=== PATIENT | female | born 1940 | race Caucasian/White ===

== ENCOUNTER 2016-12-26 10:06 | Emergency (ER) | payer MEDICARE, BC ==
[2016-12-26] MEDS ORDERED: HYDROcodone/APAP 5-325MG 1 EACH TAB PO STA (10:36)
--- NOTE | 2016-12-26 10:39 | ED ---
Extremity Problem HPI - General Chief complaint: Extremity Problem,Nontraumatic Stated complaint: PAIN ALL OVER Time Seen by Provider: 12/26/16 10:18 Source: patient, family, RN notes reviewed Mode of arrival: wheelchair Limitations: no limitations - History of Present Illness Initial comments: 76-year-old female presenting for bilateral knee pain and bilateral forearm pain. Patient states that she has been having this pain for the past few weeks however it's gotten worse in the past several days. She does state that she fell about a week ago, although the pain started prior to her fall. She states that she fell onto her knees and was able to get up shortly afterwards. Her was present for this and denies that she had any head injury or loss of consciousness. They deny any blood thinners. She states, however, that she is having worsening pain in her knees and this is causing her difficulty to walk. She denies any lower extremity swelling. She denies any chest pain or shortness of breath. She denies any fevers or chills. She has tried Aleve at times which somewhat helped her symptoms, although they seem to return when the medication wears off. - Related Data Home Medications Medication Instructions Recorded Confirmed Carbidopa/Levodopa 1 tab PO BID 12/26/16 12/26/16 [Carbidopa-Levodopa 25-100 Tab] Citalopram Hydrobromide 20 mg PO DAILY 12/26/16 12/26/16 [Citalopram HBr] Donepezil [Aricept] 10 mg PO DAILY 12/26/16 12/26/16 Memantine [Namenda] 10 mg PO BID 12/26/16 12/26/16 OLANZapine [Olanzapine] 10 mg PO HS 12/26/16 12/26/16 rOPINIRole HCL [Ropinirole HCl] 2 mg PO TID 12/26/16 12/26/16 Previous Rx's Medication Instructions Recorded HYDROcodone/APAP 5-325MG [[place] 1 tab PO Q6HR PRN #8 tab 12/26/16 5-325] Allergies Allergy/AdvReac Type Severity Reaction Status Date / Time aspirin Allergy Swelling Verified 12/26/16 11:17 Review of Systems ROS Statement: Those systems with pertinent positive or pertinent negative responses have been documented in the HPI. Constitutional: No fevers. No chills. No change in appetite. No unexpected weight loss. Eyes: No visual changes. No eye pain. No sensitivity to light. HENT: No sinus pressure. No ear pain. No hearing changes. No epistaxis. No sore throat. Respiratory: No cough. No SOB. No wheezing. Cardiovascular: No chest pain. No palpitations. No lower extremity edema. Abdomen: No abdominal pain. No nausea. No vomiting. No diarrhea. Genitourinary: No dysuria. No hematuria. No difficulty urinating. No flank pain. Musculoskeletal: Positive knee and arm pain bilateral. No back pain. No myalgias. Skin: No rash. No lesions. No lacerations. Neuro: No gross strength deficits. No LOC. No seizures. No headache. Psych: No confusion. No memory changes. No anxiety/depression. ROS Other: All systems not noted in ROS Statement are negative. Past Medical History Past Medical History: Dementia History of Any Multi-Drug Resistant Organisms: None Reported Past Surgical History: Orthopedic Surgery Past Psychological History: Anxiety Smoking Status: Former smoker Past Alcohol Use History: None Reported Past Drug Use History: None Reported General Exam - General Exam Comments Initial Comments: General: Awake and Alert. No acute distress. Does not appear acutely ill. Eyes: ALVARO, EOM intact. No nystagmus. No scleral icterus. HENT: Atraumatic, normocephalic. Mucous membranes moist. Trachea midline. Neck: The neck is supple, there is no tenderness or JVD. Cardiovascular: Regular rate and rhythm. No murmur, rub, or gallop is appreciated. Distal pulses intact, 2+ DP and radial bilateral. Trace edema bilateral lower extremity below the knee. Respiratory: Lungs are clear to auscultation bilaterally. No wheezes, rales, rhonchi. No respiratory distress. Gastrointestinal: Soft, Nontender. No rebound or guarding. Non-distended. No masses or organomegaly noted. No CVA tenderness. Musculoskeletal: Bilateral knees with history of total knee replacement. There is mild effusion bilaterally although evidence of overlying erythema or significant tenderness. Range of motion appears grossly intact. She also has tenderness to her bilateral proximal forearms. There is no elbow tenderness or effusion and there is good range of motion throughout. There is no back tenderness. There is no evidence of any gross deformity throughout. No strength deficits. Neurological: A&Ox3. CN II-XII grossly intact, There are no obvious motor or sensory deficits. Coordination appears grossly intact. Speech is normal. No saddle paresthesias. Skin: Skin is warm and dry and no rashes or lesions are noted. Small area of ecchymosis on the left patella. Psychiatric: Cooperative, appropriate mood & affect, normal judgment. Limitations: no limitations Course Vital Signs 12/26/16 12/26/16 10:10 13:28 Temperature 98 F 98.2 F Pulse Rate 94 78 Respiratory 20 18 Rate Blood Pressure 122/66 120/60 O2 Sat by Pulse 95 98 Oximetry Medical Decision Making - Medical Decision Making 76-year-old female presenting for bilateral upper and lower extremity pain. also states that she experienced generalized weakness today was concerned about this. The patient denies any chest pain or shortness of breath. On clinical exam she appears stable. Patient's main complaint is of bilateral knees as well as bilateral forearms. She is concerned that she may have a back issue. However she denies any history of chronic back issues nor any recent trauma or injury. There is no tenderness or deformity on examination. History of bilateral knee replacements. X-ray imaging of bilateral knees without acute process or fracture. Chest x-ray was unremarkable. EKG without evidence of ischemia. Basic lab workup is grossly unremarkable. Patient was given [place] for her pain. On reevaluation she states she is feeling significant improvement. She was able to ambulate with staff and did well without any gait instability. She states she is feeling much better. Had discussion with patient and about uncertain etiology of her recent symptoms of weakness although findings in the ED today are reassuring. Discussed close follow-up with PCP and orthopedics. states that they have follow-up with both of these doctors within the next week. Discussed that she will likely benefit from some outpatient physical therapy that can be arranged by her PCP. Discussed concerning signs symptoms for immediate return to the ED. Patient and are agreeable for plan and discharge home. Rx for [place] was provided, discussed being careful for falls with this medication. - Lab Data Result diagrams: 12/26/16 11:10 12/26/16 11:10 Lab Results 12/26/16 12/26/16 Range/Units 11:10 11:10 WBC 7.2 (3.8-10.6) k/uL RBC 3.12 L (3.80-5.40) m/uL Hgb 9.5 L (11.4-16.0) gm/dL Hct 31.1 L (34.0-46.0) % MCV 99.7 (80.0-100.0) fL MCH 30.6 (25.0-35.0) pg MCHC 30.7 L (31.0-37.0) g/dL RDW 18.6 H (11.5-15.5) % Plt Count 425 (150-450) k/uL Neutrophils % 81 % Lymphocytes % 14 % Monocytes % 3 % Eosinophils % 0 % Basophils % 1 % Neutrophils # 5.9 (1.3-7.7) k/uL Lymphocytes # 1.0 (1.0-4.8) k/uL Monocytes # 0.2 (0-1.0) k/uL Eosinophils # 0.0 (0-0.7) k/uL Basophils # 0.1 (0-0.2) k/uL Hypochromasia Moderate Anisocytosis Slight Macrocytosis Slight Sodium 141 (137-145) mmol/L Potassium 4.4 (3.5-5.1) mmol/L Chloride 105 (98-107) mmol/L Carbon Dioxide 28 (22-30) mmol/L Anion Gap 8 mmol/L BUN 20 H (7-17) mg/dL Creatinine 0.68 (0.52-1.04) mg/dL Est GFR (MDRD) Af Amer >60 (>60 ml/min/1.73 sqM) Est GFR (MDRD) Non-Af >60 (>60 ml/min/1.73 sqM) Glucose 92 (74-99) mg/dL Calcium 8.0 L (8.4-10.2) mg/dL Magnesium 1.9 (1.6-2.3) mg/dL - EKG Data -: EKG Interpreted by Dc EKG shows normal: sinus rhythm Rate: normal 12/26/16 11:06 10:48. Normal sinus rhythm. Rate 86. MA 154. QRS 80. QT/QTC 410/490. Normal axis. LVH. No STEMI. Nonspecific EKG. - Radiology Data Radiology results: report reviewed, image reviewed Disposition Clinical Impression: Leg pain, bilateral, Bilateral arm pain, Generalized weakness Disposition: HOME SELF-CARE Condition: Stable Instructions: Knee Pain (ED), Arm Pain (ED), Weakness (ED) Additional Instructions: Please follow up with your family doctor as soon as possible. Discussed your ER visit today and ask to set up outpatient physical therapy. Also please follow up with your Orthopedic doctor. Please be careful when taking the [place] as it may make you dizzy or unsteady while walking. Prescriptions: HYDROcodone/APAP 5-325MG [[place] 5-325] 1 tab PO Q6HR PRN #8 tab PRN Reason: Pain Referrals: Zach Salcedo MD [Primary Care Provider] - 1-2 days Time of Disposition: 13:16
[2016-12-26 11:51] LABS: Anion Gap 8 mmol/L; Blood Urea Nitrogen 20 mg/dL (7-17); Carbon Dioxide 28 mmol/L (22-30); Chloride 105 mmol/L (98-107); Glucose 92 mg/dL (74-99); Magnesium 1.9 mg/dL (1.6-2.3); Non-African American GFR(MDRD) >60 (>60 ml/min/1.73 sqM); Potassium 4.4 mmol/L (3.5-5.1); Sodium 141 mmol/L (137-145)
[2016-12-26 11:54] LABS: Anisocytosis Slight; Basophils # (A) 0.1 k/uL (0-0.2); Basophils % (A) 1 %; CH 31.3; CHCM 31.4; Eosinophils % (A) 0 %; HCT 31.1 % (34.0-46.0); HDW 2.95; HGB 9.5 gm/dL (11.4-16.0); Hypochromasia Moderate; Luc # (Auto) 0.05; Luc % (Auto) 1; Lymphocytes % (A) 14 %; MCH 30.6 pg (25.0-35.0); MCHC 30.7 g/dL (31.0-37.0); MCV 99.7 fL (80.0-100.0); Macrocytosis Slight; Mean Platelet Volume 8.6; Monocytes # (A) 0.2 k/uL (0-1.0); Monocytes % (A) 3 %; Neutrophils # (A) 5.9 k/uL (1.3-7.7); Neutrophils % (A) 81 %; RBC 3.12 m/uL (3.80-5.40); RDW 18.6 % (11.5-15.5); WBC 7.2 k/uL (3.8-10.6); WBC (Perox) 6.68
--- NOTE | 2016-12-26 12:04 | XR ---
EXAMINATION TYPE: XR knee complete bilateral DATE OF EXAM: 12/26/2016 11:49 AM COMPARISON: NONE HISTORY: Post knee replacement fall pain TECHNIQUE: 3 views bilateral knees FINDINGS: Left knee: Left tibial and femoral components are present. Right knee: Right tibial femoral components are present. No acute fractures are evident. No joint effusions are evident. IMPRESSION: 1. No acute osseous abnormality.
--- NOTE | 2016-12-26 12:06 | XR ---
EXAMINATION TYPE: XR chest 2V DATE OF EXAM: 12/26/2016 11:49 AM COMPARISON: 08/08/2010 INDICATION: Cough TECHNIQUE: Frontal and lateral views of the chest are obtained. FINDINGS: The heart size is normal. The pulmonary vasculature is normal. Small stable rounded densities at the right apex. Lungs are otherwise clear. IMPRESSION: 1. No acute pulmonary process.
[2016-12-26 13:29] VITALS: BP 120/60; PULSE 78; RESP 18; TEMP 98.2
== END 2016-12-26 13:29 | disposition home or self-care (01) ==
LOC: EC 10:06
DX: M79.605 Pain in left leg (principal); M25.561 Pain in right knee; M79.601 Pain in right arm; M79.602 Pain in left arm; F41.9 Anxiety disorder, unspecified; Z96.659 Presence of unspecified artificial knee joint; R53.1 Weakness; Z91.81 History of falling; Z87.891 Personal history of nicotine dependence; Z79.899 Other long term (current) drug therapy; Z88.6 Allergy status to analgesic agent; F03.90 Unspecified dementia, unspecified severity, without behavioral disturbance, psychotic disturbance, mood disturbance, and anxiety
CPT/HCPCS: 36415; 71020; 80048; 83735; 85025; 93005; 99284

== ENCOUNTER 2017-06-08 13:41 | Emergency (ER) | payer MEDICARE, BC ==
--- NOTE | 2017-06-08 14:40 | ED ---
General Adult HPI - General Chief complaint: Fall Stated complaint: FALL AT THE [employer] Time Seen by Provider: 06/08/17 14:11 Source: patient, family, RN notes reviewed, old records reviewed Mode of arrival: EMS Limitations: no limitations - History of Present Illness Initial comments: Chief complaint and history of present illness 77-year-old female here with her . The patient came by ambulance. The patient was walking into a restaurant when she tripped on the mat falling forward. Hitting her head on a counter. She presents with a 2 and half centimeter laceration to her upper forehead. No loss of consciousness. Patient complains of pain to her left knee and left elbow. There is no seizure activity or nausea or vomiting. The patient is on Coumadin. Her last INR last week was 3.1. - Related Data Home Medications Medication Instructions Recorded Confirmed Carbidopa/Levodopa 1 tab PO BID 12/26/16 06/08/17 [Carbidopa-Levodopa 25-100 Tab] Citalopram Hydrobromide 20 mg PO DAILY 12/26/16 06/08/17 [Citalopram HBr] Donepezil [Aricept] 10 mg PO BID 12/26/16 06/08/17 OLANZapine [Olanzapine] 10 mg PO HS 12/26/16 06/08/17 rOPINIRole HCL [Ropinirole HCl] 2 mg PO TID 12/26/16 06/08/17 Metoprolol Tartrate [Lopressor] 25 mg PO BID 06/08/17 06/08/17 Warfarin [Coumadin] 7.5 mg PO DAILY 06/08/17 06/08/17 predniSONE 5 mg PO QAM 06/08/17 06/08/17 Allergies Allergy/AdvReac Type Severity Reaction Status Date / Time aspirin Allergy Swelling Verified 06/08/17 14:13 Review of Systems ROS Statement: Those systems with pertinent positive or pertinent negative responses have been documented in the HPI. Review of systems no complaint of visual acuity changes. Does not complain of headache. She does have a laceration to her upper forehead. She fell forward. No significant neck pain. No chest pain no collarbone pain or shoulder pain. She does of left elbow pain but she is able to move it. No complaint of pain to the hands or wrists. No abdominal pain no back pain. Does complain of left knee pain. No neuro deficits. No loss of consciousness when she fell no nausea no vomiting no seizure activity. All systems reviewed. Past medical problems include dementia. Patient surgeries hysterectomy total left knee, reviewed his right knee surgery as well. ALLERGIES to aspirin. Currently on Coumadin. Nonsmoker nondrinker ROS Other: All systems not noted in ROS Statement are negative. Past Medical History Past Medical History: Dementia History of Any Multi-Drug Resistant Organisms: None Reported Past Surgical History: Hysterectomy, Orthopedic Surgery Additional Past Surgical History / Comment(s): bilat knee rx. Past Psychological History: Anxiety Smoking Status: Former smoker Past Alcohol Use History: None Reported Past Drug Use History: None Reported General Exam - General Exam Comments Initial Comments: General: The patient is awake and alert, arrived via EMS with a [place] collar on IV started in the right arm. Vital signs temp 97.9 pulse 66 respiratory rate 18 pulse ox 94% room air blood pressure 112/56 Eye: Pupils are equal, round and reactive to light, extra-ocular movements are intact ; there is normal conjunctiva bilaterally. No signs of icterus. Ears, nose, mouth and throat: There are moist mucous membranes and no oral lesions. 2-1/2 cm laceration forehead. Neck: Patient has a [place] collar on. Cardiovascular: There is a regular rate and rhythm. No murmur, rub or gallop is appreciated. Respiratory: Lungs are clear to auscultation, respirations are non-labored, breath sounds are equal. No wheezes, stridor, rales, or rhonchi. Gastrointestinal: Soft, non-distended, non-tender abdomen without masses or organomegaly noted. There is no rebound or guarding present. No CVA tenderness. Bowel sounds are unremarkable. Back: There is no tenderness to palpation in the midline. There is no obvious deformity. No rashes noted. Musculoskeletal: Pain to her left elbow but near normal range of motion. Multiple old skin tears 1 new one. Area to be cleaned and Steri-Stripped.. Pain left knee bruising but able to flex and extend no pain at the hips with range of motion testing. Neurological: CN II-XII intact, There are no obvious motor or sensory deficits. Examination while laying in bed all within normal limits. History of dementia but answering questions. Skin: Skin is warm and dry and no rashes or lesions are noted. Psychiatric: Cooperative, appropriate mood & affect. History of dementia Limitations: no limitations Course Vital Signs 06/08/17 06/08/17 13:45 15:23 Temperature 97.9 F Pulse Rate 66 60 Respiratory 18 18 Rate Blood Pressure 112/56 121/58 O2 Sat by Pulse 94 L 96 Oximetry Procedures - Procedures Initial comment: Her seizure; laceration repair. Using sterile technique. 1% Xylocaine was used to numb the area, laceration measured 2.5 cm. It was closed with 3 sutures of 5-0 nylon in a mattress style pattern. Pressure was applied. Hemostasis obtained. Small amount of bacitracin applied. Sutures out in [address] Henderson Medical Decision Making - Medical Decision Making Medical decision making; the patient had CAT scan of the brain and cervical spine done that was reviewed. The radiologist's final impression is cerebral atrophy and chronic small vessel ischemia. No acute intracranial abnormality. No significant change compared to old exam. Spondylotic changes in the lower cervical spine. No fracture. As read by Dr. King X-ray of the left knee was done reviewed by radiologist his impression is no acute abnormality left knee no adverse changes compared to old exam. As read by Dr. King X-ray of the left elbow was done and reviewed the x-rays no evidence for acute bony irregularity. No evidence of any joint effusion. Awaiting radiologist's final impression. Dr. Henderson - Lab Data Lab Results 06/08/17 Range/Units 15:20 PT 49.6 H (9.0-12.0) sec INR 5.0 H* (<1.1) Disposition Clinical Impression: Laceration, Contusion, Fall Disposition: HOME SELF-CARE Condition: Fair Instructions: Fall Prevention for Older Adults (ED), Facial Laceration (ED), Contusion in Adults (ED) Additional Instructions: Tylenol for pain. Do not take Coumadin this evening get INR rechecked tomorrow. Ice to areas of bumps and bruising. Return in 5 days for suture to bring removed earlier should be signs of infection. Referrals: Zach Salcedo MD [Primary Care Provider] - 1-2 days Time of Disposition: 16:39
--- NOTE | 2017-06-08 15:23 | CT ---
EXAMINATION TYPE: CT brain caleb barney DATE OF EXAM: 06/08/2017 COMPARISON: CT brain 05/24/2010 HISTORY: Fall at Restaurant, on Coumadin CT DLP: Brain (1126.50) and C-spine (401.80) mGycm Automated exposure control for dose reduction was used. TECHNIQUE: CT scan of the head and cervical spine are performed without contrast. FINDINGS: There is patchy hypodensity in the periventricular white matter and more noticeable in th e parietal and occipital lobes. There is no mass effect nor midline shift. There is no sign of intrac ranial hemorrhage. The calvarium is intact. There is cerebral cortical atrophy. Cervical vertebra are fairly normal alignment. There is hypertrophic anterior spurring from C4 to T1. There is mild facet arthropathy. Skull base is intact. There is no evidence of a fracture. IMPRESSION: Cerebral atrophy and chronic small vessel ischemia. No acute intracranial abnormality. No significant change compared to old exam. Spondylotic changes in the lower cervical spine. No fracture.
[2017-06-08 15:47] LABS: Prothrombin Time 49.6 sec (9.0-12.0)
--- NOTE | 2017-06-08 16:00 | XR ---
EXAMINATION TYPE: XR knee complete LT DATE OF EXAM: 06/08/2017 COMPARISON: 12/26/2016 HISTORY: Pain TECHNIQUE: 3 views FINDINGS: I see no fracture nor dislocation. There is a left knee prosthesis. Components appear in an atomic position. There is some spurring on the patella. IMPRESSION: No acute abnormality of the left knee no adverse change compared to old exam.
--- NOTE | 2017-06-08 16:25 | XR ---
EXAMINATION TYPE: XR elbow complete LT DATE OF EXAM: 06/08/2017 COMPARISON: NONE HISTORY: Pain TECHNIQUE: 4 views FINDINGS: I see no fracture nor dislocation. Joint spaces are normal. IMPRESSION: Negative left elbow exam.
[2017-06-08] MEDS ORDERED: DIPH,PERTUS(ACELL)TETVAC-LF 0.5 ML VIAL IM ONE (16:36)
[2017-06-08 17:26] VITALS: BP 127/62; PULSE 88; RESP 18; TEMP 98.5
== END 2017-06-08 17:40 | disposition home or self-care (01) ==
LOC: EC 13:41
DX: S01.81XA Laceration without foreign body of other part of head, initial encounter (principal); S51.012A Laceration without foreign body of left elbow, initial encounter; S80.02XA Contusion of left knee, initial encounter; G31.9 Degenerative disease of nervous system, unspecified; F02.80 Dementia in other diseases classified elsewhere, unspecified severity, without behavioral disturbance, psychotic disturbance, mood disturbance, and anxiety; Z23 Encounter for immunization; Z88.6 Allergy status to analgesic agent; Z79.01 Long term (current) use of anticoagulants; Z79.899 Other long term (current) drug therapy; Z87.891 Personal history of nicotine dependence; W01.198A Fall on same level from slipping, tripping and stumbling with subsequent striking against other object, initial encounter; Y93.01 Activity, walking, marching and hiking; Y92.511 Restaurant or cafe as the place of occurrence of the external cause
CPT/HCPCS: 12011; 36415; 70450; 72125; 85610; 90471; 90715; 99285

== ENCOUNTER 2019-07-09 12:45 | Emergency (ER) | payer MEDICARE, BC ==
[2019-07-09 12:54] VITALS: RESP 16; TEMP 97.9
[2019-07-09] MEDS ORDERED: HYDROcodone/APAP 5-325MG 1 EACH TAB PO STA (13:11)
--- NOTE | 2019-07-09 13:38 | XR ---
EXAMINATION TYPE: XR elbow complete LT DATE OF EXAM: 07/09/2019 CLINICAL HISTORY: Laceration injury with pain. TECHNIQUE: Frontal, lateral and oblique images of the left elbow are obtained. COMPARISON: Left elbow x-ray June 08, 2017. FINDINGS: Demineralization is present. There is no acute fracture/dislocation evident in the left elb ow. No abnormal fat pad signs are seen. The overlying soft tissue appears unremarkable. IMPRESSION: There is no acute fracture or dislocation in the left elbow. No significant change from prior.
--- NOTE | 2019-07-09 13:39 | XR ---
EXAMINATION TYPE: XR shoulder complete LT DATE OF EXAM: 07/09/2019 CLINICAL HISTORY: Pain after injury yesterday. TECHNIQUE: Three views of the left shoulder are obtained. COMPARISON: Two-view chest x-ray December 26, 2016. FINDINGS: Demineralization is present. There is age indeterminate displaced fracture proximal metadia physis left humerus. Fracture new from 2017 study. There is suggestion however of some callus formati on along medial margin. Glenohumeral joint is maintained. AC joint shows moderate narrowing. Visualiz ed ribs are intact. IMPRESSION: As above, correlate clinically.
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
[2019-07-09 14:26] VITALS: BP 128/70; PULSE 78
--- NOTE | 2019-07-12 05:45 | CDI ---
Documentation Clarification OP Dear Agusto CELESTE, PAC Please provide abrasion specific location. Thank you, Paula Reynolds Public Space Attendant If you have any questions, please contact Nanotechnologist at [phone] [facility]
== END 2019-07-09 14:10 | disposition home or self-care (01) ==
LOC: EC 12:45
DX: S50.02XA Contusion of left elbow, initial encounter (principal); I10 Essential (primary) hypertension; F41.9 Anxiety disorder, unspecified; F03.90 Unspecified dementia, unspecified severity, without behavioral disturbance, psychotic disturbance, mood disturbance, and anxiety; Z86.718 Personal history of other venous thrombosis and embolism; Z87.891 Personal history of nicotine dependence; Z87.81 Personal history of (healed) traumatic fracture; Z79.01 Long term (current) use of anticoagulants; Z79.52 Long term (current) use of systemic steroids; Z79.899 Other long term (current) drug therapy; Z88.6 Allergy status to analgesic agent; W22.8XXA Striking against or struck by other objects, initial encounter; Y93.01 Activity, walking, marching and hiking
CPT/HCPCS: 99283

== ENCOUNTER 2020-07-11 09:58 | Emergency (ER) | payer MEDICARE, BC ==
[2020-07-11 10:06] VITALS: BP 128/77; PULSE 69; RESP 18; TEMP 98
[2020-07-11] MEDS ORDERED: TOPICAL SKIN ADHESIVE 1 EACH AMP TOPICAL ONE (10:41)
--- NOTE | 2020-07-11 10:49 | ED ---
General Adult HPI - General Chief complaint: Recheck/Abnormal Lab/Rx Stated complaint: Leg lac Source: EMS Mode of arrival: EMS Limitations: no limitations - History of Present Illness Initial comments: Patient is a 80-year-old female presents emergency room with reported bleeding from the left lower extremity. She has a history of dementia. Family noted that she was bleeding therefore called EMS. She is on [place]. EMS arrived and wrapped with a felt was a varicose vein with a pressure bandage. Patient arrives and cannot provide a history. Family states that they brought her in because the bleeding would not stop. The patient has not had any fevers or chills. EMS did note that the patient had a cough however family states this is chronic for her. The remainder of the HPI is limited because of the patient's dementia - Related Data Home Medications Medication Instructions Recorded Confirmed Carbidopa/Levodopa 1 tab PO BID 12/26/16 06/08/17 [Carbidopa-Levodopa 25-100 Tab] Citalopram Hydrobromide 20 mg PO DAILY 12/26/16 06/08/17 [Citalopram HBr] Donepezil [Aricept] 10 mg PO BID 12/26/16 06/08/17 OLANZapine [Olanzapine] 10 mg PO HS 12/26/16 06/08/17 rOPINIRole HCL [Ropinirole HCl] 2 mg PO TID 12/26/16 06/08/17 Metoprolol Tartrate [Lopressor] 25 mg PO BID 06/08/17 06/08/17 Warfarin [Coumadin] 7.5 mg PO DAILY 06/08/17 06/08/17 predniSONE 5 mg PO QAM 06/08/17 06/08/17 Allergies Allergy/AdvReac Type Severity Reaction Status Date / Time aspirin Allergy Swelling Verified 07/09/19 12:53 Review of Systems ROS Statement: Those systems with pertinent positive or pertinent negative responses have been documented in the HPI. ROS Other: All systems not noted in ROS Statement are negative. Past Medical History Past Medical History: Dementia, Deep Vein Thrombosis (DVT), Hypertension History of Any Multi-Drug Resistant Organisms: None Reported Past Surgical History: Hysterectomy, Orthopedic Surgery Additional Past Surgical History / Comment(s): bilat knee rx. Past Psychological History: Anxiety Smoking Status: Never smoker Past Alcohol Use History: None Reported Past Drug Use History: None Reported General Exam Limitations: no limitations Course Vital Signs 08/11/20 08/11/20 09:59 10:06 Temperature 98.0 F Pulse Rate 69 Respiratory 18 Rate Blood Pressure 128/77 O2 Sat by Pulse 92 L 96 Oximetry Medical Decision Making - Medical Decision Making Upon arrival patient placed into room 7. A thorough history and physical exam was performed. Bandages unwrapped and bleeding is controlled at this time. I did use Dermabond over the site of the varicose vein to prevent further bleeding. Patient is instructed that this will wear off in the next 10 days. Do not use overlying creams as this will accelerate breakdown. Family patient understood this. She has no other concerns and therefore patient will be discharged home at this time Disposition Clinical Impression: Varicose vein of leg Disposition: HOME SELF-CARE Condition: Stable Instructions (If sedation given, give patient instructions): Skin Adhesive Care (ED) Additional Instructions: Please follow-up with your primary care doctor. Return to the department for any new or worsening symptoms Is patient prescribed a controlled substance at d/c from ED?: No Referrals: None,Stated [Primary Care Provider] - 1-2 days Time of Disposition: 10:49
== END 2020-07-11 13:50 | disposition home or self-care (01) ==
LOC: EC 09:58
DX: I83.892 Varicose veins of left lower extremity with other complications (principal); F41.9 Anxiety disorder, unspecified; I10 Essential (primary) hypertension; Z79.01 Long term (current) use of anticoagulants; Z88.6 Allergy status to analgesic agent; Z86.718 Personal history of other venous thrombosis and embolism; Z98.890 Other specified postprocedural states
CPT/HCPCS: 99283

== ENCOUNTER 2020-10-24 15:59 | Inpatient (IN) | payer MEDICARE, BC ==
[2020-10-24] MEDS ORDERED: NALOXONE 0.4 MG/ML 1 ML VIAL IV PRN (16:45)
[2020-10-24] MEDS ORDERED: HEPARIN SODIUM,PORCINE 10,000 UNIT/ML 1 ML VIAL IV ONE (16:49)
[2020-10-24] MEDS ORDERED: HEPARIN SODIUM,PORCINE 5,000 UNIT/ML 1 ML VIAL IV PRN (16:49)
--- NOTE | 2020-10-24 16:54 | ED ---
Recheck HPI - General Source: patient Mode of arrival: wheelchair Limitations: no limitations <Bárbara Chavez - Last Filed: 10/24/20 16:50> <Dejan Guerrero - Last Filed: 10/24/20 17:06> - General Chief Complaint: Recheck/Abnormal Lab/Rx Stated Complaint: sore leg/poss blood clot Time Seen by Provider: 10/24/20 16:13 - History of Present Illness Initial Comments: 80-year-old female patient presents to the emergency Department after getting a positive ultrasound of her leg outpatient today. Patient states she woke this morning with significant left leg swelling and pain and tenderness over the left lateral aspect of her calf. She states that she does have history of DVTs that she went to the doctor where they performed outpatient ultrasound. The primary report read that she had a nonoccluding DVT in the distal femoral vein and popliteal vein and she is instructed to come to the emergency department for further evaluation. Patient does currently take Eliquis 5mg twice daily. She denies any chest pain or shortness of breath. She denies any recent long car rides, but does admit to sedentary life style. Patient denies any recent rash, fever, chills, cough, abdominal pain, nausea, vomiting, diarrhea, constipation, back pain, numbness, tingling, dizziness, weakness, hematuria, dysuria, urinary urgency, urinary frequency, headache, visual changes, or any other complaints. (Bárbara Chavez) - Related Data Home Medications Medication Instructions Recorded Confirmed Carbidopa/Levodopa 1 tab PO BID 12/26/16 06/08/17 [Carbidopa-Levodopa 25-100 Tab] Citalopram Hydrobromide 20 mg PO DAILY 12/26/16 06/08/17 [Citalopram HBr] Donepezil [Aricept] 10 mg PO BID 12/26/16 06/08/17 OLANZapine [Olanzapine] 10 mg PO HS 12/26/16 06/08/17 rOPINIRole HCL [Ropinirole HCl] 2 mg PO TID 12/26/16 06/08/17 Metoprolol Tartrate [Lopressor] 25 mg PO BID 06/08/17 06/08/17 Warfarin [Coumadin] 7.5 mg PO DAILY 06/08/17 06/08/17 predniSONE 5 mg PO QAM 06/08/17 06/08/17 Allergies Allergy/AdvReac Type Severity Reaction Status Date / Time aspirin Allergy Swelling Verified 10/24/20 16:12 Review of Systems ROS Other: All systems not noted in ROS Statement are negative. <Bárbara Chavez - Last Filed: 10/24/20 16:50> ROS Other: All systems not noted in ROS Statement are negative. <Dejan Guerrero - Last Filed: 10/24/20 17:06> ROS Statement: Those systems with pertinent positive or pertinent negative responses have been documented in the HPI. Past Medical History Past Medical History: Dementia, Deep Vein Thrombosis (DVT), Hypertension History of Any Multi-Drug Resistant Organisms: None Reported Past Surgical History: Hysterectomy, Orthopedic Surgery Additional Past Surgical History / Comment(s): bilat knee rx. Past Psychological History: Anxiety Smoking Status: Never smoker Past Alcohol Use History: None Reported Past Drug Use History: None Reported <Bárbara Chavez - Last Filed: 10/24/20 16:50> General Exam Limitations: no limitations General appearance: alert, in no apparent distress, other (Physical well- developed, well-nourished adult female patient in no acute distress. Vital signs upon presentation are temperature 98.1F, pulse 61, respirations 16, blood pressure 138/74, pulse ox 95% on room air.) Eye exam: Present: normal appearance, PERRL, EOMI. Absent: scleral icterus, conjunctival injection, periorbital swelling ENT exam: Present: normal exam, normal oropharynx, mucous membranes moist Respiratory exam: Present: normal lung sounds bilaterally. Absent: respiratory distress, wheezes, rales, rhonchi, stridor Cardiovascular Exam: Present: regular rate, normal rhythm, normal heart sounds. Absent: systolic murmur, diastolic murmur, rubs, gallop, clicks GI/Abdominal exam: Present: soft, normal bowel sounds. Absent: distended, tenderness, guarding, rebound, rigid Extremities exam: Present: full ROM, normal capillary refill, other (There is generalized swelling noted to the left leg, there is focal area of erythema and tenderness over the left lateral calf. Skin is discolored. Pedal pulses palpable.). Absent: normal inspection, tenderness, pedal edema, joint swelling, calf tenderness Neurological exam: Present: alert, oriented X3, CN II-XII intact Psychiatric exam: Present: normal affect, normal mood Skin exam: Present: warm, dry, intact, normal color. Absent: rash <Bárbara Chavez - Last Filed: 10/24/20 16:50> Course Vital Signs 10/24/20 16:08 Temperature 98.1 F Pulse Rate 61 Respiratory 16 Rate Blood Pressure 158/74 O2 Sat by Pulse 95 Oximetry Medical Decision Making <Bárbara Chavez - Last Filed: 10/24/20 16:50> <Dejan Guerrero - Last Filed: 10/24/20 17:06> - Medical Decision Making 80-year-old female patient presents to the emergency department today for evaluation of left leg swelling and erythema. She did have an outpatient ultrasound performed which showed evidence for nonoccluding DVT in the distal femoral vein and popliteal vein though patient does have positive signs of DVT. She does take Eliquis 5 mg twice a day outpatient. She will be admitted to the hospital for further evaluation by hematology with high-dose heparin. She is agreeable with this plan. (Bárbara Chavez) Patient reexamined and reevaluated by myself, Dr. Guerrero. I agree with the findings. This includes diagnostic interpretation and treatment plan. Patient does have left calf tenderness with some mild swelling and erythema. Outpatient ultrasound concerning for distal femoral and popliteal nonoccluding DVT. Patient has symptoms consistent with this. Patient is on Eliquis 5 twice a day. Patient and family are very poor historians and are unclear why. They are not actually aware of the patient is actually on this medication. This was confirmed by patient's pharmacy. Reportedly patient does have history of previous PE and DVT diagnosed previously at [facility] however unclear when. Case was discussed with [facility] physician Dr. Gautam, who will admit covering for hospital call. (Dejan Guerrero) Disposition Decision to Admit Reason: Admit from EC Decision Date: 10/24/20 Decision Time: 16:54 <Bárbara Chavez - Last Filed: 10/24/20 16:50> <Dejan Guerrero - Last Filed: 10/24/20 17:06> Clinical Impression: Left leg DVT Disposition: ADMITTED IP TO THIS [facility] Condition: Serious Referrals: Zach Salcedo MD [Primary Care Provider] - 1-2 days
[2020-10-24 17:13] LABS: ALT <6 U/L (4-34); AST 30 U/L (14-36); African American GFR (CKD) >90 (>60 ml/min/1.73 sqM); Albumin 3.4 g/dL (3.5-5.0); Alkaline Phosphatase 90 U/L (38-126); Anion Gap 3 mmol/L; Blood Urea Nitrogen 17 mg/dL (7-17); Calcium 8.4 mg/dL (8.4-10.2); Carbon Dioxide 31 mmol/L (22-30); Chloride 104 mmol/L (98-107); Glucose 87 mg/dL (74-99); Non-African American GFR(CKD) 83 (>60 ml/min/1.73 sqM); Potassium 4.4 mmol/L (3.5-5.1); Sodium 138 mmol/L (137-145); Total Bilirubin 0.6 mg/dL (0.2-1.3); Total Protein 7.3 g/dL (6.3-8.2)
[2020-10-24 17:15] LABS: Anisocytosis Slight; Basophils # (A) 0.1 k/uL (0-0.2); Basophils % (A) 2 %; Eosinophils # (A) 0.1 k/uL (0-0.7); Eosinophils % (A) 3 %; HCT 35.2 % (34.0-46.0); HGB 11.4 gm/dL (11.4-16.0); Hypochromasia Slight; Lymphocytes # (A) 1.1 k/uL (1.0-4.8); Lymphocytes % (A) 28 %; MCH 32.3 pg (25.0-35.0); MCHC 32.4 g/dL (31.0-37.0); MCV 99.9 fL (80.0-100.0); Macrocytosis Moderate; Mean Platelet Volume 9.4; Monocytes # (A) 0.3 k/uL (0-1.0); Monocytes % (A) 8 %; Neutrophils # (A) 2.2 k/uL (1.3-7.7); Neutrophils % (A) 57 %; Platelet Count 229 k/uL (150-450); RBC 3.52 m/uL (3.80-5.40); RDW 19.9 % (11.5-15.5); WBC 3.9 k/uL (3.8-10.6)
[2020-10-24 17:16] LABS: INR 1.1 (<1.2); Partial Thromboplastin Time 27.3 sec (22.0-30.0); Prothrombin Time 11.1 sec (9.0-12.0)
--- NOTE | 2020-10-24 18:11 | P.HPIM ---
History of Present Illness H&P Date: 10/24/20 Chief Complaint: Leg pain the patient is an 80-year-old female poor historian history was obtainable from the patient and her who was sitting at bedside. She has a history of DVT and PE about 2-3 years ago. The patient is on Mevacor as confirmed by her pharmacy in the emergency room however patient was not aware of her medications. The was also not aware he states the patient takes about 20 pills daily and he gives the pills as advised by the pill container. The patient states she has had left leg swelling. She has her middle toe with ingrown toenail on her spouse was soaking the toe in Epsom salts. The patient was seen by her family physician on an outpatient ultrasound that was positive for a DVT so she was referred to the emergency room. In the emergency room patient denies any change in her recent medications , she states she is compliant, she denies any fevers or chills and cough or productive sputum. The patient was started on IV heparin and she was hospitalized for further workup and management. Review of Systems complete review of systems was done and negative other than as stated above Past Medical History Past Medical History: Dementia, Deep Vein Thrombosis (DVT), Hypertension History of Any Multi-Drug Resistant Organisms: None Reported Past Surgical History: Hysterectomy, Orthopedic Surgery Additional Past Surgical History / Comment(s): bilat knee rx. Past Psychological History: Anxiety Smoking Status: Never smoker Past Alcohol Use History: None Reported Past Drug Use History: None Reported Medications and Allergies Home Medications Medication Instructions Recorded Confirmed Type Carbidopa/Levodopa 1 tab PO BID 12/26/16 06/08/17 History [Carbidopa-Levodopa 25-100 Tab] Citalopram Hydrobromide 20 mg PO DAILY 12/26/16 06/08/17 History [Citalopram HBr] Donepezil [Aricept] 10 mg PO BID 12/26/16 06/08/17 History OLANZapine [Olanzapine] 10 mg PO HS 12/26/16 06/08/17 History rOPINIRole HCL [Ropinirole HCl] 2 mg PO TID 12/26/16 06/08/17 History Metoprolol Tartrate [Lopressor] 25 mg PO BID 06/08/17 06/08/17 History Warfarin [Coumadin] 7.5 mg PO DAILY 06/08/17 06/08/17 History predniSONE 5 mg PO QAM 06/08/17 06/08/17 History Allergies Allergy/AdvReac Type Severity Reaction Status Date / Time aspirin Allergy Swelling Verified 10/24/20 17:55 Physical Exam Vitals: Vital Signs Temp Pulse Resp BP Pulse Ox 10/24/20 16:08 98.1 F 61 16 158/74 95 Intake and Output 10/24/20 10/24/20 10/24/20 06:59 14:59 22:59 Other: Weight 72.575 kg - Constitutional General appearance: no acute distress - EENT Eyes: PERRLA - Respiratory Respiratory: bilateral: CTA - Cardiovascular Rhythm: regular - Gastrointestinal General gastrointestinal: normal bowel sounds - Neurologic Neurologic: CNII-XII intact - Psychiatric Oriented 2, limited insight Results CBC & Chem 7: 10/24/20 16:50 10/24/20 16:50 Labs: Abnormal Lab Results - Last 24 Hours (Table) 10/24/20 10/24/20 Range/Units 16:50 16:50 RBC 3.52 L (3.80-5.40) m/uL RDW 19.9 H (11.5-15.5) % Carbon Dioxide 31 H (22-30) mmol/L Albumin 3.4 L (3.5-5.0) g/dL Assessment and Plan (1) Left leg DVT Narrative/Plan: Patient was started on unfractionated heparin in the emergency room will continue, hematology consult is pending, THE patient has been taking her request correctly since both she and her were not sure that she was actually on an anticoagulant. Labs were sent at this time patient does not recall if she had an underlying clotting disorder. Current Visit: Yes Status: Acute Code(s): I82.402 - ACUTE EMBOLISM AND THOMBOS UNSP DEEP VEINS OF L LOW EXTREM SNOMED Code(s): 950422961 (2) Hypertension Narrative/Plan: Continue outpatient regiment and titrate as needed Current Visit: Yes Status: Acute Code(s): I10 - ESSENTIAL (PRIMARY) HYPERTENSION SNOMED Code(s): 03692349 (3) Parkinsons disease Narrative/Plan: We'll continue her outpatient regiment Current Visit: Yes Status: Acute Code(s): G20 - PARKINSON'S DISEASE SNOMED Code(s): 26716206 (4) Dementia Narrative/Plan: Continue Aricept Current Visit: Yes Status: Acute Code(s): F03.90 - UNSPECIFIED DEMENTIA WITHOUT BEHAVIORAL DISTURBANCE SNOMED Code(s): 05835066 Plan: The patient will likely need graded between midnight state to titrate medic ations to determine need for long-term anticoagulation, she is a full code and her spouse is her POA.
[2020-10-24] MEDS: SODIUM CHLORIDE 0.9% 1,000 ML IV SCH (18:22)
[2020-10-24] MEDS: HEPARIN SOD,PORK IN 0.45% NACL 25,000 UNIT in 0.45% NACL 1 250ML.BAG IV SCH (18:22)
[2020-10-24] MEDS ORDERED: DONEPEZIL 10 MG TAB PO SCH (21:00)
[2020-10-24] MEDS: METOPROLOL TARTRATE 25 MG TAB PO SCH (22:11)
[2020-10-24] MEDS: OLANZapine 10 MG TAB PO SCH (22:21)
[2020-10-24] MEDS: CARBIDOPA-LEVODOPA 25-100 MG 1 EACH TAB PO SCH (22:21)
[2020-10-25 07:11] LABS: Anisocytosis Slight; Basophils % (A) 1 %; Eosinophils # (A) 0.1 k/uL (0-0.7); Eosinophils % (A) 5 %; HCT 35.9 % (34.0-46.0); Hypochromasia Slight; Lymphocytes # (A) 1.1 k/uL (1.0-4.8); Lymphocytes % (A) 36 %; MCH 31.3 pg (25.0-35.0); MCHC 30.7 g/dL (31.0-37.0); MCV 102.2 fL (80.0-100.0); Macrocytosis Moderate; Monocytes # (A) 0.2 k/uL (0-1.0); Monocytes % (A) 7 %; Neutrophils # (A) 1.4 k/uL (1.3-7.7); Neutrophils % (A) 49 %; Platelet Count 238 k/uL (150-450); RBC 3.51 m/uL (3.80-5.40); RDW 19.7 % (11.5-15.5); WBC 2.9 k/uL (3.8-10.6)
[2020-10-25] MEDS: CITALOPRAM HYDROBROMIDE 20 MG TAB PO SCH (08:26)
[2020-10-25] MEDS: METOPROLOL TARTRATE 25 MG TAB PO SCH ×2 (08:26→19:41)
[2020-10-25] MEDS: CARBIDOPA-LEVODOPA 25-100 MG 1 EACH TAB PO SCH ×2 (08:26→19:41)
[2020-10-25] MEDS: predniSONE 5 MG TAB PO SCH (08:26)
[2020-10-25 11:31] LABS: African American GFR (CKD) >90 (>60 ml/min/1.73 sqM); Anion Gap 3 mmol/L; Blood Urea Nitrogen 13 mg/dL (7-17); Calcium 8.2 mg/dL (8.4-10.2); Carbon Dioxide 28 mmol/L (22-30); Chloride 109 mmol/L (98-107); Glucose 100 mg/dL (74-99); Non-African American GFR(CKD) 85 (>60 ml/min/1.73 sqM); Potassium 4.3 mmol/L (3.5-5.1); Sodium 140 mmol/L (137-145)
--- NOTE | 2020-10-25 12:27 | P.CONS ---
History of Present Illness - Reason for Consult Consult date: 10/25/20 DVT LLE Requesting physician: Bárbara Chavez - Chief Complaint pain and swelling in LLE - History of Present Illness Mrs. García is a very pleasant 80-year-old female we've been asked to see in regards to pain, redness and swelling in left lower extremity. Patient states that she was recently diagnosed-though not sure when-with LLE DVT. She does not recall circumstances surrounding the situation, her administers her medications so she is not certain about if she has been on anticoagulation as prescribed. She denies any previous history of blood clots. She denies any intolerance to the anticoagulation, does not recall any bleeding since being on therapy. Denies pain, SOB, nausea, abd pain, diarrhea. Review of Systems Pt was able to give me some details as noted in HPI Past Medical History Past Medical History: Dementia, Deep Vein Thrombosis (DVT), Hypertension History of Any Multi-Drug Resistant Organisms: None Reported Past Surgical History: Hysterectomy, Orthopedic Surgery Additional Past Surgical History / Comment(s): bilat knee rx. Past Psychological History: Anxiety Smoking Status: Never smoker Past Alcohol Use History: None Reported Past Drug Use History: None Reported Medications and Allergies Home Medications Medication Instructions Recorded Confirmed Type Carbidopa/Levodopa 1 tab PO TID 12/26/16 10/24/20 History [Carbidopa-Levodopa 25-100 Tab] Donepezil [Aricept] 10 mg PO DAILY 12/26/16 10/24/20 History OLANZapine [Olanzapine] 10 mg PO DAILY 12/26/16 10/24/20 History rOPINIRole HCL [Ropinirole HCl] 2 mg PO TID 12/26/16 10/24/20 History Apixaban [Eliquis] 5 mg PO BID 10/24/20 10/24/20 History Citalopram Hydrobromide [CeleXA] 10 mg PO DAILY 10/24/20 10/24/20 History Furosemide [Lasix] 20 mg PO DAILY 10/24/20 10/24/20 History Memantine [Namenda] 10 mg PO BID 10/24/20 10/24/20 History carvediloL [Coreg] 3.125 mg PO BID 10/24/20 10/24/20 History Allergies Allergy/AdvReac Type Severity Reaction Status Date / Time aspirin Allergy Swelling Verified 10/24/20 17:55 Physical Exam Vitals: Vital Signs Temp Pulse Pulse Resp BP BP Pulse Ox 10/25/20 08:00 18 10/25/20 05:00 97.5 F L 50 L 18 145/69 94 L 10/25/20 00:00 63 18 10/24/20 21:00 97.7 F 60 18 148/76 94 L 10/24/20 18:25 61 16 135/86 97 10/24/20 16:08 98.1 F 61 16 158/74 95 Intake and Output 10/24/20 10/25/20 10/25/20 22:59 06:59 14:59 Intake Total 260 262.335 281.358 Balance 260 262.335 281.358 Intake: Intake, IV Titration 160 262.335 45.358 Amount Heparin Sod,Pork in 0.45% 102.335 45.358 NaCl 25,000 unit In 0.45 % NaCl 1 250ml.bag @ 18 UNITS/KG/HR 13.064 mls/hr IV .Q19H9M [facility] Rx#: [id number] Sodium Chloride 0.9% 1, 160 160 000 ml @ 20 mls/hr IV . Q24H [facility] Rx#:[id number] Oral 100 236 Other: Voiding Method Diaper Incontinent # Voids 1 2 1 # Bowel Movements 1 Weight 72.575 kg - Constitutional General appearance: average body habitus, cooperative, no acute distress - EENT Eyes: anicteric sclerae, EOMI (rt ptosis) ENT: hearing grossly normal, normal oropharynx - Neck Neck: no lymphadenopathy - Respiratory Respiratory: bilateral: CTA - Cardiovascular Heart sounds: normal: S1, S2 Abnormal Heart Sounds: no systolic murmur, no diastolic murmur, no rub, no S3 G allop, no S4 Gallop, no click, no other leg Peripheral Edema: right: 1+, left: 2+ (calf redness, mild warmth ) - Gastrointestinal General gastrointestinal: no absent bowel sounds, no decreased bowel sounds, no distended, no hepatomegaly, no hyperactive bowel sounds, normal bowel sounds, no organomegaly, no rigid, no scaphoid, soft, no splenomegaly, no tenderness, no umbilical hernia, no ventral hernia - Integumentary Integumentary: pale - Neurologic Neurologic: CNII-XII intact - Musculoskeletal Musculoskeletal: generalized weakness - Psychiatric pt admits to poor memory but she answers questions appropriately and is able to admit the things she does not remember Psychiatric: A&O x's 3, appropriate affect, intact judgment & insight Results CBC & Chem 7: 10/25/20 06:35 10/25/20 10:44 Labs: Abnormal Lab Results - Last 24 Hours (Table) 10/24/20 10/24/20 10/25/20 Range/Units 16:50 16:50 00:15 WBC (3.8-10.6) k/uL RBC 3.52 L (3.80-5.40) m/uL Hgb (11.4-16.0) gm/dL MCV (80.0-100.0) fL MCHC (31.0-37.0) g/dL RDW 19.9 H (11.5-15.5) % APTT 98.0 H (22.0-30.0) sec Chloride (98-107) mmol/L Carbon Dioxide 31 H (22-30) mmol/L Glucose (74-99) mg/dL Calcium (8.4-10.2) mg/dL Albumin 3.4 L (3.5-5.0) g/dL 10/25/20 10/25/20 10/25/20 Range/Units 06:35 06:35 10:44 WBC 2.9 L (3.8-10.6) k/uL RBC 3.51 L (3.80-5.40) m/uL Hgb 11.0 L (11.4-16.0) gm/dL MCV 102.2 H (80.0-100.0) fL MCHC 30.7 L (31.0-37.0) g/dL RDW 19.7 H (11.5-15.5) % APTT 62.7 H (22.0-30.0) sec Chloride 109 H (98-107) mmol/L Carbon Dioxide (22-30) mmol/L Glucose 100 H (74-99) mg/dL Calcium 8.2 L (8.4-10.2) mg/dL Albumin (3.5-5.0) g/dL Assessment and Plan (1) Left leg DVT Narrative/Plan: Have requested Nursing's help. They will contact the to see if he knows where patient was diagnosed with this left lower extremity DVT. I've also asked Nursing to verify with the that he has been administering eliquis as prescribed. RN will request reports and doppler results from performing facility. Hopefully, will be able to understand the circumstances surrounding the clot (provoked, unprovoked), recommendations for duration of anticoagulation and compare to determine if clot is acute on chronic or chronic with some possible phlebitis. If acute on chronic pt will need change in anticoagulation therapy. If chronic with phlebitis then cont anticoagulation as prescribed, treat phlebitis accordingly. Current Visit: Yes Status: Acute Priority: High Code(s): I82.402 - ACUTE EMBOLISM AND THOMBOS UNSP DEEP VEINS OF L LOW EXTREM SNOMED Code(s): 959081746
[2020-10-25] MEDS: HEPARIN SOD,PORK IN 0.45% NACL 25,000 UNIT in 0.45% NACL 1 250ML.BAG IV SCH ×2 (13:51→17:02)
[2020-10-25] MEDS: SODIUM CHLORIDE 0.9% 1,000 ML IV SCH (17:04)
[2020-10-25] MEDS: DONEPEZIL 10 MG TAB PO SCH ×2 (17:04→17:06)
--- NOTE | 2020-10-25 18:25 | P.PN ---
Subjective Progress Note Date: 10/25/20 (Delayed charting seen at 1500) Principal diagnosis: Left leg pain Patient is an 80-year-old female with a history of prior DVT, hypertension, and dementia who presented to the emergency department from [facility] for outpatient imaging center due to an acute DVT in the left lower extremity. Patient had a history of a DVT and pulmonary embolism about 2-3 years ago. She had been taking Eliquis at home prior to admission. In the ER she was placed on a heparin drip due to recurrent DVT while on Eliquis. She was subsequently admitted for further monitoring. Hematology was consulted. They recommended obtaining a imaging from DVT 2-3 years ago to confirm whether this is an acute or chronic DVT. She was maintained on a heparin drip. Patient seen and examined at bedside. She denies any leg pain, shortness of breath, or chest pain. She admits to being mildly confused. She states she wants to go home. General: Ill-appearing, no distress, appears at stated age Derm: warm, dry, left lower extremity posterior calf redness Head: atraumatic, normocephalic, symmetric Eyes: EOMI, no lid lag, anicteric sclera Mouth: no lip lesion, mucus membranes moist Cardiovascular: S1S2 reg, no murmur, positive posterior tibial pulse bilateral, Lungs: CTA bilateral, no rhonchi, no rales , no accessory muscle use Abdominal: soft, nontender to palpation, no guarding, no appreciable organomegaly Ext: Left leg with some redness, no edema, nontender to palpation no gross mus arnold atrophy, no contractures Neuro: CN II-XI grossly intact, no focal neuro deficits Psych: Alert, oriented to self, appears anxious Left lower extremity DVT, acute versus chronic with possible failure of Eliquis -Hematology recommendations appreciated -Await records from [facility] -Continue with heparin drip Dementia with behavioral disturbances -Continue with Namenda, Aricept, Celexa and olanzapine Hypertension, controlled -Continue Lopressor -Follow blood pressures History of Parkinson's disease -Continue with levodopa, and Requip -Outpatient follow-up DVT prophylaxis: On heparin drip for treatment of DVT Discussed with: Patient , Nursing Anticipated discharge: in AM Anticipated discharge place: home A total of 25 minutes was spent on the care of this complex patient more than 50% of the time was spent in counseling and care coordination. Objective - Vital Signs Vital signs: Vital Signs Temp 97.5 F L 10/25/20 13:17 Pulse 50 L 10/25/20 13:17 Resp 18 10/25/20 13:17 BP 124/73 10/25/20 13:17 Pulse Ox 95 10/25/20 13:17 Intake & Output 10/24/20 10/25/20 10/25/20 18:59 06:59 18:59 Intake Total 522.335 703.665 Balance 522.335 703.665 Weight 72.575 kg Intake: Intake, IV Titration 422.335 147.665 Amount Heparin Sod,Pork in 0.45% 102.335 147.665 NaCl 25,000 unit In 0.45 % NaCl 1 250ml.bag @ 18 UNITS/KG/HR 13.064 mls/hr IV .Q19H9M [facility] Rx#: [id number] Sodium Chloride 0.9% 1, 320 000 ml @ 20 mls/hr IV . Q24H [facility] Rx#:[id number] Oral 100 356 Other 200 Other: Voiding Method Diaper Incontinent # Voids 2 1 # Bowel Movements 1 - Labs CBC & Chem 7: 10/25/20 06:35 10/25/20 10:44 Labs: Abnormal Lab Results - Last 24 Hours (Table) 10/25/20 10/25/20 10/25/20 Range/Units 00:15 06:35 06:35 WBC 2.9 L (3.8-10.6) k/uL RBC 3.51 L (3.80-5.40) m/uL Hgb 11.0 L (11.4-16.0) gm/dL MCV 102.2 H (80.0-100.0) fL MCHC 30.7 L (31.0-37.0) g/dL RDW 19.7 H (11.5-15.5) % APTT 98.0 H 62.7 H (22.0-30.0) sec Chloride (98-107) mmol/L Glucose (74-99) mg/dL Calcium (8.4-10.2) mg/dL 10/25/20 Range/Units 10:44 WBC (3.8-10.6) k/uL RBC (3.80-5.40) m/uL Hgb (11.4-16.0) gm/dL MCV (80.0-100.0) fL MCHC (31.0-37.0) g/dL RDW (11.5-15.5) % APTT (22.0-30.0) sec Chloride 109 H (98-107) mmol/L Glucose 100 H (74-99) mg/dL Calcium 8.2 L (8.4-10.2) mg/dL
[2020-10-25] MEDS: OLANZapine 10 MG TAB PO SCH (19:41)
[2020-10-26 06:02] LABS: Anisocytosis Slight; Basophils % (A) 2 %; Eosinophils # (A) 0.1 k/uL (0-0.7); Eosinophils % (A) 5 %; HGB 10.8 gm/dL (11.4-16.0); Hypochromasia Slight; Lymphocytes # (A) 1.1 k/uL (1.0-4.8); Lymphocytes % (A) 46 %; MCH 32.3 pg (25.0-35.0); MCHC 31.8 g/dL (31.0-37.0); MCV 101.7 fL (80.0-100.0); Macrocytosis Moderate; Mean Platelet Volume 9.6; Monocytes # (A) 0.1 k/uL (0-1.0); Monocytes % (A) 5 %; Neutrophils # (A) 0.9 k/uL (1.3-7.7); Neutrophils % (A) 39 %; Platelet Count 223 k/uL (150-450); RBC 3.34 m/uL (3.80-5.40); RDW 19.8 % (11.5-15.5); WBC 2.4 k/uL (3.8-10.6)
[2020-10-26 09:43] LABS: African American GFR (CKD) 93.5 (60.0-200.0); Anion Gap 3.3 mmol/L (4.00-12.00); BUN/Creat Ratio 17.14 Ratio (12.00-20.00); Calcium 8.4 mg/dL (8.7-10.3); Carbon Dioxide 30.7 mmol/L (21.6-31.8); Non-African American GFR(CKD) 80.7 (60.0-200.0)
[2020-10-26] MEDS ORDERED: ACETAMINOPHEN TAB 325 MG TAB PO PRN (10:03)
[2020-10-26] MEDS: CARBIDOPA-LEVODOPA 25-100 MG 1 EACH TAB PO SCH ×2 (10:49→22:11)
[2020-10-26] MEDS: DONEPEZIL 10 MG TAB PO SCH (10:49)
[2020-10-26] MEDS: CITALOPRAM HYDROBROMIDE 20 MG TAB PO SCH (10:49)
[2020-10-26] MEDS: predniSONE 5 MG TAB PO SCH (10:49)
[2020-10-26] MEDS: METOPROLOL TARTRATE 25 MG TAB PO SCH ×2 (10:49→22:11)
[2020-10-26] MEDS: HEPARIN SOD,PORK IN 0.45% NACL 25,000 UNIT in 0.45% NACL 1 250ML.BAG IV SCH ×2 (10:50→14:37)
--- NOTE | 2020-10-26 15:50 | P.PN ---
Subjective Progress Note Date: 10/26/20 (delayed charting patient seen at 0930) Principal diagnosis: Left leg pain Patient is an 80-year-old female with a history of prior DVT, hypertension, and dementia who presented to the emergency department from [facility] for outpatient imaging center due to an acute DVT in the left lower extremity. Patient had a history of a DVT and pulmonary embolism about 2-3 years ago. She had been taking Eliquis at home prior to admission. In the ER she was placed on a heparin drip due to recurrent DVT while on Eliquis. She was subsequently admitted for further monitoring. Hematology was consulted. They recommended obtaining a imaging from DVT 2-3 years ago to confirm whether this is an acute or chronic DVT. She was maintained on a heparin drip until appropriate anticoag ulation plan can be determined. Patient seen and examined at bedside. She denies any leg pain, shortness of breath, or chest pain. She admits to being mildly confused. She states she wants to go home. General:Non-toxic, no distress, appears at stated age Derm: warm, dry, left lower extremity posterior calf redness Head: atraumatic, normocephalic, symmetric Eyes: EOMI, no lid lag, anicteric sclera Mouth: no lip lesion, mucus membranes moist Cardiovascular: S1S2 reg, no murmur, positive posterior tibial pulse bilateral, Lungs: CTA bilateral, no rhonchi, no rales , no accessory muscle use Abdominal: soft, nontender to palpation, no guarding, no appreciable organomegaly Ext: Left leg with some redness, no edema, nontender to palpation no gross muscle atrophy, no contractures Neuro: CN II-XI grossly intact, no focal neuro deficits Psych: Alert, oriented to self and that she is in the hospital, appears anxious Left lower extremity DVT, acute versus chronic with possible failure of Eliquis -Hematology recommendations appreciated -Await records from [facility]. We have faxed a request 4 times with no response. Per [facility] Website they are closed on Holidays and we will attempt to fax request again in A< -Continue with heparin drip Dementia with behavioral disturbances -Continue with Namenda, Aricept, Celexa and olanzapine Hypertension, controlled -Continue Lopressor -Follow blood pressures History of Parkinson's disease -Continue with levodopa, and Requip -Outpatient follow-up Patients called and updated on plan of care. DVT prophylaxis: On heparin drip for treatment of DVT Discussed with: Patient , Nursing Anticipated discharge: in AM Anticipated discharge place: home A total of 25 minutes was spent on the care of this complex patient more than 50% of the time was spent in counseling and care coordination. Objective - Vital Signs Vital signs: Vital Signs Temp 97.5 F L 10/26/20 13:50 Pulse 61 10/26/20 13:50 Resp 18 10/26/20 13:50 BP 173/64 10/26/20 13:50 Pulse Ox 93 L 10/26/20 13:50 Intake & Output 10/25/20 10/26/20 10/26/20 18:59 06:59 18:59 Intake Total 1003.665 234.956 Balance 1003.665 234.956 Intake: Intake, IV Titration 147.665 234.956 Amount Heparin Sod,Pork in 0.45% 147.665 234.956 NaCl 25,000 unit In 0.45 % NaCl 1 250ml.bag @ 18 UNITS/KG/HR 13.064 mls/hr IV .Q19H9M [facility] Rx#: [id number] Oral 656 Other 200 Other: Voiding Method Diaper Diaper Incontinent Incontinent # Voids 1 2 4 # Bowel Movements 1 0 - Labs CBC & Chem 7: 10/26/20 05:47 10/26/20 05:47 Labs: Abnormal Lab Results - Last 24 Hours (Table) 10/26/20 10/26/20 10/26/20 Range/Units 05:47 05:47 05:47 WBC 2.4 L (3.8-10.6) k/uL RBC 3.34 L (3.80-5.40) m/uL Hgb 10.8 L (11.4-16.0) gm/dL MCV 101.7 H (80.0-100.0) fL RDW 19.8 H (11.5-15.5) % Neutrophils # 0.9 L (1.3-7.7) k/uL APTT 52.7 H (22.0-30.0) sec Anion Gap 3.30 L (4.00-12.00) mmol/L Calcium 8.4 L (8.7-10.3) mg/dL
[2020-10-26] MEDS: OLANZapine 10 MG TAB PO SCH (22:11)
[2020-10-26] MEDS: SODIUM CHLORIDE 0.9% 1,000 ML IV SCH (22:12)
[2020-10-27 07:18] LABS: Anisocytosis Moderate; Basophils # (A) 0.1 k/uL (0-0.2); Basophils % (A) 2 %; Eosinophils # (A) 0.2 k/uL (0-0.7); Eosinophils % (A) 6 %; HCT 37.4 % (34.0-46.0); HGB 11.3 gm/dL (11.4-16.0); Hypochromasia Moderate; Lymphocytes # (A) 1.2 k/uL (1.0-4.8); Lymphocytes % (A) 45 %; MCH 31.1 pg (25.0-35.0); MCHC 30.2 g/dL (31.0-37.0); Macrocytosis Marked; Mean Platelet Volume 9.2; Monocytes # (A) 0.1 k/uL (0-1.0); Monocytes % (A) 4 %; Neutrophils # (A) 1.1 k/uL (1.3-7.7); Neutrophils % (A) 40 %; Platelet Count 271 k/uL (150-450); RBC 3.64 m/uL (3.80-5.40); RDW 20.2 % (11.5-15.5); WBC 2.7 k/uL (3.8-10.6)
[2020-10-27] MEDS: DONEPEZIL 10 MG TAB PO SCH (09:40)
[2020-10-27] MEDS: METOPROLOL TARTRATE 25 MG TAB PO SCH (09:41)
[2020-10-27] MEDS: CITALOPRAM HYDROBROMIDE 20 MG TAB PO SCH (09:41)
[2020-10-27] MEDS: predniSONE 5 MG TAB PO SCH (09:41)
[2020-10-27] MEDS: CARBIDOPA-LEVODOPA 25-100 MG 1 EACH TAB PO SCH (09:41)
[2020-10-27] MEDS: HEPARIN SOD,PORK IN 0.45% NACL 25,000 UNIT in 0.45% NACL 1 250ML.BAG IV SCH (11:16)
[2020-10-27 12:09] VITALS: BP 138/66; PULSE 65; RESP 18; TEMP 97.8
[2020-10-27] MEDS ORDERED: ENOXAPARIN 80 MG/0.8 ML SYRINGE SQ STA (17:22)
--- NOTE | 2020-10-27 17:40 | P.PN ---
Subjective Progress Note Date: 10/27/20 Principal diagnosis: Acute LE DVT Per Nathan Banegas Records LE DVT is new, no prior history of LE DVT (upper extremity and Pulm emboli), and per she has been adherent with 5mg po BID eliquis daily. Therefore, with evidence of New DVT on DOAC will change recommendations to lovenox at this time and have her follow-up in office in two weeks. She also has macrocytic anemia, mild leukopenia, lower neutrophils. Objective - Vital Signs Vital signs: Vital Signs Temp 97.8 F 10/27/20 12:08 Pulse 65 10/27/20 12:08 Resp 18 10/27/20 12:08 BP 138/66 10/27/20 12:08 Pulse Ox 99 10/27/20 12:08 Intake & Output 10/26/20 10/27/20 10/27/20 18:59 06:59 18:59 Intake Total 234.956 224.796 Balance 234.956 224.796 Intake: Intake, IV Titration 234.956 224.796 Amount Heparin Sod,Pork in 0.45% 234.956 224.796 NaCl 25,000 unit In 0.45 % NaCl 1 250ml.bag @ 18 UNITS/KG/HR 13.064 mls/hr IV .Q19H9M [facility] Rx#: [id number] Other: Voiding Method Diaper Diaper Diaper Incontinent Incontinent Incontinent # Voids 2 - Exam - Constitutional General appearance: average body habitus, cooperative, no acute distress - EENT Eyes: anicteric sclerae, EOMI (rt ptosis) ENT: hearing grossly normal, normal oropharynx - Neck Neck: no lymphadenopathy - Respiratory Respiratory: bilateral: CTA - Cardiovascular Heart sounds: normal: S1, S2 Abnormal Heart Sounds: no systolic murmur, no diastolic murmur, no rub, no S3 Gallop, no S4 Gallop, no click, no other leg Peripheral Edema: right: 1+, left: 2+ (calf redness, mild warmth ) - Gastrointestinal General gastrointestinal: no absent bowel sounds, no decreased bowel sounds, no distended, no hepatomegaly, no hyperactive bowel sounds, normal bowel sounds, no organomegaly, no rigid, no scaphoid, soft, no splenomegaly, no tenderness, no umbilical hernia, no ventral hernia - Integumentary Integumentary: pale - Neurologic Neurologic: CNII-XII intact - Musculoskeletal Musculoskeletal: generalized weakness - Psychiatric pt admits to poor memory but she answers questions appropriately and is able to admit the things she does not remember Psychiatric: A&O x's 3, appropriate affect, intact judgment & insight - Labs CBC & Chem 7: 10/27/20 06:32 10/26/20 05:47 Labs: Abnormal Lab Results - Last 24 Hours (Table) 10/27/20 10/27/20 Range/Units 06:32 06:32 WBC 2.7 L (3.8-10.6) k/uL RBC 3.64 L (3.80-5.40) m/uL Hgb 11.3 L (11.4-16.0) gm/dL MCV 103.0 H (80.0-100.0) fL MCHC 30.2 L (31.0-37.0) g/dL RDW 20.2 H (11.5-15.5) % Neutrophils # 1.1 L (1.3-7.7) k/uL Macrocytosis Marked A APTT 61.8 H (22.0-30.0) sec Assessment and Plan (1) Macrocytic anemia Narrative/Plan: - Further work-up ordered and will follow-up with results as outpatient. Status: Acute Code(s): D53.9 - NUTRITIONAL ANEMIA, UNSPECIFIED SNOMED Code(s): 01275409 (2) Leukopenia Status: Acute Code(s): D72.819 - DECREASED WHITE BLOOD CELL COUNT, UNSPECIFIED SNOMED Code(s): 86057670 (3) Dementia Status: Acute Code(s): F03.90 - UNSPECIFIED DEMENTIA WITHOUT BEHAVIORAL DISTURBANCE SNOMED Code(s): 23743349 (4) Left leg DVT Narrative/Plan: - Confirmation of Acute LLE DVT while on DOAC - Eliquis (Was confirmed taking properly) - Discharge on Lovenox 1.5mg/kg/day at this time - Follow-up in 3-[address] sahu Status: Acute Priority: High Code(s): I82.402 - ACUTE EMBOLISM AND THOMBOS UNSP DEEP VEINS OF L LOW EXTREM SNOMED Code(s): 678339139 Plan: Discussed with primary team and ok with discharge from oncology standpoint with Lovenox therapeutic dosing. Plan to follow-up with Dr. Sahu 3-4 weeks
[2020-10-27 17:52] LABS: Reticulocyte % 0.9 % (0.5-2.0)
--- NOTE | 2020-10-27 17:52 | P.DS ---
Providers Date of admission: 10/24/20 17:04 Expected date of discharge: 10/27/20 Attending physician: Callum Gautam MD Consults: 10/24/20 16:48 Consult Physician Routine Consulting Provider: Quentin Sahu Consult Reason/Comments: DVT Do you want consulting provider notified?: Yes Primary care physician: Zach Salcedo Hospital Course: Discharge Diagnosis: Left lower extremity DVT, acute versus chronic with possible failure of Eliquis Dementia with behavioral disturbances Hypertension, controlled History of Parkinson's disease Hospital Course: Patient is an 80-year-old female with a history of prior DVT, hypertension, and dementia who presented to the emergency department from [facility] for outpatient imaging center due to an acute DVT in the left lower extremity. Patient had a history of a DVT and pulmonary embolism about 2-3 years ago. She had been taking Eliquis at home prior to admission. In the ER she was placed on a heparin drip due to recurrent DVT while on Eliquis. She was subsequently admitted for further monitoring. Hematology was consulted. They recommended obtaining a imaging from DVT 2-3 years ago to confirm whether this is an acute or chronic DVT. She was maintained on a heparin drip until appropriate anticoagulation plan was determined. Records obtained from [facility] last DVT was upper extremity and pulmonary embolism in 2017, she was alos found to have an IVC filter with a clot at that time. Case discussed with heme/onc plan will be for Lovenox 100 mg/kg daily and follow up in 2 weeks. They will follow a hyper coagulable panel. Patient discharged in stable condition. Patient seen and examined at bedside. NO chest pain, SOB or nausea, still with some discomfort when you touch her left leg. Vital signs reviewed and stable. General: non toxic, no distress, appears at stated age Derm: warm, dry Head: atraumatic, normocephalic, symmetric Eyes: EOMI, no lid lag, anicteric sclera Mouth: no lip lesion, mucus membranes moist Cardiovascular: S1S2 reg, no murmur, positive posterior tibial pulse bilateral, Lungs: CTA bilateral, no rhonchi, no rales , no accessory muscle use Abdominal: soft, nontender to palpation, no guarding, no appreciable organomegaly Ext: no gross muscle atrophy, no edema, no contractures Neuro: CN II-XI grossly intact, no focal neuro deficits Psych: Alert, oriented to self and that she is not at home, A total of 45 minutes of time were spent preparing this complex discharge summary . Patient Condition at Discharge: Stable Plan - Discharge Summary Discharge Rx Participant: No New Discharge Prescriptions: New Enoxaparin [Lovenox] 100 mg SQ DAILY #30 syr Continue rOPINIRole HCL [Requip] 2 mg PO TID OLANZapine [Olanzapine] 10 mg PO DAILY Donepezil [Aricept] 10 mg PO DAILY Carbidopa/Levodopa [Carbidopa-Levodopa 25-100 Tab] 1 tab PO TID Memantine [Namenda] 10 mg PO BID carvediloL [Coreg] 3.125 mg PO BID Furosemide [Lasix] 20 mg PO DAILY Citalopram Hydrobromide [CeleXA] 10 mg PO DAILY Discontinued Apixaban [Eliquis] 5 mg PO BID Discharge Medication List Carbidopa/Levodopa [Carbidopa-Levodopa 25-100 Tab] 1 tab PO TID 12/26/16 [History] Donepezil [Aricept] 10 mg PO DAILY 12/26/16 [History] OLANZapine [Olanzapine] 10 mg PO DAILY 12/26/16 [History] rOPINIRole HCL [Requip] 2 mg PO TID 12/26/16 [History] Citalopram Hydrobromide [CeleXA] 10 mg PO DAILY 10/24/20 [History] Furosemide [Lasix] 20 mg PO DAILY 10/24/20 [History] Memantine [Namenda] 10 mg PO BID 10/24/20 [History] carvediloL [Coreg] 3.125 mg PO BID 10/24/20 [History] Enoxaparin [Lovenox] 100 mg SQ DAILY #30 syr 10/27/20 [Rx] Follow up Appointment(s)/Referral(s): Maddie Yañez ANPBC [Nurse Practitioner] - 1 Week [facility], [NON-STAFF] - 1-2 Days Zach Salcedo MD [Primary Care Provider] - 1-2 days Activity/Diet/Wound Care/Special Instructions: Activity: as tolerated Diet: regular Special Instructions: take Lovenx at that same time every day. Discharge Disposition: HOME SELF-CARE
== END 2020-10-27 18:34 | disposition home health service (06) | DRG 300 ==
LOC: EC 15:59 → 6NMEDSUR 17:04 → 5NMEDONC 19:38
PROVIDERS: ADMIT Internal Medicine; ATTEND Internal Medicine
DX: I82.412 Acute embolism and thrombosis of left femoral vein (principal); F03.91 Unspecified dementia, unspecified severity, with behavioral disturbance; I82.432 Acute embolism and thrombosis of left popliteal vein; F41.9 Anxiety disorder, unspecified; G20 Parkinson's disease; D53.9 Nutritional anemia, unspecified; D72.819 Decreased white blood cell count, unspecified; I10 Essential (primary) hypertension; L60.0 Ingrowing nail; Z88.6 Allergy status to analgesic agent; Z79.01 Long term (current) use of anticoagulants; Z79.899 Other long term (current) drug therapy; Z86.711 Personal history of pulmonary embolism; Z86.718 Personal history of other venous thrombosis and embolism; Z90.710 Acquired absence of both cervix and uterus
CPT/HCPCS: 36415; 80048; 80053; 85025; 85045; 85610; 85730; 96365; 96366; 96376; 99284

== ENCOUNTER 2020-12-19 12:48 | Emergency (ER) | payer MEDICARE, BC ==
[2020-12-19 12:54] VITALS: TEMP 97.9
--- NOTE | 2020-12-19 13:14 | ED ---
General Adult HPI - General Chief complaint: Fall Stated complaint: fall, lt shoulder injury Time Seen by Provider: 12/19/20 12:57 Source: patient Mode of arrival: wheelchair Limitations: no limitations - History of Present Illness Initial comments: Dictation was produced using Cam[employer] dictation software. please excuse any grammatical, word or spelling errors. This patient was cared for during a federal and state declared state of emergency secondary to Covid 19 Chief Complaint: 80-year-old female presents with chest pain after fall History of Present Illness: 80-year-old female presents with chest pain after fall. 2 days ago patient was being assisted by her . He was trying to help her take off her jacket when he tripped over chair this feet. Patient states she fell backwards. Since then she's been having left anterior chest pain. Patient states that sharp and worse with palpation. She does feel symptoms whenever she abducts her left upper extremity. At rest she does not have any complaints. Patient takes apixaban for thrombosis. Patient has no other complaints at this time. She reports not losing consciousness. witnessed the fall states that she did not fall very hard. She's been ambulatory over the last 2 days without any cough medications. The ROS documented in this emergency department record has been reviewed and confirmed by me. Those systems with pertinent positive or negative responses have been documented in the HPI. All other systems are other negative and/or noncontributory. PHYSICAL EXAM: General Impression: Alert and oriented x3, not in acute distress HEENT: Normocephalic atraumatic, extra-ocular movements intact, pupils equal and reactive to light bilaterally, mucous membranes moist. Cardiovascular: Heart regular rate and rhythm Chest: Able to complete full sentences, no retractions, no tachypnea, tenderness to palpation over the left anterior chest over the third and fourth ribs. Abdomen: abdomen soft, non-tender, non-distended, no organomegaly Musculoskeletal: Pulses present and equal in all extremities, no peripheral edema Motor: no focal deficits noted Neurological: CN II-XII grossly intact, no focal motor or sensory deficits noted Skin: Intact with no visualized rashes Psych: Normal affect and mood ED course: 80-year-old female with chest pain after fall.. Vital Signs upon arrival are within acceptable limits. EKG interpretation: Ventricular rate 62, normal sinus rhythm,. Interval 154, QRS 82, QTC 483. No [place] prolongation, no QTC prolongation, no ST or T-wave changes noted. EKG compared to 12/26/2016 showing no changes. Overall, this EKG is unremarkable Computed tomography scan of the head and C-spine was obtained showing no acute processes. Chest x-ray shows no acute pulmonary processes. Left shoulder x-ray shows interval healing of prior left humeral neck fracture. Clinical presentation consistent with chest strain versus chest contusion. Patient given prescription for by mouth analgesics. Patient also given lidocaine patch. - Related Data Home Medications Medication Instructions Recorded Confirmed Carbidopa/Levodopa 1 tab PO TID 12/26/16 10/24/20 [Carbidopa-Levodopa 25-100 Tab] Donepezil [Aricept] 10 mg PO DAILY 12/26/16 10/24/20 OLANZapine [Olanzapine] 10 mg PO DAILY 12/26/16 10/24/20 rOPINIRole HCL [Requip] 2 mg PO TID 12/26/16 10/24/20 Citalopram Hydrobromide [CeleXA] 10 mg PO DAILY 10/24/20 10/24/20 Furosemide [Lasix] 20 mg PO DAILY 10/24/20 10/24/20 Memantine [Namenda] 10 mg PO BID 10/24/20 10/24/20 carvediloL [Coreg] 3.125 mg PO BID 10/24/20 10/24/20 Previous Rx's Medication Instructions Recorded Enoxaparin [Lovenox] 100 mg SQ DAILY #30 syr 10/27/20 HYDROcodone/APAP 5-325MG [[place] 1 tab PO Q6HR PRN 3 Days #12 tab 12/19/20 5-325] Allergies Allergy/AdvReac Type Severity Reaction Status Date / Time aspirin Allergy Swelling Verified 10/24/20 17:55 Review of Systems ROS Statement: Those systems with pertinent positive or pertinent negative responses have been documented in the HPI. ROS Other: All systems not noted in ROS Statement are negative. Past Medical History Past Medical History: Dementia, Deep Vein Thrombosis (DVT), Hypertension History of Any Multi-Drug Resistant Organisms: None Reported Past Surgical History: Hysterectomy, Orthopedic Surgery Additional Past Surgical History / Comment(s): bilat knee rx. Past Psychological History: Anxiety Smoking Status: Never smoker Past Alcohol Use History: None Reported Past Drug Use History: None Reported General Exam Limitations: no limitations Course Vital Signs 12/19/20 12:49 Temperature 97.9 F Pulse Rate 63 Respiratory 18 Rate Blood Pressure 139/69 O2 Sat by Pulse 94 L Oximetry Disposition Clinical Impression: Strain of chest wall Disposition: HOME SELF-CARE Condition: Good Instructions (If sedation given, give patient instructions): Fall Prevention for Older Adults (ED) Prescriptions: HYDROcodone/APAP 5-325MG [[place] 5-325] 1 tab PO Q6HR PRN 3 Days #12 tab PRN Reason: Severe Pain Is patient prescribed a controlled substance at d/c from ED?: Yes If prescribed controlled substance>3 days was MAPS reviewed?: Prescribed <3 Days Referrals: Zach Salcedo MD [Primary Care Provider] - 1-2 days Time of Disposition: 14:17
--- NOTE | 2020-12-19 13:57 | XR ---
EXAMINATION TYPE: XR chest 2V DATE OF EXAM: 12/19/2020 COMPARISON: 12/26/2016 INDICATION: Fall, pain TECHNIQUE: Frontal and lateral views of the chest are obtained. FINDINGS: The heart size is normal. The pulmonary vasculature is normal. The lungs are clear. No pneumothorax is evident. No displaced rib fractures are evident. There may b e an old fracture of the left humeral neck. There is chronic rotator cuff tear the right shoulder. IMPRESSION: 1. No acute pulmonary process.
--- NOTE | 2020-12-19 13:58 | XR ---
EXAMINATION TYPE: XR shoulder complete LT DATE OF EXAM: 12/19/2020 COMPARISON: 07/09/2019 left shoulder HISTORY: Pain TECHNIQUE: Shoulder examined in 3 views FINDINGS: The humeral head articulates with the glenoid. Appears be a prior fracture at the humeral neck. Callu s formation interval healing appears to be present. This would correspond to 07/09/2019. The acromio-clavicular junction is normal. No acute fractures or dislocations are evident. A follow up study can be performed 7-10 days from acute trauma for continued pain. IMPRESSION: 1. No acute osseous abnormality left shoulder. 2. Interval healing of a prior left humeral neck fracture.
--- NOTE | 2020-12-19 14:02 | CT ---
EXAMINATION TYPE: CT brain caleb manuel con DATE OF EXAM: 12/19/2020 COMPARISON: 06/08/2017 HISTORY: fall CT DLP: 1359.7 mGycm, Automated exposure control for dose reduction was used. CONTRAST: Patient injected with 0 mL of Isovue 300. CT of the brain is performed utilizing 3 mm thick sections through the posterior fossa and 3 mm thick sections through the remaining calvarium. Study is performed within 24 hours of arrival to the hospital. No abnormal hyperdensity is present to suggest an acute intracranial hemorrhage. No mass lesion is evident. No acute infarcts are evident. Some periventricular patchy white matter hypodensity is present, like ly on the basis of chronic white matter ischemic changes. Ventricles and sulci are prominent for the patient age. Mucosal thickening is within scattered ethmoid air cells the left sphenoid sinus, the frontal sinuses and mildly within the right maxillary sinus. There may be an air-fluid level within the left sphenoi d sinus. Correlate for acute left sphenoid sinusitis IMPRESSIONS: 1. Atrophy with chronic appearing periventricular white matter ischemic changes, present previously. CT cervical spine. COMPARISON: None CT of the cervical spine is performed in the axial plane at 2 mm thick sections. Reconstructed image s in the coronal, and sagittal plane are reviewed on the computer. No acute fractures are evident. Vertebral body alignment is normal. Mild diffuse degenerative disc changes present greatest within the mid cervical spine. Vertebral body heights are preserved. No spinal canal stenosis is evident. Some uncovertebral joint hypertrophy C5-6 and on the right at C6-7 is contributing to mild foraminal narrowing IMPRESSIONS: 1. Degenerative disc changes. 2. Mild foraminal narrowing bilaterally C5-6 and on the right at C6-7. 3. No acute osseous abnormality.
[2020-12-19] MEDS ORDERED: HYDROcodone/APAP 5-325MG 1 EACH TAB PO STA (14:15)
[2020-12-19] MEDS ORDERED: LIDOCAINE 5% PATCH TOPICAL STA (14:15)
[2020-12-19 14:31] VITALS: RESP 16
[2020-12-19 14:42] VITALS: BP 140/87; PULSE 60
== END 2020-12-19 14:40 | disposition home or self-care (01) ==
LOC: EC 12:48
DX: S29.011A Strain of muscle and tendon of front wall of thorax, initial encounter (principal); F03.90 Unspecified dementia, unspecified severity, without behavioral disturbance, psychotic disturbance, mood disturbance, and anxiety; I10 Essential (primary) hypertension; F41.9 Anxiety disorder, unspecified; Z79.01 Long term (current) use of anticoagulants; Z98.890 Other specified postprocedural states; Z88.6 Allergy status to analgesic agent; Z79.899 Other long term (current) drug therapy; Z86.718 Personal history of other venous thrombosis and embolism; Z87.81 Personal history of (healed) traumatic fracture; W19.XXXA Unspecified fall, initial encounter
CPT/HCPCS: 70450; 71046; 72125; 93005; 99284

== ENCOUNTER 2021-11-03 18:19 | Emergency (ER) | payer MEDICARE, BC ==
[2021-11-03 19:53] VITALS: BP 122/71; PULSE 77; RESP 22; TEMP 98.6
--- NOTE | 2021-11-03 20:38 | XR ---
INDICATION: Patient age:Female; 81 years old; Reason for study: short of breath; PHH. COMPARISON: Multiple radiographs, with the most recent on 12/19/2020. TECHNIQUE: Frontal and lateral views of the chest. FINDINGS: Lungs/Pleura: Airspace opacities noted from the left pulmonary hilum which may be partially due to pa tient's positioning. Pulmonary vascularity: Unremarkable. Heart/mediastinum: Cardiomediastinal silhouette is unremarkable. Musculoskeletal: No acute osseous pathology. Fixation hardware in the lower visualized spine. Deformi ty to the spine noted with increased kyphosis IMPRESSION: Patient is rotated with suggestion of perihilar airspace opacities. Clinical correlation is advised.
== END 2021-11-03 23:38 | disposition left against medical advice (07) ==
LOC: EC 18:19
DX: R53.81 Other malaise (principal); R06.02 Shortness of breath; Z53.21 Procedure and treatment not carried out due to patient leaving prior to being seen by health care provider; Z20.822 Contact with and (suspected) exposure to COVID-19
CPT/HCPCS: 71046; 87635; 93005; 99499

== ENCOUNTER 2022-03-22 12:27 | Emergency (ER) | payer MEDICARE, BC ==
[2022-03-22 13:04] VITALS: TEMP 98.2
--- NOTE | 2022-03-22 13:49 | ED ---
General Adult HPI - General Chief complaint: Fall Stated complaint: Fall/Rt Hip Pain Time Seen by Provider: 03/22/22 13:12 Source: patient Mode of arrival: wheelchair Limitations: no limitations - History of Present Illness Initial comments: This 81-year-old female presents emergency Department with right hip pain that began after a fall on Friday. Patient says in the room states she had total hip replacement about 3 years ago. in room states patient was going to get out of the car and he was unable to get her walker to her in time when she stood up out of the car she stepped bentley badge of the sidewalk and ground and fell, landing on her right hip. Patient and are unsure if patient hit her head. states he thinks patient may be on any anticoagulant but is unsure if she has or not. Patient denies any loss of consciousness. states that 2 guys were walking outside and helped patient up. and jennifer ent state she has been walking around the house since the fall with her walker as she usually does, however she does have some increased pain in her right hip. Patient denies any chest pain, shortness of breath, abdominal pain, nausea, vomiting, lightheadedness, dizziness, change in vision, blurred vision, cough, nasal congestion, fever, change in bowel or bladder, back pain, change in appetite. Patient denies any shortness of breath and states her oxygen level does usually run a little bit low. - Related Data Home Medications Medication Instructions Recorded Confirmed Carbidopa/Levodopa 1 tab PO TID 12/26/16 10/24/20 [Carbidopa-Levodopa 25-100 Tab] Donepezil [Aricept] 10 mg PO DAILY 12/26/16 10/24/20 OLANZapine [Olanzapine] 10 mg PO DAILY 12/26/16 10/24/20 rOPINIRole HCL [Requip] 2 mg PO TID 12/26/16 10/24/20 Citalopram Hydrobromide [CeleXA] 10 mg PO DAILY 10/24/20 10/24/20 Furosemide [Lasix] 20 mg PO DAILY 10/24/20 10/24/20 Memantine [Namenda] 10 mg PO BID 10/24/20 10/24/20 carvediloL [Coreg] 3.125 mg PO BID 10/24/20 10/24/20 Previous Rx's Medication Instructions Recorded Enoxaparin [Lovenox] 100 mg SQ DAILY #30 syr 10/27/20 HYDROcodone/APAP 5-325MG [[place] 1 tab PO Q6HR PRN 3 Days #12 tab 12/19/20 5-325] Allergies Allergy/AdvReac Type Severity Reaction Status Date / Time aspirin Allergy Swelling Verified 03/22/22 13:04 Review of Systems ROS Statement: Those systems with pertinent positive or pertinent negative responses have been documented in the HPI. ROS Other: All systems not noted in ROS Statement are negative. Past Medical History Past Medical History: Dementia, Deep Vein Thrombosis (DVT), Hypertension History of Any Multi-Drug Resistant Organisms: None Reported Past Surgical History: Hysterectomy, Orthopedic Surgery Additional Past Surgical History / Comment(s): bilat knee rx. Past Psychological History: Anxiety Smoking Status: Never smoker Past Alcohol Use History: None Reported Past Drug Use History: None Reported General Exam Limitations: no limitations General appearance: alert, in no apparent distress Head exam: Present: atraumatic, normocephalic, normal inspection Eye exam: Present: normal appearance, PERRL, EOMI. Absent: scleral icterus, conjunctival injection, periorbital swelling Pupils: Present: normal accommodation ENT exam: Present: normal exam, normal oropharynx, mucous membranes moist Neck exam: Present: normal inspection, full ROM. Absent: tenderness, meningismus, lymphadenopathy Respiratory exam: Present: normal lung sounds bilaterally. Absent: respiratory distress, wheezes, rales, rhonchi, stridor, chest wall tenderness Cardiovascular Exam: Present: regular rate, normal rhythm, normal heart sounds. Absent: systolic murmur, diastolic murmur, rubs, gallop, clicks GI/Abdominal exam: Present: soft, normal bowel sounds. Absent: distended, tenderness, guarding, rebound, rigid Extremities exam: Present: normal inspection (Bruising on bilateral shins the patient states his been there for years. Bruise on lateral side of right upper extremity to forearm area at that patient states has been there for months after she had her arm on something. Patient denies any new bruising, erythema, warmth or sign of infection), full ROM (When patient lying flat in bed, hip is externally rotated slightly, however she states that is been like that for years.), normal capillary refill, other (Patient able to flex and bend left and right knee and hip. Patient does complain of right hip pain when flexing and extending her right hip forward). Absent: tenderness, pedal edema, joint swelling, calf tenderness Back exam: Present: full ROM. Absent: CVA tenderness (R), CVA tenderness (L), paraspinal tenderness, vertebral tenderness Neurological exam: Present: alert, oriented X3, CN II-XII intact Psychiatric exam: Present: normal affect, normal mood Skin exam: Present: warm, dry, intact, normal color. Absent: rash Course Vital Signs 03/22/22 03/22/22 13:01 15:04 Temperature 98.2 F Pulse Rate 72 79 Respiratory 18 16 Rate Blood Pressure 126/69 138/72 O2 Sat by Pulse 91 L 92 L Oximetry Medical Decision Making - Medical Decision Making This 81 -year-old female presents to the emergency department after falling onto her right hip on Friday. CT right hip without contrast showed fracture through the greater trochanter. Had CT cervical spine without any acute intercranial hemorrhage, mass effect or midline shift. No acute fracture or dislocation evident the cervical spine. Aortic aneurysm identified incidentally at the proximal descending aorta measuring 3.8 cm. I did notify patient and of this finding, he is unsure if patient has been diagnosed with this in the past, however I did instruct him to follow-up with primary care on Friday of next week. I did speak with Abel Rodas and he instructed me to send patient home and notify her not to bear any more weight than 50% onto right leg and to continue using her walker as usual. He stated patient could remain weight- bearing on that leg to follow up with Dr. Contreras's office next week if they're unable to contact the surgeon who performed the right hip replacement 3- 4 years ago. Patient and were requesting discharge Instructed patient to follow-up with orthopedics on Friday. Strict return precautions were d iscussed. Patient verbally agreed to plan. Patient sent home in stable condition. Case discussed in detail my attending, . Disposition Clinical Impression: Fall, Fracture of greater trochanter of right femur Disposition: HOME SELF-CARE Condition: Stable Instructions (If sedation given, give patient instructions): Fall Prevention (ED), Hip Fracture (ED) Additional Instructions: Please follow-up with the orthopedic doctor who performed your hip surgery early next week, if you are unable to contact this orthopedic doctor, call Dr. Contreras's office whose information is attached to this paperwork for follow- up appointment next week. Continue to use walker at home and only bear less than 50% of weight onto right leg. Follow-up with your primary care provider in next 1-2 days. Return to the emergency department with any new, worsening, or concerning symptoms. Is patient prescribed a controlled substance at d/c from ED?: No Referrals: Zach Salcedo MD [Primary Care Provider] - 1-2 days Miguel Alston DO [Doctor of Osteopathic Medicine] - 1-2 days Time of Disposition: 16:19
--- NOTE | 2022-03-22 14:24 | XR ---
EXAMINATION TYPE: XR Hip RT and AP Pelvis, XR femur RT DATE OF EXAM: 03/22/2022 COMPARISON: NONE HISTORY: Trauma and pain TECHNIQUE: AP pelvis, 2 views of the right hip, frontal lateral views of the right femur on additiona l 5 images Patient is status post right hip arthroplasty. Heterotopic new bone formation present about the right hip. Bone mineralization is reduced. Patient is status post right knee arthroplasty. No evident frac ture or dislocation. Postop changes are noted to the lumbar spine. Dense vascular calcifications are present within the pelvis. Sacroiliac joints show some sclerosis. IMPRESSION: There is no acute fracture or dislocation in the pelvis or right hip or femur. Additiona l findings above.
--- NOTE | 2022-03-22 14:55 | CT ---
EXAMINATION TYPE: CT brain cspine wo con DATE OF EXAM: 03/22/2022 COMPARISON: Previous exam 12/19/2020 HISTORY: Fall, trauma and pain CT DLP: 1310.3 mGycm Automated exposure control for dose reduction was used. TECHNIQUE: CT scan of the head and cervical spine are performed without contrast. FINDINGS: There is no acute intracranial hemorrhage, mass effect, or midline shift identified. The ventricles and sulci are within normal limits in size. White matter low-attenuation shows a stable appearance, there are changes of hyperostosis frontalis interna. The globes are intact and the visual ized sinuses are remarkable for inflammatory change in the frontal sinus, ethmoid air cells, sphenoid sinus and right maxillary sinus. Cervical spine is visualized in its entirety from C1 through upper thoracic levels and demonstrates s atisfactory alignment without evidence of acute fracture or dislocation. Prevertebral soft tissue ap pears within normal limits. Degenerative disc changes are again noted with multilevel foraminal encro achment, uncovertebral joint hypertrophy, facet arthropathy. The C1-C2 articulation is unremarkable. Aortic aneurysm is identified incidentally. Proximal descending aorta measures approximately 3.8 cm . Focal nodular calcified pleural surface bilaterally at the upper lobes is again noted. IMPRESSION: 1. There is no acute fracture or dislocation evident in the cervical spine. 2. No acute intracranial hemorrhage, mass effect, or midline shift is seen. Additional incidental findings above.
--- NOTE | 2022-03-22 15:17 | CT ---
EXAMINATION TYPE: CT hip RT wo con DATE OF EXAM: 03/22/2022 COMPARISON: Plain film same date HISTORY: Right hip pain. CT DLP: 893 mGycm Automated exposure control for dose reduction was used. Helical imaging through the right hip. Multip lanar reformatting performed. FINDINGS: Patient shows right hip arthroplasty change. Extensive streak artifact is present. Cerclage wire is p resent. Heterotopic new bone formation is present about the right hip. There is a lucency present christal ng the lateral aspect of the greater trochanter laterally, axial image #65 series 201 which was thoug ht to be well-corticated on plain film. No evident dislocation. No evident hematoma or soft tissue ab normality to suggest acute injury. IMPRESSION: DIFFICULT TO EXCLUDE VERTICAL FRACTURE THROUGH THE GREATER TROCHANTER DESCRIBED.
[2022-03-22 16:56] VITALS: BP 154/82; PULSE 65; RESP 18
== END 2022-03-22 16:52 | disposition home or self-care (01) ==
LOC: EC 12:27
DX: S72.111A Displaced fracture of greater trochanter of right femur, initial encounter for closed fracture (principal); F03.90 Unspecified dementia, unspecified severity, without behavioral disturbance, psychotic disturbance, mood disturbance, and anxiety; I10 Essential (primary) hypertension; F41.9 Anxiety disorder, unspecified; Z86.718 Personal history of other venous thrombosis and embolism; Z90.710 Acquired absence of both cervix and uterus; W18.30XA Fall on same level, unspecified, initial encounter; Z79.01 Long term (current) use of anticoagulants
CPT/HCPCS: 70450; 72125; 73502; 99284

== ENCOUNTER 2022-05-29 18:07 | Inpatient (IN) | payer MEDICARE, BC ==
[2022-05-29 19:38] LABS: Anisocytosis Moderate; Basophils # (A) 0.2 k/uL (0-0.2); Basophils % (A) 3 %; Eosinophils # (A) 0.1 k/uL (0-0.7); Eosinophils % (A) 1 %; HCT 35.1 % (34.0-46.0); HGB 10.5 gm/dL (11.4-16.0); Hypochromasia Marked; Lymphocytes # (A) 1.1 k/uL (1.0-4.8); Lymphocytes % (A) 21 %; MCH 32.1 pg (25.0-35.0); MCHC 29.9 g/dL (31.0-37.0); MCV 107.3 fL (80.0-100.0); Macrocytosis Marked; Mean Platelet Volume 9.2; Monocytes # (A) 0.4 k/uL (0-1.0); Monocytes % (A) 8 %; Neutrophils # (A) 3.3 k/uL (1.3-7.7); Neutrophils % (A) 64 %; Platelet Count 274 k/uL (150-450); RBC 3.27 m/uL (3.80-5.40); RDW 23.1 % (11.5-15.5); WBC 5.2 k/uL (3.8-10.6)
[2022-05-29 19:46] LABS: ALT 6 U/L (4-34); AST 28 U/L (14-36); African American GFR (CKD) >90 (>60 ml/min/1.73 sqM); Albumin 3.2 g/dL (3.5-5.0); Alkaline Phosphatase 175 U/L (38-126); Anion Gap -2 mmol/L; Blood Urea Nitrogen 15 mg/dL (7-17); Calcium 7.9 mg/dL (8.4-10.2); Carbon Dioxide 40 mmol/L (22-30); Chloride 104 mmol/L (98-107); Glucose 93 mg/dL (74-99); Non-African American GFR(CKD) 86 (>60 ml/min/1.73 sqM); Potassium 4.4 mmol/L (3.5-5.1); Sodium 142 mmol/L (137-145); Total Bilirubin 0.7 mg/dL (0.2-1.3); Total Protein 6.6 g/dL (6.3-8.2)
--- NOTE | 2022-05-29 20:22 | CT ---
EXAMINATION TYPE: CT thor lumbar spine wo con DATE OF EXAM: 05/29/2022 COMPARISON: None HISTORY: pain, unable to obtain hx CT DLP: 1725.6 mGycm Automated exposure control for dose reduction was used. Contrast: None Technique: Axial images 3 mm thick sections. Reconstructed images in the coronal and sagittal planes. FINDINGS: There is severe kyphosis in the upper thoracic spine. There is postsurgical changes within the lumbar spine L2-L4 5. Compression deformity of L3 is evident. Superior endplate compression of L4 appears t o be present. Superior endplate compression of L1 is present There is a wedge deformity of T12 and T11. T10 appears intact. There is compression at T9 remaining t horacic vertebral bodies appear intact. No posterior wall displacement is identified. No spinal canal stenosis is evident. Note is made of infiltrates within the lungs. This could be related atelectasis or pneumonia. Other e tiologies are not excluded. IMPRESSION: 1. MULTILEVEL COMPRESSION DEFORMITIES. WITH SURGICAL FIXATION OF L2-L5, THE L3 COMPRESSION DEFORMITY WITH SOME VERTEBROPLASTY IS LIKELY OLD. 2. THE WEDGE DEFORMITIES OF T12 AND T11 ARE OF INDETERMINATE AGE IS THE COMPRESSION OF T9. 3. NO SPINAL CANAL STENOSIS IS EVIDENT.
[2022-05-29] MEDS ORDERED: NALOXONE 0.4 MG/ML 1 ML VIAL IV PRN (21:08)
--- NOTE | 2022-05-29 21:23 | ED ---
General Adult HPI - General Chief complaint: Back Pain/Injury Stated complaint: back pain Time Seen by Provider: 05/29/22 18:17 Source: patient, EMS Mode of arrival: EMS - History of Present Illness Initial comments: Bernice is an 82yo F history of dementia who is brought to the emergency department today by ambulance from her primary care office. History is provided by the primary care physician via telephone report. Primary care physician reports that the patient was recently admitted to [facility] on the [place] for back pain and she was undergoing physical therapy. She left [facility] recently admitted the time of discharge was on 3 L nasal cannula. She presented to his office today in the care of her , on arrival she was hypoxic her portable oxygen was empty and the didn't seem to understand that she needed to be on oxygen. Patient also has back pain is still not controlled despite her physical therapy. Her primary care physician Dr. Salecdo was concerned that the patient's not being properly cared for at home, she's not being given her supplemental oxygen and her pain is not being managed. He does have some concern that her who also is very advanced in age may have a component of dementia and inability to understand her need for care. He did intend on filing an APS report. - Related Data Home Medications Medication Instructions Recorded Confirmed Donepezil [Aricept] 10 mg PO DAILY 12/26/16 10/24/20 OLANZapine [Olanzapine] 10 mg PO DAILY 12/26/16 10/24/20 rOPINIRole HCL [Requip] 2 mg PO TID 12/26/16 10/24/20 Citalopram Hydrobromide [CeleXA] 10 mg PO DAILY 10/24/20 10/24/20 Furosemide [Lasix] 20 mg PO DAILY 10/24/20 10/24/20 Memantine [Namenda] 10 mg PO BID 10/24/20 10/24/20 carvediloL [Coreg] 3.125 mg PO BID 10/24/20 10/24/20 Apixaban [Eliquis] 5 mg PO BID 05/29/22 05/29/22 Carbidopa/Levodopa [Carbidopa-Levo 1 tab PO TID 05/29/22 05/29/22 ER 25-100 Tab] Ipratropium-Albuterol Nebulize 3 ml INHALATION RT-Q6H PRN 05/29/22 05/29/22 [Duoneb 0.5 mg-3 mg/3 ml Soln] Multivitamins, Thera [Multivitamin 1 tab PO DAILY 05/29/22 05/29/22 (formulary)] Allergies Allergy/AdvReac Type Severity Reaction Status Date / Time aspirin Allergy Swelling Verified 05/29/22 21:17 Review of Systems ROS Statement: Those systems with pertinent positive or pertinent negative responses have been documented in the HPI. ROS Other: All systems not noted in ROS Statement are negative. Past Medical History Past Medical History: Dementia, Deep Vein Thrombosis (DVT), Hypertension History of Any Multi-Drug Resistant Organisms: None Reported Past Surgical History: Hysterectomy, Orthopedic Surgery Additional Past Surgical History / Comment(s): bilat knee rx. Past Psychological History: Anxiety Smoking Status: Never smoker Past Alcohol Use History: None Reported Past Drug Use History: None Reported General Exam - General Exam Comments Initial Comments: Physical Exam GENERAL: Frail elderly female, no acute distress On O2 via NC HENT: Normocephalic, Atraumatic. EYES: PERRL, EOMI PULMONARY: Unlabored respirations. CARDIOVASCULAR: RRR Warm and well perfused extremities ABDOMEN: Non-distended SKIN: Pale : Deferred NEUROLOGIC: Alert and oriented to self Normal speech MUSCULOSKELETAL: Pain with any ROM of back PSYCHIATRIC: Unable to assess due to dementia Course Vital Signs 05/29/22 05/29/22 05/29/22 18:10 19:16 21:04 Temperature 98.4 F 97.7 F Pulse Rate 79 72 73 Respiratory 18 22 20 Rate Blood Pressure 145/84 151/78 166/92 O2 Sat by Pulse 97 88 L 92 L Oximetry Medical Decision Making - Medical Decision Making Patient was seen and evaluated, labs and imaging were obtained patient does have multiple compression fractures of the spine of indeterminate age, likely all relatively new considering she's been expressing worsening back pain recently, believe she's had false home. Patient will be admitted for pain management as well as placement. Patient care was discussed with Dr. Toledo who accepts admission. - Lab Data Result diagrams: 05/29/22 19:28 05/29/22 19:28 Lab Results 05/29/22 05/29/22 Range/Units 19:28 19:28 WBC 5.2 (3.8-10.6) k/uL RBC 3.27 L (3.80-5.40) m/uL Hgb 10.5 L (11.4-16.0) gm/dL Hct 35.1 (34.0-46.0) % MCV 107.3 H (80.0-100.0) fL MCH 32.1 (25.0-35.0) pg MCHC 29.9 L (31.0-37.0) g/dL RDW 23.1 H (11.5-15.5) % Plt Count 274 (150-450) k/uL MPV 9.2 Neutrophils % 64 % Lymphocytes % 21 % Monocytes % 8 % Eosinophils % 1 % Basophils % 3 % Neutrophils # 3.3 (1.3-7.7) k/uL Lymphocytes # 1.1 (1.0-4.8) k/uL Monocytes # 0.4 (0-1.0) k/uL Eosinophils # 0.1 (0-0.7) k/uL Basophils # 0.2 (0-0.2) k/uL Hypochromasia Marked Anisocytosis Moderate Macrocytosis Marked A Sodium 142 (137-145) mmol/L Potassium 4.4 (3.5-5.1) mmol/L Chloride 104 (98-107) mmol/L Carbon Dioxide 40 H (22-30) mmol/L Anion Gap -2 mmol/L BUN 15 (7-17) mg/dL Creatinine 0.57 (0.52-1.04) mg/dL Est GFR (CKD-EPI)AfAm >90 (>60 ml/min/1.73 sqM) Est GFR (CKD-EPI)NonAf 86 (>60 ml/min/1.73 sqM) Glucose 93 (74-99) mg/dL Calcium 7.9 L (8.4-10.2) mg/dL Total Bilirubin 0.7 (0.2-1.3) mg/dL AST 28 (14-36) U/L ALT 6 (4-34) U/L Alkaline Phosphatase 175 H (38-126) U/L Total Protein 6.6 (6.3-8.2) g/dL Albumin 3.2 L (3.5-5.0) g/dL Disposition Clinical Impression: Compression fracture of body of thoracic vertebra, Compression fracture of lumbar vertebra, Hypoxia, Dementia Disposition: ADMITTED IP TO THIS [facility] Condition: Serious Is patient prescribed a controlled substance at d/c from ED?: No Referrals: Zach Salcedo MD [Primary Care Provider] - 1-2 days
[2022-05-29] MEDS ORDERED: MORPHINE SULFATE 4 MG/ML SYRINGE IVP STA (21:46)
[2022-05-29 21:51] LABS: Amorphous Sediment,Urine Few /hpf; Appearance,Urine Cloudy (Clear); Bacteria,Urine Many /hpf; Bilirubin,Urine Negative (Negative); Blood,Urine Negative (Negative); Color,Urine Yellow; Glucose,Urine (UA) Negative (Negative); Hyaline Casts,Urine 4 /lpf (0-2); Ketones,Urine Negative (Negative); Leukocyte Esterase,Urine Moderate (Negative); Mucus,Urine Occasional /hpf; Nitrite,Urine Positive (Negative); Protein,Urine Trace (Negative); RBC,Urine 56 /hpf (0-5); Specific Gravity,Urine 1.026 (1.001-1.035); Squamous Epithelial Cell,Urine 4 /hpf (0-4); Urobilinogen,Urine <2.0 mg/dL (<2.0); WBC,Urine 63 /hpf (0-5)
[2022-05-30] MEDS: CITALOPRAM HYDROBROMIDE 10 MG TAB PO SCH (08:28)
[2022-05-30] MEDS: ACETAMINOPHEN TAB 325 MG TAB PO PRN (08:28)
[2022-05-30] MEDS: carvediloL 3.125 MG TAB PO SCH ×2 (08:28→20:46)
[2022-05-30] MEDS: MEMANTINE 10 MG TAB PO SCH ×2 (08:28→20:46)
[2022-05-30] MEDS: CARBIDOPA-LEVODOPA ER 25-100MG 1 EACH TABLET.ER PO SCH ×2 (08:29→20:46)
[2022-05-30] MEDS ORDERED: APIXABAN 5 MG TAB PO SCH (09:00)
[2022-05-30] MEDS: IPRATROPIUM-ALBUTEROL 3 ML NEB INHALATION PRN (09:29)
--- NOTE | 2022-05-30 10:17 | P.HPIM ---
History of Present Illness This is a pleasant 82 years old female with past medical history of Dementia, Deep Vein Thrombosis , Hypertension He was sent from her primary care office for concerns for inability to care for herself. Also her is complaining from advanced age and may have dementia himself and difficulty taking care of her own understanding her needs. Patient is poor historian and it was obtained from the staff and medical records. Patient somewhat poor historian. She was lying in bed, she is on 2 L oxygen via nasal cannula, she knows she is in the hospital but she is disoriented to time and person and she has no idea why she came to the hospital or who sent her. As per records patient went with to primary care office where she was noted to be hypoxic with blue loops and empty oxygen tank and there was concerned about the care she is getting with her so they referred her to the hospital and Adult Protective Services were consulted She is answering some questions appropriately but she has memory problems, she complained from shortness of breath but she could not tell how long she denies chest pain or abdominal pain, she denies coughing. She denies diarrhea or vomiting or urinary complaints, no headache or dizziness or weakness or numbness however history is limited by the patient condition Also she states that her is a 1 whose given her pills and that she was taken her medication over the last few days although were not sure how reliable these information are On admission vitals are stable. Patient is saturating 88% on 2 L oxygen via nasal cannula and currently she is saturating 94% on 3 L oxygen. She is afebrile Labs showing hemoglobin of 10.5. Platelet count and labs within normal limits. BMP and liver enzymes are unremarkable. Urine analysis is suspicious for infection Number and thoracic spine CT showing multilevel compression deformities with surgical fixation of L2-L5. The wedge deformities of T12 and T11 are of indeterminate age. No spinal canal stenosis evident Review of Systems Review of systems CONSTITUTIONAL: No fever, no malaise, no fatigue. HEENT: No recent visual problems or hearing problems. Denied any sore throat. CARDIOVASCULAR: No orthopnea, PND, no palpitations, no syncope. PULMONARY: No chest wall tenderness, no hemoptysis. GASTROINTESTINAL: No diarrhea, no nausea, no vomiting, no abdominal pain. Normoactive bowel sounds. NEUROLOGICAL: No headaches, no weakness, no numbness. HEMATOLOGICAL: Denies any bleeding or petechiae. GENITOURINARY: Denies any burning micturition, frequency, or urgency. MUSCULOSKELETAL/RHEUMATOLOGICAL: Denies any joint pain, swelling, or any muscle pain. ENDOCRINE: Denies any polyuria or polydipsia. Past Medical History Past Medical History: Dementia, Deep Vein Thrombosis (DVT), Hypertension History of Any Multi-Drug Resistant Organisms: None Reported Past Surgical History: Hysterectomy, Orthopedic Surgery Additional Past Surgical History / Comment(s): bilat knee rx. Past Psychological History: Anxiety Smoking Status: Never smoker Past Alcohol Use History: None Reported Past Drug Use History: None Reported Medications and Allergies Home Medications Medication Instructions Recorded Confirmed Type Donepezil [Aricept] 10 mg PO HS 12/26/16 05/29/22 History OLANZapine [Olanzapine] 10 mg PO HS 12/26/16 05/29/22 History rOPINIRole HCL [Requip] 2 mg PO TID 12/26/16 05/29/22 History Citalopram Hydrobromide [CeleXA] 10 mg PO DAILY 10/24/20 05/29/22 History Furosemide [Lasix] 20 mg PO DAILY PRN 10/24/20 05/29/22 History Memantine [Namenda] 10 mg PO BID 10/24/20 05/29/22 History carvediloL [Coreg] 3.125 mg PO BID 10/24/20 05/29/22 History Apixaban [Eliquis] 5 mg PO BID 05/29/22 05/29/22 History Carbidopa/Levodopa [Carbidopa-Levo 1 tab PO TID 05/29/22 05/29/22 History ER 25-100 Tab] Ipratropium-Albuterol Nebulize 3 ml INHALATION RT-Q6H PRN 05/29/22 05/29/22 History [Duoneb 0.5 mg-3 mg/3 ml Soln] Multivitamins, Thera [Multivitamin 1 tab PO DAILY 05/29/22 05/29/22 History (formulary)] Allergies Allergy/AdvReac Type Severity Reaction Status Date / Time aspirin Allergy Swelling Verified 05/29/22 21:17 Physical Exam Vitals: Vital Signs Temp Pulse Resp BP Pulse Ox 05/30/22 01:00 64 150/87 94 L 05/29/22 22:56 66 15 166/92 93 L 05/29/22 21:04 97.7 F 73 20 166/92 92 L 05/29/22 19:16 72 22 151/78 88 L 05/29/22 18:10 98.4 F 79 18 145/84 97 Intake and Output 05/29/22 05/29/22 05/30/22 14:59 22:59 06:59 Other: Weight 83.461 kg Results CBC & Chem 7: 05/29/22 19:28 05/29/22 19:28 Labs: Abnormal Lab Results - Last 24 Hours (Table) 05/29/22 05/29/22 05/29/22 Range/Units 19:28 19:28 21:02 RBC 3.27 L (3.80-5.40) m/uL Hgb 10.5 L (11.4-16.0) gm/dL MCV 107.3 H (80.0-100.0) fL MCHC 29.9 L (31.0-37.0) g/dL RDW 23.1 H (11.5-15.5) % Macrocytosis Marked A Carbon Dioxide 40 H (22-30) mmol/L Calcium 7.9 L (8.4-10.2) mg/dL Alkaline Phosphatase 175 H (38-126) U/L Albumin 3.2 L (3.5-5.0) g/dL Urine Appearance Cloudy H (Clear) Urine Protein Trace H (Negative) Urine Nitrite Positive H (Negative) Ur Leukocyte Esterase Moderate H (Negative) Urine RBC 56 H (0-5) /hpf Urine WBC 63 H (0-5) /hpf Amorphous Sediment Few H (None) /hpf Urine Bacteria Many H (None) /hpf Hyaline Casts 4 H (0-2) /lpf Urine Mucus Occasional H (None) /hpf Assessment and Plan Assessment: An acute hypoxia Acute urinary tract infection Metabolic encephalopathy secondary to above Mild upper abdominal tenderness Left leg warmth and swelling Dementia Restless leg syndrome History of DVT on Eliquis Hypertension Parkinson disease Plan: This is a pleasant 82 is old female who presents with worsening dementia suspicious for AMS and metabolic encephalopathy secondary to UTI, also hypoxia Start patient with ceftriaxone and follow-up urine culture Check her chest x-ray Labs and medication were reviewed.. Continue same treatment. Continue with symptomatic treatment. Resume home medication. Monitor lytes and vitals. DVT and GI prophylaxis. Further recommendations as per clinical course of the patient DVT prophylaxis: Subcutaneous heparin GI Prophylaxis: Pepcid PT/OT: Pending Prognosis is guarded
--- NOTE | 2022-05-30 12:03 | XR ---
EXAMINATION TYPE: XR KUB DATE OF EXAM: 05/30/2022 COMPARISON: None available INDICATION: Upper abdominal tenderness TECHNIQUE: Supine AP view of the abdomen and pelvis FINDINGS: Suboptimal exam with poor penetration. No gross signs of free peritoneal air. No signs of acute high- grade small bowel obstruction. IVC filter is seen. Rounded calcification is seen in the right side of the abdomen, suboptimally assessed. Marked degenerative changes of the lower thoracic and lumbar spine with lumbar spinal fixation. Right total hip arthroplasty, with surrounding heterotopic bone formation. Moderate degenerative changes o f the left hip joint. IMPRESSION: As above.
--- NOTE | 2022-05-30 12:07 | XR ---
EXAMINATION TYPE: XR chest 2V DATE OF EXAM: 05/30/2022 COMPARISON: X-ray dated 11/03/2021 HISTORY: Hypoxia TECHNIQUE: Frontal and lateral views of the chest are obtained. FINDINGS: Elevated right hemidiaphragm. Associated large right pleural effusion. Congested pulmonary vasculatur e with prominent interstitial lung markings suggestive of pulmonary edema, please correlate clinicall y. Suspected small left sided pleural effusion. Cardiac size cannot be properly assessed however cardiom egaly is suspected. It is not possible to exclude a right hilar lesion by this x-ray. Osteopenia. Degenerative changes of the right shoulder and thoracic spine. Suspected multilevel thora cic vertebral body collapse, please correlate clinically for chronicity. IMPRESSION: As above.
--- NOTE | 2022-05-30 12:09 | US ---
EXAMINATION TYPE: US venous doppler duplex LE LT DATE OF EXAM: 05/30/2022 11:31 AM COMPARISON: NONE CLINICAL HISTORY: Swollen. Edema and pain SIDE PERFORMED: Left TECHNIQUE: The lower extremity deep venous system is examined utilizing real time linear array sonog jamaal with graded compression, doppler sonography and color-flow sonography. VESSELS IMAGED: Common Femoral Vein Deep Femoral Vein Superior aspect of the Greater Saphenous Vein * Femoral Vein Popliteal Vein Proximal Calf Veins (* superficial vessels) Left Leg: Negative for DVT IMPRESSION: No evidence of DVT of the left lower extremity.
[2022-05-30] MEDS: FUROSEMIDE 10 MG/ML 4 ML VIAL IV SCH ×2 (13:41→22:36)
--- NOTE | 2022-05-30 16:14 | P.CNPUL ---
History of Present Illness Consult date: 05/30/22 Reason for consult: pleural effusion History of present illness: 82-year-old female patient, coming into the hospital because of worsening shortn ess of breath and we will consolidated with sedation because of a new onset right-sided pleural effusion. The patient is known to have dementia and she is 82 years old. 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 Based on the history, the patient has previous history of left lower extremity DVT that was treated through [facility]. The patient had DVT and pulmonary embolism several years back and she's been taking anticoagulation with Eliquis. She also has history of Parkinson's disease. The patient was sent over from the primary care physician's office as the patient was getting progressively weak and she was unable to take care of herself. Doesn't was complaining that he was unable to take care of her anymore. The patient is a poor historian. She is laying down in bed and she is on oxygen at 2 L per minute nasal cannula. She is aware that she is in the hospital and she is disoriented to time and people. in the hospital, the patient was placed on 3 L of O2 nasal cannula and her pulse ox came up to 94%. She was found to be afebrile. Chest x-ray as mentioned showed cardiomegaly and a right-sided pleural effusion. The blood work showed a white cell, 5.2 with a hemoglobin of 10.5. The sodium was at 142, serum bicarb was at 40 with a potassium level of 4.4, BUN was 50 with a creatinine 0.5. UA was abnormal with positive RBCs and WBCs and many bacteria. Review of Systems quite debilitated, unable to provide history because of her underlying demen tia.she has poor memory. She is only simple questions and she admits that she doesn't remember well. Past Medical History Past Medical History: Dementia, Deep Vein Thrombosis (DVT), Hypertension History of Any Multi-Drug Resistant Organisms: None Reported Past Surgical History: Hysterectomy, Orthopedic Surgery Additional Past Surgical History / Comment(s): bilat knee rx. Past Psychological History: Anxiety Smoking Status: Never smoker Past Alcohol Use History: None Reported Past Drug Use History: None Reported Medications and Allergies Home Medications Medication Instructions Recorded Confirmed Type Donepezil [Aricept] 10 mg PO HS 12/26/16 05/29/22 History OLANZapine [Olanzapine] 10 mg PO HS 12/26/16 05/29/22 History rOPINIRole HCL [Requip] 2 mg PO TID 12/26/16 05/29/22 History Citalopram Hydrobromide [CeleXA] 10 mg PO DAILY 10/24/20 05/29/22 History Furosemide [Lasix] 20 mg PO DAILY PRN 10/24/20 05/29/22 History Memantine [Namenda] 10 mg PO BID 10/24/20 05/29/22 History carvediloL [Coreg] 3.125 mg PO BID 10/24/20 05/29/22 History Apixaban [Eliquis] 5 mg PO BID 05/29/22 05/29/22 History Carbidopa/Levodopa [Carbidopa-Levo 1 tab PO TID 05/29/22 05/29/22 History ER 25-100 Tab] Ipratropium-Albuterol Nebulize 3 ml INHALATION RT-Q6H PRN 05/29/22 05/29/22 History [Duoneb 0.5 mg-3 mg/3 ml Soln] Multivitamins, Thera [Multivitamin 1 tab PO DAILY 05/29/22 05/29/22 History (formulary)] Allergies Allergy/AdvReac Type Severity Reaction Status Date / Time aspirin Allergy Swelling Verified 05/29/22 21:17 Physical Exam Vitals: Vital Signs Temp Pulse Pulse Resp BP BP Pulse Ox 05/30/22 15:54 98 F 92 18 136/67 92 L 05/30/22 14:00 97.6 F 63 16 130/75 92 L 05/30/22 10:35 64 20 145/76 88 L 05/30/22 09:46 05/30/22 09:40 65 05/30/22 09:29 71 05/30/22 05:09 69 12 151/78 93 L 05/30/22 01:00 64 150/87 94 L 05/29/22 22:56 66 15 166/92 93 L 05/29/22 21:04 97.7 F 73 20 166/92 92 L 05/29/22 19:16 72 22 151/78 88 L 05/29/22 18:10 98.4 F 79 18 145/84 97 FiO2 05/30/22 15:54 05/30/22 14:00 05/30/22 10:35 05/30/22 09:46 35 05/30/22 09:40 05/30/22 09:29 30 05/30/22 05:09 05/30/22 01:00 05/29/22 22:56 05/29/22 21:04 05/29/22 19:16 05/29/22 18:10 General appearance: alert, in no apparent distress, breathing is nonlabored and the patient is currently on 3 L of oxygen by nasal cannula Head exam: Present: atraumatic, normocephalic, normal inspection Eye exam: Present: normal appearance, PERRL, EOMI. Absent: scleral icterus, conjunctival injection, periorbital swelling Pupils: Present: normal accommodation ENT exam: Present: normal exam, normal oropharynx, mucous membranes moist Neck exam: Present: normal inspection, full ROM. Absent: tenderness, meningismus, lymphadenopathy Respiratory exam: diminished breath on the right lung base along with dullness to percussion consistent with Cardiovascular Exam: Present: regular rate, normal rhythm, normal heart sounds. Absent: systolic murmur, diastolic murmur, rubs, gallop, clicks GI/Abdominal exam: Present: soft, normal bowel sounds. Absent: distended, tenderness, guarding, rebound, rigid Extremities exam: skin bruising, no cyanosis or clubbing. No edema. Neurological exam: Present: alert, oriented X2, CN II-XII intact, poor historian, for memory. Psychiatric exam: Present: normal affect, normal mood Skin exam: Present: warm, dry, intact, normal color. Absent: rash Results - Laboratory Findings CBC and BMP: 05/29/22 19:28 05/29/22 19:28 Abnormal lab findings: Abnormal Labs 05/29/22 05/29/22 05/29/22 19:28 19:28 21:02 RBC 3.27 L Hgb 10.5 L MCV 107.3 H MCHC 29.9 L RDW 23.1 H Macrocytosis Marked A Carbon Dioxide 40 H Calcium 7.9 L Alkaline Phosphatase 175 H Albumin 3.2 L Urine Appearance Cloudy H Urine Protein Trace H Urine Nitrite Positive H Ur Leukocyte Esterase Moderate H Urine RBC 56 H Urine WBC 63 H Amorphous Sediment Few H Urine Bacteria Many H Hyaline Casts 4 H Urine Mucus Occasional H - Diagnostic Findings Chest x-ray: image reviewed Assessment and Plan Plan: right-sided pleural effusion, , high concern for aspiration as the patient has poor swallowing abilities and the chest x-ray showing volume loss in addition to right basilar opacity, highly suspicious for a parapneumonic aspiration pneumonia with effusion. Acute hypoxic respiratory failure currently on 3 L of oxygen by nasal cannula History of dementia History of DVT and pulmonary embolism, remote, maintained on anticoagulation with Eliquis Hypertension Parkinson's disease Ongoing debility with impairment of cognitive functions and very poor baseline performance and functional status. UTI suspected, currently under investigation Restless leg syndrome Plan Hold anticoagulation put the patient on IV Zosyn and discontinue the Rocephin Swallow evaluation Noncontrast CAT scan of the chest possible thoracentesis to follow within the next 24-48 hours. This will be a diagnostic and therapeutic thoracentesis. The fluid was sent for analysis.
[2022-05-30] MEDS: PIPERACILLIN-TAZOBACTAM 3.375 GM in SODIUM CHLORIDE 0.9% 100 ML IVPB SCH (16:23)
[2022-05-30] MEDS: SODIUM CHLORIDE 0.9% 1,000 ML IV SCH (16:23)
--- NOTE | 2022-05-30 18:27 | CT ---
EXAMINATION TYPE: CT chest wo con CT DLP: 512.50 mGycm, Automated exposure control for dose reduction was used. DATE OF EXAM: 05/30/2022 5:37 PM COMPARISON: CT thoracic spine 05/29/2022. CLINICAL INDICATION:Female, 82 years old with history of pleural effusion/pneumonia, pleural effusion /pneumonia. Multiple spine fx TECHNIQUE: Multiple axial images were obtained through the chest without IV contrast. Lack of IV or o ral contrast limits evaluation of solid and hollow organ viscera. Left renal cysts are present. FINDINGS: LUNGS/ PLEURA: No evidence of pneumothorax. Trace right pleural effusion. There is by basilar atelect asis changes. AIRWAY: A few opacified lower lobe airways with calcification of the bronchial valdez. HEART: Mildly enlarged for size heart. There is moderate coronary artery atherosclerosis. MEDIASTINUM: No gross evidence of adenopathy. Coronary artery atherosclerosis. VASCULATURE: No aortic aneurysm. IVC filter is partially visualized. MUSCULOSKELETAL: The ribs are suboptimally evaluated given some motion. No obvious rib fracture. No a cute fractures identified. Disc degeneration changes of the glenohumeral and acromioclavicular joints bilaterally. Multilevel compression deformities are seen throughout the spine as seen on CT thoracic spine from 05/29/2022. Partially visualized fixation hardware is seen within the lumbar spine. SOFT TISSUES/LYMPH NODES: Unremarkable. LOWER NECK: No significant findings. UPPER ABDOMEN: Hepatic cysts are partially visualized. Scattered calcified granulomas are seen within the liver. Cholelithiasis. IMPRESSION: 1. Bibasilar consolidation changes to represent atelectasis. Superimposed infection is not entirely e xcluded. Opacified airways in the lower lobes could represent retained secretions versus aspiration. Trace right pleural effusion. 2. Moderate coronary artery atherosclerosis. 3. Limited evaluation of the ribs for fracture given some respiratory motion. 4. Remote appearing left proximal humerus fracture. 5. Multilevel disc degeneration changes and compression deformities as described on prior CT thorax.
[2022-05-30] MEDS: DONEPEZIL 10 MG TAB PO SCH (20:46)
[2022-05-30] MEDS: FAMOTIDINE 20 MG/2 ML VIAL IV SCH (22:34)
[2022-05-31] MEDS: PIPERACILLIN-TAZOBACTAM 3.375 GM in SODIUM CHLORIDE 0.9% 100 ML IVPB SCH ×4 (00:07→23:34)
[2022-05-31] MEDS: IPRATROPIUM-ALBUTEROL 3 ML NEB INHALATION PRN (08:16)
[2022-05-31 08:49] LABS: HCT 36.2 % (37.2-46.3); HGB 10.7 g/dL (12.0-15.0); MCH 30.6 pg (27.0-32.0); MCHC 29.6 g/dL (32.0-37.0); MCV 103.4 fL (80.0-97.0); Mean Platelet Volume 12.1 fL (9.5-12.2); Platelet Count 323 X 10*3/uL (140-440); WBC 4.09 X 10*3/uL (4.50-10.00)
[2022-05-31 08:57] LABS: African American GFR (CKD) 88.1 (60.0-200.0); Anion Gap 12.8 mmol/L (10.00-18.00); BUN/Creat Ratio 16.92 Ratio (12.00-20.00); Blood Urea Nitrogen 12.3 mg/dL (9.0-27.0); Calcium 7.9 mg/dL (8.7-10.3); Carbon Dioxide 37.3 mmol/L (20.0-27.5); Magnesium 2.1 mg/dL (1.5-2.4); Potassium 3.8 mmol/L (3.5-5.5)
[2022-05-31 09:34] LABS: Anisocytosis (M) 2+; Basophils # (A) 0.02 X 10*3/uL (0.00-0.10); Basophils % (A) 0.5 %; Eosinophils # (A) 0.12 X 10*3/uL (0.04-0.35); Eosinophils % (A) 2.9 %; Immature Grans, Automated 0.5 %; Lymphocytes # (A) 0.74 X 10*3/uL (0.90-5.00); Lymphocytes % (A) 18.1 %; Monocytes # (A) 0.37 X 10*3/uL (0.20-1.00); Neutrophils # (A) 2.82 X 10*3/uL (1.80-7.70)
[2022-05-31] MEDS: FAMOTIDINE 20 MG/2 ML VIAL IV SCH ×2 (09:35→21:23)
[2022-05-31] MEDS: CARBIDOPA-LEVODOPA ER 25-100MG 1 EACH TABLET.ER PO SCH ×3 (12:20→21:22)
[2022-05-31] MEDS: CITALOPRAM HYDROBROMIDE 10 MG TAB PO SCH (12:21)
[2022-05-31] MEDS: carvediloL 3.125 MG TAB PO SCH ×2 (12:21→21:22)
[2022-05-31] MEDS: MEMANTINE 10 MG TAB PO SCH ×2 (12:21→23:35)
[2022-05-31] MEDS: SODIUM CHLORIDE 0.9% 1,000 ML IV SCH (12:41)
--- NOTE | 2022-05-31 13:43 | P.PN ---
Subjective Progress Note Date: 05/31/22 82-year-old female patient, coming into the hospital because of worsening short ness of breath and we will consolidated with sedation because of a new onset right-sided pleural effusion. The patient is known to have dementia and she is 82 years old. 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 Based on the history, the patient has previous history of left lower extremity DVT that was treated through [facility]. The patient had DVT and pulmonary embolism several years back and she's been taking anticoagulation with Eliquis. She also has history of Parkinson's disease. The patient was sent over from the primary care physician's office as the patient was getting progressively weak and she was unable to take care of herself. Doesn't was complaining that he was unable to take care of her anymore. The patient is a poor historian. She is laying down in bed and she is on oxygen at 2 L per minute nasal cannula. She is aware that she is in the hospital and she is disoriented to time and people. in the hospital, the patient was placed on 3 L of O2 nasal cannula and her pulse ox came up to 94%. She was found to be afebrile. Chest x-ray as mentioned showed cardiomegaly and a right-sided pleural effusion. The blood work showed a white cell, 5.2 with a hemoglobin of 10.5. The sodium was at 142, serum bicarb was at 40 with a potassium level of 4.4, BUN was 50 with a creatinine 0.5. UA was abnormal with positive RBCs and WBCs and many bacteria. On today's evaluation of 05/31/2022, the patient is slightly improved compared to yesterday. I was concerned about aspiration. A CAT scan of the chest was done yesterday that showed a area of consolidation of the right lower lobe. Very small right-sided pleural effusion which is not amenable for thoracentesis. The patient also has bibasilar consolidation worse in the right lung base. There is also possibility of some secretions retained in the lower lobe airways which is again consistent with aspiration. The patient Underwent a swallow evaluation and the recommendations were also noted and the patient is being given pured nectar thick diet. The patient is also on IV Zosyn. The White cell count is at 4 with a hemoglobin is 10.7. The process to level is at 0.05. Urinalysis was abnormal. BUN is a 12 the creatinine 0.7. Blood cultures been negative thus far. The patient is currently on a 35% Ventimask. Objective - Vital Signs Vital signs: Vital Signs Temp 98.1 F 05/31/22 11:38 Pulse 80 05/31/22 11:38 Resp 17 05/31/22 11:38 BP 115/75 05/31/22 11:38 Pulse Ox 94 L 05/31/22 11:38 FiO2 35 05/31/22 08:16 Intake & Output 05/30/22 05/31/22 05/31/22 18:59 06:59 18:59 Intake Total 1000 Balance 1000 Weight 78 kg Intake: Intake, IV Titration 700 Amount Piperacillin-Tazobactam 3 100 .375 gm In Sodium Chloride 0.9% 100 ml @ 25 mls/hr IVPB Q8HR [facility] Rx# :[id number] Sodium Chloride 0.9% 1, 600 000 ml @ 50 mls/hr IV . Q20H [facility] Rx#:[id number] Oral 300 Other: Voiding Method Diaper Diaper Incontinent Incontinent # Voids 1 2 - Exam General appearance: alert, in no apparent distress, breathing is nonlabored and the patient is currently on 35% Ventimask Head exam: Present: atraumatic, normocephalic, normal inspection Eye exam: Present: normal appearance, PERRL, EOMI. Absent: scleral icterus, conjunctival injection, periorbital swelling Pupils: Present: normal accommodation ENT exam: Present: normal exam, normal oropharynx, mucous membranes moist Neck exam: Present: normal inspection, full ROM. Absent: tenderness, meningismus, lymphadenopathy Respiratory exam: diminished breath on the right lung base along with dullness to percussion consistent with Cardiovascular Exam: Present: regular rate, normal rhythm, normal heart sounds. Absent: systolic murmur, diastolic murmur, rubs, gallop, clicks GI/Abdominal exam: Present: soft, normal bowel sounds. Absent: distended, tenderness, guarding, rebound, rigid Extremities exam: skin bruising, no cyanosis or clubbing. No edema. Neurological exam: Present: alert, oriented X2, CN II-XII intact, poor historian, for memory. Psychiatric exam: Present: normal affect, normal mood Skin exam: Present: warm, dry, intact, normal color. Absent: rash - Labs CBC & Chem 7: 05/31/22 06:31 05/31/22 06:31 Labs: Abnormal Lab Results - Last 24 Hours (Table) 05/31/22 05/31/22 Range/Units 06:31 06:31 WBC 4.09 L (4.50-10.00) X 10*3/uL RBC 3.50 L (4.10-5.20) X 10*6/uL Hgb 10.7 L (12.0-15.0) g/dL Hct 36.2 L (37.2-46.3) % MCV 103.4 H (80.0-97.0) fL MCHC 29.6 L (32.0-37.0) g/dL RDW 26.0 H (11.5-14.5) % Absolute Nucleated RBC 0.04 H (0.00-0.00) X 10*3/uL Lymphocytes # 0.74 L (0.90-5.00) X 10*3/uL NRBC/100 WBC Diff 1.0 H (0.0-0.0) /100 WBCS Chloride 93 L (96-109) mmol/L Carbon Dioxide 37.3 H (20.0-27.5) mmol/L Calcium 7.9 L (8.7-10.3) mg/dL Microbiology - Last 24 Hours (Table) 05/30/22 10:36 Blood Culture - Preliminary Blood No Growth after 24 hours 05/29/22 21:02 Urine Culture - Preliminary Urine,Voided Assessment and Plan Plan: Right lung opacification a combination of pneumonia/atelectasis and a small right-sided pleural effusion, probably related to aspiration. Abnormal swallow and the patient is currently on pured nectar thick diet Acute hypoxic respiratory failure currently on 35% Ventimask History of dementia History of DVT and pulmonary embolism, remote, maintained on anticoagulation with Eliquis Hypertension Parkinson's disease Ongoing debility with impairment of cognitive functions and very poor baseline performance and functional status. UTI suspected, currently under investigation Restless leg syndrome Plan Resume anticoagulation, No need for thoracentesis Incentive spirometer Continued IV Zosyn Aspiration precautions CAT scan chest was noted We'll continue to follow
[2022-05-31] MEDS: APIXABAN 5 MG TAB PO SCH ×2 (16:53→21:28)
--- NOTE | 2022-05-31 19:30 | P.PN ---
Subjective This is a pleasant 82 years old female with past medical history of Dementia, Deep Vein Thrombosis , Hypertension He was sent from her primary care office for concerns for inability to care for herself. Also her is complaining from advanced age and may have dementia himself and difficulty taking care of her own understanding her needs. Patient is poor historian and it was obtained from the staff and medical records. Patient somewhat poor historian. She was lying in bed, she is on 2 L oxygen via nasal cannula, she knows she is in the hospital but she is disoriented to time and person and she has no idea why she came to the hospital or who sent her. As per records patient went with to primary care office where she was noted to be hypoxic with blue loops and empty oxygen tank and there was concerned about the care she is getting with her so they referred her to the hospital and Adult Protective Services were consulted She is answering some questions appropriately but she has memory problems, she complained from shortness of breath but she could not tell how long she denies chest pain or abdominal pain, she denies coughing. She denies diarrhea or vomiting or urinary complaints, no headache or dizziness or weakness or numbness however history is limited by the patient condition Also she states that her is a 1 whose given her pills and that she was taken her medication over the last few days although were not sure how reliable these information are On admission vitals are stable. Patient is saturating 88% on 2 L oxygen via nasal cannula and currently she is saturating 94% on 3 L oxygen. She is afebrile Labs showing hemoglobin of 10.5. Platelet count and labs within normal limits. BMP and liver enzymes are unremarkable. Urine analysis is suspicious for infection Number and thoracic spine CT showing multilevel compression deformities with surgical fixation of L2-L5. The wedge deformities of T12 and T11 are of indeterminate age. No spinal canal stenosis evident 05/31/2022 Patient is more awake but looks disoriented, I tried to explain to her she denies hospital and her diagnoses, she looks to understand but not sure about her memory if she can't remember tomorrow. She still on 10 L oxygen via nasal cannula. Aspiration pneumonia is suspected by pulmonary team and currently covered with Zosyn. However her port discussed on it is negative at 0.05. Urine culture is also pending. Objective - Vital Signs Vital signs: Vital Signs Temp 97.6 F 05/31/22 07:53 Pulse 70 05/31/22 08:29 Resp 20 05/31/22 07:53 BP 147/82 05/31/22 07:53 Pulse Ox 95 05/31/22 08:16 FiO2 35 05/31/22 08:16 Intake & Output 05/30/22 05/31/22 05/31/22 18:59 06:59 18:59 Intake Total 1000 Balance 1000 Weight 78 kg Intake: Intake, IV Titration 700 Amount Piperacillin-Tazobactam 3 100 .375 gm In Sodium Chloride 0.9% 100 ml @ 25 mls/hr IVPB Q8HR [facility] Rx# :[id number] Sodium Chloride 0.9% 1, 600 000 ml @ 50 mls/hr IV . Q20H [facility] Rx#:[id number] Oral 300 Other: Voiding Method Diaper Diaper Incontinent Incontinent # Voids 1 2 - Exam -GENERAL: The patient is confused and tired looking, not in any acute distress. Well developed, well nourished. HEENT: Pupils are round and equally reacting to light. EOMI. No scleral icterus. No conjunctival pallor. Normocephalic, atraumatic. No pharyngeal erythema. No thyromegaly. CARDIOVASCULAR: S1 and S2 present. No murmurs, rubs, or gallops. PULMONARY: Chest is clear to auscultation, no wheezing or crackles. ABDOMEN: Soft, nontender, nondistended, normoactive bowel sounds. No palpable organomegaly. MUSCULOSKELETAL: No joint swelling or deformity. EXTREMITIES: No cyanosis, clubbing, or pedal edema. NEUROLOGICAL: Gross neurological examination did not reveal any focal deficits. SKIN: No rashes. no petechiae. - Labs CBC & Chem 7: 05/31/22 06:31 05/31/22 06:31 Labs: Abnormal Lab Results - Last 24 Hours (Table) 05/31/22 05/31/22 Range/Units 06:31 06:31 WBC 4.09 L (4.50-10.00) X 10*3/uL RBC 3.50 L (4.10-5.20) X 10*6/uL Hgb 10.7 L (12.0-15.0) g/dL Hct 36.2 L (37.2-46.3) % MCV 103.4 H (80.0-97.0) fL MCHC 29.6 L (32.0-37.0) g/dL RDW 26.0 H (11.5-14.5) % Absolute Nucleated RBC 0.04 H (0.00-0.00) X 10*3/uL Lymphocytes # 0.74 L (0.90-5.00) X 10*3/uL NRBC/100 WBC Diff 1.0 H (0.0-0.0) /100 WBCS Chloride 93 L (96-109) mmol/L Carbon Dioxide 37.3 H (20.0-27.5) mmol/L Calcium 7.9 L (8.7-10.3) mg/dL Microbiology - Last 24 Hours (Table) 05/29/22 21:02 Urine Culture - Preliminary Urine,Voided Assessment and Plan Assessment: An acute hypoxia Acute urinary tract infection Metabolic encephalopathy secondary to above Mild upper abdominal tenderness Left leg warmth and swelling Dementia Restless leg syndrome History of DVT on Eliquis Hypertension Parkinson disease Plan: This is a pleasant 82 is old female who presents with worsening dementia suspicious for AMS and metabolic encephalopathy secondary to UTI and pneumonia, also hypoxia Continue with oxygen therapy follow-up urine culture Patient continued on Zosyn pulmonary consult on the case and appreciated Labs and medication were reviewed.. Continue same treatment. Continue with sym ptomatic treatment. Resume home medication. Monitor lytes and vitals. DVT and GI prophylaxis. Further recommendations as per clinical course of the patient DVT prophylaxis: Subcutaneous heparin GI Prophylaxis: Pepcid PT/OT: Pending Prognosis is guarded
[2022-05-31] MEDS: DONEPEZIL 10 MG TAB PO SCH (21:22)
[2022-06-01] MEDS: CITALOPRAM HYDROBROMIDE 10 MG TAB PO SCH (08:57)
[2022-06-01] MEDS: APIXABAN 5 MG TAB PO SCH ×2 (08:58→20:52)
[2022-06-01] MEDS: MEMANTINE 10 MG TAB PO SCH ×2 (08:58→20:52)
[2022-06-01] MEDS: FAMOTIDINE 20 MG TAB PO SCH ×2 (08:58→20:53)
[2022-06-01] MEDS: carvediloL 3.125 MG TAB PO SCH ×2 (08:58→20:52)
[2022-06-01] MEDS: CARBIDOPA-LEVODOPA ER 25-100MG 1 EACH TABLET.ER PO SCH ×3 (08:59→20:52)
[2022-06-01] MEDS: PIPERACILLIN-TAZOBACTAM 3.375 GM in SODIUM CHLORIDE 0.9% 100 ML IVPB SCH ×3 (09:00→23:24)
[2022-06-01] MEDS: SODIUM CHLORIDE 0.9% 1,000 ML IV SCH (09:00)
[2022-06-01 09:03] LABS: Basophils # (A) 0.03 X 10*3/uL (0.00-0.10); Basophils % (A) 0.9 %; Eosinophils # (A) 0.12 X 10*3/uL (0.04-0.35); Eosinophils % (A) 3.8 %; HCT 33.1 % (37.2-46.3); Immature Grans, Automated 0.6 %; Lymphocytes # (A) 0.59 X 10*3/uL (0.90-5.00); Lymphocytes % (A) 18.5 %; MCH 30.8 pg (27.0-32.0); MCHC 30.2 g/dL (32.0-37.0); MCV 101.8 fL (80.0-97.0); Mean Platelet Volume 10.9 fL (9.5-12.2); Monocytes # (A) 0.36 X 10*3/uL (0.20-1.00); Monocytes % (A) 11.3 %; NRBC Per 100 WBC 0.6 /100 WBCS (0.0-0.0); Neutrophils # (A) 2.07 X 10*3/uL (1.80-7.70); Neutrophils % (A) 64.9 %; Platelet Count 257 X 10*3/uL (140-440); RBC 3.25 X 10*6/uL (4.10-5.20); RDW 25.5 % (11.5-14.5); WBC 3.19 X 10*3/uL (4.50-10.00)
[2022-06-01 09:27] LABS: African American GFR (CKD) 92.2 (60.0-200.0); Anion Gap 4.6 mmol/L (10.00-18.00); BUN/Creat Ratio 20.29 Ratio (12.00-20.00); Blood Urea Nitrogen 14.2 mg/dL (9.0-27.0); Calcium 7.7 mg/dL (8.7-10.3); Carbon Dioxide 39.4 mmol/L (20.0-27.5); Magnesium 2.1 mg/dL (1.5-2.4); Non-African American GFR(CKD) 79.6 (60.0-200.0); Potassium 3.9 mmol/L (3.5-5.5)
--- NOTE | 2022-06-01 11:37 | P.PN ---
Subjective Progress Note Date: 06/01/22 82-year-old female patient, coming into the hospital because of worsening short ness of breath and we will consolidated with sedation because of a new onset right-sided pleural effusion. The patient is known to have dementia and she is 82 years old. 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 Based on the history, the patient has previous history of left lower extremity DVT that was treated through [facility]. The patient had DVT and pulmonary embolism several years back and she's been taking anticoagulation with Eliquis. She also has history of Parkinson's disease. The patient was sent over from the primary care physician's office as the patient was getting progressively weak and she was unable to take care of herself. Doesn't was complaining that he was unable to take care of her anymore. The patient is a poor historian. She is laying down in bed and she is on oxygen at 2 L per minute nasal cannula. She is aware that she is in the hospital and she is disoriented to time and people. in the hospital, the patient was placed on 3 L of O2 nasal cannula and her pulse ox came up to 94%. She was found to be afebrile. Chest x-ray as mentioned showed cardiomegaly and a right-sided pleural effusion. The blood work showed a white cell, 5.2 with a hemoglobin of 10.5. The sodium was at 142, serum bicarb was at 40 with a potassium level of 4.4, BUN was 50 with a creatinine 0.5. UA was abnormal with positive RBCs and WBCs and many bacteria. On today's evaluation of 05/31/2022, the patient is slightly improved compared to yesterday. I was concerned about aspiration. A CAT scan of the chest was done yesterday that showed a area of consolidation of the right lower lobe. Very small right-sided pleural effusion which is not amenable for thoracentesis. The patient also has bibasilar consolidation worse in the right lung base. There is also possibility of some secretions retained in the lower lobe airways which is again consistent with aspiration. The patient Underwent a swallow evaluation and the recommendations were also noted and the patient is being given pured nectar thick diet. The patient is also on IV Zosyn. The White cell count is at 4 with a hemoglobin is 10.7. The process to level is at 0.05. Urinalysis was abnormal. BUN is a 12 the creatinine 0.7. Blood cultures been negative thus far. The patient is currently on a 35% Ventimask. On today's evaluation 06/01/2022, the patient's condition is stable. She was taken off the Ventimask and the patient was placed on 5 L of nasal cannula with a pulse ox of 97%. Cough is subsided. No new complaints otherwise for now. CAT scan of the chest was consistent with aspiration pneumonia. There was also some atelectasis and possibly some material/degrees in the right lower lobe b ronchus. The white cell count is at 3.5 with a hemoglobin of 10 and FiO2 of 57. Electrolytes are normal. BUN is at 40 with a creatinine of 0.7 and the sodium level of 142. Objective - Vital Signs Vital signs: Vital Signs Temp 97.1 F L 06/01/22 05:00 Pulse 66 06/01/22 08:55 Resp 18 06/01/22 05:00 BP 141/70 06/01/22 08:55 Pulse Ox 97 06/01/22 05:00 FiO2 35 05/31/22 15:26 Intake & Output 05/31/22 06/01/22 06/01/22 18:59 06:59 18:59 Intake Total 200 350 Output Total 0 Balance 200 350 Weight 81 kg Intake: Intake, IV Titration 200 Amount Piperacillin-Tazobactam 3 200 .375 gm In Sodium Chloride 0.9% 100 ml @ 25 mls/hr IVPB Q8HR [facility] Rx# :[id number] Oral 350 Output: Post Void Residual 0 Other: Voiding Method Diaper Diaper Incontinent Incontinent # Voids 3 1 - Exam General appearance: alert, in no apparent distress, breathing is nonlabored and the patient is currently on 4 L O2 nasal cannula Head exam: Present: atraumatic, normocephalic, normal inspection Eye exam: Present: normal appearance, PERRL, EOMI. Absent: scleral icterus, conjunctival injection, periorbital swelling Pupils: Present: normal accommodation ENT exam: Present: normal exam, normal oropharynx, mucous membranes moist Neck exam: Present: normal inspection, full ROM. Absent: tenderness, meningismus, lymphadenopathy Respiratory exam: diminished breath on the right lung base along with dullness to percussion consistent with Cardiovascular Exam: Present: regular rate, normal rhythm, normal heart sounds. Absent: systolic murmur, diastolic murmur, rubs, gallop, clicks GI/Abdominal exam: Present: soft, normal bowel sounds. Absent: distended, tenderness, guarding, rebound, rigid Extremities exam: skin bruising, no cyanosis or clubbing. No edema. Neurological exam: Present: alert, oriented X2, CN II-XII intact, poor historian, for memory. Psychiatric exam: Present: normal affect, normal mood Skin exam: Present: warm, dry, intact, normal color. Absent: rash - Labs CBC & Chem 7: 06/01/22 06:30 06/01/22 06:30 Labs: Abnormal Lab Results - Last 24 Hours (Table) 06/01/22 06/01/22 Range/Units 06:30 06:30 WBC 3.19 L (4.50-10.00) X 10*3/uL RBC 3.25 L (4.10-5.20) X 10*6/uL Hgb 10.0 L (12.0-15.0) g/dL Hct 33.1 L (37.2-46.3) % MCV 101.8 H (80.0-97.0) fL MCHC 30.2 L (32.0-37.0) g/dL RDW 25.5 H (11.5-14.5) % Absolute Nucleated RBC 0.02 H (0.00-0.00) X 10*3/uL Lymphocytes # 0.59 L (0.90-5.00) X 10*3/uL NRBC/100 WBC Diff 0.6 H (0.0-0.0) /100 WBCS Carbon Dioxide 39.4 H (20.0-27.5) mmol/L Anion Gap 4.60 L (10.00-18.00) mmol/L BUN/Creatinine Ratio 20.29 H (12.00-20.00) Ratio Calcium 7.7 L (8.7-10.3) mg/dL Microbiology - Last 24 Hours (Table) 05/30/22 10:36 Blood Culture - Preliminary Blood No Growth after 24 hours Assessment and Plan Plan: Right lung opacification a combination of pneumonia/atelectasis and a small right-sided pleural effusion, probably related to aspiration. , Clinically improving on 4 L of O2 nasal cannula Abnormal swallow and the patient is currently on pured nectar thick diet Acute hypoxic respiratory failure currently on 4 L of O2 nasal cannula History of dementia History of DVT and pulmonary embolism, remote, maintained on anticoagulation with Eliquis Hypertension Parkinson's disease Ongoing debility with impairment of cognitive functions and very poor baseline performance and functional status. UTI suspected, currently under investigation Restless leg syndrome Plan Weaned down the FiO2 as tolerated Incentive spirometer Continued IV Zosyn Aspiration precautions CAT scan chest was noted Condition is stable for now May need to repeat a chest x-ray with next 24-48 hours We'll continue to follow
[2022-06-01] MEDS: ACETAMINOPHEN TAB 325 MG TAB PO PRN ×2 (16:46→23:24)
--- NOTE | 2022-06-01 18:36 | P.PN ---
Subjective This is a pleasant 82 years old female with past medical history of Dementia, Deep Vein Thrombosis , Hypertension He was sent from her primary care office for concerns for inability to care for herself. Also her is complaining from advanced age and may have dementia himself and difficulty taking care of her own understanding her needs. Patient is poor historian and it was obtained from the staff and medical records. Patient somewhat poor historian. She was lying in bed, she is on 2 L oxygen via nasal cannula, she knows she is in the hospital but she is disoriented to time and person and she has no idea why she came to the hospital or who sent her. As per records patient went with to primary care office where she was noted to be hypoxic with blue loops and empty oxygen tank and there was concerned about the care she is getting with her so they referred her to the hospital and Adult Protective Services were consulted She is answering some questions appropriately but she has memory problems, she complained from shortness of breath but she could not tell how long she denies chest pain or abdominal pain, she denies coughing. She denies diarrhea or vomiting or urinary complaints, no headache or dizziness or weakness or numbness however history is limited by the patient condition Also she states that her is a 1 whose given her pills and that she was taken her medication over the last few days although were not sure how reliable these information are On admission vitals are stable. Patient is saturating 88% on 2 L oxygen via nasal cannula and currently she is saturating 94% on 3 L oxygen. She is afebrile Labs showing hemoglobin of 10.5. Platelet count and labs within normal limits. BMP and liver enzymes are unremarkable. Urine analysis is suspicious for infection Number and thoracic spine CT showing multilevel compression deformities with surgical fixation of L2-L5. The wedge deformities of T12 and T11 are of indeterminate age. No spinal canal stenosis evident 05/31/2022 Patient is more awake but looks disoriented, I tried to explain to her she denies hospital and her diagnoses, she looks to understand but not sure about her memory if she can't remember tomorrow. She still on 10 L oxygen via nasal cannula. Aspiration pneumonia is suspected by pulmonary team and currently covered with Zosyn. However her port discussed on it is negative at 0.05. Urine culture is also pending. 06/01/2022 Patient's condition is improving gradually and slowly and she is requiring less oxygen at 5 L/m today with saturation of 95%. Also her urine culture is growing gram-negative bacilli. She is hemodynamically stable. Vitals are stable and creatinine is normal. She started picking up diet today 50-75%. We can discontinue IV fluids She is on Zosyn and home dose of Eliquis for her history of DVT Objective - Vital Signs Vital signs: Vital Signs Temp 97.1 F L 06/01/22 05:00 Pulse 66 06/01/22 08:55 Resp 18 06/01/22 08:25 BP 141/70 06/01/22 08:55 Pulse Ox 97 06/01/22 05:00 FiO2 35 05/31/22 15:26 Intake & Output 05/31/22 06/01/22 06/01/22 18:59 06:59 18:59 Intake Total 200 350 Output Total 0 Balance 200 350 Weight 81 kg Intake: Intake, IV Titration 200 Amount Piperacillin-Tazobactam 3 200 .375 gm In Sodium Chloride 0.9% 100 ml @ 25 mls/hr IVPB Q8HR [facility] Rx# :[id number] Oral 350 Output: Post Void Residual 0 Other: Voiding Method Diaper Diaper Diaper Incontinent Incontinent Incontinent # Voids 3 1 - Exam -GENERAL: The patient is confused and tired looking, not in any acute distress. Well developed, well nourished. HEENT: Pupils are round and equally reacting to light. EOMI. No scleral icterus. No conjunctival pallor. Normocephalic, atraumatic. No pharyngeal erythema. No thyromegaly. CARDIOVASCULAR: S1 and S2 present. No murmurs, rubs, or gallops. PULMONARY: Chest is clear to auscultation, no wheezing or crackles. ABDOMEN: Soft, nontender, nondistended, normoactive bowel sounds. No palpable organomegaly. MUSCULOSKELETAL: No joint swelling or deformity. EXTREMITIES: No cyanosis, clubbing, or pedal edema. NEUROLOGICAL: Gross neurological examination did not reveal any focal deficits. SKIN: No rashes. no petechiae. - Labs CBC & Chem 7: 06/01/22 06:30 06/01/22 06:30 Labs: Abnormal Lab Results - Last 24 Hours (Table) 06/01/22 06/01/22 Range/Units 06:30 06:30 WBC 3.19 L (4.50-10.00) X 10*3/uL RBC 3.25 L (4.10-5.20) X 10*6/uL Hgb 10.0 L (12.0-15.0) g/dL Hct 33.1 L (37.2-46.3) % MCV 101.8 H (80.0-97.0) fL MCHC 30.2 L (32.0-37.0) g/dL RDW 25.5 H (11.5-14.5) % Absolute Nucleated RBC 0.02 H (0.00-0.00) X 10*3/uL Lymphocytes # 0.59 L (0.90-5.00) X 10*3/uL NRBC/100 WBC Diff 0.6 H (0.0-0.0) /100 WBCS Carbon Dioxide 39.4 H (20.0-27.5) mmol/L Anion Gap 4.60 L (10.00-18.00) mmol/L BUN/Creatinine Ratio 20.29 H (12.00-20.00) Ratio Calcium 7.7 L (8.7-10.3) mg/dL Microbiology - Last 24 Hours (Table) 05/30/22 10:36 Blood Culture - Preliminary Blood No Growth after 24 hours Assessment and Plan Assessment: An acute hypoxia Acute urinary tract infection Metabolic encephalopathy secondary to above Mild upper abdominal tenderness Left leg warmth and swelling Dementia Restless leg syndrome History of DVT on Eliquis Hypertension Parkinson disease Plan: This is a pleasant 82 is old female who presents with worsening dementia suspicious for AMS and metabolic encephalopathy secondary to UTI and pneumonia, also hypoxia Continue with oxygen therapy follow-up urine culture Patient continued on Zosyn pulmonary consult on the case and appreciated Labs and medication were reviewed.. Continue same treatment. Continue with symptomatic treatment. Resume home medication. Monitor lytes and vitals. DVT and GI prophylaxis. Further recommendations as per clinical course of the patient DVT prophylaxis: Subcutaneous heparin GI Prophylaxis: Pepcid PT/OT: Pending Prognosis is guarded
[2022-06-01] MEDS: DONEPEZIL 10 MG TAB PO SCH (20:52)
[2022-06-02] MEDS: ACETAMINOPHEN TAB 325 MG TAB PO PRN ×2 (05:45→16:30)
[2022-06-02] MEDS: PIPERACILLIN-TAZOBACTAM 3.375 GM in SODIUM CHLORIDE 0.9% 100 ML IVPB SCH ×2 (09:01→16:18)
[2022-06-02] MEDS: FAMOTIDINE 20 MG TAB PO SCH ×2 (09:02→21:51)
[2022-06-02] MEDS: CITALOPRAM HYDROBROMIDE 10 MG TAB PO SCH (09:03)
[2022-06-02] MEDS: CARBIDOPA-LEVODOPA ER 25-100MG 1 EACH TABLET.ER PO SCH ×3 (09:03→21:52)
[2022-06-02] MEDS: APIXABAN 5 MG TAB PO SCH ×2 (09:03→21:51)
[2022-06-02] MEDS: carvediloL 3.125 MG TAB PO SCH ×2 (09:03→21:51)
[2022-06-02] MEDS: MEMANTINE 10 MG TAB PO SCH ×2 (09:04→22:32)
--- NOTE | 2022-06-02 11:48 | P.PN ---
Subjective Progress Note Date: 06/02/22 82-year-old female patient, coming into the hospital because of worsening short ness of breath and we will consolidated with sedation because of a new onset right-sided pleural effusion. The patient is known to have dementia and she is 82 years old. 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 Based on the history, the patient has previous history of left lower extremity DVT that was treated through [facility]. The patient had DVT and pulmonary embolism several years back and she's been taking anticoagulation with Eliquis. She also has history of Parkinson's disease. The patient was sent over from the primary care physician's office as the patient was getting progressively weak and she was unable to take care of herself. Doesn't was complaining that he was unable to take care of her anymore. The patient is a poor historian. She is laying down in bed and she is on oxygen at 2 L per minute nasal cannula. She is aware that she is in the hospital and she is disoriented to time and people. in the hospital, the patient was placed on 3 L of O2 nasal cannula and her pulse ox came up to 94%. She was found to be afebrile. Chest x-ray as mentioned showed cardiomegaly and a right-sided pleural effusion. The blood work showed a white cell, 5.2 with a hemoglobin of 10.5. The sodium was at 142, serum bicarb was at 40 with a potassium level of 4.4, BUN was 50 with a creatinine 0.5. UA was abnormal with positive RBCs and WBCs and many bacteria. On today's evaluation of 05/31/2022, the patient is slightly improved compared to yesterday. I was concerned about aspiration. A CAT scan of the chest was done yesterday that showed a area of consolidation of the right lower lobe. Very small right-sided pleural effusion which is not amenable for thoracentesis. The patient also has bibasilar consolidation worse in the right lung base. There is also possibility of some secretions retained in the lower lobe airways which is again consistent with aspiration. The patient Underwent a swallow evaluation and the recommendations were also noted and the patient is being given pured nectar thick diet. The patient is also on IV Zosyn. The White cell count is at 4 with a hemoglobin is 10.7. The process to level is at 0.05. Urinalysis was abnormal. BUN is a 12 the creatinine 0.7. Blood cultures been negative thus far. The patient is currently on a 35% Ventimask. On today's evaluation 06/01/2022, the patient's condition is stable. She was taken off the Ventimask and the patient was placed on 5 L of nasal cannula with a pulse ox of 97%. Cough is subsided. No new complaints otherwise for now. CAT scan of the chest was consistent with aspiration pneumonia. There was also some atelectasis and possibly some material/degrees in the right lower lobe b ronchus. The white cell count is at 3.5 with a hemoglobin of 10 and FiO2 of 57. Electrolytes are normal. BUN is at 40 with a creatinine of 0.7 and the sodium level of 142. 72,022, the patient is doing well, condition is stable. No new complaints, remains on 5 L of nasal cannula. Breathing is nonlabored. Objective - Vital Signs Vital signs: Vital Signs Temp 97.1 F L 06/02/22 05:00 Pulse 53 L 06/02/22 05:00 Resp 18 06/02/22 05:00 BP 114/67 06/02/22 05:00 Pulse Ox 95 06/02/22 05:00 FiO2 35 05/31/22 15:26 Intake & Output 06/01/22 06/02/22 06/02/22 18:59 06:59 18:59 Intake Total 240 100 Balance 240 100 Weight 80.5 kg Intake: Intake, IV Titration 100 Amount Piperacillin-Tazobactam 3 100 .375 gm In Sodium Chloride 0.9% 100 ml @ 25 mls/hr IVPB Q8HR [facility] Rx# :[id number] Oral 240 Other: Voiding Method Diaper Diaper Diaper Incontinent Incontinent Incontinent # Voids 3 3 - Exam General appearance: alert, in no apparent distress, breathing is nonlabored and the patient is currently on 4 L O2 nasal cannula Head exam: Present: atraumatic, normocephalic, normal inspection Eye exam: Present: normal appearance, PERRL, EOMI. Absent: scleral icterus, conjunctival injection, periorbital swelling Pupils: Present: normal accommodation ENT exam: Present: normal exam, normal oropharynx, mucous membranes moist Neck exam: Present: normal inspection, full ROM. Absent: tenderness, meningismus, lymphadenopathy Respiratory exam: diminished breath on the right lung base along with dullness to percussion consistent with Cardiovascular Exam: Present: regular rate, normal rhythm, normal heart sounds. Absent: systolic murmur, diastolic murmur, rubs, gallop, clicks GI/Abdominal exam: Present: soft, normal bowel sounds. Absent: distended, tenderness, guarding, rebound, rigid Extremities exam: skin bruising, no cyanosis or clubbing. No edema. Neurological exam: Present: alert, oriented X2, CN II-XII intact, poor historian, for memory. Psychiatric exam: Present: normal affect, normal mood Skin exam: Present: warm, dry, intact, normal color. Absent: rash - Labs CBC & Chem 7: 06/01/22 06:30 06/01/22 06:30 Labs: Microbiology - Last 24 Hours (Table) 05/29/22 21:02 Urine Culture - Preliminary Urine,Voided Gram Neg Bacilli 05/30/22 10:36 Blood Culture - Preliminary Blood No Growth after 48 hours Assessment and Plan Plan: Right lung opacification a combination of pneumonia/atelectasis and a small right-sided pleural effusion, probably related to aspiration. , Clinically improving on 5 L of O2 nasal cannula Abnormal swallow and the patient is currently on pured nectar thick diet Acute hypoxic respiratory failure currently on 4 L of O2 nasal cannula History of dementia History of DVT and pulmonary embolism, remote, maintained on anticoagulation with Eliquis Hypertension Parkinson's disease Ongoing debility with impairment of cognitive functions and very poor baseline performance and functional status. UTI suspected, currently under investigation Restless leg syndrome Plan Clinically stable Repeat chest x-ray in the morning Weaned down the FiO2 as tolerated Incentive spirometer Continued IV Zosyn Aspiration precautions We'll continue to follow
[2022-06-02] MEDS: DONEPEZIL 10 MG TAB PO SCH (21:51)
--- NOTE | 2022-06-02 23:57 | P.PN ---
Subjective This is a pleasant 82 years old female with past medical history of Dementia, Deep Vein Thrombosis , Hypertension He was sent from her primary care office for concerns for inability to care for herself. Also her is complaining from advanced age and may have dementia himself and difficulty taking care of her own understanding her needs. Patient is poor historian and it was obtained from the staff and medical records. Patient somewhat poor historian. She was lying in bed, she is on 2 L oxygen via nasal cannula, she knows she is in the hospital but she is disoriented to time and person and she has no idea why she came to the hospital or who sent her. As per records patient went with to primary care office where she was noted to be hypoxic with blue loops and empty oxygen tank and there was concerned about the care she is getting with her so they referred her to the hospital and Adult Protective Services were consulted She is answering some questions appropriately but she has memory problems, she complained from shortness of breath but she could not tell how long she denies chest pain or abdominal pain, she denies coughing. She denies diarrhea or vomiting or urinary complaints, no headache or dizziness or weakness or numbness however history is limited by the patient condition Also she states that her is a 1 whose given her pills and that she was taken her medication over the last few days although were not sure how reliable these information are On admission vitals are stable. Patient is saturating 88% on 2 L oxygen via nasal cannula and currently she is saturating 94% on 3 L oxygen. She is afebrile Labs showing hemoglobin of 10.5. Platelet count and labs within normal limits. BMP and liver enzymes are unremarkable. Urine analysis is suspicious for infection Number and thoracic spine CT showing multilevel compression deformities with surgical fixation of L2-L5. The wedge deformities of T12 and T11 are of indeterminate age. No spinal canal stenosis evident 05/31/2022 Patient is more awake but looks disoriented, I tried to explain to her she denies hospital and her diagnoses, she looks to understand but not sure about her memory if she can't remember tomorrow. She still on 10 L oxygen via nasal cannula. Aspiration pneumonia is suspected by pulmonary team and currently covered with Zosyn. However her port discussed on it is negative at 0.05. Urine culture is also pending. 06/01/2022 Patient's condition is improving gradually and slowly and she is requiring less oxygen at 5 L/m today with saturation of 95%. Also her urine culture is growing gram-negative bacilli. She is hemodynamically stable. Vitals are stable and creatinine is normal. She started picking up diet today 50-75%. We can discontinue IV fluids She is on Zosyn and home dose of Eliquis for her history of DVT 06/02/2022 Patient breathing is improving gradually and slowly, she is more awake but still looks tired Her oxygen saturation is 97% on 5 L oxygen and venous cannula Urine culture is growing sensitive Klebsiella She remains on Zosyn Check chest x-ray tomorrow morning Objective - Vital Signs Vital signs: Vital Signs Temp 97.9 F 06/02/22 20:04 Pulse 67 06/02/22 20:04 Resp 18 06/02/22 20:04 BP 120/71 06/02/22 20:04 Pulse Ox 97 06/02/22 20:04 FiO2 35 05/31/22 15:26 Intake & Output 06/02/22 06/02/22 06/03/22 06:59 18:59 06:59 Intake Total 100 520 Balance 100 520 Weight 75 kg Intake: Intake, IV Titration 100 Amount Piperacillin-Tazobactam 3 100 .375 gm In Sodium Chloride 0.9% 100 ml @ 25 mls/hr IVPB Q8HR [facility] Rx# :[id number] Oral 520 Other: Voiding Method Diaper Diaper Incontinent Incontinent # Voids 3 3 # Bowel Movements 1 - Exam -GENERAL: The patient is confused and tired looking, not in any acute distress. Well developed, well nourished. HEENT: Pupils are round and equally reacting to light. EOMI. No scleral icterus. No conjunctival pallor. Normocephalic, atraumatic. No pharyngeal erythema. No thyromegaly. CARDIOVASCULAR: S1 and S2 present. No murmurs, rubs, or gallops. PULMONARY: Chest is clear to auscultation, no wheezing or crackles. ABDOMEN: Soft, nontender, nondistended, normoactive bowel sounds. No palpable organomegaly. MUSCULOSKELETAL: No joint swelling or deformity. EXTREMITIES: No cyanosis, clubbing, or pedal edema. NEUROLOGICAL: Gross neurological examination did not reveal any focal deficits. SKIN: No rashes. no petechiae. - Labs CBC & Chem 7: 07/02/22 06:30 06/01/22 06:30 Labs: Microbiology - Last 24 Hours (Table) 05/29/22 21:02 Urine Culture - Final Urine,Voided Klebsiella pneumoniae 05/30/22 10:36 Blood Culture - Preliminary Blood No Growth after 72 hours Assessment and Plan Assessment: An acute hypoxia Acute urinary tract infection Metabolic encephalopathy secondary to above Mild upper abdominal tenderness Left leg warmth and swelling Dementia Restless leg syndrome History of DVT on Eliquis Hypertension Parkinson disease Plan: This is a pleasant 82 is old female who presents with worsening dementia suspicious for AMS and metabolic encephalopathy secondary to UTI and pneumonia, also hypoxia Continue with oxygen therapy follow-up urine culture Patient continued on Zosyn pulmonary consult on the case and appreciated Labs and medication were reviewed.. Continue same treatment. Continue with symptomatic treatment. Resume home medication. Monitor lytes and vitals. DVT and GI prophylaxis. Further recommendations as per clinical course of the patient DVT prophylaxis: Subcutaneous heparin GI Prophylaxis: Pepcid PT/OT: Pending Prognosis is guarded
[2022-06-03] MEDS: PIPERACILLIN-TAZOBACTAM 3.375 GM in SODIUM CHLORIDE 0.9% 100 ML IVPB SCH ×3 (00:25→16:07)
[2022-06-03] MEDS: ACETAMINOPHEN TAB 325 MG TAB PO PRN (03:13)
--- NOTE | 2022-06-03 07:41 | XR ---
EXAMINATION TYPE: XR chest 1V DATE OF EXAM: 06/03/2022 6:28 AM COMPARISON: Chest radiographs from 05/30/2022 TECHNIQUE: XR chest 1V Portable AP radiograph of the chest.. CLINICAL INDICATION:Female, 82 years old with history of Follow-up aspiration pneumonia; CT chest 05/03. FINDINGS: Lungs/Pleura: There is improved aeration of lungs on today's exam with persistent elevated right diap hragm. There is no evidence of pleural effusion, or pneumothorax. Pulmonary vascularity: Unremarkable. Heart/mediastinum: Cardiomediastinal silhouette is enlarged and stable. Musculoskeletal: Degeneration changes of the shoulder joints. IMPRESSION: Improved aeration of the lungs with persistent elevated right diaphragm.
[2022-06-03] MEDS: APIXABAN 5 MG TAB PO SCH ×2 (09:18→21:24)
[2022-06-03] MEDS: CITALOPRAM HYDROBROMIDE 10 MG TAB PO SCH (09:18)
[2022-06-03] MEDS: FAMOTIDINE 20 MG TAB PO SCH ×2 (09:18→21:24)
[2022-06-03] MEDS: CARBIDOPA-LEVODOPA ER 25-100MG 1 EACH TABLET.ER PO SCH ×3 (09:18→21:24)
[2022-06-03] MEDS: carvediloL 3.125 MG TAB PO SCH ×2 (09:18→21:24)
[2022-06-03] MEDS: MEMANTINE 10 MG TAB PO SCH ×2 (09:19→21:24)
[2022-06-03] MEDS: traMADol 50 MG TAB PO PRN ×2 (13:50→21:34)
--- NOTE | 2022-06-03 14:09 | P.PN ---
Subjective Progress Note Date: 06/03/22 82-year-old female patient, coming into the hospital because of worsening short ness of breath and we will consolidated with sedation because of a new onset right-sided pleural effusion. The patient is known to have dementia and she is 82 years old. 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 Based on the history, the patient has previous history of left lower extremity DVT that was treated through [facility]. The patient had DVT and pulmonary embolism several years back and she's been taking anticoagulation with Eliquis. She also has history of Parkinson's disease. The patient was sent over from the primary care physician's office as the patient was getting progressively weak and she was unable to take care of herself. Doesn't was complaining that he was unable to take care of her anymore. The patient is a poor historian. She is laying down in bed and she is on oxygen at 2 L per minute nasal cannula. She is aware that she is in the hospital and she is disoriented to time and people. in the hospital, the patient was placed on 3 L of O2 nasal cannula and her pulse ox came up to 94%. She was found to be afebrile. Chest x-ray as mentioned showed cardiomegaly and a right-sided pleural effusion. The blood work showed a white cell, 5.2 with a hemoglobin of 10.5. The sodium was at 142, serum bicarb was at 40 with a potassium level of 4.4, BUN was 50 with a creatinine 0.5. UA was abnormal with positive RBCs and WBCs and many bacteria. On today's evaluation of 05/31/2022, the patient is slightly improved compared to yesterday. I was concerned about aspiration. A CAT scan of the chest was done yesterday that showed a area of consolidation of the right lower lobe. Very small right-sided pleural effusion which is not amenable for thoracentesis. The patient also has bibasilar consolidation worse in the right lung base. There is also possibility of some secretions retained in the lower lobe airways which is again consistent with aspiration. The patient Underwent a swallow evaluation and the recommendations were also noted and the patient is being given pured nectar thick diet. The patient is also on IV Zosyn. The White cell count is at 4 with a hemoglobin is 10.7. The process to level is at 0.05. Urinalysis was abnormal. BUN is a 12 the creatinine 0.7. Blood cultures been negative thus far. The patient is currently on a 35% Ventimask. On today's evaluation 06/01/2022, the patient's condition is stable. She was taken off the Ventimask and the patient was placed on 5 L of nasal cannula with a pulse ox of 97%. Cough is subsided. No new complaints otherwise for now. CAT scan of the chest was consistent with aspiration pneumonia. There was also some atelectasis and possibly some material/degrees in the right lower lobe b ronchus. The white cell count is at 3.5 with a hemoglobin of 10 and FiO2 of 57. Electrolytes are normal. BUN is at 40 with a creatinine of 0.7 and the sodium level of 142. 72,022, the patient is doing well, condition is stable. No new complaints, remains on 5 L of nasal cannula. Breathing is nonlabored. 72,022, the patient remains on IV Zosyn. No aspiration. The patient is on 5 L O2 nasal cannula with a pulse ox of 93% repeat chest x-ray showed improved aeration of the lungs with persistent elevation of the right hemidiaphragm. Objective - Vital Signs Vital signs: Vital Signs Temp 98 F 06/03/22 11:30 Pulse 61 06/03/22 11:30 Resp 20 06/03/22 11:30 BP 148/78 06/03/22 11:30 Pulse Ox 93 L 06/03/22 11:30 FiO2 35 05/31/22 15:26 Intake & Output 06/02/22 06/03/22 06/03/22 18:59 06:59 18:59 Intake Total 520 200 Output Total 300 Balance 520 -100 Weight 75 kg Intake: Oral 520 200 Output: Urine 300 Other: Voiding Method Diaper Diaper Diaper Incontinent Incontinent Incontinent # Voids 3 1 2 # Bowel Movements 1 2 2 - Exam General appearance: alert, in no apparent distress, breathing is nonlabored and the patient is currently on 4 L O2 nasal cannula Head exam: Present: atraumatic, normocephalic, normal inspection Eye exam: Present: normal appearance, PERRL, EOMI. Absent: scleral icterus, con junctival injection, periorbital swelling Pupils: Present: normal accommodation ENT exam: Present: normal exam, normal oropharynx, mucous membranes moist Neck exam: Present: normal inspection, full ROM. Absent: tenderness, meningismus, lymphadenopathy Respiratory exam: diminished breath on the right lung base along with dullness to percussion consistent with Cardiovascular Exam: Present: regular rate, normal rhythm, normal heart sounds. Absent: systolic murmur, diastolic murmur, rubs, gallop, clicks GI/Abdominal exam: Present: soft, normal bowel sounds. Absent: distended, tenderness, guarding, rebound, rigid Extremities exam: skin bruising, no cyanosis or clubbing. No edema. Neurological exam: Present: alert, oriented X2, CN II-XII intact, poor historian, for memory. Psychiatric exam: Present: normal affect, normal mood Skin exam: Present: warm, dry, intact, normal color. Absent: rash - Labs CBC & Chem 7: 06/01/22 06:30 06/01/22 06:30 Labs: Microbiology - Last 24 Hours (Table) 05/30/22 10:36 Blood Culture - Preliminary Blood No Growth after 96 hours 05/29/22 21:02 Urine Culture - Final Urine,Voided Klebsiella pneumoniae Assessment and Plan Plan: Right lung opacification a combination of pneumonia/atelectasis and a small right-sided pleural effusion, probably related to aspiration. , Clinically improving on 5 L of O2 nasal cannula Abnormal swallow and the patient is currently on pured nectar thick diet Acute hypoxic respiratory failure currently on 4 L of O2 nasal cannula History of dementia History of DVT and pulmonary embolism, remote, maintained on anticoagulation with Eliquis Hypertension Parkinson's disease Ongoing debility with impairment of cognitive functions and very poor baseline performance and functional status. UTI suspected, currently under investigation Restless leg syndrome Plan Clinically stable Chest x-ray shows improvement in aeration and persistent elevation of right hemidiaphragm Weaned down the FiO2 as tolerated Incentive spirometer Continued IV Zosyn Aspiration precautions We'll continue to follow
--- NOTE | 2022-06-03 18:09 | P.PN ---
Subjective This is a pleasant 82 years old female with past medical history of Dementia, Deep Vein Thrombosis , Hypertension He was sent from her primary care office for concerns for inability to care for herself. Also her is complaining from advanced age and may have dementia himself and difficulty taking care of her own understanding her needs. Patient is poor historian and it was obtained from the staff and medical records. Patient somewhat poor historian. She was lying in bed, she is on 2 L oxygen via nasal cannula, she knows she is in the hospital but she is disoriented to time and person and she has no idea why she came to the hospital or who sent her. As per records patient went with to primary care office where she was noted to be hypoxic with blue loops and empty oxygen tank and there was concerned about the care she is getting with her so they referred her to the hospital and Adult Protective Services were consulted She is answering some questions appropriately but she has memory problems, she complained from shortness of breath but she could not tell how long she denies chest pain or abdominal pain, she denies coughing. She denies diarrhea or vomiting or urinary complaints, no headache or dizziness or weakness or numbness however history is limited by the patient condition Also she states that her is a 1 whose given her pills and that she was taken her medication over the last few days although were not sure how reliable these information are On admission vitals are stable. Patient is saturating 88% on 2 L oxygen via nasal cannula and currently she is saturating 94% on 3 L oxygen. She is afebrile Labs showing hemoglobin of 10.5. Platelet count and labs within normal limits. BMP and liver enzymes are unremarkable. Urine analysis is suspicious for infection Number and thoracic spine CT showing multilevel compression deformities with surgical fixation of L2-L5. The wedge deformities of T12 and T11 are of indeterminate age. No spinal canal stenosis evident 05/31/2022 Patient is more awake but looks disoriented, I tried to explain to her she denies hospital and her diagnoses, she looks to understand but not sure about her memory if she can't remember tomorrow. She still on 10 L oxygen via nasal cannula. Aspiration pneumonia is suspected by pulmonary team and currently covered with Zosyn. However her port discussed on it is negative at 0.05. Urine culture is also pending. 06/01/2022 Patient's condition is improving gradually and slowly and she is requiring less oxygen at 5 L/m today with saturation of 95%. Also her urine culture is growing gram-negative bacilli. She is hemodynamically stable. Vitals are stable and creatinine is normal. She started picking up diet today 50-75%. We can discontinue IV fluids She is on Zosyn and home dose of Eliquis for her history of DVT 06/02/2022 Patient breathing is improving gradually and slowly, she is more awake but still looks tired Her oxygen saturation is 97% on 5 L oxygen and venous cannula Urine culture is growing sensitive Klebsiella She remains on Zosyn Check chest x-ray tomorrow morning 06/03/2022 Patient breathing is improving gradually and less dyspneic while at rest. She still saturation 93% on 5 L oxygen via nasal cannula. Her chest x-ray also showed improvement in aeration However she remains and needs Zosyn IV. Also she is on home dose of Eliquis for her history of DVT. Objective - Vital Signs Vital signs: Vital Signs Temp 97.9 F 06/03/22 05:00 Pulse 55 L 06/03/22 05:00 Resp 18 06/03/22 05:00 BP 124/78 06/03/22 05:00 Pulse Ox 98 06/03/22 05:00 FiO2 35 05/31/22 15:26 Intake & Output 06/02/22 06/03/22 06/03/22 18:59 06:59 18:59 Intake Total 520 200 Output Total 300 Balance 520 -100 Weight 75 kg Intake: Oral 520 200 Output: Urine 300 Other: Voiding Method Diaper Diaper Diaper Incontinent Incontinent Incontinent # Voids 3 1 # Bowel Movements 1 2 1 - Exam -GENERAL: The patient is confused and tired looking, not in any acute distress. Well developed, well nourished. HEENT: Pupils are round and equally reacting to light. EOMI. No scleral icterus. No conjunctival pallor. Normocephalic, atraumatic. No pharyngeal erythema. No thyromegaly. CARDIOVASCULAR: S1 and S2 present. No murmurs, rubs, or gallops. PULMONARY: Chest is clear to auscultation, no wheezing or crackles. ABDOMEN: Soft, nontender, nondistended, normoactive bowel sounds. No palpable organomegaly. MUSCULOSKELETAL: No joint swelling or deformity. EXTREMITIES: No cyanosis, clubbing, or pedal edema. NEUROLOGICAL: Gross neurological examination did not reveal any focal deficits. SKIN: No rashes. no petechiae. - Labs CBC & Chem 7: 06/01/22 06:30 06/01/22 06:30 Labs: Microbiology - Last 24 Hours (Table) 05/29/22 21:02 Urine Culture - Final Urine,Voided Klebsiella pneumoniae 05/30/22 10:36 Blood Culture - Preliminary Blood No Growth after 72 hours Assessment and Plan Assessment: An acute hypoxia Acute urinary tract infection Metabolic encephalopathy secondary to above Mild upper abdominal tenderness Left leg warmth and swelling Dementia Restless leg syndrome History of DVT on Eliquis Hypertension Parkinson disease Plan: This is a pleasant 82 is old female who presents with worsening dementia suspicious for AMS and metabolic encephalopathy secondary to UTI and pneumonia, also hypoxia Continue with oxygen therapy follow-up urine culture Patient continued on Zosyn pulmonary consult on the case and appreciated Labs and medication were reviewed.. Continue same treatment. Continue with symptomatic treatment. Resume home medication. Monitor lytes and vitals. DVT and GI prophylaxis. Further recommendations as per clinical course of the patient DVT prophylaxis: Subcutaneous heparin GI Prophylaxis: Pepcid PT/OT: Pending Prognosis is guarded
[2022-06-03] MEDS: DONEPEZIL 10 MG TAB PO SCH (21:24)
[2022-06-04] MEDS: PIPERACILLIN-TAZOBACTAM 3.375 GM in SODIUM CHLORIDE 0.9% 100 ML IVPB SCH ×3 (00:07→16:36)
[2022-06-04] MEDS: APIXABAN 5 MG TAB PO SCH ×2 (09:01→21:12)
[2022-06-04] MEDS: CARBIDOPA-LEVODOPA ER 25-100MG 1 EACH TABLET.ER PO SCH ×3 (09:01→21:12)
[2022-06-04] MEDS: carvediloL 3.125 MG TAB PO SCH ×2 (09:01→21:12)
[2022-06-04] MEDS: MEMANTINE 10 MG TAB PO SCH ×2 (09:02→21:13)
[2022-06-04] MEDS: FAMOTIDINE 20 MG TAB PO SCH ×2 (09:02→21:13)
[2022-06-04] MEDS: CITALOPRAM HYDROBROMIDE 10 MG TAB PO SCH (09:02)
[2022-06-04 10:37] LABS: Basophils # (A) 0.01 X 10*3/uL (0.00-0.10); Basophils % (A) 0.4 %; Eosinophils # (A) 0.16 X 10*3/uL (0.04-0.35); Eosinophils % (A) 6.5 %; HCT 32.9 % (37.2-46.3); HGB 9.5 g/dL (12.0-15.0); Immature Grans, Automated 0.4 %; Lymphocytes # (A) 0.75 X 10*3/uL (0.90-5.00); Lymphocytes % (A) 30.6 %; MCH 29.8 pg (27.0-32.0); MCHC 28.9 g/dL (32.0-37.0); MCV 103.1 fL (80.0-97.0); Mean Platelet Volume 11.6 fL (9.5-12.2); Monocytes # (A) 0.29 X 10*3/uL (0.20-1.00); Monocytes % (A) 11.8 %; NRBC Per 100 WBC 0 /100 WBCS (0.0-0.0); Neutrophils # (A) 1.23 X 10*3/uL (1.80-7.70); Neutrophils % (A) 50.3 %; Platelet Count 201 X 10*3/uL (140-440); RBC 3.19 X 10*6/uL (4.10-5.20); RDW 24.3 % (11.5-14.5); WBC 2.45 X 10*3/uL (4.50-10.00)
[2022-06-04 11:09] LABS: Magnesium 2.3 mg/dL (1.5-2.4)
[2022-06-04 11:10] LABS: Anion Gap 4.3 mmol/L (10.00-18.00); BUN/Creat Ratio 15.17 Ratio (12.00-20.00); Blood Urea Nitrogen 9.1 mg/dL (9.0-27.0); Calcium 8.1 mg/dL (8.7-10.3); Carbon Dioxide 36.7 mmol/L (20.0-27.5); Non-African American GFR(CKD) 83.7 (60.0-200.0); Potassium 4.2 mmol/L (3.5-5.5)
[2022-06-04] MEDS: traMADol 50 MG TAB PO PRN (12:27)
--- NOTE | 2022-06-04 13:24 | P.PN ---
Subjective Progress Note Date: 06/04/22 Principal diagnosis: Shortness of breath 82-year-old female patient, coming into the hospital because of worsening shortness of breath and we will consolidated with sedation because of a new onset right-sided pleural effusion. The patient is known to have dementia and she is 82 years old. 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 Based on the history, the patient has previous history of left lower extremity DVT that was treated through [facility]. The patient had DVT and pulmonary embolism several years back and she's been taking anticoagulation with Eliquis. She also has history of Parkinson's disease. The patient was sent over from the primary care physician's office as the patient was getting progressively weak and she was unable to take care of herself. Doesn't was complaining that he was unable to take care of her anymore. The patient is a poor historian. She is laying down in bed and she is on oxygen at 2 L per minute nasal cannula. She is aware that she is in the hospital and she is disoriented to time and people. in the hospital, the patient was placed on 3 L of O2 nasal cannula and her pulse ox came up to 94%. She was found to be afebrile. Chest x-ray as mentioned showed cardiomegaly and a right-sided pleural effusion. The blood work showed a white cell, 5.2 with a hemoglobin of 10.5. The sodium was at 142, serum bicarb was at 40 with a potassium level of 4.4, BUN was 50 with a creatinine 0.5. UA was abnormal with positive RBCs and WBCs and many bacteria. On today's evaluation of 05/31/2022, the patient is slightly improved compared t o yesterday. I was concerned about aspiration. A CAT scan of the chest was done yesterday that showed a area of consolidation of the right lower lobe. Very small right-sided pleural effusion which is not amenable for thoracentesis. The patient also has bibasilar consolidation worse in the right lung base. There is also possibility of some secretions retained in the lower lobe airways which is again consistent with aspiration. The patient Underwent a swallow evaluation and the recommendations were also noted and the patient is being given pured nectar thick diet. The patient is also on IV Zosyn. The White cell count is at 4 with a hemoglobin is 10.7. The process to level is at 0.05. Urinalysis was abnormal. BUN is a 12 the creatinine 0.7. Blood cultures been negative thus far. The patient is currently on a 35% Ventimask. On today's evaluation 06/01/2022, the patient's condition is stable. She was taken off the Ventimask and the patient was placed on 5 L of nasal cannula with a pulse ox of 97%. Cough is subsided. No new complaints otherwise for now. CAT scan of the chest was consistent with aspiration pneumonia. There was also some atelectasis and possibly some material/degrees in the right lower lobe bronchus. The white cell count is at 3.5 with a hemoglobin of 10 and FiO2 of 57. Electrolytes are normal. BUN is at 40 with a creatinine of 0.7 and the sodium level of 142. 72,022, the patient is doing well, condition is stable. No new complaints, remains on 5 L of nasal cannula. Breathing is nonlabored. 72,022, the patient remains on IV Zosyn. No aspiration. The patient is on 5 L O2 nasal cannula with a pulse ox of 93% repeat chest x-ray showed improved aeration of the lungs with persistent elevation of the right hemidiaphragm. On 06/04/2022 patient seen in follow-up. She is awake and alert, in no acute distress, on 5 L of oxygen she is satting 98%, vital signs have been stable, no fever or chills, blood pressure is stable. No worsening dyspnea, no cough or congestion. No chest pain. She remains on Zosyn for possibility of aspiration pneumonia. Patient was also found to have urinary tract infection related to Klebsiella pneumonia, blood cultures show no growth. She is breathing comfortably, she has had no acute events overnight, today's labs have been reviewed, white blood cell count is 2.45, hemoglobin is 9.5, electrolytes have been unremarkable, pro-calcitonin level is 0.052, proBNP was 813. Last chest x-ray from yesterday showed improved aeration of the lungs with persistent elevated right hemidiaphragm. Objective - Vital Signs Vital signs: Vital Signs Temp 98.4 F 06/04/22 11:35 Pulse 70 06/04/22 11:35 Resp 20 06/04/22 11:35 BP 155/73 06/04/22 11:35 Pulse Ox 97 06/04/22 11:35 FiO2 35 05/31/22 15:26 Intake & Output 06/03/22 06/04/22 06/04/22 18:59 06:59 18:59 Intake Total 100 Balance 100 Weight 78.5 kg Intake: Intake, IV Titration 100 Amount Piperacillin-Tazobactam 3 100 .375 gm In Sodium Chloride 0.9% 100 ml @ 25 mls/hr IVPB Q8HR [facility] Rx# :[id number] Other: Voiding Method Diaper Diaper Incontinent Incontinent # Voids 1 0 # Bowel Movements 1 0 - Exam GENERAL EXAM: Alert, very pleasant, 82-year-old white female on 3 L of oxygen pulse ox of 97%, comfortable in no apparent distress. HEAD: Normocephalic/atraumatic. EYES: Normal reaction of pupils, equal size. Conjunctiva pink, sclera white. NOSE: Clear with pink turbinates. THROAT: No erythema or exudates. NECK: No masses, no JVD, no thyroid enlargement, no adenopathy. CHEST: No chest wall deformity. Symmetrical expansion. LUNGS: Equal air entry with right lower lobe crackles CVS: Regular rate and rhythm, normal S1 and S2, no gallops, no murmurs, no rubs ABDOMEN: Soft, nontender. No hepatosplenomegaly, normal bowel sounds, no guarding or rigidity. EXTREMITIES: No clubbing, no edema, no cyanosis, 2+ pulses and upper and lower extremities. MUSCULOSKELETAL: Muscle strength and tone normal. SPINE: No scoliosis or deformity SKIN: No rashes CENTRAL NERVOUS SYSTEM: Alert and oriented -3. No focal deficits, tone is normal in all 4 extremities. PSYCHIATRIC: Alert and oriented -3. Appropriate affect. Intact judgment and insight. - Labs CBC & Chem 7: 06/04/22 06:13 06/04/22 06:13 Labs: Abnormal Lab Results - Last 24 Hours (Table) 06/04/22 06/04/22 Range/Units 06:13 06:13 WBC 2.45 L (4.50-10.00) X 10*3/uL RBC 3.19 L (4.10-5.20) X 10*6/uL Hgb 9.5 L (12.0-15.0) g/dL Hct 32.9 L (37.2-46.3) % MCV 103.1 H (80.0-97.0) fL MCHC 28.9 L (32.0-37.0) g/dL RDW 24.3 H (11.5-14.5) % Neutrophils # 1.23 L (1.80-7.70) X 10*3/uL Lymphocytes # 0.75 L (0.90-5.00) X 10*3/uL Carbon Dioxide 36.7 H (20.0-27.5) mmol/L Anion Gap 4.30 L (10.00-18.00) mmol/L Calcium 8.1 L (8.7-10.3) mg/dL Microbiology - Last 24 Hours (Table) 05/30/22 10:36 Blood Culture - Preliminary Blood No Growth after 120 hours Assessment and Plan Plan: Assessment: Right lung opacification a combination of pneumonia/atelectasis and a small right-sided pleural effusion, probably related to aspiration. , Clinically improving on 5 L of O2 nasal cannula Abnormal swallow and the patient is currently on pured nectar thick diet Acute hypoxic respiratory failure currently on 4 L of O2 nasal cannula History of dementia History of DVT and pulmonary embolism, remote, maintained on anticoagulation with Eliquis Hypertension Parkinson's disease Ongoing debility with impairment of cognitive functions and very poor baseline performance and functional status. UTI suspected, currently under investigation Restless leg syndrome Plan: FiO2 has been cut back to 3 L Continue to wean FiO2 Clinically stable, no worsening dyspnea, no fever or chills Maintain aspiration precautions From pulmonary perspective patient could be considered for discharge home today Outpatient follow-up with Dr. Beard in the office in 7-10 days I have personally seen and examined the patient, performed the documentation and the assessment and plan as written. Number of minutes spent on the visit: [10] Time with Patient: Less than 30
--- NOTE | 2022-06-04 19:06 | P.PN ---
Subjective This is a pleasant 82 years old female with past medical history of Dementia, Deep Vein Thrombosis , Hypertension He was sent from her primary care office for concerns for inability to care for herself. Also her is complaining from advanced age and may have dementia himself and difficulty taking care of her own understanding her needs. Patient is poor historian and it was obtained from the staff and medical records. Patient somewhat poor historian. She was lying in bed, she is on 2 L oxygen via nasal cannula, she knows she is in the hospital but she is disoriented to time and person and she has no idea why she came to the hospital or who sent her. As per records patient went with to primary care office where she was noted to be hypoxic with blue loops and empty oxygen tank and there was concerned about the care she is getting with her so they referred her to the hospital and Adult Protective Services were consulted She is answering some questions appropriately but she has memory problems, she complained from shortness of breath but she could not tell how long she denies chest pain or abdominal pain, she denies coughing. She denies diarrhea or vomiting or urinary complaints, no headache or dizziness or weakness or numbness however history is limited by the patient condition Also she states that her is a 1 whose given her pills and that she was taken her medication over the last few days although were not sure how reliable these information are On admission vitals are stable. Patient is saturating 88% on 2 L oxygen via nasal cannula and currently she is saturating 94% on 3 L oxygen. She is afebrile Labs showing hemoglobin of 10.5. Platelet count and labs within normal limits. BMP and liver enzymes are unremarkable. Urine analysis is suspicious for infection Number and thoracic spine CT showing multilevel compression deformities with surgical fixation of L2-L5. The wedge deformities of T12 and T11 are of indeterminate age. No spinal canal stenosis evident 05/31/2022 Patient is more awake but looks disoriented, I tried to explain to her she denies hospital and her diagnoses, she looks to understand but not sure about her memory if she can't remember tomorrow. She still on 10 L oxygen via nasal cannula. Aspiration pneumonia is suspected by pulmonary team and currently covered with Zosyn. However her port discussed on it is negative at 0.05. Urine culture is also pending. 06/01/2022 Patient's condition is improving gradually and slowly and she is requiring less oxygen at 5 L/m today with saturation of 95%. Also her urine culture is growing gram-negative bacilli. She is hemodynamically stable. Vitals are stable and creatinine is normal. She started picking up diet today 50-75%. We can discontinue IV fluids She is on Zosyn and home dose of Eliquis for her history of DVT 06/02/2022 Patient breathing is improving gradually and slowly, she is more awake but still looks tired Her oxygen saturation is 97% on 5 L oxygen and venous cannula Urine culture is growing sensitive Klebsiella She remains on Zosyn Check chest x-ray tomorrow morning 06/03/2022 Patient breathing is improving gradually and less dyspneic while at rest. She still saturation 93% on 5 L oxygen via nasal cannula. Her chest x-ray also showed improvement in aeration However she remains and needs Zosyn IV. Also she is on home dose of Eliquis for her history of DVT. 06/04/2022 Patient breathing is back to baseline, she is saturating 97% on 3 L No other symptoms Minimal back pain Patient remains on Zosyn and Eliquis Patient is cleared for discharge pending placement Objective - Vital Signs Vital signs: Vital Signs Temp 98.4 F 06/04/22 11:35 Pulse 70 06/04/22 11:35 Resp 20 06/04/22 11:35 BP 155/73 06/04/22 11:35 Pulse Ox 97 06/04/22 11:35 FiO2 35 05/31/22 15:26 Intake & Output 06/03/22 06/04/22 06/04/22 18:59 06:59 18:59 Intake Total 100 Output Total 1200 Balance 100 -1200 Weight 78.5 kg Intake: Intake, IV Titration 100 Amount Piperacillin-Tazobactam 3 100 .375 gm In Sodium Chloride 0.9% 100 ml @ 25 mls/hr IVPB Q8HR [facility] Rx# :[id number] Output: Urine 1200 Other: Voiding Method Diaper Diaper Diaper Incontinent Incontinent Incontinent # Voids 1 0 # Bowel Movements 1 0 - Exam -GENERAL: The patient is confused and tired looking, not in any acute distress. Well developed, well nourished. HEENT: Pupils are round and equally reacting to light. EOMI. No scleral icterus. No conjunctival pallor. Normocephalic, atraumatic. No pharyngeal erythema. No thyromegaly. CARDIOVASCULAR: S1 and S2 present. No murmurs, rubs, or gallops. PULMONARY: Chest is clear to auscultation, no wheezing or crackles. ABDOMEN: Soft, nontender, nondistended, normoactive bowel sounds. No palpable organomegaly. MUSCULOSKELETAL: No joint swelling or deformity. EXTREMITIES: No cyanosis, clubbing, or pedal edema. NEUROLOGICAL: Gross neurological examination did not reveal any focal deficits. SKIN: No rashes. no petechiae. - Labs CBC & Chem 7: 06/04/22 06:13 06/04/22 06:13 Labs: Abnormal Lab Results - Last 24 Hours (Table) 06/04/22 06/04/22 Range/Units 06:13 06:13 WBC 2.45 L (4.50-10.00) X 10*3/uL RBC 3.19 L (4.10-5.20) X 10*6/uL Hgb 9.5 L (12.0-15.0) g/dL Hct 32.9 L (37.2-46.3) % MCV 103.1 H (80.0-97.0) fL MCHC 28.9 L (32.0-37.0) g/dL RDW 24.3 H (11.5-14.5) % Neutrophils # 1.23 L (1.80-7.70) X 10*3/uL Lymphocytes # 0.75 L (0.90-5.00) X 10*3/uL Carbon Dioxide 36.7 H (20.0-27.5) mmol/L Anion Gap 4.30 L (10.00-18.00) mmol/L Calcium 8.1 L (8.7-10.3) mg/dL Microbiology - Last 24 Hours (Table) 05/30/22 10:36 Blood Culture - Preliminary Blood No Growth after 120 hours Assessment and Plan Assessment: An acute hypoxia Acute urinary tract infection Metabolic encephalopathy secondary to above Mild upper abdominal tenderness Left leg warmth and swelling Dementia Restless leg syndrome History of DVT on Eliquis Hypertension Parkinson disease Plan: This is a pleasant 82 is old female who presents with worsening dementia suspicious for AMS and metabolic encephalopathy secondary to UTI and pneumonia, also hypoxia Continue with oxygen therapy Cleared for discharge Patient continued on Zosyn pulmonary consult on the case and appreciated Labs and medication were reviewed.. Continue same treatment. Continue with symptomatic treatment. Resume home medication. Monitor lytes and vitals. DVT and GI prophylaxis. Further recommendations as per clinical course of the patient DVT prophylaxis: Subcutaneous heparin GI Prophylaxis: Pepcid PT/OT: Pending Medically stable for discharge pending placement
[2022-06-04] MEDS: DONEPEZIL 10 MG TAB PO SCH (21:12)
[2022-06-05] MEDS: PIPERACILLIN-TAZOBACTAM 3.375 GM in SODIUM CHLORIDE 0.9% 100 ML IVPB SCH ×2 (00:16→07:50)
[2022-06-05] MEDS: traMADol 50 MG TAB PO PRN ×4 (00:24→22:32)
[2022-06-05] MEDS: CARBIDOPA-LEVODOPA ER 25-100MG 1 EACH TABLET.ER PO SCH ×3 (07:51→22:31)
[2022-06-05] MEDS: APIXABAN 5 MG TAB PO SCH ×2 (07:51→22:32)
[2022-06-05] MEDS: FAMOTIDINE 20 MG TAB PO SCH ×2 (07:51→22:33)
[2022-06-05] MEDS: CITALOPRAM HYDROBROMIDE 10 MG TAB PO SCH (07:52)
[2022-06-05] MEDS: MEMANTINE 10 MG TAB PO SCH ×2 (07:52→22:32)
[2022-06-05] MEDS: carvediloL 3.125 MG TAB PO SCH ×2 (07:52→22:34)
[2022-06-05 11:17] VITALS: BMI 26.6
--- NOTE | 2022-06-05 11:58 | P.PN ---
Subjective This is a pleasant 82 years old female with past medical history of Dementia, Deep Vein Thrombosis , Hypertension He was sent from her primary care office for concerns for inability to care for herself. Also her is complaining from advanced age and may have dementia himself and difficulty taking care of her own understanding her needs. Patient is poor historian and it was obtained from the staff and medical records. Patient somewhat poor historian. She was lying in bed, she is on 2 L oxygen via nasal cannula, she knows she is in the hospital but she is disoriented to time and person and she has no idea why she came to the hospital or who sent her. As per records patient went with to primary care office where she was noted to be hypoxic with blue loops and empty oxygen tank and there was concerned about the care she is getting with her so they referred her to the hospital and Adult Protective Services were consulted She is answering some questions appropriately but she has memory problems, she complained from shortness of breath but she could not tell how long she denies chest pain or abdominal pain, she denies coughing. She denies diarrhea or vomiting or urinary complaints, no headache or dizziness or weakness or numbness however history is limited by the patient condition Also she states that her is a 1 whose given her pills and that she was taken her medication over the last few days although were not sure how reliable these information are On admission vitals are stable. Patient is saturating 88% on 2 L oxygen via nasal cannula and currently she is saturating 94% on 3 L oxygen. She is afebrile Labs showing hemoglobin of 10.5. Platelet count and labs within normal limits. BMP and liver enzymes are unremarkable. Urine analysis is suspicious for infection Number and thoracic spine CT showing multilevel compression deformities with surgical fixation of L2-L5. The wedge deformities of T12 and T11 are of indeterminate age. No spinal canal stenosis evident 05/31/2022 Patient is more awake but looks disoriented, I tried to explain to her she denies hospital and her diagnoses, she looks to understand but not sure about her memory if she can't remember tomorrow. She still on 10 L oxygen via nasal cannula. Aspiration pneumonia is suspected by pulmonary team and currently covered with Zosyn. However her port discussed on it is negative at 0.05. Urine culture is also pending. 06/01/2022 Patient's condition is improving gradually and slowly and she is requiring less oxygen at 5 L/m today with saturation of 95%. Also her urine culture is growing gram-negative bacilli. She is hemodynamically stable. Vitals are stable and creatinine is normal. She started picking up diet today 50-75%. We can discontinue IV fluids She is on Zosyn and home dose of Eliquis for her history of DVT 06/02/2022 Patient breathing is improving gradually and slowly, she is more awake but still looks tired Her oxygen saturation is 97% on 5 L oxygen and venous cannula Urine culture is growing sensitive Klebsiella She remains on Zosyn Check chest x-ray tomorrow morning 06/03/2022 Patient breathing is improving gradually and less dyspneic while at rest. She still saturation 93% on 5 L oxygen via nasal cannula. Her chest x-ray also showed improvement in aeration However she remains and needs Zosyn IV. Also she is on home dose of Eliquis for her history of DVT. 06/04/2022 Patient breathing is back to baseline, she is saturating 97% on 3 L No other symptoms Minimal back pain Patient remains on Zosyn and Eliquis Patient is cleared for discharge pending placement 06/05/2022 This is a pleasant 82 years old female with past medical history of Dementia, Deep Vein Thrombosis , Hypertension He was sent from her primary care office for concerns for inability to care for herself. She presents with hypoxia and found to have right sided pneumonia, especially as for aspiration pneumonia versus healthcare associated pneumonia. She's been evaluated by pulmonary service and treated with IV antibiotics with Zosyn, her oxygen requirement improved from 10 L/m on admission down to 3 L/m and escape improving. Patient woke up and she is at baseline mentation now. Breathing is quiet. Patient was cleared for discharge by sexologist on oral antibiotics. Currently she is kept on Zosyn while inpatient Patient denies chest pain or abdominal pain. No nausea vomiting or diarrhea and she tolerates diet well. Musculoskeletal pain. Treated with Ultram. Also lidocaine patch. Pending placement Objective - Vital Signs Vital signs: Vital Signs Temp 97.9 F 06/05/22 11:47 Pulse 61 06/05/22 11:47 Resp 18 06/05/22 11:47 BP 120/79 06/05/22 11:47 Pulse Ox 92 L 06/05/22 11:47 FiO2 35 05/31/22 15:26 Intake & Output 06/04/22 06/05/22 06/05/22 18:59 06:59 18:59 Output Total 1200 1400 Balance -1200 -1400 Weight 75 kg 75 kg Output: Urine 1200 1400 Other: Voiding Method Diaper Diaper Diaper Incontinent Incontinent External Catheter # Voids 0 - Exam -GENERAL: The patient is confused and tired looking, not in any acute distress. Well developed, well nourished. HEENT: Pupils are round and equally reacting to light. EOMI. No scleral icterus. No conjunctival pallor. Normocephalic, atraumatic. No pharyngeal erythema. No thyromegaly. CARDIOVASCULAR: S1 and S2 present. No murmurs, rubs, or gallops. PULMONARY: Chest is clear to auscultation, no wheezing or crackles. ABDOMEN: Soft, nontender, nondistended, normoactive bowel sounds. No palpable organomegaly. MUSCULOSKELETAL: No joint swelling or deformity. EXTREMITIES: No cyanosis, clubbing, or pedal edema. NEUROLOGICAL: Gross neurological examination did not reveal any focal deficits. SKIN: No rashes. no petechiae. - Labs CBC & Chem 7: 06/04/22 06:13 06/04/22 06:13 Labs: Microbiology - Last 24 Hours (Table) 05/30/22 10:36 Blood Culture - Preliminary Blood No Growth after 120 hours Assessment and Plan Assessment: An acute hypoxia Acute urinary tract infection Metabolic encephalopathy secondary to above Mild upper abdominal tenderness Left leg warmth and swelling Dementia Restless leg syndrome History of DVT on Eliquis Hypertension Parkinson disease Plan: This is a pleasant 82 is old female who presents with worsening dementia suspicious for AMS and metabolic encephalopathy secondary to UTI and pneumonia, also hypoxia Continue with oxygen therapy Cleared for discharge Patient continued on Zosyn pulmonary consult on the case and appreciated Labs and medication were reviewed.. Continue same treatment. Continue with symptomatic treatment. Resume home medication. Monitor lytes and vitals. DVT and GI prophylaxis. Further recommendations as per clinical course of the patient DVT prophylaxis: Subcutaneous heparin GI Prophylaxis: Pepcid PT/OT: Pending Medically stable for discharge pending placement
--- NOTE | 2022-06-05 12:29 | P.PN ---
Subjective Progress Note Date: 06/05/22 Principal diagnosis: Shortness of breath 82-year-old female patient, coming into the hospital because of worsening shortness of breath and we will consolidated with sedation because of a new onset right-sided pleural effusion. The patient is known to have dementia and she is 82 years old. 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 Based on the history, the patient has previous history of left lower extremity DVT that was treated through [facility]. The patient had DVT and pulmonary embolism several years back and she's been taking anticoagulation with Eliquis. She also has history of Parkinson's disease. The patient was sent over from the primary care physician's office as the patient was getting progressively weak and she was unable to take care of herself. Doesn't was complaining that he was unable to take care of her anymore. The patient is a poor historian. She is laying down in bed and she is on oxygen at 2 L per minute nasal cannula. She is aware that she is in the hospital and she is disoriented to time and people. in the hospital, the patient was placed on 3 L of O2 nasal cannula and her pulse ox came up to 94%. She was found to be afebrile. Chest x-ray as mentioned showed cardiomegaly and a right-sided pleural effusion. The blood work showed a white cell, 5.2 with a hemoglobin of 10.5. The sodium was at 142, serum bicarb was at 40 with a potassium level of 4.4, BUN was 50 with a creatinine 0.5. UA was abnormal with positive RBCs and WBCs and many bacteria. On today's evaluation of 05/31/2022, the patient is slightly improved compared t o yesterday. I was concerned about aspiration. A CAT scan of the chest was done yesterday that showed a area of consolidation of the right lower lobe. Very small right-sided pleural effusion which is not amenable for thoracentesis. The patient also has bibasilar consolidation worse in the right lung base. There is also possibility of some secretions retained in the lower lobe airways which is again consistent with aspiration. The patient Underwent a swallow evaluation and the recommendations were also noted and the patient is being given pured nectar thick diet. The patient is also on IV Zosyn. The White cell count is at 4 with a hemoglobin is 10.7. The process to level is at 0.05. Urinalysis was abnormal. BUN is a 12 the creatinine 0.7. Blood cultures been negative thus far. The patient is currently on a 35% Ventimask. On today's evaluation 06/01/2022, the patient's condition is stable. She was taken off the Ventimask and the patient was placed on 5 L of nasal cannula with a pulse ox of 97%. Cough is subsided. No new complaints otherwise for now. CAT scan of the chest was consistent with aspiration pneumonia. There was also some atelectasis and possibly some material/degrees in the right lower lobe bronchus. The white cell count is at 3.5 with a hemoglobin of 10 and FiO2 of 57. Electrolytes are normal. BUN is at 40 with a creatinine of 0.7 and the sodium level of 142. 72,022, the patient is doing well, condition is stable. No new complaints, remains on 5 L of nasal cannula. Breathing is nonlabored. 72,022, the patient remains on IV Zosyn. No aspiration. The patient is on 5 L O2 nasal cannula with a pulse ox of 93% repeat chest x-ray showed improved aeration of the lungs with persistent elevation of the right hemidiaphragm. On 06/04/2022 patient seen in follow-up. She is awake and alert, in no acute distress, on 5 L of oxygen she is satting 98%, vital signs have been stable, no fever or chills, blood pressure is stable. No worsening dyspnea, no cough or congestion. No chest pain. She remains on Zosyn for possibility of aspiration pneumonia. Patient was also found to have urinary tract infection related to Klebsiella pneumonia, blood cultures show no growth. She is breathing comfortably, she has had no acute events overnight, today's labs have been reviewed, white blood cell count is 2.45, hemoglobin is 9.5, electrolytes have been unremarkable, pro-calcitonin level is 0.052, proBNP was 813. Last chest x-ray from yesterday showed improved aeration of the lungs with persistent elevated right hemidiaphragm. On 06/05/2022 patient seen in follow-up on medical surgical floor, she is breathing comfortably, she had no acute events overnight, on 3 L of oxygen she sat 91%. No fever or chills, no worsening dyspnea or cough. Currently discharge is pending to ECF. Social work is following. Patient remains on Zosyn. Objective - Vital Signs Vital signs: Vital Signs Temp 97.9 F 06/05/22 11:47 Pulse 61 06/05/22 11:47 Resp 18 06/05/22 11:47 BP 120/79 06/05/22 11:47 Pulse Ox 92 L 06/05/22 11:47 FiO2 35 05/31/22 15:26 Intake & Output 06/04/22 06/05/22 06/05/22 18:59 06:59 18:59 Output Total 1200 1400 Balance -1200 -1400 Weight 75 kg 75 kg Output: Urine 1200 1400 Other: Voiding Method Diaper Diaper Diaper Incontinent Incontinent External Catheter # Voids 0 - Exam GENERAL EXAM: Alert, very pleasant, 82-year-old white female on 3 L of oxygen pulse ox of 97%, comfortable in no apparent distress. HEAD: Normocephalic/atraumatic. EYES: Normal reaction of pupils, equal size. Conjunctiva pink, sclera white. NOSE: Clear with pink turbinates. THROAT: No erythema or exudates. NECK: No masses, no JVD, no thyroid enlargement, no adenopathy. CHEST: No chest wall deformity. Symmetrical expansion. LUNGS: Equal air entry with right lower lobe crackles CVS: Regular rate and rhythm, normal S1 and S2, no gallops, no murmurs, no rubs ABDOMEN: Soft, nontender. No hepatosplenomegaly, normal bowel sounds, no guarding or rigidity. EXTREMITIES: No clubbing, no edema, no cyanosis, 2+ pulses and upper and lower extremities. MUSCULOSKELETAL: Muscle strength and tone normal. SPINE: No scoliosis or deformity SKIN: No rashes CENTRAL NERVOUS SYSTEM: Alert and oriented -3. No focal deficits, tone is normal in all 4 extremities. PSYCHIATRIC: Alert and oriented -3. Appropriate affect. Intact judgment and insight. - Labs CBC & Chem 7: 06/04/22 06:13 06/04/22 06:13 Labs: Microbiology - Last 24 Hours (Table) 05/30/22 10:36 Blood Culture - Preliminary Blood No Growth after 120 hours Assessment and Plan Plan: Assessment: Right lung opacification a combination of pneumonia/atelectasis and a small right-sided pleural effusion, probably related to aspiration. , Clinically improving on 5 L of O2 nasal cannula Abnormal swallow and the patient is currently on pured nectar thick diet Acute hypoxic respiratory failure currently on 4 L of O2 nasal cannula History of dementia History of DVT and pulmonary embolism, remote, maintained on anticoagulation with Eliquis Hypertension Parkinson's disease Ongoing debility with impairment of cognitive functions and very poor baseline performance and functional status. UTI suspected, currently under investigation Restless leg syndrome Plan: Clinical patient has remained stable No fever or chills No worsening dyspnea Increase activity as tolerated We'll DC IV Zosyn, switched to oral Augmentin for 3 more days to complete 10 day course of antibiotics Stable for discharge pending placement Outpatient follow-up with Dr. Beard in the office in 7-10 days I have personally seen and examined the patient, performed the documentation and the assessment and plan as written. Number of minutes spent on the visit: [10] Time with Patient: Less than 30
[2022-06-05] MEDS: DONEPEZIL 10 MG TAB PO SCH (22:32)
[2022-06-05] MEDS: AMOXIC-POT CLAV 875-125MG 1 EACH TAB PO SCH (22:32)
[2022-06-06] MEDS ORDERED: FUROSEMIDE 10 MG/ML 4 ML VIAL IV STA (08:32)
[2022-06-06] MEDS: AMOXIC-POT CLAV 875-125MG 1 EACH TAB PO SCH ×2 (09:14→21:06)
[2022-06-06] MEDS: FAMOTIDINE 20 MG TAB PO SCH ×2 (09:14→21:06)
[2022-06-06] MEDS: CITALOPRAM HYDROBROMIDE 10 MG TAB PO SCH (09:15)
[2022-06-06] MEDS: MEMANTINE 10 MG TAB PO SCH ×2 (09:15→21:07)
[2022-06-06] MEDS: carvediloL 3.125 MG TAB PO SCH ×2 (09:15→21:06)
[2022-06-06] MEDS: CARBIDOPA-LEVODOPA ER 25-100MG 1 EACH TABLET.ER PO SCH ×3 (09:16→21:07)
[2022-06-06] MEDS: APIXABAN 5 MG TAB PO SCH ×2 (09:19→21:07)
[2022-06-06] MEDS: traMADol 50 MG TAB PO PRN ×3 (09:19→23:43)
--- NOTE | 2022-06-06 10:39 | P.DS ---
Providers Date of admission: 05/29/22 21:08 Attending physician: Reese Toledo MD Consults: 05/30/22 13:22 Consult Physician Urgent Consulting Provider: Diana Beard Consult Reason/Comments: hypoxia Do you want consulting provider notified?: Yes Primary care physician: Zach Salcedo Hospital Course: diagnoses: Aspiration pneumonia, improved An acute hypoxia, stable and improving Acute urinary tract infection secondary to sensitive Klebsiella Metabolic encephalopathy secondary to above, resolved Dementia Restless leg syndrome History of DVT on Eliquis Hypertension Parkinson disease Hospital course This is a pleasant 82 years old female with past medical history of Dementia, Deep Vein Thrombosis , Hypertension He was sent from her primary care office for concerns for inability to care for herself. Patient went to the primary doctor office with her for her she was noticed to be hypoxic with a blue loops and she was receptive to the hospital. Patient was confused with respiratory distress on admission Patient evaluated by queen producer and found to have aspiration pneumonia with right lower lobe infiltrate associated with hypoxia. Patient was treated with antibiotic with Zosyn and gentle hydration as well as breathing treatment and a bronchodilator. Patient showed interval improvement, her mentation is improved and the patient is back to her basic mental function. Breathing is also improved and she was acute hypoxic respiratory failure need wearing 10 L of oxygen with treatment her oxygen requirements went down to 3 L with oxygen saturation of 100%. Patient has been awake and alert, she still generally weak. She denies chest pain. Breathing significantly improved, no abdominal pain or vomiting or diarrhea. No urinary complaints. She has some chronic mild low back pain. Patient was cleared for discharge by queen producer Problems and management plan were discussed with the patient and he verbalized understanding and acceptance Patient was found stable and can be discharged home however he needs follow-up as an outpatient. Patient was instructed to follow up with PCP within one week and patient agrees . We recommend patient follow up with Dr. Beard in 1-2 weeks. Physical exam -Gen: patient is a awake and alert, looks tired and mildly confused at baseline, no distress CVS: S1-S2, RRR, no murmur Lungs: B/L CTA, no wheezing Abdomen: soft, no distention, no tenderness, positive bowel sounds Extremity: no leg edema or induration Time spent more than 35 minutes Patient Condition at Discharge: Serious Plan - Discharge Summary Discharge Rx Participant: No New Discharge Prescriptions: New traMADol HCl [Ultram] 50 mg PO TID PRN #9 tab PRN Reason: Pain No Action rOPINIRole HCL [Requip] 2 mg PO TID OLANZapine [Olanzapine] 10 mg PO HS Donepezil [Aricept] 10 mg PO HS Memantine [Namenda] 10 mg PO BID carvediloL [Coreg] 3.125 mg PO BID Furosemide [Lasix] 20 mg PO DAILY PRN PRN Reason: Edema Citalopram Hydrobromide [CeleXA] 10 mg PO DAILY Ipratropium-Albuterol Nebulize [Duoneb 0.5 mg-3 mg/3 ml Soln] 3 ml INHALATION RT-Q6H PRN PRN Reason: Shortness Of Breath Apixaban [Eliquis] 5 mg PO BID Multivitamins, Thera [Multivitamin (formulary)] 1 tab PO DAILY Carbidopa/Levodopa [Carbidopa-Levo ER 25-100 Tab] 1 tab PO TID Discharge Medication List Donepezil [Aricept] 10 mg PO HS 12/26/16 [History] OLANZapine [Olanzapine] 10 mg PO HS 12/26/16 [History] rOPINIRole HCL [Requip] 2 mg PO TID 12/26/16 [History] Citalopram Hydrobromide [CeleXA] 10 mg PO DAILY 10/24/20 [History] Furosemide [Lasix] 20 mg PO DAILY PRN 10/24/20 [History] Memantine [Namenda] 10 mg PO BID 10/24/20 [History] carvediloL [Coreg] 3.125 mg PO BID 10/24/20 [History] Apixaban [Eliquis] 5 mg PO BID 05/29/22 [History] Carbidopa/Levodopa [Carbidopa-Levo ER 25-100 Tab] 1 tab PO TID 05/29/22 [History] Ipratropium-Albuterol Nebulize [Duoneb 0.5 mg-3 mg/3 ml Soln] 3 ml INHALATION RT-Q6H PRN 05/29/22 [History] Multivitamins, Thera [Multivitamin (formulary)] 1 tab PO DAILY 05/29/22 [History] traMADol HCl [Ultram] 50 mg PO TID PRN #9 tab 06/05/22 [Rx] Follow up Appointment(s)/Referral(s): Zach Salcedo MD [Primary Care Provider] - 1-2 days Diana Beard MD [STAFF PHYSICIAN] - 1 Week
--- NOTE | 2022-06-06 12:10 | P.PN ---
Subjective Progress Note Date: 06/06/22 Principal diagnosis: Shortness of breath 82-year-old female patient, coming into the hospital because of worsening shortness of breath and we will consolidated with sedation because of a new onset right-sided pleural effusion. The patient is known to have dementia and she is 82 years old. 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 Based on the history, the patient has previous history of left lower extremity DVT that was treated through [facility]. The patient had DVT and pulmonary embolism several years back and she's been taking anticoagulation with Eliquis. She also has history of Parkinson's disease. The patient was sent over from the primary care physician's office as the patient was getting progressively weak and she was unable to take care of herself. Doesn't was complaining that he was unable to take care of her anymore. The patient is a poor historian. She is laying down in bed and she is on oxygen at 2 L per minute nasal cannula. She is aware that she is in the hospital and she is disoriented to time and people. in the hospital, the patient was placed on 3 L of O2 nasal cannula and her pulse ox came up to 94%. She was found to be afebrile. Chest x-ray as mentioned showed cardiomegaly and a right-sided pleural effusion. The blood work showed a white cell, 5.2 with a hemoglobin of 10.5. The sodium was at 142, serum bicarb was at 40 with a potassium level of 4.4, BUN was 50 with a creatinine 0.5. UA was abnormal with positive RBCs and WBCs and many bacteria. On today's evaluation of 05/31/2022, the patient is slightly improved compared t o yesterday. I was concerned about aspiration. A CAT scan of the chest was done yesterday that showed a area of consolidation of the right lower lobe. Very small right-sided pleural effusion which is not amenable for thoracentesis. The patient also has bibasilar consolidation worse in the right lung base. There is also possibility of some secretions retained in the lower lobe airways which is again consistent with aspiration. The patient Underwent a swallow evaluation and the recommendations were also noted and the patient is being given pured nectar thick diet. The patient is also on IV Zosyn. The White cell count is at 4 with a hemoglobin is 10.7. The process to level is at 0.05. Urinalysis was abnormal. BUN is a 12 the creatinine 0.7. Blood cultures been negative thus far. The patient is currently on a 35% Ventimask. On today's evaluation 06/01/2022, the patient's condition is stable. She was taken off the Ventimask and the patient was placed on 5 L of nasal cannula with a pulse ox of 97%. Cough is subsided. No new complaints otherwise for now. CAT scan of the chest was consistent with aspiration pneumonia. There was also some atelectasis and possibly some material/degrees in the right lower lobe bronchus. The white cell count is at 3.5 with a hemoglobin of 10 and FiO2 of 57. Electrolytes are normal. BUN is at 40 with a creatinine of 0.7 and the sodium level of 142. 72,022, the patient is doing well, condition is stable. No new complaints, remains on 5 L of nasal cannula. Breathing is nonlabored. 72,022, the patient remains on IV Zosyn. No aspiration. The patient is on 5 L O2 nasal cannula with a pulse ox of 93% repeat chest x-ray showed improved aeration of the lungs with persistent elevation of the right hemidiaphragm. On 06/04/2022 patient seen in follow-up. She is awake and alert, in no acute distress, on 5 L of oxygen she is satting 98%, vital signs have been stable, no fever or chills, blood pressure is stable. No worsening dyspnea, no cough or congestion. No chest pain. She remains on Zosyn for possibility of aspiration pneumonia. Patient was also found to have urinary tract infection related to Klebsiella pneumonia, blood cultures show no growth. She is breathing comfortably, she has had no acute events overnight, today's labs have been reviewed, white blood cell count is 2.45, hemoglobin is 9.5, electrolytes have been unremarkable, pro-calcitonin level is 0.052, proBNP was 813. Last chest x-ray from yesterday showed improved aeration of the lungs with persistent elevated right hemidiaphragm. On 06/05/2022 patient seen in follow-up on medical surgical floor, she is breathing comfortably, she had no acute events overnight, on 3 L of oxygen she sat 91%. No fever or chills, no worsening dyspnea or cough. Currently discharge is pending to [facility]. Social work is following. Patient remains on Zosyn. On 06/06/2022 patient seen in follow-up on medical surgical floor. Patient is awake and alert, in no acute distress, a bit congested with positive scattered crackles at the lung bases on today's exam. Otherwise is noted to be in no acute distress. Patient's antibiotics have been transition over to oral Augmentin. No fever or chills, patient remains on 3 L of oxygen pulse ox is 95- 100%. Objective - Vital Signs Vital signs: Vital Signs Temp 97.7 F 06/06/22 11:22 Pulse 68 06/06/22 11:22 Resp 16 06/06/22 11:22 BP 104/68 06/06/22 11:22 Pulse Ox 95 06/06/22 11:22 FiO2 35 05/31/22 15:26 Intake & Output 06/05/22 06/06/22 06/06/22 18:59 06:59 18:59 Output Total 600 400 Balance -600 -400 Weight 75 kg 76 kg Output: Urine 600 400 Other: Voiding Method Diaper Diaper External Catheter External Catheter # Voids 4 # Bowel Movements 1 1 - Exam GENERAL EXAM: Alert, very pleasant, 82-year-old white female on 3 L of oxygen pulse ox of 97%, comfortable in no apparent distress. HEAD: Normocephalic/atraumatic. EYES: Normal reaction of pupils, equal size. Conjunctiva pink, sclera white. NOSE: Clear with pink turbinates. THROAT: No erythema or exudates. NECK: No masses, no JVD, no thyroid enlargement, no adenopathy. CHEST: No chest wall deformity. Symmetrical expansion. LUNGS: Equal air entry with right lower lobe crackles CVS: Regular rate and rhythm, normal S1 and S2, no gallops, no murmurs, no rubs ABDOMEN: Soft, nontender. No hepatosplenomegaly, normal bowel sounds, no guarding or rigidity. EXTREMITIES: No clubbing, no edema, no cyanosis, 2+ pulses and upper and lower extremities. MUSCULOSKELETAL: Muscle strength and tone normal. SPINE: No scoliosis or deformity SKIN: No rashes CENTRAL NERVOUS SYSTEM: Alert and oriented -3. No focal deficits, tone is normal in all 4 extremities. PSYCHIATRIC: Alert and oriented -3. Appropriate affect. Intact judgment and insight. - Labs CBC & Chem 7: 06/04/22 06:13 06/04/22 06:13 Labs: Microbiology - Last 24 Hours (Table) 05/30/22 10:36 Blood Culture - Final Blood No Growth after 144 hours Assessment and Plan Plan: Assessment: Right lung opacification a combination of pneumonia/atelectasis and a small right-sided pleural effusion, probably related to aspiration. , Clinically improving on 5 L of O2 nasal cannula Abnormal swallow and the patient is currently on pured nectar thick diet Acute hypoxic respiratory failure currently on 4 L of O2 nasal cannula History of dementia History of DVT and pulmonary embolism, remote, maintained on anticoagulation with Eliquis Hypertension Parkinson's disease Ongoing debility with impairment of cognitive functions and very poor baseline performance and functional status. UTI suspected, currently under investigation Restless leg syndrome Plan: Patient can be transitioned to oral Augmentin Positive crackles on today's exam the lung bases One-time dose IV Lasix 40 mg Awaiting placement at an ECF Otherwise stable for transfer to ECF today Outpatient follow-up with Dr. Beard in 7-10 days I have personally seen and examined the patient, performed the documentation and the assessment and plan as written. Number of minutes spent on the visit: [10] Time with Patient: Less than 30
[2022-06-06] MEDS: DONEPEZIL 10 MG TAB PO SCH (21:07)
[2022-06-07] MEDS: CITALOPRAM HYDROBROMIDE 10 MG TAB PO SCH (09:53)
[2022-06-07] MEDS: carvediloL 3.125 MG TAB PO SCH ×2 (09:53→21:13)
[2022-06-07] MEDS: APIXABAN 5 MG TAB PO SCH ×2 (09:53→21:12)
[2022-06-07] MEDS: FAMOTIDINE 20 MG TAB PO SCH ×2 (09:53→21:12)
[2022-06-07] MEDS: AMOXIC-POT CLAV 875-125MG 1 EACH TAB PO SCH ×2 (09:54→21:12)
[2022-06-07] MEDS: MEMANTINE 10 MG TAB PO SCH ×2 (09:54→21:13)
[2022-06-07] MEDS: CARBIDOPA-LEVODOPA ER 25-100MG 1 EACH TABLET.ER PO SCH ×3 (09:54→21:13)
[2022-06-07] MEDS: traMADol 50 MG TAB PO PRN (17:23)
--- NOTE | 2022-06-07 20:04 | P.PN ---
Subjective Progress Note Date: 06/07/22 82 years old female with past medical history of Dementia, Deep Vein Thrombosis , Hypertension He was sent from her primary care office for concerns for inability to care for herself. Also her is complaining from advanced age and may have dementia himself and difficulty taking care of her own understanding her needs. Patient is poor historian and it was obtained from the staff and medical abhi rds. Patient somewhat poor historian. She was lying in bed, she is on 2 L oxygen via nasal cannula, she knows she is in the hospital but she is disoriented to time and person and she has no idea why she came to the hospital or who sent her. As per records patient went with to primary care office where she was noted to be hypoxic with blue loops and empty oxygen tank and there was concerne d about the care she is getting with her so they referred her to the hospital and Adult Protective Services were consulted She is answering some questions appropriately but she has memory problems, she complained from shortness of breath but she could not tell how long she denies chest pain or abdominal pain, she denies coughing. She denies diarrhea or vomiting or urinary complaints, no headache or dizziness or weakness or numbness however history is limited by the patient condition Also she states that her is a 1 whose given her pills and that she was taken her medication over the last few days although were not sure how reliable these information are Patient is saturating 88% on 2 L oxygen via nasal cannula and currently she is saturating 94% on 3 L oxygen. She is afebrile Labs showing hemoglobin of 10.5. Platelet count and labs within normal limits. BMP and liver enzymes are unremarkable. Urine analysis is suspicious for infection Number and thoracic spine CT showing multilevel compression deformities with surgical fixation of L2-L5. The wedge deformities of T12 and T11 are of indeterminate age. No spinal canal stenosis evident Objective - Vital Signs Vital signs: Vital Signs Temp 97.9 F 06/07/22 12:25 Pulse 56 L 06/07/22 12:25 Resp 14 06/07/22 12:25 BP 135/76 06/07/22 12:25 Pulse Ox 98 06/07/22 12:25 FiO2 35 05/31/22 15:26 Intake & Output 06/06/22 06/07/22 06/07/22 18:59 06:59 18:59 Intake Total 400 500 50 Balance 400 500 50 Weight 75 kg Intake: Oral 400 500 50 Other: Voiding Method Diaper Diaper Diaper External Catheter External Catheter External Catheter # Voids 1 1 1 # Bowel Movements 1 - Exam -GENERAL: The patient is confused and tired looking, not in any acute distress. Well developed, well nourished. HEENT: Pupils are round and equally reacting to light. EOMI. No scleral icterus. No conjunctival pallor. Normocephalic, atraumatic. No pharyngeal erythema. No thyromegaly. CARDIOVASCULAR: S1 and S2 present. No murmurs, rubs, or gallops. PULMONARY: Chest is clear to auscultation, no wheezing or crackles. ABDOMEN: Soft, nontender, nondistended, normoactive bowel sounds. No palpable organomegaly. MUSCULOSKELETAL: No joint swelling or deformity. EXTREMITIES: No cyanosis, clubbing, or pedal edema. NEUROLOGICAL: Gross neurological examination did not reveal any focal deficits. SKIN: No rashes. no petechiae. - Labs CBC & Chem 7: 06/04/22 06:13 06/04/22 06:13 Assessment and Plan Assessment: An acute hypoxia Acute urinary tract infection Metabolic encephalopathy secondary to above Mild upper abdominal tenderness Left leg warmth and swelling Dementia Restless leg syndrome History of DVT on Eliquis Hypertension Parkinson disease This is a pleasant 82 is old female who presents with worsening dementia suspicious for AMS and metabolic encephalopathy secondary to UTI and pneumonia, also hypoxia Continue with oxygen therapy Cleared for discharge Patient continued on Zosyn pulmonary consult on the case and appreciated Labs and medication were reviewed.. Continue same treatment. Continue with symptomatic treatment. Resume home medication. Monitor lytes and vitals. DVT and GI prophylaxis. Further recommendations as per clinical course of the patient DVT prophylaxis: Subcutaneous heparin GI Prophylaxis: Pepcid PT/OT: Pending Medically stable for discharge pending placement
[2022-06-07] MEDS: DONEPEZIL 10 MG TAB PO SCH (21:13)
[2022-06-08] MEDS: AMOXIC-POT CLAV 875-125MG 1 EACH TAB PO SCH (07:29)
[2022-06-08] MEDS: CARBIDOPA-LEVODOPA ER 25-100MG 1 EACH TABLET.ER PO SCH ×3 (07:29→20:52)
[2022-06-08] MEDS: FAMOTIDINE 20 MG TAB PO SCH ×2 (07:30→20:03)
[2022-06-08] MEDS: APIXABAN 5 MG TAB PO SCH ×2 (07:30→20:03)
[2022-06-08] MEDS: MEMANTINE 10 MG TAB PO SCH ×2 (07:30→20:04)
[2022-06-08] MEDS: carvediloL 3.125 MG TAB PO SCH ×2 (07:31→20:03)
[2022-06-08] MEDS: CITALOPRAM HYDROBROMIDE 10 MG TAB PO SCH (07:31)
[2022-06-08] MEDS: traMADol 50 MG TAB PO PRN ×2 (11:17→20:03)
[2022-06-08] MEDS: DONEPEZIL 10 MG TAB PO SCH (20:03)
--- NOTE | 2022-06-08 20:15 | P.PN ---
Subjective Progress Note Date: 06/08/22 82 years old female with past medical history of Dementia, Deep Vein Thrombosis , Hypertension He was sent from her primary care office for concerns for inability to care for herself. Also her is complaining from advanced age and may have dementia himself and difficulty taking care of her own understanding her needs. Patient is poor historian and it was obtained from the staff and medical abhi rds. Patient somewhat poor historian. She was lying in bed, she is on 2 L oxygen via nasal cannula, she knows she is in the hospital but she is disoriented to time and person and she has no idea why she came to the hospital or who sent her. As per records patient went with to primary care office where she was noted to be hypoxic with blue loops and empty oxygen tank and there was concerne d about the care she is getting with her so they referred her to the hospital and Adult Protective Services were consulted She is answering some questions appropriately but she has memory problems, she complained from shortness of breath but she could not tell how long she denies chest pain or abdominal pain, she denies coughing. She denies diarrhea or vomiting or urinary complaints, no headache or dizziness or weakness or numbness however history is limited by the patient condition Also she states that her is a 1 whose given her pills and that she was taken her medication over the last few days although were not sure how reliable these information are Patient is saturating 88% on 2 L oxygen via nasal cannula and currently she is saturating 94% on 3 L oxygen. She is afebrile Labs showing hemoglobin of 10.5. Platelet count and labs within normal limits. BMP and liver enzymes are unremarkable. Urine analysis is suspicious for infection Number and thoracic spine CT showing multilevel compression deformities with surgical fixation of L2-L5. The wedge deformities of T12 and T11 are of indeterminate age. No spinal canal stenosis evident 06/08/2022 Patient is seen and evaluated with aspirin at bedside Vital signs are stable with temperature of 98.2, pulse 79,16 and blood pressure 128/80 O2 saturation 95% on 3 L Patient remains clinically stable and relates insurance authorization for transfer to skilled rehab Objective - Vital Signs Vital signs: Vital Signs Temp 97.4 F L 06/08/22 11:25 Pulse 75 06/08/22 11:25 Resp 18 06/08/22 11:25 BP 134/81 06/08/22 11:25 Pulse Ox 95 06/08/22 11:25 FiO2 35 05/31/22 15:26 Intake & Output 06/07/22 06/08/22 06/08/22 18:59 06:59 18:59 Intake Total 168 Output Total 325 900 Balance -157 -900 Weight 73 kg Intake: Oral 168 Output: Urine 325 900 Other: Voiding Method Diaper Diaper Diaper External Catheter Incontinent Incontinent External Catheter # Voids 1 - Labs CBC & Chem 7: 06/04/22 06:13 06/04/22 06:13
[2022-06-09] MEDS: FAMOTIDINE 20 MG TAB PO SCH ×2 (08:28→21:48)
[2022-06-09] MEDS: APIXABAN 5 MG TAB PO SCH ×2 (08:28→21:49)
[2022-06-09] MEDS: CARBIDOPA-LEVODOPA ER 25-100MG 1 EACH TABLET.ER PO SCH ×3 (08:29→21:49)
[2022-06-09] MEDS: CITALOPRAM HYDROBROMIDE 10 MG TAB PO SCH (08:29)
[2022-06-09] MEDS: carvediloL 3.125 MG TAB PO SCH ×2 (08:29→21:48)
[2022-06-09] MEDS: MEMANTINE 10 MG TAB PO SCH ×2 (08:29→21:48)
[2022-06-09] MEDS: traMADol 50 MG TAB PO PRN ×3 (08:36→21:59)
--- NOTE | 2022-06-09 17:12 | P.PN ---
Subjective Progress Note Date: 06/09/22 Principal diagnosis: Acute UTI Metabolic encephalopathy Hypoxia Restless leg syndrome 82 years old female with past medical history of Dementia, Deep Vein Thrombosis , Hypertension He was sent from her primary care office for concerns for inability to care for herself. Also her is complaining from advanced age and may have dementia himself and difficulty taking care of her own understanding her needs. Patient is poor historian and it was obtained from the staff and medical records. Patient somewhat poor historian. She was lying in bed, she is on 2 L oxygen via nasal cannula, she knows she is in the hospital but she is disoriented to time and person and she has no idea why she came to the hospital or who sent her. As per records patient went with to primary care office where she was noted to be hypoxic with blue loops and empty oxygen tank and there was concerned about the care she is getting with her so they referred her to the hospital and Adult Protective Services were consulted She is answering some questions appropriately but she has memory problems, she complained from shortness of breath but she could not tell how long she denies chest pain or abdominal pain, she denies coughing. She denies diarrhea or vomiting or urinary complaints, no headache or dizziness or weakness or numbness however history is limited by the patient condition Also she states that her is a 1 whose given her pills and that she was taken her medication over the last few days although were not sure how reliable these information are Patient is saturating 88% on 2 L oxygen via nasal cannula and currently she is saturating 94% on 3 L oxygen. She is afebrile Labs showing hemoglobin of 10.5. Platelet count and labs within normal limits. BMP and liver enzymes are unremarkable. Urine analysis is suspicious for infection Number and thoracic spine CT showing multilevel compression deformities with surgical fixation of L2-L5. The wedge deformities of T12 and T11 are of indeterminate age. No spinal canal stenosis evident 06/08/2022 Patient is seen and evaluated with aspirin at bedside Vital signs are stable with temperature of 98.2, pulse 79,16 and blood pressure 128/80 O2 saturation 95% on 3 L Patient remains clinically stable and relates insurance authorization for transfer to skilled rehab 06/09/2022 Patient is seen and evaluated; medications in chart review Vital signs remained stable with temperature 98.2, pulse 76, respiration 19, blood pressure 124/78 and O2 saturation of 96% on 3 L Patient is clinically stable to be discharged to skilled rehab once insurance authorization is available Objective - Vital Signs Vital signs: Vital Signs Temp 97.5 F L 06/09/22 05:00 Pulse 73 06/09/22 05:00 Resp 18 06/09/22 05:00 BP 153/93 06/09/22 05:00 Pulse Ox 96 06/09/22 05:00 FiO2 35 05/31/22 15:26 Intake & Output 06/08/22 06/09/22 06/09/22 18:59 06:59 18:59 Output Total 600 500 Balance -600 -500 Weight 74 kg Output: Urine 600 500 Other: Voiding Method Diaper Diaper Incontinent Incontinent Incontinent External Catheter External Catheter External Catheter # Bowel Movements 2 - Exam -GENERAL: The patient is confused and tired looking, not in any acute distress. Well developed, well nourished. HEENT: Pupils are round and equally reacting to light. EOMI. No scleral icterus. No conjunctival pallor. Normocephalic, atraumatic. No pharyngeal erythema. No thyromegaly. CARDIOVASCULAR: S1 and S2 present. No murmurs, rubs, or gallops. PULMONARY: Chest is clear to auscultation, no wheezing or crackles. ABDOMEN: Soft, nontender, nondistended, normoactive bowel sounds. No palpable organomegaly. MUSCULOSKELETAL: No joint swelling or deformity. EXTREMITIES: No cyanosis, clubbing, or pedal edema. NEUROLOGICAL: Gross neurological examination did not reveal any focal deficits. SKIN: No rashes. no petechiae. - Labs CBC & Chem 7: 06/04/22 06:13 06/04/22 06:13 Assessment and Plan Assessment: An acute hypoxia Acute urinary tract infection Metabolic encephalopathy secondary to above Mild upper abdominal tenderness Left leg warmth and swelling Dementia Restless leg syndrome History of DVT on Eliquis Hypertension Parkinson disease This is a pleasant 82 is old female who presents with worsening dementia suspi cious for AMS and metabolic encephalopathy secondary to UTI and pneumonia, also hypoxia Continue with oxygen therapy Cleared for discharge Patient continued on Zosyn pulmonary consult on the case and appreciated Labs and medication were reviewed.. Continue same treatment. Continue with symptomatic treatment. Resume home medication. Monitor lytes and vitals. DVT and GI prophylaxis. Further recommendations as per clinical course of the patient DVT prophylaxis: Subcutaneous heparin GI Prophylaxis: Pepcid PT/OT: Pending Medically stable for discharge pending placement
[2022-06-09] MEDS: DONEPEZIL 10 MG TAB PO SCH (21:48)
[2022-06-10] MEDS: traMADol 50 MG TAB PO PRN ×2 (05:17→14:31)
[2022-06-10 10:16] LABS: African American GFR (CKD) >90 (>60 ml/min/1.73 sqM); Anion Gap 5 mmol/L; Blood Urea Nitrogen 19 mg/dL (7-17); Calcium 8.1 mg/dL (8.4-10.2); Carbon Dioxide 38 mmol/L (22-30); Chloride 97 mmol/L (98-107); Glucose 109 mg/dL (74-99); Non-African American GFR(CKD) 85 (>60 ml/min/1.73 sqM); Potassium 4.6 mmol/L (3.5-5.1); Sodium 140 mmol/L (137-145)
[2022-06-10] MEDS: FAMOTIDINE 20 MG TAB PO SCH (10:23)
[2022-06-10] MEDS: carvediloL 3.125 MG TAB PO SCH (10:24)
[2022-06-10] MEDS: CITALOPRAM HYDROBROMIDE 10 MG TAB PO SCH (10:24)
[2022-06-10] MEDS: APIXABAN 5 MG TAB PO SCH (10:24)
[2022-06-10] MEDS: MEMANTINE 10 MG TAB PO SCH (10:25)
[2022-06-10] MEDS: CARBIDOPA-LEVODOPA ER 25-100MG 1 EACH TABLET.ER PO SCH (10:25)
[2022-06-10 11:50] VITALS: BP 111/75; PULSE 72; RESP 18; TEMP 97.9
--- NOTE | 2022-06-10 13:05 | P.DS ---
Providers Date of admission: 05/29/22 21:08 Attending physician: Reese Toledo MD Consults: 05/30/22 13:22 Consult Physician Urgent Consulting Provider: Diana Beard Consult Reason/Comments: hypoxia Do you want consulting provider notified?: Yes Primary care physician: Zach Salcedo Hospital Course: diagnoses: Aspiration pneumonia, improved An acute hypoxia, stable and improving Acute urinary tract infection secondary to sensitive Klebsiella Metabolic encephalopathy secondary to above, resolved Dementia Restless leg syndrome History of DVT on Eliquis Hypertension Parkinson disease Discharge Disposition Patient is cleared for discharge to rehab. She will continue course of antibiotics with augmentin. Repeat labs in 2-3 days. Hospital Course This is an 82 year old female with history of dementia, DVT, hypertension, parkinsons who presents to the hospital from primary care office with concern for inability to care for herself at home. Patient resides with who also has dementia. Patient presents to the with confusion and respiratory distress. patient was found to be hypoxic in the primary care office as well. Pulmonary evaluated the patient and found to have aspiration pneumonia with right lower lobe infiltrate associated with hypoxia patient was treated with IV Zosyn and gentle hydration as well as breathing treatment and bronchodilator. Patient did show interval improvement in mentation is improved and she is back to her baseline mental function. She did require tenderness of oxygen on admission and has been weaned down to 3 L of oxygen with saturation 100%. Patient does present with generalized weakness as well. She does deny chest pain no fevers. Denies abdominal pain nausea vomiting or diarrhea. There is no urinary complaints. Patient was cleared by pulmonary for discharge. She will see pulmonary outpatient in 1-[address] Beard. 06/10/2022 patient evaluated today resting in bed. She continues on 3 L of oxygen via nasal cannula with a saturation of 98-95%. She remains afebrile, heart rate 72, blood pressure 111/75. She's had a bowel movement 2 days ago. Abdomen is soft nontender with normoactive bowel sounds. No chest pain, no shortness of breath. Lungs are clear, S1 S2 auscultated. Labs today are reviewed sodium of 140, potassium 4.6, BUN 19 creat 0.58, glucose 109, calcium 8.1. Please see medication reconciliation for a list of current medication. Thank you for allowing us to participate in the care of this patient. The impression and plan of care has been dictated by Lillian Pradhan Nurse Practitioner as directed. Dr. Babar MD I have performed a history and physical examination and medical decision making of this patient, discussed the same with the dictator, and agree with the dictators assessment and plan as written, documented as a scribe. Based on total visit time, I have performed more than 50% of this visit. Patient Condition at Discharge: Fair Plan - Discharge Summary Discharge Rx Participant: No New Discharge Prescriptions: New Amoxic-Pot Clav 875-125Mg [Augmentin 875-125] 1 each PO Q12HR 10 Days #20 tab traMADol HCl [Ultram] 50 mg PO TID PRN #9 tab PRN Reason: Pain Acetaminophen Tab [Tylenol] 325 mg PO Q6HR PRN tab PRN Reason: Fever And/ Or Pain Continue rOPINIRole HCL [Requip] 2 mg PO TID OLANZapine [Olanzapine] 10 mg PO HS Donepezil [Aricept] 10 mg PO HS Memantine [Namenda] 10 mg PO BID carvediloL [Coreg] 3.125 mg PO BID Furosemide [Lasix] 20 mg PO DAILY PRN PRN Reason: Edema Citalopram Hydrobromide [CeleXA] 10 mg PO DAILY Ipratropium-Albuterol Nebulize [Duoneb 0.5 mg-3 mg/3 ml Soln] 3 ml INHALATION RT-Q6H PRN PRN Reason: Shortness Of Breath Apixaban [Eliquis] 5 mg PO BID Multivitamins, Thera [Multivitamin (formulary)] 1 tab PO DAILY Carbidopa/Levodopa [Carbidopa-Levo ER 25-100 Tab] 1 tab PO TID Discharge Medication List Donepezil [Aricept] 10 mg PO HS 12/26/16 [History] OLANZapine [Olanzapine] 10 mg PO HS 12/26/16 [History] rOPINIRole HCL [Requip] 2 mg PO TID 12/26/16 [History] Citalopram Hydrobromide [CeleXA] 10 mg PO DAILY 10/24/20 [History] Furosemide [Lasix] 20 mg PO DAILY PRN 10/24/20 [History] Memantine [Namenda] 10 mg PO BID 10/24/20 [History] carvediloL [Coreg] 3.125 mg PO BID 10/24/20 [History] Apixaban [Eliquis] 5 mg PO BID 05/29/22 [History] Carbidopa/Levodopa [Carbidopa-Levo ER 25-100 Tab] 1 tab PO TID 05/29/22 [History] Ipratropium-Albuterol Nebulize [Duoneb 0.5 mg-3 mg/3 ml Soln] 3 ml INHALATION RT-Q6H PRN 05/29/22 [History] Multivitamins, Thera [Multivitamin (formulary)] 1 tab PO DAILY 05/29/22 [ History] traMADol HCl [Ultram] 50 mg PO TID PRN #9 tab 06/05/22 [Rx] Acetaminophen Tab [Tylenol] 325 mg PO Q6HR PRN tab 06/06/22 [Rx] Amoxic-Pot Clav 875-125Mg [Augmentin 875-125] 1 each PO Q12HR 10 Days #20 tab 06/06/22 [Rx] Follow up Appointment(s)/Referral(s): Zach Salcedo MD [Primary Care Provider] - 1-2 days Diana Beard MD [STAFF PHYSICIAN] - 1 Week Ambulatory/Diagnostic Orders: Basic Metabolic Panel [LAB.AMB] Location: None Selected Complete Blood Count w/diff [LAB.AMB] Time Frame: 2 Days, Location: None Selected Activity/Diet/Wound Care/Special Instructions: Heart healthy diet Activity as tolerated Discharge Disposition: TRANSFER TO SNF/ECF
== END 2022-06-10 15:20 | DRG 177 ==
LOC: EC 18:07 → 5NMEDONC 21:08
PROVIDERS: ADMIT Internal Medicine; ATTEND Internal Medicine
DX: J69.0 Pneumonitis due to inhalation of food and vomit (principal); G93.41 Metabolic encephalopathy; J96.01 Acute respiratory failure with hypoxia; J90 Pleural effusion, not elsewhere classified; N39.0 Urinary tract infection, site not specified; J98.11 Atelectasis; G20 Parkinson's disease; F02.80 Dementia in other diseases classified elsewhere, unspecified severity, without behavioral disturbance, psychotic disturbance, mood disturbance, and anxiety; I11.9 Hypertensive heart disease without heart failure; Z66 Do not resuscitate; B96.1 Klebsiella pneumoniae [K. pneumoniae] as the cause of diseases classified elsewhere; G25.81 Restless legs syndrome; F41.9 Anxiety disorder, unspecified; M79.18 Myalgia, other site; M48.56XS Collapsed vertebra, not elsewhere classified, lumbar region, sequela of fracture; M48.54XS Collapsed vertebra, not elsewhere classified, thoracic region, sequela of fracture; R32 Unspecified urinary incontinence; Z79.01 Long term (current) use of anticoagulants; Z79.899 Other long term (current) drug therapy; Z86.718 Personal history of other venous thrombosis and embolism; Z86.711 Personal history of pulmonary embolism; Z71.3 Dietary counseling and surveillance; Z88.6 Allergy status to analgesic agent
CPT/HCPCS: 36415; 71045; 71046; 71250; 72128; 72131; 74018; 80048; 80053; 81001; 83735; 83880; 84145; 85025; 87040; 87077; 87086; 87186; 94640; 94760; 96365; 96375; 99285

== ENCOUNTER 2022-06-12 04:21 | Inpatient (IN) | payer MEDICARE, BC ==
[2022-06-12 04:53] LABS: Anisocytosis Moderate; HCT 34.6 % (34.0-46.0); HGB 10.8 gm/dL (11.4-16.0); Hypochromasia Marked; MCH 32.1 pg (25.0-35.0); MCHC 31.1 g/dL (31.0-37.0); MCV 103.2 fL (80.0-100.0); Macrocytosis Marked; Mean Platelet Volume 10.2; Platelet Count 327 k/uL (150-450); RBC 3.36 m/uL (3.80-5.40); RDW 22.3 % (11.5-15.5); WBC 5.5 k/uL (3.8-10.6)
[2022-06-12 05:09] LABS: ALT 13 U/L (4-34); AST 47 U/L (14-36); African American GFR (CKD) >90 (>60 ml/min/1.73 sqM); Albumin 3.7 g/dL (3.5-5.0); Alkaline Phosphatase 172 U/L (38-126); Anion Gap 3 mmol/L; Blood Urea Nitrogen 17 mg/dL (7-17); Carbon Dioxide 35 mmol/L (22-30); Chloride 97 mmol/L (98-107); Glucose 108 mg/dL (74-99); Non-African American GFR(CKD) >90 (>60 ml/min/1.73 sqM); Sodium 135 mmol/L (137-145); Total Bilirubin 1.1 mg/dL (0.2-1.3); Total Protein 7.7 g/dL (6.3-8.2)
--- NOTE | 2022-06-12 05:24 | XR ---
EXAMINATION TYPE: XR chest 1V portable DATE OF EXAM: 06/12/2022 COMPARISON: Chest x-ray June 03, 2022 HISTORY: Difficulty in breathing. TECHNIQUE: Single AP portable frontal upright view of the chest is obtained. FINDINGS: Exam suboptimal due to overlying chin artifact obscuring right lung apex and patient rotate d to the right. Cardiomegaly is redemonstrated with atherosclerotic thoracic aorta. New small to mod erate-sized right pleural effusion. New bibasilar opacities. Partial visualization of surgical change in the lumbar spine and cholecystectomy clips. IMPRESSION: Cardiomegaly with new small to moderate size right pleural effusion and new bibasilar ac raymond infiltrate and/or atelectasis is present.
[2022-06-12 05:25] LABS: Potassium 5.5 mmol/L (3.5-5.1)
[2022-06-12 05:28] LABS: INR 1.1 (<1.2); Partial Thromboplastin Time 25.3 sec (22.0-30.0); Prothrombin Time 11.7 sec (9.0-12.0)
[2022-06-12 05:32] LABS: Band Neutrophils % 2 %; Eosinophils # (M) 0.06 k/uL (0-0.7); Lymphocytes # (M) 1.16 k/uL (1.0-4.8); Monocytes # (M) 0.17 k/uL (0-1.0); Neutrophils % (M) 73 %; Nucleated Red Blood Cells 0 /100 WBC (0-0); Total Cells Counted 100
[2022-06-12] MEDS ORDERED: NITROGLYCERIN-D5W PMX 50 MG in DEXTROSE/WATER 1 250ML.BAG IV ONE ×2 (06:14→06:22)
[2022-06-12] MEDS ORDERED: cefTRIAXone IN SWFI 1,000 MG/10 ML SYRINGE IVP STA (06:23)
[2022-06-12] MEDS ORDERED: LORazepam 2 MG/ML INJ IV STA (06:23)
--- NOTE | 2022-06-12 07:24 | ED ---
SOB HPI - General Chief Complaint: Shortness of Breath Stated Complaint: LYLA Time Seen by Provider: 06/12/22 04:39 Source: EMS Mode of arrival: EMS Limitations: altered mental status - History of Present Illness Initial Comments: This patient is an 82-year-old woman brought here by ambulance from the [facility] where she reportedly developed respiratory distress. The patient is not able to give much history due to dyspnea and dementia. 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 She had been admitted to the hospital at the end of May for possible aspiration pneumonia and right pleural effusion. She was discharged back to shelter June 10. MD Complaint: shortness of breath -: unknown Consistency: constant Improves With: nothing Worsens With: nothing Treatments Prior to Arrival: oxygen - Related Data Home Oxygen Therapy: No Home Medications Medication Instructions Recorded Confirmed Donepezil [Aricept] 10 mg PO HS 12/26/16 06/12/22 OLANZapine [Olanzapine] 10 mg PO HS 12/26/16 06/12/22 rOPINIRole HCL [Requip] 2 mg PO TID@0700,1300,1900 12/26/16 06/12/22 Citalopram Hydrobromide [CeleXA] 10 mg PO DAILY 10/24/20 06/12/22 Furosemide [Lasix] 20 mg PO DIRECTED PRN 10/24/20 06/12/22 Memantine [Namenda] 10 mg PO BID 10/24/20 06/12/22 carvediloL [Coreg] 3.125 mg PO BID 10/24/20 06/12/22 Apixaban [Eliquis] 5 mg PO BID 05/29/22 06/12/22 Carbidopa/Levodopa [Carbidopa-Levo 1 tab PO TID@0700,1300,1900 05/29/22 06/12/22 ER 25-100 Tab] Ipratropium-Albuterol Nebulize 3 ml INHALATION RT-Q6H PRN 05/29/22 06/12/22 [Duoneb 0.5 mg-3 mg/3 ml Soln] Multivitamins, Thera [Multivitamin 1 tab PO DAILY 05/29/22 06/12/22 (formulary)] Acetaminophen Tab [Tylenol] 650 mg PO Q6HR PRN 06/12/22 06/12/22 Amoxic-Pot Clav 875-125Mg 1 tab PO Q12HR 06/12/22 06/12/22 [Augmentin 875-125] traMADol HCl [Ultram] 50 mg PO Q8H PRN 06/12/22 06/12/22 Allergies Allergy/AdvReac Type Severity Reaction Status Date / Time aspirin Allergy Swelling Verified 06/12/22 06:21 Review of Systems ROS Statement: Those systems with pertinent positive or pertinent negative responses have been documented in the HPI. ROS Other: All systems not noted in ROS Statement are negative. Limitations: ROS unobtainable due to patients medical condition Respiratory: Reports: cough, dyspnea Past Medical History Past Medical History: Dementia, Deep Vein Thrombosis (DVT), Hypertension Additional Past Medical History / Comment(s): Factor V, Parkinsons, Advanced Dementia History of Any Multi-Drug Resistant Organisms: None Reported Past Surgical History: Hysterectomy, Orthopedic Surgery Additional Past Surgical History / Comment(s): bilat knee rx. Past Psychological History: Anxiety Smoking Status: Never smoker Past Alcohol Use History: None Reported Past Drug Use History: None Reported - Past Family History Mother Family Medical History: Blood Disorder, Deep Vein Thrombosis (DVT), Pulmonary Embolus Sister(s) Family Medical History: Blood Disorder, Deep Vein Thrombosis (DVT), Pulmonary Embolus Brother(s) Family Medical History: Blood Disorder, Deep Vein Thrombosis (DVT), Pulmonary Embolus General Exam General appearance: alert, in distress Head exam: Present: atraumatic, normocephalic Eye exam: Present: normal appearance. Absent: scleral icterus, conjunctival injection ENT exam: Present: mucous membranes dry Neck exam: Present: normal inspection Respiratory exam: Present: respiratory distress (Patient is tachypneic.), wheezes, rales, accessory muscle use Cardiovascular Exam: Present: normal rhythm, tachycardia (Rate approximately 115 on arrival), gallop. Absent: diastolic murmur, rubs GI/Abdominal exam: Present: soft. Absent: distended, tenderness, guarding, rebound Extremities exam: Present: normal inspection, normal capillary refill. Absent: pedal edema, calf tenderness Back exam: Present: normal inspection Neurological exam: Present: alert Skin exam: Present: intact, diaphoretic, mottled. Absent: rash Course Vital Signs 06/12/22 06/12/22 06/12/22 04:29 04:54 04:56 Temperature 97.9 F Pulse Rate 106 H 111 H Respiratory 42 H 39 H Rate Blood Pressure 165/83 144/94 O2 Sat by Pulse 94 L 93 L Oximetry Fraction of 70 Inspired Oxygen (FIO2) 06/12/22 06/12/22 06/12/22 05:15 06:39 07:11 Temperature Pulse Rate 113 H 124 H 114 H Respiratory 40 H 46 H 40 H Rate Blood Pressure 151/101 155/103 162/97 O2 Sat by Pulse 93 L 98 97 Oximetry Fraction of Inspired Oxygen (FIO2) 06/12/22 07:52 Temperature Pulse Rate Respiratory Rate Blood Pressure O2 Sat by Pulse Oximetry Fraction of 70 Inspired Oxygen (FIO2) - Reevaluation(s) Reevaluation #1: 06/12/22 08:15 In an attempt to clarify the patient's CODE STATUS: I personally phoned [facility] [place] and spoke with the nurse on duty who states that the patient is new there and does not have a code sheet. I phoned the patient's contact number and it went directly to a voicemail which was not set up. I phoned the patient's cousin and the call went directly to voicemail. I did phone the contact number for patient's primary physician which did not bulk picker Medical Decision Making - Medical Decision Making Patient is an 82-year-old woman in from shelter with respiratory distress. On arrival she is placed on BiPAP and given the tachycardia and gallop did have a dose of IV nitroglycerin which brought her blood pressure down. The patient then was no longer diaphoretic. Heart rate and respiratory rate did improve somewhat. As the blood pressure did overshoot the target improvement, the drip was not started until the blood pressure did recover. Chest x-ray does show marked cardiomegaly however are the BNP is not markedly elevated. Given the possibility of pneumonia patient did receive dose of antibiotics here in emergency department. At the time of shift change, we have not been able to establish the patient's CODE STATUS. She of course is not able to provide information. We did attempt to contact numbers on the patient's chart. Gladys Valentino was reached by nursing staff was patient cousin, and states that probably the patient's Scooter should decide that. She does note that they had taken his cell phone from him and we were not able to reach him. - Lab Data Result diagrams: 06/12/22 04:42 06/12/22 04:42 Lab Results 06/12/22 06/12/22 06/12/22 Range/Units 04:42 04:42 04:42 WBC 5.5 (3.8-10.6) k/uL RBC 3.36 L (3.80-5.40) m/uL Hgb 10.8 L (11.4-16.0) gm/dL Hct 34.6 (34.0-46.0) % MCV 103.2 H (80.0-100.0) fL MCH 32.1 (25.0-35.0) pg MCHC 31.1 (31.0-37.0) g/dL RDW 22.3 H (11.5-15.5) % Plt Count 327 (150-450) k/uL MPV 10.2 Neutrophils % (Manual) 73 % Band Neuts % (Manual) 2 % Lymphocytes % (Manual) 21 % Monocytes % (Manual) 3 % Eosinophils % (Manual) 1 % Neutrophils # (Manual) 4.10 (1.3-7.7) k/uL Lymphocytes # (Manual) 1.16 (1.0-4.8) k/uL Monocytes # (Manual) 0.17 (0-1.0) k/uL Eosinophils # (Manual) 0.06 (0-0.7) k/uL Nucleated RBCs 0 (0-0) /100 WBC Manual Slide Review Performed Hypochromasia Marked Anisocytosis Moderate Macrocytosis Marked A PT 11.7 (9.0-12.0) sec INR 1.1 (<1.2) APTT 25.3 (22.0-30.0) sec D-Dimer 1.10 H (<0.60) mg/L FEU Sample Site ABG pH (7.35-7.45) ABG pCO2 (35-45) mmHg ABG pO2 (83-108) mmHg ABG HCO3 (21-25) mmol/L ABG Total CO2 (19-24) mmol/L ABG O2 Saturation (94-97) % ABG Base Excess mmol/L Jarocho Test FiO2 % Sodium 135 L (137-145) mmol/L Potassium 5.5 H (3.5-5.1) mmol/L Chloride 97 L (98-107) mmol/L Carbon Dioxide 35 H (22-30) mmol/L Anion Gap 3 mmol/L BUN 17 (7-17) mg/dL Creatinine 0.43 L (0.52-1.04) mg/dL Est GFR (CKD-EPI)AfAm >90 (>60 ml/min/1.73 sqM) Est GFR (CKD-EPI)NonAf >90 (>60 ml/min/1.73 sqM) Glucose 108 H (74-99) mg/dL Plasma Lactic Acid Stalin (0.7-2.0) mmol/L Calcium 8.0 L (8.4-10.2) mg/dL Total Bilirubin 1.1 (0.2-1.3) mg/dL AST 47 H (14-36) U/L ALT 13 (4-34) U/L Alkaline Phosphatase 172 H (38-126) U/L Troponin I (0.000-0.034) ng/mL NT-Pro-B Natriuret Pep pg/mL Total Protein 7.7 (6.3-8.2) g/dL Albumin 3.7 (3.5-5.0) g/dL 06/12/22 06/12/22 06/12/22 Range/Units 04:42 04:42 04:42 WBC (3.8-10.6) k/uL RBC (3.80-5.40) m/uL Hgb (11.4-16.0) gm/dL Hct (34.0-46.0) % MCV (80.0-100.0) fL MCH (25.0-35.0) pg MCHC (31.0-37.0) g/dL RDW (11.5-15.5) % Plt Count (150-450) k/uL MPV Neutrophils % (Manual) % Band Neuts % (Manual) % Lymphocytes % (Manual) % Monocytes % (Manual) % Eosinophils % (Manual) % Neutrophils # (Manual) (1.3-7.7) k/uL Lymphocytes # (Manual) (1.0-4.8) k/uL Monocytes # (Manual) (0-1.0) k/uL Eosinophils # (Manual) (0-0.7) k/uL Nucleated RBCs (0-0) /100 WBC Manual Slide Review Hypochromasia Anisocytosis Macrocytosis PT (9.0-12.0) sec INR (<1.2) APTT (22.0-30.0) sec D-Dimer (<0.60) mg/L FEU Sample Site ABG pH (7.35-7.45) ABG pCO2 (35-45) mmHg ABG pO2 (83-108) mmHg ABG HCO3 (21-25) mmol/L ABG Total CO2 (19-24) mmol/L ABG O2 Saturation (94-97) % ABG Base Excess mmol/L Jarocho Test FiO2 % Sodium (137-145) mmol/L Potassium (3.5-5.1) mmol/L Chloride (98-107) mmol/L Carbon Dioxide (22-30) mmol/L Anion Gap mmol/L BUN (7-17) mg/dL Creatinine (0.52-1.04) mg/dL Est GFR (CKD-EPI)AfAm (>60 ml/min/1.73 sqM) Est GFR (CKD-EPI)NonAf (>60 ml/min/1.73 sqM) Glucose (74-99) mg/dL Plasma Lactic Acid Stalin 1.1 (0.7-2.0) mmol/L Calcium (8.4-10.2) mg/dL Total Bilirubin (0.2-1.3) mg/dL AST (14-36) U/L ALT (4-34) U/L Alkaline Phosphatase (38-126) U/L Troponin I <0.012 (0.000-0.034) ng/mL NT-Pro-B Natriuret Pep 438 pg/mL Total Protein (6.3-8.2) g/dL Albumin (3.5-5.0) g/dL 06/12/22 Range/Units 07:51 WBC (3.8-10.6) k/uL RBC (3.80-5.40) m/uL Hgb (11.4-16.0) gm/dL Hct (34.0-46.0) % MCV (80.0-100.0) fL MCH (25.0-35.0) pg MCHC (31.0-37.0) g/dL RDW (11.5-15.5) % Plt Count (150-450) k/uL MPV Neutrophils % (Manual) % Band Neuts % (Manual) % Lymphocytes % (Manual) % Monocytes % (Manual) % Eosinophils % (Manual) % Neutrophils # (Manual) (1.3-7.7) k/uL Lymphocytes # (Manual) (1.0-4.8) k/uL Monocytes # (Manual) (0-1.0) k/uL Eosinophils # (Manual) (0-0.7) k/uL Nucleated RBCs (0-0) /100 WBC Manual Slide Review Hypochromasia Anisocytosis Macrocytosis PT (9.0-12.0) sec INR (<1.2) APTT (22.0-30.0) sec D-Dimer (<0.60) mg/L FEU Sample Site r rad ABG pH 7.40 (7.35-7.45) ABG pCO2 59 H (35-45) mmHg ABG pO2 88 (83-108) mmHg ABG HCO3 37 H (21-25) mmol/L ABG Total CO2 38 H (19-24) mmol/L ABG O2 Saturation 96.6 (94-97) % ABG Base Excess 11.7 mmol/L Jarocho Test Yes FiO2 70 % Sodium (137-145) mmol/L Potassium (3.5-5.1) mmol/L Chloride (98-107) mmol/L Carbon Dioxide (22-30) mmol/L Anion Gap mmol/L BUN (7-17) mg/dL Creatinine (0.52-1.04) mg/dL Est GFR (CKD-EPI)AfAm (>60 ml/min/1.73 sqM) Est GFR (CKD-EPI)NonAf (>60 ml/min/1.73 sqM) Glucose (74-99) mg/dL Plasma Lactic Acid Stalin (0.7-2.0) mmol/L Calcium (8.4-10.2) mg/dL Total Bilirubin (0.2-1.3) mg/dL AST (14-36) U/L ALT (4-34) U/L Alkaline Phosphatase (38-126) U/L Troponin I (0.000-0.034) ng/mL NT-Pro-B Natriuret Pep pg/mL Total Protein (6.3-8.2) g/dL Albumin (3.5-5.0) g/dL Disposition Referrals: Zach Salcedo MD [Primary Care Provider] - 1-2 days
[2022-06-12] MEDS ORDERED: AZITHROMYCIN 500 MG in SODIUM CHLORIDE 0.9% 250 ML IVPB STA (07:31)
[2022-06-12] MEDS ORDERED: PIPERACILLIN-TAZOBACTAM 3.375 GM in SODIUM CHLORIDE 0.9% 100 ML IVPB STA (07:31)
[2022-06-12] MEDS ORDERED: PNEUMONIA PROTOCOL UTILIZED 1 EACH MISC PO PRN (07:31)
[2022-06-12] MEDS ORDERED: ACETAMINOPHEN TAB 325 MG TAB PO PRN ×2 (07:31→14:30)
[2022-06-12] MEDS ORDERED: ALBUTEROL NEBULIZED 2.5 MG/3 ML INHALATION PRN (07:31)
[2022-06-12 07:58] LABS: ABG Base Excess 11.7 mmol/L; ABG HCO3 37 mmol/L (21-25); ABG Oxygen Saturation 96.6 % (94-97); ABG PCO2 59 mmHg (35-45); ABG PO2 88 mmHg (83-108); ABG TCO2 38 mmol/L (19-24); Allen Test Performed? Yes
[2022-06-12] MEDS ORDERED: HEPARIN SODIUM,PORCINE/PF 5,000 UNIT/0.5 ML SYRINGE SQ SCH (09:00)
[2022-06-12] MEDS: IPRATROPIUM-ALBUTEROL 3 ML NEB INHALATION SCH ×4 (09:06→19:19)
--- NOTE | 2022-06-12 10:11 | CT ---
EXAMINATION TYPE: CT chest angio for PE DATE OF EXAM: 06/12/2022 COMPARISON: 05/30/[address] chest HISTORY: PE CT DLP: 495 mGycm CONTRAST: CT chest with contrast and 3D reconstruction with MIP imaging is performed without and with IV Contra st, patient injected with 100 ml mL of Isovue 370. Contrast-enhanced CT of the chest was performed through the course of the pulmonary arteries with shante g and mediastinal window settings submitted. 3D reconstruction with MIP imaging was also performed. Examination is somewhat limited given patient respiratory motion. PULMONARY ARTERIES: The pulmonary arteries and their major tributaries are patent. I do not see debby dence for sizable filling defect to suggest pulmonary embolic process. LUNGS: Moderate increasing consolidation right lower lobe which may reflect atelectasis and/or infilt rate. Underlying mass is difficult to exclude. Left basilar compressive atelectasis persists as well. Loculated right upper lobe pleural effusion noted. MEDIASTINUM: Thoracic aorta is of normal caliber,however, evaluation is limited given timing of the contrast bolus. If there is concern for thoracic aortic pathology consider KALLIE. Correlate clinicall y . Cardiomegaly with moderate No evidence for mediastinal mass. No mediastinal lymph nodes greater than 1cm. HILAR STRUCTURES: No evidence for mass. No hilar lymph nodes greater than 1 cm. UPPER ABDOMEN: No significant abnormality is seen. IMPRESSION: 1. Motion motion and resultant artifact as well as timing of the contrast bolus somewhat limits exam ination however obvious pulmonary embolism is not seen at this time. 2. Increasing consolidation right lung may reflect atelectasis and/or infiltrate. Loculated pleural e ffusion. Underlying mass not excluded.
[2022-06-12] MEDS: SODIUM CHLORIDE 0.9% 1,000 ML IV SCH (10:18)
--- NOTE | 2022-06-12 11:11 | P.CNPUL ---
History of Present Illness Consult date: 06/12/22 Requesting physician: Zach Salcedo Reason for consult: dyspnea, hypoxemia, pleural effusion, lung mass, abnormal CXR/CT Chief complaint: Shortness of breath, low saturations. History of present illness: Pulmonary/critical care consultation dated 06/12/2022. 82-year-old female, seen in the emergency department. The patient was brought to the ER, by EMS, from one of the local nursing homes. The patient does have severe dementia. She was brought in because of respiratory distress. The patient herself was not able to give any history. The patient was placed on BiPAP. In addition, the patient was placed on nitroglycerin because of elevated blood pressure. The patient was seen by me in the emergency department, trauma 1 room. I did speak to the ER physician. The patient was on BiPAP at 10/5 and 70%. Unfortunately, the patient was playing off the mask. The patient was also receiving nitroglycerin at 20 mcg/m. A blood gas showed a pO2 of 88, pCO2 59, with a normal pH is 7.4. The patient was quite agitated. She apparently has a history of dementia, deep venous thrombosis, hypertension, factor V deficiency, and Parkinson's disease. White count 5.5, hemoglobin 10.8, hematocrit 34.6, and platelet count 327,000. The d-dimer was 1.10. Sodium 135, potassium 5.5, chl oride 97, CO2 35, BUN 17, creatinine 0.43. Glucose 108. Calcium 8. AST 47. Chest x-ray showed cardiomegaly, with a right-sided pleural effusion. There was also right basilar atelectasis. CT angiogram was negative for pulmonary embolism, and did show mass/infiltrate/atelectasis, right base. Review of Systems REVIEW OF SYSTEMS: CONSTITUTIONAL: [Negative.] NEUROLOGIC: [ Negative.] HEENT: [ Negative.] CARDIAC: [Negative.] PULMONARY: Shortness of breath. GI: [Negative.] : [Negative.] RHEUMATOLOGIC: [ Negative.] IMMUNOLOGIC: [ Negative.] ENDOCRINE: [Negative. ] DERMATOLOGIC: [Negative.] Past Medical History Past Medical History: Dementia, Deep Vein Thrombosis (DVT), Hypertension Additional Past Medical History / Comment(s): Factor V, Parkinsons, Advanced Dementia History of Any Multi-Drug Resistant Organisms: None Reported Past Surgical History: Hysterectomy, Orthopedic Surgery Additional Past Surgical History / Comment(s): bilat knee rx. Past Psychological History: Anxiety Smoking Status: Never smoker Past Alcohol Use History: None Reported Past Drug Use History: None Reported - Past Family History Mother Family Medical History: Blood Disorder, Deep Vein Thrombosis (DVT), Pulmonary Embolus Sister(s) Family Medical History: Blood Disorder, Deep Vein Thrombosis (DVT), Pulmonary Embolus Brother(s) Family Medical History: Blood Disorder, Deep Vein Thrombosis (DVT), Pulmonary Embolus Medications and Allergies Home Medications Medication Instructions Recorded Confirmed Type Donepezil [Aricept] 10 mg PO HS 12/26/16 06/12/22 History OLANZapine [Olanzapine] 10 mg PO HS 12/26/16 06/12/22 History rOPINIRole HCL [Requip] 2 mg PO TID@0700,1300,1900 12/26/16 06/12/22 History Citalopram Hydrobromide [CeleXA] 10 mg PO DAILY 10/24/20 06/12/22 History Furosemide [Lasix] 20 mg PO DIRECTED PRN 10/24/20 06/12/22 History Memantine [Namenda] 10 mg PO BID 10/24/20 06/12/22 History carvediloL [Coreg] 3.125 mg PO BID 10/24/20 06/12/22 History Apixaban [Eliquis] 5 mg PO BID 05/29/22 06/12/22 History Carbidopa/Levodopa [Carbidopa-Levo 1 tab PO TID@0700,1300,1900 05/29/22 06/12/22 History ER 25-100 Tab] Ipratropium-Albuterol Nebulize 3 ml INHALATION RT-Q6H PRN 05/29/22 06/12/22 History [Duoneb 0.5 mg-3 mg/3 ml Soln] Multivitamins, Thera [Multivitamin 1 tab PO DAILY 05/29/22 06/12/22 History (formulary)] Acetaminophen Tab [Tylenol] 650 mg PO Q6HR PRN 06/12/22 06/12/22 History Amoxic-Pot Clav 875-125Mg 1 tab PO Q12HR 06/12/22 06/12/22 History [Augmentin 875-125] traMADol HCl [Ultram] 50 mg PO Q8H PRN 06/12/22 06/12/22 History Allergies Allergy/AdvReac Type Severity Reaction Status Date / Time aspirin Allergy Swelling Verified 06/12/22 06:21 Physical Exam Osteopathic Statement: *. No significant issues noted on an osteopathic structural exam other than those noted in the History and Physical/Consult. Vitals: Vital Signs Temp Pulse Resp BP Pulse Ox FiO2 06/12/22 10:00 118 H 35 H 188/100 95 06/12/22 09:15 102 H 16 06/12/22 09:06 101 H 18 06/12/22 08:40 100 20 108/87 97 06/12/22 08:30 105 H 25 H 108/87 97 06/12/22 08:10 113 H 143/107 98 06/12/22 07:52 70 06/12/22 07:40 111 H 23 135/89 97 06/12/22 07:11 114 H 40 H 162/97 97 06/12/22 06:39 124 H 46 H 155/103 98 06/12/22 05:15 113 H 40 H 151/101 93 L 06/12/22 04:56 111 H 39 H 144/94 93 L 06/12/22 04:54 70 06/12/22 04:29 97.9 F 106 H 42 H 165/83 94 L Intake and Output 06/11/22 06/12/22 06/12/22 22:59 06:59 14:59 Other: Weight 77.6 kg No acute distress, disoriented, pulling off her BiPAP mask. Unable to give any history. HEENT examination is grossly unremarkable. Neck supple. Full range of motion. No adenopathy thyromegaly or neck vein distention. Cardiovascular examination reveals regular rhythm rate. S1-S2 normal. No S3 or S4. No discernible murmur noted. Heart sounds are distant. Heart rate 118 beats Lungs reveal coarse bilateral breath sounds. Crackles noted. Breath sounds diminished throughout. No wheezes. Saturations are 95% on the BiPAP. Abdomen soft bowel sounds are heard. No masses or tenderness. Extremities reveal chronic venous stasis changes. Minimal edema. No cyanosis or clubbing. Skin is without rash or lesion. Neurologic examination cannot be adequately assessed. She does move all 4 extremities. Results - Laboratory Findings CBC and BMP: 06/12/22 04:42 06/12/22 04:42 ABG ABG pH 7.40 (7.35-7.45) 06/12/22 07:51 ABG pCO2 59 mmHg (35-45) H 06/12/22 07:51 ABG pO2 88 mmHg (83-108) 06/12/22 07:51 ABG O2 Saturation 96.6 % (94-97) 06/12/22 07:51 PT/INR, D-dimer PT 11.7 sec (9.0-12.0) 06/12/22 04:42 INR 1.1 (<1.2) 06/12/22 04:42 D-Dimer 1.10 mg/L FEU (<0.60) H 06/12/22 04:42 Abnormal lab findings: Abnormal Labs 06/12/22 06/12/22 06/12/22 04:42 04:42 04:42 RBC 3.36 L Hgb 10.8 L MCV 103.2 H RDW 22.3 H Macrocytosis Marked A D-Dimer 1.10 H ABG pCO2 ABG HCO3 ABG Total CO2 Sodium 135 L Potassium 5.5 H Chloride 97 L Carbon Dioxide 35 H Creatinine 0.43 L Glucose 108 H Calcium 8.0 L AST 47 H Alkaline Phosphatase 172 H 06/12/22 07:51 RBC Hgb MCV RDW Macrocytosis D-Dimer ABG pCO2 59 H ABG HCO3 37 H ABG Total CO2 38 H Sodium Potassium Chloride Carbon Dioxide Creatinine Glucose Calcium AST Alkaline Phosphatase - Diagnostic Findings Chest x-ray: image reviewed CT scan - chest: image reviewed Assessment and Plan Assessment: Acute on chronic hypoxemic and hypercapnic respiratory failure, likely secondary to either infiltrate, effusion, or mass, right lower lobe. Possible aspiration pneumonia. History of deep venous thrombosis. History of hypertension. History of Parkinson's disease. Advanced dementia. History of factor V deficiency. Plan: Plan dated 06/12/2022. Apparently, the ER physician was able to contact one of the family members, and the patient is now a DO NOT RESUSCITATE. This was very appropriate given her severe dementia, her age, and her medical problems. The patient can be admitted to the general medical floor. Labs, x-rays, and medications are reviewed. The patient was started on antibiotics per the primary service. This included both Zosyn and azithromycin. Prognosis is certainly guarded. We will continue to follow make recommendations were appropriate. Time with Patient: Greater than 30
--- NOTE | 2022-06-12 14:49 | P.HPIM ---
History of Present Illness H&P Date: 06/12/22 This is an 82 year old female with medical history of dementia, questionable history of atrial fibrillation, pneumonia, DVT/PE, hypertension, parkinsons who presents to the hospital from rehab for acute respiratory distress. Patient was also found to be hypertensive and required nitroglycerin gtt, she was placed on bipap with fio2 of 70%. Patient was discharged to rehab 2 days ago following a hospital stay from 05/29/22 to 06/10/22 which she was found to have new onset right sided pleural effusion that was felt to be mostly consistent with pneumonia/atelectasis most like an aspiration pneumonia. She required oxygen via nasal cannula during that hospital stay, she was discharged to rehab on oxygen at 2L nasal cannula. She was also treated for dysphagia and was discharged on pureed nectar thick diet. Patient was treated inpatient with IV zosyn and was discharged on a course of oral augmentin. She was also found to have multilevel compression deformities with surgical fixation of L2-L5 and wedge deformities of T12 and T11 of indeterminate age. She is complaining of back discomfort during exam today. Prior to previous hospitalization patient was living at home with , she is a poor historian. History taken from at the bedside he reports that she was mostly chair bound at home and he did not realize how sick she was. He does state that she had significant lower extremity edema before her previous admission which currently is improved. Patient is admitted to the hospital for CTA findings of infiltrate and atelectasis right lung base and possible lung mass. Consult has been placed to pulmonary services. She has been started on empiric antibiotic coverage with IV azithromycin and IV zosyn. We will reconsult speech therapy for re-evaluation. Patients code status is now do not resuscitate and her prognosis is guarded given multiple medical comorbidities and medical debility. Labs on admission showing WBC 5.5, hgb 10.8, platelt count 327. Blood gases are completed showing PCO2 59, HCO3 37, total CO2 38 D-Dimer 1.10, Procalcitonin 0.05 Sodium 135, potassium 5.5, chloride 97, CO2 35, BUN 17, creatinine 0.43, glucose 108, AST 47. Troponin negative, BNP 438 which is down from previous admission Covid, influenza A/B negative Chest CTA completed showing increasing consolidation right lung may reflect atelectasis and or infiltrate with loculated pleural effusion. Underlying mass not excluded. There is contrast bolus timing difficulties however no obvious evidence for pulmonary embolism. Patient is afebrile, heart rate tachycardia in the low 100s, blood pressure 151/92, 93% on Bipap 10/5 with 60% fio2. REVIEW OF SYSTEMS: CONSTITUTIONAL: No fever. Reports malaise, fatigue HEENT: No recent visual problems or hearing problems. Denied any sore throat. CARDIOVASCULAR: No chest pain, orthopnea, PND, no palpitations, no syncope. PULMONARY: Reports shortness of breath. GASTROINTESTINAL: No diarrhea, no nausea, no vomiting, no abdominal pain. NEUROLOGICAL: No headaches, no weakness, no numbness. HEMATOLOGICAL: Denies any bleeding or petechiae. GENITOURINARY: Denies any burning micturition, frequency, or urgency. MUSCULOSKELETAL/RHEUMATOLOGICAL: Reports back pain. ENDOCRINE: Denies any polyuria or polydipsia. The rest of the 14-point review of systems is negative. PHYSICAL EXAMINATION: GENERAL: The patient is alert and oriented x1-2, in mild respiratory distress wearing bipap at time of exam. HEENT: Pupils are round and equally reacting to light. EOMI. No scleral icterus. No conjunctival pallor. Normocephalic, atraumatic. No pharyngeal erythema. No thyromegaly. CARDIOVASCULAR: S1 and S2 present. Tachycardic. No murmurs, rubs, or gallops. PULMONARY: Diminished with basilar crackles. ABDOMEN: Soft, nontender, nondistended, normoactive bowel sounds. No palpable organomegaly. MUSCULOSKELETAL: No joint swelling or deformity. EXTREMITIES: No cyanosis, clubbing. Mild lower extremity edema, chronic skin changes. NEUROLOGICAL: Pt on bipap, weak, difficult to complete full neurological exam. SKIN: No rashes. Assessment and plan Assessment Acute on chronic hypoxic respiratory failure secondary to increasing right lower lobe infiltrate vs. pleural effusion, there is also lung mass found. proBNP is not suggestive of acute heart failure, and patient with known history of dysphagia with recent antibiotic treatment for possible aspiration pneumonia, there is possibility patient has been aspirating at rehab. Procalcitonin level is 0.05. She is on empiric antibiotic coverage. 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 She has been placed on Bipap with fio2 of 60% and started on empiric antibiotic coverage with IV zosyn and received a dose of IV azithromycin. She is also tachycardic, she has been afebrile. Blood cultures have been taken and are pending. Pulmonary embolism has been ruled out. Appropriate home medications have been resumed. We will consult speech therapy for evaluation, PT/OT. Patient does present with elevated potassium which we will repeat today, and also repeat labs in the morning. Patient has multiple comorbidities and has history of severe dementia. Code status has been changed to do not resuscitate and overall prognosis is guarded. We will monitor patient closely on stepdown unit and continue with telemetry monitoring. at the bedside and has been updated on findings and plan of care. The impression and plan of care has been dictated by Lillian Pradhan Nurse Practitioner as directed. Dr. Babar MD I have performed a history and physical examination and medical decision making of this patient, discussed the same with the dictator, and agree with the dictators assessment and plan as written, documented as a scribe. Based on total visit time, I have performed more than 50% of this visit. Past Medical History Past Medical History: Atrial Fibrillation, Blood Disorder, Dementia, Deep Vein Thrombosis (DVT), Hypertension, Musculoskeletal Disorder, Neurologic Disorder, Pneumonia, Pulmonary Embolus (PE), Skin Disorder Additional Past Medical History / Comment(s): Pt recently admitted to [facility] on 05/29/22 with possible aspiration pneumonia, acute hypoxia, UTI/klebsiella. Other hx: Advanced dementia, factor V, FALLS, RLS, R pleural effusion, parkinson's disease, skin tears L arm History of Any Multi-Drug Resistant Organisms: None Reported Past Surgical History: Hysterectomy, Joint Replacement Additional Past Surgical History / Comment(s): Bilateral total knee arthroplasties Past Anesthesia/Blood Transfusion Reactions: No Reported Reaction Smoking Status: Never smoker - Past Family History Mother Family Medical History: Blood Disorder, Deep Vein Thrombosis (DVT), Pulmonary Embolus Sister(s) Family Medical History: Blood Disorder, Deep Vein Thrombosis (DVT), Pulmonary Embolus Brother(s) Family Medical History: Blood Disorder, Deep Vein Thrombosis (DVT), Pulmonary Embolus Medications and Allergies Home Medications Medication Instructions Recorded Confirmed Type Donepezil [Aricept] 10 mg PO HS 12/26/16 06/12/22 History OLANZapine [Olanzapine] 10 mg PO HS 12/26/16 06/12/22 History rOPINIRole HCL [Requip] 2 mg PO TID@0700,1300,1900 12/26/16 06/12/22 History Citalopram Hydrobromide [CeleXA] 10 mg PO DAILY 10/24/20 06/12/22 History Furosemide [Lasix] 20 mg PO DIRECTED PRN 10/24/20 06/12/22 History Memantine [Namenda] 10 mg PO BID 10/24/20 06/12/22 History carvediloL [Coreg] 3.125 mg PO BID 10/24/20 06/12/22 History Apixaban [Eliquis] 5 mg PO BID 05/29/22 06/12/22 History Carbidopa/Levodopa [Carbidopa-Levo 1 tab PO TID@0700,1300,1900 05/29/22 06/12/22 History ER 25-100 Tab] Ipratropium-Albuterol Nebulize 3 ml INHALATION RT-Q6H PRN 05/29/22 06/12/22 History [Duoneb 0.5 mg-3 mg/3 ml Soln] Multivitamins, Thera [Multivitamin 1 tab PO DAILY 05/29/22 06/12/22 History (formulary)] Acetaminophen Tab [Tylenol] 650 mg PO Q6HR PRN 06/12/22 06/12/22 History Amoxic-Pot Clav 875-125Mg 1 tab PO Q12HR 06/12/22 06/12/22 History [Augmentin 875-125] traMADol HCl [Ultram] 50 mg PO Q8H PRN 06/12/22 06/12/22 History Allergies Allergy/AdvReac Type Severity Reaction Status Date / Time aspirin Allergy Swelling Verified 06/12/22 06:21 Physical Exam Vitals: Vital Signs Temp Pulse Resp BP Pulse Ox FiO2 06/12/22 13:39 98 32 H 151/92 93 L 06/12/22 12:10 103 H 38 H 147/89 91 L 06/12/22 12:00 106 H 28 H 147/89 06/12/22 11:36 106 H 18 06/12/22 11:30 105 H 21 145/86 96 06/12/22 11:27 109 H 21 60 06/12/22 11:00 115 H 30 H 151/91 97 06/12/22 10:10 112 H 38 H 188/112 96 06/12/22 10:05 60 06/12/22 10:00 118 H 35 H 188/100 95 06/12/22 09:50 127/101 06/12/22 09:20 97 22 122/69 96 06/12/22 09:15 102 H 16 06/12/22 09:06 101 H 18 06/12/22 08:40 100 20 108/87 97 06/12/22 08:30 105 H 25 H 108/87 97 06/12/22 08:10 113 H 143/107 98 06/12/22 07:52 70 06/12/22 07:40 111 H 23 135/89 97 06/12/22 07:11 114 H 40 H 162/97 97 06/12/22 06:39 124 H 46 H 155/103 98 06/12/22 05:15 113 H 40 H 151/101 93 L 06/12/22 04:56 111 H 39 H 144/94 93 L 06/12/22 04:54 70 06/12/22 04:29 97.9 F 106 H 42 H 165/83 94 L Intake and Output 06/11/22 06/12/22 06/12/22 22:59 06:59 14:59 Other: Weight 77.6 kg 77.6 kg Results CBC & Chem 7: 06/12/22 04:42 06/12/22 04:42 Labs: Abnormal Lab Results - Last 24 Hours (Table) 06/12/22 06/12/22 06/12/22 Range/Units 04:42 04:42 04:42 RBC 3.36 L (3.80-5.40) m/uL Hgb 10.8 L (11.4-16.0) gm/dL MCV 103.2 H (80.0-100.0) fL RDW 22.3 H (11.5-15.5) % Macrocytosis Marked A D-Dimer 1.10 H (<0.60) mg/L FEU ABG pCO2 (35-45) mmHg ABG HCO3 (21-25) mmol/L ABG Total CO2 (19-24) mmol/L Sodium 135 L (137-145) mmol/L Potassium 5.5 H (3.5-5.1) mmol/L Chloride 97 L (98-107) mmol/L Carbon Dioxide 35 H (22-30) mmol/L Creatinine 0.43 L (0.52-1.04) mg/dL Glucose 108 H (74-99) mg/dL Calcium 8.0 L (8.4-10.2) mg/dL AST 47 H (14-36) U/L Alkaline Phosphatase 172 H (38-126) U/L 06/12/22 Range/Units 07:51 RBC (3.80-5.40) m/uL Hgb (11.4-16.0) gm/dL MCV (80.0-100.0) fL RDW (11.5-15.5) % Macrocytosis D-Dimer (<0.60) mg/L FEU ABG pCO2 59 H (35-45) mmHg ABG HCO3 37 H (21-25) mmol/L ABG Total CO2 38 H (19-24) mmol/L Sodium (137-145) mmol/L Potassium (3.5-5.1) mmol/L Chloride (98-107) mmol/L Carbon Dioxide (22-30) mmol/L Creatinine (0.52-1.04) mg/dL Glucose (74-99) mg/dL Calcium (8.4-10.2) mg/dL AST (14-36) U/L Alkaline Phosphatase (38-126) U/L Thrombosis Risk Factor Assmnt - Choose All That Apply Any of the Below Risk Factors Present?: Yes Each Factor Represents 1 point: Obesity (BMI >25), Serious lung disease incl. pneumonia (< 1month) Each Risk Factor Represents 3 Points: Age 75 years or older, Family history of DVT/PE, History of DVT/PE Other congenital or acquired thrombophilia - If yes, enter type in comment: No Thrombosis Risk Factor Assessment Total Risk Factor Score: 11 Thrombosis Risk Factor Assessment Level: High Risk Assessment and Plan Time with Patient: Less than 30
[2022-06-12] MEDS: PANTOPRAZOLE 40 MG TABLET PO SCH (16:46)
[2022-06-12] MEDS: PIPERACILLIN-TAZOBACTAM 3.375 GM in SODIUM CHLORIDE 0.9% 100 ML IVPB SCH ×2 (16:46→23:52)
[2022-06-12] MEDS: carvediloL 3.125 MG TAB PO SCH (18:59)
[2022-06-12] MEDS: DONEPEZIL 10 MG TAB PO SCH (19:43)
[2022-06-12] MEDS: OLANZapine 10 MG TAB PO SCH (19:43)
[2022-06-12] MEDS: CARBIDOPA-LEVODOPA ER 25-100MG 1 EACH TABLET.ER PO SCH (19:43)
[2022-06-12] MEDS: APIXABAN 5 MG TAB PO SCH (19:43)
[2022-06-12] MEDS: MEMANTINE 10 MG TAB PO SCH (19:44)
[2022-06-12] MEDS: traMADol 50 MG TAB PO PRN (21:21)
[2022-06-13] MEDS ORDERED: VANCOMYCIN 1,500 MG in SODIUM CHLORIDE 0.9% 250 ML IVPB ONE (05:45)
[2022-06-13] MEDS ORDERED: VANCOMYCIN IV PER PHARMACY 1 EACH MISC MISCELLANE SCH (05:45)
[2022-06-13] MEDS: CARBIDOPA-LEVODOPA ER 25-100MG 1 EACH TABLET.ER PO SCH ×3 (06:15→17:47)
[2022-06-13] MEDS: PANTOPRAZOLE 40 MG TABLET PO SCH (06:15)
[2022-06-13] MEDS: carvediloL 3.125 MG TAB PO SCH ×2 (06:15→17:52)
[2022-06-13] MEDS: IPRATROPIUM-ALBUTEROL 3 ML NEB INHALATION SCH ×4 (07:20→20:35)
[2022-06-13 08:13] LABS: Anisocytosis Moderate; Basophils # (A) 0.1 k/uL (0-0.2); Basophils % (A) 1 %; Eosinophils # (A) 0.2 k/uL (0-0.7); Eosinophils % (A) 4 %; HGB 10.2 gm/dL (11.4-16.0); Hypochromasia Marked; Lymphocytes # (A) 0.6 k/uL (1.0-4.8); Lymphocytes % (A) 13 %; MCH 31.2 pg (25.0-35.0); Macrocytosis Marked; Mean Platelet Volume 9.7; Monocytes # (A) 0.2 k/uL (0-1.0); Monocytes % (A) 5 %; Neutrophils # (A) 3.3 k/uL (1.3-7.7); Neutrophils % (A) 74 %; Platelet Count 289 k/uL (150-450); RBC 3.27 m/uL (3.80-5.40); RDW 22.4 % (11.5-15.5); WBC 4.4 k/uL (3.8-10.6)
[2022-06-13 08:30] LABS: African American GFR (CKD) >90 (>60 ml/min/1.73 sqM); Anion Gap 5 mmol/L; Blood Urea Nitrogen 14 mg/dL (7-17); Carbon Dioxide 35 mmol/L (22-30); Chloride 101 mmol/L (98-107); Glucose 100 mg/dL (74-99); Magnesium 2.2 mg/dL (1.6-2.3); Non-African American GFR(CKD) 90 (>60 ml/min/1.73 sqM); Potassium 4.4 mmol/L (3.5-5.1); Sodium 141 mmol/L (137-145)
[2022-06-13] MEDS ORDERED: AZITHROMYCIN 500 MG in SODIUM CHLORIDE 0.9% 250 ML IVPB SCH (09:00)
[2022-06-13] MEDS: PIPERACILLIN-TAZOBACTAM 3.375 GM in SODIUM CHLORIDE 0.9% 100 ML IVPB SCH ×2 (09:20→18:25)
[2022-06-13] MEDS: MEMANTINE 10 MG TAB PO SCH ×2 (09:21→20:56)
[2022-06-13] MEDS: APIXABAN 5 MG TAB PO SCH ×2 (09:21→20:56)
[2022-06-13] MEDS: MULTIVITAMINS, THERA 1 EACH TAB PO SCH (09:21)
--- NOTE | 2022-06-13 11:07 | P.PN ---
Subjective Progress Note Date: 06/13/22 Principal diagnosis: Hypoxemic respiratory failure. Pulmonary/critical care consultation dated 06/12/2022. 82-year-old female, seen in the emergency department. The patient was brought to the ER, by EMS, from one of the local nursing homes. The patient does have severe dementia. She was brought in because of respiratory distress. The patient herself was not able to give any history. The patient was placed on BiPAP. In addition, the patient was placed on nitroglycerin because of elevated blood pressure. The patient was seen by me in the emergency department, trauma 1 room. I did speak to the ER physician. The patient was on BiPAP at 10/5 and 70%. Unfortunately, the patient was playing off the mask. The patient was also receiving nitroglycerin at 20 mcg/m. A blood gas showed a pO2 of 88, pCO2 59, with a normal pH is 7.4. The patient was quite agitated. She apparently has a history of dementia, deep venous thrombosis, hypertension, factor V deficiency, and Parkinson's disease. White count 5.5, hemoglobin 10.8, hematocrit 34.6, and platelet count 327,000. The d-dimer was 1.10. Sodium 135, potassium 5.5, chloride 97, CO2 35, BUN 17, creatinine 0.43. Glucose 108. Calcium 8. AST 47. Chest x-ray showed cardiomegaly, with a right-sided pleural effusion. There was also right basilar atelectasis. CT angiogram was negative for pulmonary embolism, and did show mass/infiltrate/atelectasis, right base. Progress note dated 06/13/2022. The patient was seen in the emergency department yesterday, in consultation. Today, she is seen in room 353, with her sitting next to her. The patient was made a DO NOT RESUSCITATE patient, which I think is very appropriate. The patient does have severe dementia, and was evaluated in the ER, for respiratory distress and failure. I did speak to the ER physician yesterday about her case. Currently she is on 15 L high flow nasal oxygen, with saturations of 96%. Her respiratory rate is in the mid 20s. White count 4.4, hemoglobin 10.2, hematocrit 34, and platelet count 289,000. Sodium 141, po tassium 4.4, chlorides 101, CO2 35, BUN 14, creatinine 0.49. Blood cultures are showing evidence of gram-positive cocci in clusters. The patient remains on Zosyn and vancomycin. CT angiogram failed to reveal any central or large pulmonary emboli. There is increasing consolidation at the right lung base, reflecting either atelectasis, infiltrate, or loculated pleural effusion. The does confirm the DO NOT RESUSCITATE status. Objective - Vital Signs Vital signs: Vital Signs Temp 97.5 F L 06/13/22 08:07 Pulse 88 06/13/22 08:07 Resp 18 06/13/22 08:07 BP 103/72 06/13/22 08:07 Pulse Ox 96 06/13/22 08:07 FiO2 60 06/13/22 03:20 Intake & Output 06/12/22 06/13/22 06/13/22 18:59 06:59 18:59 Weight 77.6 kg Other: Voiding Method Diaper Diaper # Voids 1 1 1 # Bowel Movements 1 - Exam No acute distress, currently on high flow nasal cannula. A bit more awake yesterday. HEENT examination is grossly unremarkable. Neck supple. Full range of motion. No adenopathy thyromegaly or neck vein distention. Cardiovascular examination reveals regular rhythm rate. S1-S2 normal. No S3 or S4. No discernible murmur noted. Heart sounds are distant. Heart rate 88 beats Lungs reveal coarse bilateral breath sounds. Crackles noted. Breath sounds diminished throughout. No wheezes. Saturations are 96% on 15 L high flow nasal cannula. Abdomen soft bowel sounds are heard. No masses or tenderness. Extremities reveal chronic venous stasis changes. Minimal edema. No cyanosis or clubbing. Skin is without rash or lesion. Neurologic examination reveals her to be a bit more awake and alert. He does move all 4 extremities. She is able to respond to verbal stimuli, although her speech is a bit garbled. - Labs CBC & Chem 7: 06/13/22 07:51 06/13/22 07:51 Labs: Abnormal Lab Results - Last 24 Hours (Table) 06/13/22 06/13/22 Range/Units 07:51 07:51 RBC 3.27 L (3.80-5.40) m/uL Hgb 10.2 L (11.4-16.0) gm/dL MCV 104.0 H (80.0-100.0) fL MCHC 30.0 L (31.0-37.0) g/dL RDW 22.4 H (11.5-15.5) % Lymphocytes # 0.6 L (1.0-4.8) k/uL Macrocytosis Marked A Carbon Dioxide 35 H (22-30) mmol/L Creatinine 0.49 L (0.52-1.04) mg/dL Glucose 100 H (74-99) mg/dL Calcium 8.0 L (8.4-10.2) mg/dL Microbiology - Last 24 Hours (Table) 06/12/22 10:01 Blood Culture Gram Stain - Preliminary Blood 06/12/22 10:01 Blood Culture - Final Blood Assessment and Plan Assessment: Acute on chronic hypoxemic and hypercapnic respiratory failure, likely secondary to either infiltrate, effusion, or mass, right lower lobe. Possible aspiration pneumonia. History of deep venous thrombosis. History of hypertension. History of Parkinson's disease. Advanced dementia. History of factor V deficiency. Plan: Plan dated 06/12/2022. Apparently, the ER physician was able to contact one of the family members, and the patient is now a DO NOT RESUSCITATE. This was very appropriate given her severe dementia, her age, and her medical problems. The patient can be admitted to the general medical floor. Labs, x-rays, and medications are reviewed. The patient was started on antibiotics per the primary service. This included both Zosyn and azithromycin. Prognosis is certainly guarded. We will continue to follow make recommendations were appropriate. Plan dated 06/13/2022. The patient was made DO NOT RESUSCITATE. This is appropriate. Her confirms the DO NOT RESUSCITATE order. Computed tomography scan of the chest did not reveal a pulmonary embolism. There is either mass, fluid, infiltrate, or atelectasis, or a combination of those, at the right lung base. She remains on vancomycin and Zosyn. Blood cultures show some gram-positive cocci in clus ters. Bacteria have yet to be identified. We will continue to follow. Prognosis is guarded. Additional recommendations and suggestions are forthcoming. Time with Patient: Less than 30
[2022-06-13] MEDS: traMADol 50 MG TAB PO PRN (12:43)
--- NOTE | 2022-06-13 13:19 | P.PN ---
Subjective Progress Note Date: 06/13/22 This is an 82 year old female with medical history of dementia, questionable history of atrial fibrillation, pneumonia, DVT/PE, hypertension, parkinsons who presents to the hospital from rehab for acute respiratory distress. Patient was also found to be hypertensive and required nitroglycerin gtt, she was placed on bipap with fio2 of 70%. Patient was discharged to rehab 2 days ago following a hospital stay from 05/29/22 to 06/10/22 which she was found to have new onset right sided pleural effusion that was felt to be mostly consistent with pneumonia/atelectasis most like an aspiration pneumonia. She required oxygen via nasal cannula during that hospital stay, she was discharged to rehab on oxygen at 2L nasal cannula. She was also treated for dysphagia and was discharged on pureed nectar thick diet. Patient was treated inpatient with IV zosyn and was discharged on a course of oral augmentin. She was also found to have multilevel compression deformities with surgical fixation of L2-L5 and wedge deformities of T12 and T11 of indeterminate age. She is complaining of back discomfort during exam today. Prior to previous hospitalization patient was living at home with , she is a poor historian. History taken from at the bedside he reports that she was mostly chair bound at home and he did not realize how sick she was. He does state that she had significant lower extremity edema before her previous admission which currently is improved. Patient is admitted to the hospital for CTA findings of infiltrate and atelectasis right lung base and possible lung mass. Consult has been placed to pulmonary services. She has been started on empiric antibiotic coverage with IV azithromycin and IV zosyn. We will reconsult speech therapy for re-evaluation. Patients code status is now do not resuscitate and her prognosis is guarded given multiple medical comorbidities and medical debility. Labs on admission showing WBC 5.5, hgb 10.8, platelt count 327. Blood gases are completed showing PCO2 59, HCO3 37, total CO2 38 D-Dimer 1.10, Procalcitonin 0.05 Sodium 135, potassium 5.5, chloride 97, CO2 35, BUN 17, creatinine 0.43, glucose 108, AST 47. Troponin negative, BNP 438 which is down from previous admission Covid, influenza A/B negative Chest CTA completed showing increasing consolidation right lung may reflect atelectasis and or infiltrate with loculated pleural effusion. Underlying mass not excluded. There is contrast bolus timing difficulties however no obvious evidence for pulmonary embolism. Patient is afebrile, heart rate tachycardia in the low 100s, blood pressure 151/92, 93% on Bipap 10/5 with 60% fio2. 06/13/2022 Patient is evaluated on stepdown unit today with at the bedside. She is currently on 15 L hi flow cannula with saturations of 96 to 100%. She has remained afebrile, heart rate has come down into the 80s, blood pressure 103/55. She continues on IV hydration with normal saline, IV zosyn, and IV vancomycin has been started started today for gram positive blood cultures. Repeat cultures taken today and infectious disease has been consulted. Otherwise her main complaint is back pain which is chronic in nature she is taking tramadol as needed. Speech therapy consultation is pending, patient is quite short of breath even on 15 L hi flow cannula, she probably won't tolerate evaluation today. She is a do not resuscitate. She is being followed by pulmonary. Labs are reviewed today showing sodium 141, potassium 4.4, CO2 35, Bun 14, creatinine 0.49, glucose 100. Difficult to complete full review of systems as patient is short of breath and sleepy. PHYSICAL EXAMINATION: GENERAL: The patient is alert and oriented x1-2, she is tachypneic on exam. HEENT: Pupils are round and equally reacting to light. 2+. EOMI. No scleral i cterus. No conjunctival pallor. Normocephalic, atraumatic. No pharyngeal erythema. No thyromegaly. CARDIOVASCULAR: S1 and S2 present. Tachycardic. No murmurs, rubs, or gallops. PULMONARY: Diminished with basilar crackles. ABDOMEN: Soft, nontender, nondistended, normoactive bowel sounds. No palpable organomegaly. MUSCULOSKELETAL: No joint swelling or deformity. EXTREMITIES: No cyanosis, clubbing. Mild lower extremity edema, chronic skin changes. NEUROLOGICAL: Pt with significant generalized weakness. She is alert to person and place. SKIN: No rashes. Assessment and plan Assessment Acute on chronic hypoxic respiratory failure secondary to increasing right lower lobe infiltrate vs. pleural effusion, there is also lung mass found. proBNP is not suggestive of acute heart failure, and patient with known history of dysphagia with recent antibiotic treatment for possible aspiration pneumonia, there is possibility patient has been aspirating at rehab. Procalcitonin level is 0.05. She is on empiric antibiotic coverage. She is currently on 15 L hi flow cannula. Gram positive blood culture, pending finalized cultures. Hypertensive urgency improved. 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 She was initially placed on Bipap with fio2 of 60% and started on empiric antibiotic coverage with IV zosyn. She is now on 15L Hi flow cannula, and IV vancomycin has been started for positive blood cultures. We will check urinalysis. She will continue on IV hydration with normal saline at 100 mLs per hour. We will repeat labs in the morning. Patient has multiple comorbidities and has history of severe dementia. Code status has been changed to do not resuscitate and overall prognosis is guarded. We will monitor patient closely on stepdown unit and continue with telemetry monitoring. at the bedside and has been updated on findings and plan of care. She is being followed closely by pulmonary and infectious disease services. Speech therapy is also on consultation for evaluation. The impression and plan of care has been dictated by Lillian Pradhan, Nurse Practitioner as directed. Dr. Babar MD I have performed a history and physical examination and medical decision making of this patient, discussed the same with the dictator, and agree with the dictators assessment and plan as written, documented as a scribe. Based on total visit time, I have performed more than 50% of this visit. Objective - Vital Signs Vital signs: Vital Signs Temp 97.5 F L 06/13/22 08:07 Pulse 88 06/13/22 08:07 Resp 18 06/13/22 08:07 BP 103/72 06/13/22 08:07 Pulse Ox 96 06/13/22 08:07 FiO2 60 06/13/22 03:20 Intake & Output 06/12/22 06/13/22 06/13/22 18:59 06:59 18:59 Weight 77.6 kg Other: Voiding Method Diaper # Voids 1 1 1 # Bowel Movements 1 - Labs CBC & Chem 7: 06/13/22 07:51 06/13/22 07:51 Labs: Abnormal Lab Results - Last 24 Hours (Table) 06/13/22 06/13/22 Range/Units 07:51 07:51 RBC 3.27 L (3.80-5.40) m/uL Hgb 10.2 L (11.4-16.0) gm/dL MCV 104.0 H (80.0-100.0) fL MCHC 30.0 L (31.0-37.0) g/dL RDW 22.4 H (11.5-15.5) % Lymphocytes # 0.6 L (1.0-4.8) k/uL Macrocytosis Marked A Carbon Dioxide 35 H (22-30) mmol/L Creatinine 0.49 L (0.52-1.04) mg/dL Glucose 100 H (74-99) mg/dL Calcium 8.0 L (8.4-10.2) mg/dL Microbiology - Last 24 Hours (Table) 06/12/22 10:01 Blood Culture - Final Blood Assessment and Plan Time with Patient: Less than 30
[2022-06-13] MEDS: SODIUM CHLORIDE 0.9% 1,000 ML IV SCH ×3 (17:46→20:56)
[2022-06-13] MEDS: AMPICILLIN-SULBACTAM 3 GM in SODIUM CHLORIDE 0.9% 100 ML IVPB SCH ×2 (17:52→23:26)
[2022-06-13 18:37] LABS: Appearance,Urine Cloudy (Clear); Bacteria,Urine Occasional /hpf; Bilirubin,Urine Negative (Negative); Blood,Urine Large (Negative); Color,Urine Yellow; Glucose,Urine (UA) Negative (Negative); Ketones,Urine 1+ (Negative); Leukocyte Esterase,Urine Moderate (Negative); Mucus,Urine Rare /hpf; Nitrite,Urine Negative (Negative); PH, Urine 6.5 (5.0-8.0); Protein,Urine 1+ (Negative); RBC,Urine 3 /hpf (0-5); Specific Gravity,Urine 1.037 (1.001-1.035); Squamous Epithelial Cell,Urine 1 /hpf (0-4); Urobilinogen,Urine <2.0 mg/dL (<2.0); WBC,Urine 4 /hpf (0-5)
[2022-06-13] MEDS: DONEPEZIL 10 MG TAB PO SCH (20:56)
[2022-06-13] MEDS: OLANZapine 10 MG TAB PO SCH (20:56)
[2022-06-13] MEDS ORDERED: VANCOMYCIN 1,500 MG in SODIUM CHLORIDE 0.9% 250 ML IVPB SCH (22:00)
[2022-06-14] MEDS: AMPICILLIN-SULBACTAM 3 GM in SODIUM CHLORIDE 0.9% 100 ML IVPB SCH ×4 (06:22→22:53)
[2022-06-14] MEDS: PANTOPRAZOLE 40 MG TABLET PO SCH (06:23)
[2022-06-14] MEDS: carvediloL 3.125 MG TAB PO SCH ×2 (06:23→17:46)
[2022-06-14] MEDS: CARBIDOPA-LEVODOPA ER 25-100MG 1 EACH TABLET.ER PO SCH ×3 (06:23→17:46)
[2022-06-14] MEDS: SODIUM CHLORIDE 0.9% 1,000 ML IV SCH ×2 (06:24→17:47)
[2022-06-14 07:22] LABS: Anisocytosis Moderate; Basophils % (A) 1 %; Eosinophils # (A) 0.2 k/uL (0-0.7); Eosinophils % (A) 6 %; HCT 31.3 % (34.0-46.0); HGB 9.4 gm/dL (11.4-16.0); Hypochromasia Marked; Lymphocytes # (A) 0.7 k/uL (1.0-4.8); Lymphocytes % (A) 19 %; MCH 31.2 pg (25.0-35.0); MCHC 30.1 g/dL (31.0-37.0); Macrocytosis Marked; Mean Platelet Volume 9.7; Monocytes # (A) 0.2 k/uL (0-1.0); Monocytes % (A) 6 %; Neutrophils # (A) 2.7 k/uL (1.3-7.7); Neutrophils % (A) 67 %; Platelet Count 302 k/uL (150-450); RBC 3.03 m/uL (3.80-5.40)
[2022-06-14 07:39] LABS: MCV 103.4 fL (80.0-100.0)
[2022-06-14] MEDS: IPRATROPIUM-ALBUTEROL 3 ML NEB INHALATION SCH ×4 (07:39→19:52)
--- NOTE | 2022-06-14 07:40 | P.CONS ---
History of Present Illness - Reason for Consult Consult date: 06/13/22 Positive blood culture Requesting physician: Idalmis Tamayo - Chief Complaint Shortness of breath x few days - History of Present Illness Patient is a 82-year-old female was brought into the ER yesterday morning from a local shelter for evaluation of increasing shortness of breath apparently symptom has been going on for a day or 2 before the patient was brought into the hospital and the patient did have a recent admission to this facility when the patient was treated for aspiration pneumonia and she was recently discharged in a shelter on 06/09/2022, patient on presentation to the hospital was afebrile and no fever have been recorded subsequently patient was hypoxic requiring high flow oxygen, white count has been normal kidney function was normal liver enzymes are normal patient did have a positive UA and creatinine: The patient was negative patient did have a chest x-ray cardiomegaly with new small to moderate size right effusion with basilar atelectasis she also have a CT angiogram of the chest increasing consolidation right lung may reflect atelectasis or infiltrate loculated pleural effusion underlying mass not excluded patient has been treated with vancomycin and Zosyn with a blood cultures coming back positive with Enterococcus faecalis infectious disease was consulted for further management of antibiotic therapy, most information has been obtained from review the chart talking nursing staff and the patient herself was not a good historian Review of Systems Positive points has been mentioned in HPI complete review could not be obtained because of his underlying mental status Past Medical History Past Medical History: Atrial Fibrillation, Blood Disorder, Dementia, Deep Vein Thrombosis (DVT), Hypertension, Musculoskeletal Disorder, Neurologic Disorder, Pneumonia, Pulmonary Embolus (PE), Skin Disorder Additional Past Medical History / Comment(s): Pt recently admitted to [facility] on 05/29/22 with possible aspiration pneumonia, acute hypoxia, UTI/klebsiella. Other hx: Advanced dementia, factor V, FALLS, RLS, R pleural effusion, parkinson's disease, skin tears L arm History of Any Multi-Drug Resistant Organisms: None Reported Past Surgical History: Hysterectomy, Joint Replacement Additional Past Surgical History / Comment(s): Bilateral total knee arthroplasties Past Anesthesia/Blood Transfusion Reactions: No Reported Reaction Smoking Status: Never smoker - Past Family History Mother Family Medical History: Blood Disorder, Deep Vein Thrombosis (DVT), Pulmonary Embolus Sister(s) Family Medical History: Blood Disorder, Deep Vein Thrombosis (DVT), Pulmonary Embolus Brother(s) Family Medical History: Blood Disorder, Deep Vein Thrombosis (DVT), Pulmonary Embolus Medications and Allergies Home Medications Medication Instructions Recorded Confirmed Type Donepezil [Aricept] 10 mg PO HS 12/26/16 06/12/22 History OLANZapine [Olanzapine] 10 mg PO HS 12/26/16 06/12/22 History rOPINIRole HCL [Requip] 2 mg PO TID@0700,1300,1900 12/26/16 06/12/22 History Citalopram Hydrobromide [CeleXA] 10 mg PO DAILY 10/24/20 06/12/22 History Furosemide [Lasix] 20 mg PO DIRECTED PRN 10/24/20 06/12/22 History Memantine [Namenda] 10 mg PO BID 10/24/20 06/12/22 History carvediloL [Coreg] 3.125 mg PO BID 10/24/20 06/12/22 History Apixaban [Eliquis] 5 mg PO BID 05/29/22 06/12/22 History Carbidopa/Levodopa [Carbidopa-Levo 1 tab PO TID@0700,1300,1900 05/29/22 06/12/22 History ER 25-100 Tab] Ipratropium-Albuterol Nebulize 3 ml INHALATION RT-Q6H PRN 05/29/22 06/12/22 History [Duoneb 0.5 mg-3 mg/3 ml Soln] Multivitamins, Thera [Multivitamin 1 tab PO DAILY 05/29/22 06/12/22 History (formulary)] Acetaminophen Tab [Tylenol] 650 mg PO Q6HR PRN 06/12/22 06/12/22 History Amoxic-Pot Clav 875-125Mg 1 tab PO Q12HR 06/12/22 06/12/22 History [Augmentin 875-125] traMADol HCl [Ultram] 50 mg PO Q8H PRN 06/12/22 06/12/22 History Allergies Allergy/AdvReac Type Severity Reaction Status Date / Time aspirin Allergy Swelling Verified 06/12/22 06:21 Physical Exam Vitals: Vital Signs Temp Pulse Pulse Pulse Resp BP BP 06/13/22 08:07 97.5 F L 88 18 103/72 06/13/22 07:41 98.2 F 44 L 88 18 133/79 06/13/22 04:00 98.0 F 106 H 23 154/79 06/13/22 03:20 06/13/22 00:07 06/12/22 23:51 98.3 F 101 H 21 139/75 06/12/22 19:39 99.0 F 96 28 H 128/85 06/12/22 19:33 116 H 24 06/12/22 19:20 112 H 24 06/12/22 18:36 98.8 F 114 H 28 H 157/87 06/12/22 15:42 106 H 28 H 161/91 06/12/22 15:17 104 H 20 06/12/22 14:00 102 H 22 06/12/22 13:39 98 32 H 151/92 06/12/22 12:10 103 H 38 H 147/89 06/12/22 12:00 106 H 28 H 147/89 06/12/22 11:36 106 H 18 06/12/22 11:30 105 H 21 145/86 06/12/22 11:27 109 H 21 06/12/22 11:00 115 H 30 H 151/91 06/12/22 10:10 112 H 38 H 188/112 06/12/22 10:05 06/12/22 10:00 118 H 35 H 188/100 Pulse Ox FiO2 06/13/22 08:07 96 06/13/22 07:41 98 06/13/22 04:00 99 06/13/22 03:20 60 06/13/22 00:07 60 06/12/22 23:51 96 06/12/22 19:39 96 06/12/22 19:33 06/12/22 19:20 94 L 06/12/22 18:36 94 L 06/12/22 15:42 93 L 06/12/22 15:17 06/12/22 14:00 06/12/22 13:39 93 L 06/12/22 12:10 91 L 06/12/22 12:00 06/12/22 11:36 06/12/22 11:30 96 06/12/22 11:27 60 06/12/22 11:00 97 06/12/22 10:10 96 06/12/22 10:05 60 06/12/22 10:00 95 Intake and Output 06/12/22 06/13/22 06/13/22 22:59 06:59 14:59 Other: Voiding Method Diaper Diaper # Voids 1 1 1 # Bowel Movements 1 GENERAL DESCRIPTION: Elderly female lying in bed, mild distress. No tachypnea or accessory muscle of respiration use. HEENT: Shows Pallor , no scleral icterus. Oral mucous membrane is dry. No pharyngeal erythema or thrush NECK: Trachea central, no thyromegaly. LUNGS: Unlabored breathing. Coarse breath sounds bilaterally. No wheeze or crackle. HEART: S1, S2, regular rate and rhythm. No loud murmur ABDOMEN: Soft, no tenderness , guarding or rigidity, no organomegaly EXTREMITIES: No edema of feet. SKIN: No rash, no masses palpable. NEUROLOGICAL: The patient is lethargic and orientation could not be determined Results CBC & Chem 7: 06/14/22 06:53 06/14/22 06:53 Labs: Abnormal Lab Results - Last 24 Hours (Table) 06/13/22 06/13/22 Range/Units 07:51 07:51 RBC 3.27 L (3.80-5.40) m/uL Hgb 10.2 L (11.4-16.0) gm/dL MCV 104.0 H (80.0-100.0) fL MCHC 30.0 L (31.0-37.0) g/dL RDW 22.4 H (11.5-15.5) % Lymphocytes # 0.6 L (1.0-4.8) k/uL Macrocytosis Marked A Carbon Dioxide 35 H (22-30) mmol/L Creatinine 0.49 L (0.52-1.04) mg/dL Glucose 100 H (74-99) mg/dL Calcium 8.0 L (8.4-10.2) mg/dL Microbiology - Last 24 Hours (Table) 06/12/22 10:01 Blood Culture Gram Stain - Preliminary Blood 06/12/22 10:01 Blood Culture - Final Blood Assessment and Plan (1) Pneumonia Current Visit: Yes Status: Acute Code(s): J18.9 - PNEUMONIA, UNSPECIFIED ORGANISM SNOMED Code(s): 088251709 (2) Positive blood culture Current Visit: Yes Status: Acute Code(s): R78.81 - BACTEREMIA SNOMED Code(s): 792086904 Plan: 1patient with Enterococcus faecalis bacteremia concerning for possible VRE unfortunately not able to use Zyvox because of SSRI the patient is on there is a clinical suspicious for possible pulmonary source in view of her symptomatology and abnormal CTA however Enterococcus faecalis is usually not a common cause of pneumonia usually forgot or urinary source versus endovascular source. 2we will discontinue vancomycin and Zosyn. 3start the patient on Unasyn and daptomycin while waiting for the final sensitivity and hoping for a penicillin sensitive pathogen. 4we will check an echocardiogram. 5blood cultures will be repeated document clearance of bacteremia. We will follow on clinical condition and cultures to further adjust medication if needed Thank you for this consultation will follow this patient along with you Time with Patient: Greater than 30
[2022-06-14 07:43] LABS: African American GFR (CKD) >90 (>60 ml/min/1.73 sqM); Anion Gap 1 mmol/L; Blood Urea Nitrogen 16 mg/dL (7-17); Calcium 8.3 mg/dL (8.4-10.2); Carbon Dioxide 38 mmol/L (22-30); Chloride 103 mmol/L (98-107); Glucose 95 mg/dL (74-99); Non-African American GFR(CKD) 89 (>60 ml/min/1.73 sqM); Potassium 4.1 mmol/L (3.5-5.1); Sodium 142 mmol/L (137-145)
[2022-06-14] MEDS: APIXABAN 5 MG TAB PO SCH ×2 (08:09→20:14)
[2022-06-14] MEDS: MULTIVITAMINS, THERA 1 EACH TAB PO SCH (08:09)
[2022-06-14] MEDS: MEMANTINE 10 MG TAB PO SCH ×2 (08:09→20:14)
[2022-06-14] MEDS ORDERED: DAPTOmycin 500 MG in SODIUM CHLORIDE 0.9% 50 ML IVPB SCH (09:00)
[2022-06-14] MEDS ORDERED: DAPTOmycin 500 MG VIAL IVPB SCH (09:00)
--- NOTE | 2022-06-14 10:35 | P.PN ---
Subjective Progress Note Date: 06/14/22 Principal diagnosis: Hypoxemic respiratory failure. Pulmonary/critical care consultation dated 06/12/2022. 82-year-old female, seen in the emergency department. The patient was brought to the ER, by EMS, from one of the local nursing homes. The patient does have severe dementia. She was brought in because of respiratory distress. The patient herself was not able to give any history. The patient was placed on BiPAP. In addition, the patient was placed on nitroglycerin because of elevated blood pressure. The patient was seen by me in the emergency department, trauma 1 room. I did speak to the ER physician. The patient was on BiPAP at 10/5 and 70%. Unfortunately, the patient was playing off the mask. The patient was also receiving nitroglycerin at 20 mcg/m. A blood gas showed a pO2 of 88, pCO2 59, with a normal pH is 7.4. The patient was quite agitated. She apparently has a history of dementia, deep venous thrombosis, hypertension, factor V deficiency, and Parkinson's disease. White count 5.5, hemoglobin 10.8, hematocrit 34.6, and platelet count 327,000. The d-dimer was 1.10. Sodium 135, potassium 5.5, chloride 97, CO2 35, BUN 17, creatinine 0.43. Glucose 108. Calcium 8. AST 47. Chest x-ray showed cardiomegaly, with a right-sided pleural effusion. There was also right basilar atelectasis. CT angiogram was negative for pulmonary embolism, and did show mass/infiltrate/atelectasis, right base. Progress note dated 06/13/2022. The patient was seen in the emergency department yesterday, in consultation. Today, she is seen in room 353, with her sitting next to her. The patient was made a DO NOT RESUSCITATE patient, which I think is very appropriate. The patient does have severe dementia, and was evaluated in the ER, for respiratory distress and failure. I did speak to the ER physician yesterday about her case. Currently she is on 15 L high flow nasal oxygen, with saturations of 96%. Her respiratory rate is in the mid 20s. White count 4.4, hemoglobin 10.2, hematocrit 34, and platelet count 289,000. Sodium 141, po tassium 4.4, chlorides 101, CO2 35, BUN 14, creatinine 0.49. Blood cultures are showing evidence of gram-positive cocci in clusters. The patient remains on Zosyn and vancomycin. CT angiogram failed to reveal any central or large pulmonary emboli. There is increasing consolidation at the right lung base, reflecting either atelectasis, infiltrate, or loculated pleural effusion. The does confirm the DO NOT RESUSCITATE status. Progress note dated 06/14/2022. The patient is again seen in room 353. She remains on 15 L high flow nasal cannula. She appears to be much more awake and alert today. She also appears to have less respiratory difficulty distress. The oxygen can likely be weaned down. White count 4, hemoglobin 9.4, hematocrit 31.3, platelet count 302,000. Sodium 142, potassium 4.1, chlorides 103, CO2 38, BUN 16, creatinine 0.51. Urine appears to be positive for a urinary tract infection. Blood cultures are positive for enterococcus faecalis. She is no longer on vancomycin. She is on Unasyn. Objective - Vital Signs Vital signs: Vital Signs Temp 98.0 F 06/14/22 07:06 Pulse 63 06/14/22 07:49 Resp 20 06/14/22 07:06 BP 126/60 06/14/22 07:06 Pulse Ox 95 06/14/22 07:06 FiO2 60 06/13/22 23:49 Intake & Output 06/13/22 06/14/22 06/14/22 18:59 06:59 18:59 Intake Total 730 1350 Output Total 100 150 Balance 630 -150 1350 Intake: Intake, IV Titration 550 1350 Amount Ampicillin-Sulbactam 3 gm 100 100 In Sodium Chloride 0.9% 100 ml @ 200 mls/hr IVPB Q6HR [facility] Rx#:[id number] Azithromycin 500 mg In 250 Sodium Chloride 0.9% 250 ml @ 250 mls/hr IVPB DAILY [facility] Rx#:[id number] DAPTOmycin 500 mg In 50 Sodium Chloride 0.9% 50 ml @ 100 mls/hr IVPB Q24H [facility] Rx#:[id number] Sodium Chloride 0.9% 1, 200 1200 000 ml @ 100 mls/hr IV . Q10H [facility] Rx#:[id number] Oral 180 Output: Urine 100 150 Other: Voiding Method Diaper Diaper Diaper External Catheter External Catheter # Voids 1 # Bowel Movements 1 - Exam No acute distress, currently on high flow nasal cannula. A bit more awake yesterday. HEENT examination is grossly unremarkable. Neck supple. Full range of motion. No adenopathy thyromegaly or neck vein distention. Cardiovascular examination reveals regular rhythm rate. S1-S2 normal. No S3 or S4. No discernible murmur noted. Heart sounds are distant. Heart rate 63 beats Lungs reveal coarse bilateral breath sounds. Crackles noted. Breath sounds diminished throughout. No wheezes. Saturations are 95% on 15 L high flow nasal cannula. Abdomen soft bowel sounds are heard. No masses or tenderness. Extremities reveal chronic venous stasis changes. Minimal edema. No cyanosis or clubbing. Skin is without rash or lesion. Neurologic examination reveals her to be a bit more awake and alert. He does move all 4 extremities. - Labs CBC & Chem 7: 06/14/22 06:53 06/14/22 06:53 Labs: Abnormal Lab Results - Last 24 Hours (Table) 06/13/22 06/14/22 06/14/22 Range/Units 18:23 06:53 06:53 RBC 3.03 L (3.80-5.40) m/uL Hgb 9.4 L (11.4-16.0) gm/dL Hct 31.3 L (34.0-46.0) % MCV 103.4 H (80.0-100.0) fL MCHC 30.1 L (31.0-37.0) g/dL RDW 22.0 H (11.5-15.5) % Lymphocytes # 0.7 L (1.0-4.8) k/uL Macrocytosis Marked A Carbon Dioxide 38 H (22-30) mmol/L Creatinine 0.51 L (0.52-1.04) mg/dL Calcium 8.3 L (8.4-10.2) mg/dL C-Reactive Protein 2.0 H (<1.0) mg/dL Urine Appearance Cloudy H (Clear) Ur Specific [place] 1.037 H (1.001-1.035) Urine Protein 1+ H (Negative) Urine Ketones 1+ H (Negative) Urine Blood Large H (Negative) Ur Leukocyte Esterase Moderate H (Negative) Urine Bacteria Occasional H (None) /hpf Urine Mucus Rare H (None) /hpf Microbiology - Last 24 Hours (Table) 06/12/22 09:50 Blood Culture - Preliminary Blood No Growth after 24 hours 06/12/22 10:01 Blood Culture Gram Stain - Preliminary Blood Blood Culture - Preliminary Enterococcus faecalis Assessment and Plan Assessment: Acute on chronic hypoxemic and hypercapnic respiratory failure, likely secondary to either infiltrate, effusion, or mass, right lower lobe. Enterococcus faecalis bacteremia/sepsis. Possible aspiration pneumonia. History of deep venous thrombosis. History of hypertension. History of Parkinson's disease. Advanced dementia. History of factor V deficiency. Plan: Plan dated 06/12/2022. Apparently, the ER physician was able to contact one of the family members, and the patient is now a DO NOT RESUSCITATE. This was very appropriate given her severe dementia, her age, and her medical problems. The patient can be admitted to the general medical floor. Labs, x-rays, and medications are reviewed. The patient was started on antibiotics per the primary service. This included both Zosyn and azithromycin. Prognosis is certainly guarded. We will continue to follow make recommendations were appropriate. Plan dated 06/13/2022. The patient was made DO NOT RESUSCITATE. This is appropriate. Her confirms the DO NOT RESUSCITATE order. Computed tomography scan of the chest did not reveal a pulmonary embolism. There is either mass, fluid, infiltrate, or atelectasis, or a combination of those, at the right lung base. She remains on vancomycin and Zosyn. Blood cultures show some gram-positive cocci in clusters. Bacteria have yet to be identified. We will continue to follow. Prognosis is guarded. Additional recommendations and suggestions are forthc manolo. Plan dated 06/14/2022. The patient appears much more awake and alert today. She does remain on 15 L high flow nasal cannula. Her antibiotics have been changed to Unasyn, which does cover the enterococcus in the bloodstream. Additional recommendations and suggestions are forthcoming. Labs, x-rays, and medications are all reviewed. We will continue to follow make recommendations where appropriate. Time with Patient: Less than 30
--- NOTE | 2022-06-14 12:09 | CA ---
Transthoracic Echo Report Name: Bernice García Age: 82 Gender: F : 1940 Exam Date: 06/14/2022 09:53 Exam Location: [place] [facility] Ht (in): 62 Wt (lb): 171 Ordering Physician: Rehana Olivares MD Attending/Referring Phys: Senior Firewall Engineer Jenelle Purvis RDCS Procedure CPT: Indications: bacteremia Cardiac Hx: Technical Quality: Good Contrast 1: Total Dose (mL): Contrast 2: Total Dose (mL): MEASUREMENTS (Male / Female) Normal Values 2D ECHO LV Diastolic Diameter PLAX 3.2 cm 4.2 - 5.9 / 3.9 - 5.3 cm LV Systolic Diameter PLAX 2.1 cm IVS Diastolic Thickness 1.8 cm 0.6 - 1.0 / 0.6 - 0.9 cm LVPW Diastolic Thickness 2.0 cm 0.6 - 1.0 / 0.6 - 0.9 cm LV Relative Wall Thickness 1.2 LVOT Diameter 1.2 cm M-MODE Aortic Root Diameter MM 3.4 cm LA Systolic Diameter MM 3.7 cm LA Ao Ratio MM 1.1 MV E Point Septal Separation 0.4 cm AV Cusp Separation MM 0.9 cm DOPPLER AV Peak Velocity 189.6 cm/s AV Peak Gradient 14.4 mmHg AV Mean Velocity 138.4 cm/s AV Mean Gradient 8.6 mmHg AV Velocity Time Integral 38.3 cm LVOT Peak Velocity 131.7 cm/s LVOT Peak Gradient 6.9 mmHg AV Area Cont Eq pk 0.8 cm??? MV Area PHT 6.9 cm??? MR Peak Velocity 228.2 cm/s MR Peak Gradient 20.8 mmHg Mitral E Point Velocity 92.8 cm/s Mitral A Point Velocity 127.8 cm/s Mitral E to A Ratio 0.7 MV Deceleration Time 110.3 ms TR Peak Velocity 314.3 cm/s TR Peak Gradient 39.5 mmHg Right Ventricular Systolic Press 41.9 mmHg FINDINGS Left Ventricle Severely increased septal wall thickness. Severely increased posterior wall thickness. Left ventricular ejection fraction is estimated at 55-60 %.severe concentric left ventricular hypertrophy. Right Ventricle The right ventricle is normal in size and function. Mild PHTN. Right Atrium The right atrium is normal in size. Left Atrium The left atrium is normal in size. Mitral Valve Structurally normal mitral valve without significant stenosis or prolapse. There is mild mitral regurgitation. Mitral valve thickened. Mitral annular calcification. Aortic Valve Mild aortic stenosis with a peak gradient of 14 mmHg and a mean gradient of 8 mmHg. . There is no aortic regurgitation. Aortic valve sclerosis. Tricuspid Valve Structurally normal tricuspid valve without significant stenosis. Mild tricuspid regurgitation. Pulmonic Valve Structurally normal pulmonic valve without significant stenosis. There is no pulmonic regurgitation. Pericardium Normal pericardium without effusion. Aorta Normal aortic root dimension. CONCLUSIONS 1. Normal left ventricle size with severe concentric left ventricle hypertrophy 2. Mild mitral and tricuspid regurgitation with mild pulmonary hypertension 3. Mild aortic stenosis Previewed by: Dr. Kp Lora MD (Electronically Signed) Final Date: 14 June 2022 12:08
--- NOTE | 2022-06-14 16:20 | P.PN ---
Subjective Progress Note Date: 06/14/22 Principal diagnosis: Bacteremia and pneumonia Patient is 82 year female with multiple comorbidities presented to hospital with increasing shortness of breath that was going on for 2 days before presentation hospital admission chest x-ray with cardiomegaly and moderate r ight-sided effusion with atelectasis concerning for possible right-sided pneumonia subsequently blood culture was initially reported as Enterococcus faecalis subsequently changed to staph epidermidis. On today's evaluation that is 06/14/2022, the patient is afebrile, the patient is more awake and alert she is currently off the BiPAP breathing comfortably on nasal cannula oxygen denies having any chest pain no worsening cough or sputum production no abdominal pain no diarrhea Objective - Vital Signs Vital signs: Vital Signs Temp 98.0 F 06/14/22 11:20 Pulse 48 L 06/14/22 11:20 Resp 18 06/14/22 11:20 BP 110/72 06/14/22 11:20 Pulse Ox 95 06/14/22 07:06 FiO2 60 06/13/22 23:49 Intake & Output 06/13/22 06/14/22 06/14/22 18:59 06:59 18:59 Intake Total 730 1350 Output Total 100 150 Balance 630 -150 1350 Intake: Intake, IV Titration 550 1350 Amount Ampicillin-Sulbactam 3 gm 100 100 In Sodium Chloride 0.9% 100 ml @ 200 mls/hr IVPB Q6HR [facility] Rx#:[id number] Azithromycin 500 mg In 250 Sodium Chloride 0.9% 250 ml @ 250 mls/hr IVPB DAILY [facility] Rx#:[id number] DAPTOmycin 500 mg In 50 Sodium Chloride 0.9% 50 ml @ 100 mls/hr IVPB Q24H [facility] Rx#:[id number] Sodium Chloride 0.9% 1, 200 1200 000 ml @ 100 mls/hr IV . Q10H [facility] Rx#:[id number] Oral 180 Output: Urine 100 150 Other: Voiding Method Diaper Diaper Diaper External Catheter External Catheter # Voids 1 # Bowel Movements 1 - Exam GENERAL DESCRIPTION: An elderly female lying in bed in no distress RESPIRATORY SYSTEM: Unlabored breathing , decreased breath sounds at bases HEART: S1 S2 regular rate and rhythm , ABDOMEN: Soft , no tenderness EXTREMITIES: No edema feet - Labs CBC & Chem 7: 06/14/22 06:53 06/14/22 06:53 Labs: Abnormal Lab Results - Last 24 Hours (Table) 06/13/22 06/14/22 06/14/22 Range/Units 18:23 06:53 06:53 RBC 3.03 L (3.80-5.40) m/uL Hgb 9.4 L (11.4-16.0) gm/dL Hct 31.3 L (34.0-46.0) % MCV 103.4 H (80.0-100.0) fL MCHC 30.1 L (31.0-37.0) g/dL RDW 22.0 H (11.5-15.5) % Lymphocytes # 0.7 L (1.0-4.8) k/uL Macrocytosis Marked A Carbon Dioxide 38 H (22-30) mmol/L Creatinine 0.51 L (0.52-1.04) mg/dL Calcium 8.3 L (8.4-10.2) mg/dL C-Reactive Protein 2.0 H (<1.0) mg/dL Urine Appearance Cloudy H (Clear) Ur Specific [place] 1.037 H (1.001-1.035) Urine Protein 1+ H (Negative) Urine Ketones 1+ H (Negative) Urine Blood Large H (Negative) Ur Leukocyte Esterase Moderate H (Negative) Urine Bacteria Occasional H (None) /hpf Urine Mucus Rare H (None) /hpf Microbiology - Last 24 Hours (Table) 06/12/22 09:50 Blood Culture - Preliminary Blood No Growth after 48 hours 06/12/22 10:01 Blood Culture Gram Stain - Preliminary Blood Blood Culture - Preliminary Enterococcus faecalis Assessment and Plan (1) Pneumonia Current Visit: Yes Status: Acute Code(s): J18.9 - PNEUMONIA, UNSPECIFIED ORGANISM SNOMED Code(s): 980698559 (2) Positive blood culture Current Visit: Yes Status: Acute Code(s): R78.81 - BACTEREMIA SNOMED Code(s): 684725864 Plan: 1patient with positive blood cultures which was initially reported as Enterococcus faecalis that has been switched over to Coreg negative staph likely skin contamination daptomycin will be discontinued 1patient with admission to the hospital with shortness of breath with evidence of right-sided effusion and compressive atelectasis/consolidation question of possible aspiration pneumonia clinically responding to Unasyn should be continued Time with Patient: Less than 30
--- NOTE | 2022-06-14 18:06 | P.PN ---
Subjective This is an 82 year old female with medical history of dementia, questionable history of atrial fibrillation, pneumonia, DVT/PE, hypertension, parkinsons who presents to the hospital from rehab for acute respiratory distress. Patient was also found to be hypertensive and required nitroglycerin gtt, she was placed on bipap with fio2 of 70%. Patient was discharged to rehab 2 days ago following a hospital stay from 05/29/22 to 06/10/22 which she was found to have new onset right sided pleural effusion that was felt to be mostly consistent with pn eumonia/atelectasis most like an aspiration pneumonia. She required oxygen via nasal cannula during that hospital stay, she was discharged to rehab on oxygen at 2L nasal cannula. She was also treated for dysphagia and was discharged on pureed nectar thick diet. Patient was treated inpatient with IV zosyn and was discharged on a course of oral augmentin. She was also found to have multilevel compression deformities with surgical fixation of L2-L5 and wedge deformities of T12 and T11 of indeterminate age. She is complaining of back discomfort during exam today. Prior to previous hospitalization patient was living at home with , she is a poor historian. History taken from at the bedside he reports that she was mostly chair bound at home and he did not realize how sick she was. He does state that she had significant lower extremity edema before her previous admission which currently is improved. Patient is admitted to the hospital for CTA findings of infiltrate and atelectasis right lung base and possible lung mass. Consult has been placed to pulmonary services. She has been started on empiric antibiotic coverage with IV azithromycin and IV zosyn. We will reconsult speech therapy for re-evaluation. Patients code status is now do not resuscitate and her prognosis is guarded given multiple medical comorbidities and medical debility. Labs on admission showing WBC 5.5, hgb 10.8, platelt count 327. Blood gases are completed showing PCO2 59, HCO3 37, total CO2 38 D-Dimer 1.10, Procalcitonin 0.05 Sodium 135, potassium 5.5, chloride 97, CO2 35, BUN 17, creatinine 0.43, glucose 108, AST 47. Troponin negative, BNP 438 which is down from previous admission Covid, influenza A/B negative Chest CTA completed showing increasing consolidation right lung may reflect ate lectasis and or infiltrate with loculated pleural effusion. Underlying mass not excluded. There is contrast bolus timing difficulties however no obvious evidence for pulmonary embolism. Patient is afebrile, heart rate tachycardia in the low 100s, blood pressure 151/92, 93% on Bipap 09/04 with 60% fio2. 06/13/2022 Patient is evaluated on stepdown unit today with at the bedside. She is currently on 15 L hi flow cannula with saturations of 96 to 100%. She has remained afebrile, heart rate has come down into the 80s, blood pressure 103/55. She continues on IV hydration with normal saline, IV zosyn, and IV vancomycin has been started started today for gram positive blood cultures. Repeat cultures taken today and infectious disease has been consulted. Otherwise her main complaint is back pain which is chronic in nature she is taking tramadol as needed. Speech therapy consultation is pending, patient is quite short of breath even on 15 L hi flow cannula, she probably won't tolerate evaluation today. She is a do not resuscitate. She is being followed by pulmonary. Labs are reviewed today showing sodium 141, potassium 4.4, CO2 35, Bun 14, creatinine 0.49, glucose 100. 06/14/2022 This is a pleasant 82 years old female who presents with right lower lobe pneumonia suspicious for aspiration pneumonia. Blood culture was positive for coagulase negative staph, most likely contamina tion Patient continue on Unasyn with ID team recommendation. Also she is on gentle hydration and on 15 L oxygen via nasal cannula Objective - Vital Signs Vital signs: Vital Signs Temp 98.0 F 06/14/22 11:20 Pulse 48 L 06/14/22 11:20 Resp 18 06/14/22 11:20 BP 110/72 06/14/22 11:20 Pulse Ox 95 06/14/22 07:06 FiO2 60 06/13/22 23:49 Intake & Output 06/13/22 06/14/22 06/14/22 18:59 06:59 18:59 Intake Total 730 1350 Output Total 100 150 Balance 630 -150 1350 Intake: Intake, IV Titration 550 1350 Amount Ampicillin-Sulbactam 3 gm 100 100 In Sodium Chloride 0.9% 100 ml @ 200 mls/hr IVPB Q6HR [facility] Rx#:[id number] Azithromycin 500 mg In 250 Sodium Chloride 0.9% 250 ml @ 250 mls/hr IVPB DAILY [facility] Rx#:[id number] DAPTOmycin 500 mg In 50 Sodium Chloride 0.9% 50 ml @ 100 mls/hr IVPB Q24H [facility] Rx#:[id number] Sodium Chloride 0.9% 1, 200 1200 000 ml @ 100 mls/hr IV . Q10H [facility] Rx#:[id number] Oral 180 Output: Urine 100 150 Other: Voiding Method Diaper Diaper Diaper External Catheter External Catheter # Voids 1 # Bowel Movements 1 - Exam -GENERAL: The patient is alert and awake, mildly confused not in any acute distress. Well developed, well nourished. HEENT: Pupils are round and equally reacting to light. EOMI. No scleral icterus. No conjunctival pallor. Normocephalic, atraumatic. No pharyngeal erythema. No thyromegaly. CARDIOVASCULAR: S1 and S2 present. No murmurs, rubs, or gallops. -PULMONARY: Chest is clear to auscultation, no wheezing bilateral crepitation ABDOMEN: Soft, nontender, nondistended, normoactive bowel sounds. No palpable organomegaly. MUSCULOSKELETAL: No joint swelling or deformity. EXTREMITIES: No cyanosis, clubbing, or pedal edema. NEUROLOGICAL: Gross neurological examination did not reveal any focal deficits. SKIN: No rashes. no petechiae. - Labs CBC & Chem 7: 06/14/22 06:53 06/14/22 06:53 Labs: Abnormal Lab Results - Last 24 Hours (Table) 06/13/22 06/14/22 06/14/22 Range/Units 18:23 06:53 06:53 RBC 3.03 L (3.80-5.40) m/uL Hgb 9.4 L (11.4-16.0) gm/dL Hct 31.3 L (34.0-46.0) % MCV 103.4 H (80.0-100.0) fL MCHC 30.1 L (31.0-37.0) g/dL RDW 22.0 H (11.5-15.5) % Lymphocytes # 0.7 L (1.0-4.8) k/uL Macrocytosis Marked A Carbon Dioxide 38 H (22-30) mmol/L Creatinine 0.51 L (0.52-1.04) mg/dL Calcium 8.3 L (8.4-10.2) mg/dL C-Reactive Protein 2.0 H (<1.0) mg/dL Urine Appearance Cloudy H (Clear) Ur Specific [place] 1.037 H (1.001-1.035) Urine Protein 1+ H (Negative) Urine Ketones 1+ H (Negative) Urine Blood Large H (Negative) Ur Leukocyte Esterase Moderate H (Negative) Urine Bacteria Occasional H (None) /hpf Urine Mucus Rare H (None) /hpf Microbiology - Last 24 Hours (Table) 06/12/22 09:50 Blood Culture - Preliminary Blood No Growth after 48 hours 06/12/22 10:01 Blood Culture Gram Stain - Preliminary Blood Blood Culture - Preliminary Enterococcus faecalis Assessment and Plan Assessment: Assessment Acute on chronic hypoxic respiratory failure secondary to increasing right lower lobe infiltrate vs. pleural effusion, there is also lung mass found. proBNP is not suggestive of acute heart failure, and patient with known history of dysphagia with recent antibiotic treatment for possible aspiration pneumonia, there is possibility patient has been aspirating at rehab. Procalcitonin level is 0.05. She is on empiric antibiotic coverage. She is currently on 15 L hi flow cannula. Gram positive blood culture, pending finalized cultures. Hypertensive urgency improved. 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 Continue same treatment. Continue with symptomatic treatment. Resume home medication. Monitor lytes and vitals. DVT and GI prophylaxis. Further recommendations as per clinical course of the patient DVT prophylaxis: Eliquis GI Prophylaxis: Ppi PT/OT: From [facility] Prognosis is guarded
[2022-06-14] MEDS: DONEPEZIL 10 MG TAB PO SCH (20:14)
[2022-06-14] MEDS: OLANZapine 10 MG TAB PO SCH (20:14)
[2022-06-15] MEDS: SODIUM CHLORIDE 0.9% 1,000 ML IV SCH ×2 (04:23→07:56)
[2022-06-15] MEDS: MULTIVITAMINS, THERA 1 EACH TAB PO SCH (07:52)
[2022-06-15] MEDS: carvediloL 3.125 MG TAB PO SCH ×2 (07:55→17:10)
[2022-06-15] MEDS: PANTOPRAZOLE 40 MG TABLET PO SCH (07:55)
[2022-06-15] MEDS: APIXABAN 5 MG TAB PO SCH ×2 (07:55→21:49)
[2022-06-15] MEDS: CARBIDOPA-LEVODOPA ER 25-100MG 1 EACH TABLET.ER PO SCH ×3 (07:56→17:11)
[2022-06-15] MEDS: AMPICILLIN-SULBACTAM 3 GM in SODIUM CHLORIDE 0.9% 100 ML IVPB SCH ×4 (07:56→23:42)
[2022-06-15] MEDS: MEMANTINE 10 MG TAB PO SCH ×2 (07:56→21:49)
--- NOTE | 2022-06-15 08:08 | XR ---
EXAMINATION TYPE: XR chest 1V DATE OF EXAM: 06/15/2022 HISTORY: Shortness of breath. COMPARISON: 06/12/2022 TECHNIQUE: Single view of the chest is submitted. FINDINGS: Demonstrated are scattered senescent parenchymal change. There is now complete opacification right hemithorax. Suspect underlying effusion with atelectasis, i nfiltrate or other pathology not excluded. Mild patchy density left lower lobe. The heart is stable. Hilar and mediastinal structures are within normal limits. Degenerative changes are seen of the dorsal spine. IMPRESSION: 1. There is now complete opacification right hemithorax. Suspect underlying effusion with atelectasi s, infiltrate or other pathology not excluded. Mild patchy density left lower lobe.
[2022-06-15 08:21] LABS: Anisocytosis Moderate; Basophils # (A) 0.1 k/uL (0-0.2); Basophils % (A) 1 %; Eosinophils # (A) 0.2 k/uL (0-0.7); Eosinophils % (A) 4 %; HCT 32.8 % (34.0-46.0); HGB 9.9 gm/dL (11.4-16.0); Hypochromasia Marked; Lymphocytes # (A) 1.3 k/uL (1.0-4.8); Lymphocytes % (A) 30 %; MCH 32.2 pg (25.0-35.0); MCHC 30.2 g/dL (31.0-37.0); Mean Platelet Volume 9.5; Monocytes # (A) 0.3 k/uL (0-1.0); Monocytes % (A) 7 %; Neutrophils # (A) 2.4 k/uL (1.3-7.7); Neutrophils % (A) 55 %; Platelet Count 302 k/uL (150-450); RBC 3.07 m/uL (3.80-5.40); RDW 22.1 % (11.5-15.5); WBC 4.4 k/uL (3.8-10.6)
[2022-06-15 08:27] LABS: African American GFR (CKD) >90 (>60 ml/min/1.73 sqM); Anion Gap 1 mmol/L; Blood Urea Nitrogen 14 mg/dL (7-17); Calcium 8.3 mg/dL (8.4-10.2); Carbon Dioxide 38 mmol/L (22-30); Chloride 106 mmol/L (98-107); Glucose 92 mg/dL (74-99); Non-African American GFR(CKD) >90 (>60 ml/min/1.73 sqM); Potassium 4.2 mmol/L (3.5-5.1); Sodium 145 mmol/L (137-145)
[2022-06-15 08:36] LABS: Macrocytosis Marked
[2022-06-15] MEDS: IPRATROPIUM-ALBUTEROL 3 ML NEB INHALATION SCH ×4 (08:43→20:19)
--- NOTE | 2022-06-15 12:03 | P.PN ---
Subjective Progress Note Date: 06/15/22 Principal diagnosis: Hypoxemic respiratory failure. Pulmonary/critical care consultation dated 06/12/2022. 82-year-old female, seen in the emergency department. The patient was brought to the ER, by EMS, from one of the local nursing homes. The patient does have severe dementia. She was brought in because of respiratory distress. The patient herself was not able to give any history. The patient was placed on BiPAP. In addition, the patient was placed on nitroglycerin because of elevated blood pressure. The patient was seen by me in the emergency department, trauma 1 room. I did speak to the ER physician. The patient was on BiPAP at 10/5 and 70%. Unfortunately, the patient was playing off the mask. The patient was also receiving nitroglycerin at 20 mcg/m. A blood gas showed a pO2 of 88, pCO2 59, with a normal pH is 7.4. The patient was quite agitated. She apparently has a history of dementia, deep venous thrombosis, hypertension, factor V deficiency, and Parkinson's disease. White count 5.5, hemoglobin 10.8, hematocrit 34.6, and platelet count 327,000. The d-dimer was 1.10. Sodium 135, potassium 5.5, chloride 97, CO2 35, BUN 17, creatinine 0.43. Glucose 108. Calcium 8. AST 47. Chest x-ray showed cardiomegaly, with a right-sided pleural effusion. There was also right basilar atelectasis. CT angiogram was negative for pulmonary embolism, and did show mass/infiltrate/atelectasis, right base. Progress note dated 06/13/2022. The patient was seen in the emergency department yesterday, in consultation. Today, she is seen in room 353, with her sitting next to her. The patient was made a DO NOT RESUSCITATE patient, which I think is very appropriate. The patient does have severe dementia, and was evaluated in the ER, for respiratory distress and failure. I did speak to the ER physician yesterday about her case. Currently she is on 15 L high flow nasal oxygen, with saturations of 96%. Her respiratory rate is in the mid 20s. White count 4.4, hemoglobin 10.2, hematocrit 34, and platelet count 289,000. Sodium 141, po tassium 4.4, chlorides 101, CO2 35, BUN 14, creatinine 0.49. Blood cultures are showing evidence of gram-positive cocci in clusters. The patient remains on Zosyn and vancomycin. CT angiogram failed to reveal any central or large pulmonary emboli. There is increasing consolidation at the right lung base, reflecting either atelectasis, infiltrate, or loculated pleural effusion. The does confirm the DO NOT RESUSCITATE status. Progress note dated 06/14/2022. The patient is again seen in room 353. She remains on 15 L high flow nasal cannula. She appears to be much more awake and alert today. She also appears to have less respiratory difficulty distress. The oxygen can likely be weaned down. White count 4, hemoglobin 9.4, hematocrit 31.3, platelet count 302,000. Sodium 142, potassium 4.1, chlorides 103, CO2 38, BUN 16, creatinine 0.51. Urine appears to be positive for a urinary tract infection. Blood cultures are positive for enterococcus faecalis. She is no longer on vancomycin. She is on Unasyn. Progress note dated 06/15/2022. The patient is again seen in room 353. She remains on high flow nasal O2 at 15 L. The patient is doing very poorly. The patient apparently has been aspirating as well. White count 4.4, hemoglobin 9.9, hematocrit 32.8, and platelet count normal. Sodium 145, potassium 4.2, chlorides 106, CO2 38, BUN 14, creatinine 0.40. Blood cultures were initially reported as positive for Enterococcus faecalis, but had been changed to staph epidermidis. Infectious diseases is seeing this patient. Chest x-ray shows complete opacification of the right hemithorax, likely secondary to aspiration and mucous plugging. I have recommended chest physiotherapy, either manually or mechanically, by respiratory therapy. Objective - Vital Signs Vital signs: Vital Signs Temp 97.4 F L 06/15/22 07:44 Pulse 97 06/15/22 08:43 Resp 24 06/15/22 07:44 BP 160/68 06/15/22 07:44 Pulse Ox 99 06/15/22 07:44 FiO2 60 06/15/22 08:38 Intake & Output 06/14/22 06/15/22 06/15/22 18:59 06:59 18:59 Intake Total 870 100 Output Total 150 250 Balance 720 -150 Intake: Intake, IV Titration 630 100 Amount Ampicillin-Sulbactam 3 gm 100 100 In Sodium Chloride 0.9% 100 ml @ 200 mls/hr IVPB Q6HR [facility] Rx#:[id number] DAPTOmycin 500 mg In 50 Sodium Chloride 0.9% 50 ml @ 100 mls/hr IVPB Q24H [facility] Rx#:[id number] Sodium Chloride 0.9% 1, 480 000 ml @ 100 mls/hr IV . Q10H [facility] Rx#:[id number] Oral 240 Output: Urine 150 250 Other: Voiding Method Diaper Diaper Diaper External Catheter External Catheter External Catheter - Exam Moderate respiratory distress, currently on high flow nasal cannula. The patient is poorly responsive. HEENT examination is grossly unremarkable. Neck supple. Full range of motion. No adenopathy thyromegaly or neck vein distention. Cardiovascular examination reveals regular rhythm rate. S1-S2 normal. No S3 or S4. No discernible murmur noted. Heart sounds are distant. Heart rate 97 beats Lungs reveal coarse bilateral breath sounds. Crackles noted. Breath sounds diminished throughout. No wheezes. Limited or no breath sounds noted in the right chest. Abdomen soft bowel sounds are heard. No masses or tenderness. Extremities reveal chronic venous stasis changes. Minimal edema. No cyanosis or clubbing. Skin is without rash or lesion. Neurologic examination reveals the patient to be much more lethargic and somnolent. - Labs CBC & Chem 7: 06/15/22 07:45 06/15/22 07:45 Labs: Abnormal Lab Results - Last 24 Hours (Table) 06/15/22 06/15/22 Range/Units 07:45 07:45 RBC 3.07 L (3.80-5.40) m/uL Hgb 9.9 L (11.4-16.0) gm/dL Hct 32.8 L (34.0-46.0) % MCV 107.0 H (80.0-100.0) fL MCHC 30.2 L (31.0-37.0) g/dL RDW 22.1 H (11.5-15.5) % Macrocytosis Marked A Carbon Dioxide 38 H (22-30) mmol/L Creatinine 0.40 L (0.52-1.04) mg/dL Calcium 8.3 L (8.4-10.2) mg/dL Microbiology - Last 24 Hours (Table) 06/14/22 06:53 Blood Culture - Preliminary Blood No Growth after 24 hours 06/12/22 10:01 Blood Culture Gram Stain - Final Blood Blood Culture - Preliminary Coagulase Negative Staph 06/13/22 10:45 Blood Culture - Preliminary Blood No Growth after 24 hours 06/12/22 09:50 Blood Culture - Preliminary Blood No Growth after 48 hours Assessment and Plan Assessment: Acute on chronic hypoxemic and hypercapnic respiratory failure, likely secondary to either infiltrate, effusion, or mass, right lower lobe, now with complete opacification of the right lung, likely secondary to aspiration/mucous plugs. Blood cultures positive for staph epidermidis, and patient remains on Unasyn. Possible aspiration pneumonia. History of deep venous thrombosis. History of hypertension. History of Parkinson's disease. Advanced dementia. History of factor V deficiency. Plan: Plan dated 06/12/2022. Apparently, the ER physician was able to contact one of the family members, and the patient is now a DO NOT RESUSCITATE. This was very appropriate given her severe dementia, her age, and her medical problems. The patient can be admitted to the general medical floor. Labs, x-rays, and medications are reviewed. The patient was started on antibiotics per the primary service. This included both Zosyn and azithromycin. Prognosis is certainly guarded. We will continue to follow make recommendations were appropriate. Plan dated 06/13/2022. The patient was made DO NOT RESUSCITATE. This is appropriate. Her confirms the DO NOT RESUSCITATE order. Computed tomography scan of the chest did not reveal a pulmonary embolism. There is either mass, fluid, infiltrate, or atelectasis, or a combination of those, at the right lung base. She remains on vancomycin and Zosyn. Blood cultures show some gram-positive cocci in clusters. Bacteria have yet to be identified. We will continue to follow. Prognosis is guarded. Additional recommendations and suggestions are forthcoming. Plan dated 06/14/2022. The patient appears much more awake and alert today. She does remain on 15 L high flow nasal cannula. Her antibiotics have been changed to Unasyn, which does cover the enterococcus in the bloodstream. Additional recommendations and suggestions are forthcoming. Labs, x-rays, and medications are all reviewed. We will continue to follow make recommendations where appropriate. Plan dated 06/15/2022. The patient appears to be doing much worse. She has complete opacification of the right chest. She is not a candidate for bronchoscopy. I've asked respiratory to consider chest physiotherapy, either manually or mechanically. She remains on Unasyn. Cultures were initially reported as enterococcus faecalis, but is now reported as Staphylococcus epidermidis. Infectious disease doctor is on the case. Labs, x-rays, medications are reviewed. Prognosis is guarded. Time with Patient: Less than 30
[2022-06-15] MEDS ORDERED: ALPRAZolam 0.25 MG TAB PO PRN (12:27)
--- NOTE | 2022-06-15 16:24 | P.PN ---
Subjective This is an 82 year old female with medical history of dementia, questionable history of atrial fibrillation, pneumonia, DVT/PE, hypertension, parkinsons who presents to the hospital from rehab for acute respiratory distress. Patient was also found to be hypertensive and required nitroglycerin gtt, she was placed on bipap with fio2 of 70%. Patient was discharged to rehab 2 days ago following a hospital stay from 05/29/22 to 06/10/22 which she was found to have new onset right sided pleural effusion that was felt to be mostly consistent with pn eumonia/atelectasis most like an aspiration pneumonia. She required oxygen via nasal cannula during that hospital stay, she was discharged to rehab on oxygen at 2L nasal cannula. She was also treated for dysphagia and was discharged on pureed nectar thick diet. Patient was treated inpatient with IV zosyn and was discharged on a course of oral augmentin. She was also found to have multilevel compression deformities with surgical fixation of L2-L5 and wedge deformities of T12 and T11 of indeterminate age. She is complaining of back discomfort during exam today. Prior to previous hospitalization patient was living at home with , she is a poor historian. History taken from at the bedside he reports that she was mostly chair bound at home and he did not realize how sick she was. He does state that she had significant lower extremity edema before her previous admission which currently is improved. Patient is admitted to the hospital for CTA findings of infiltrate and atelectasis right lung base and possible lung mass. Consult has been placed to pulmonary services. She has been started on empiric antibiotic coverage with IV azithromycin and IV zosyn. We will reconsult speech therapy for re-evaluation. Patients code status is now do not resuscitate and her prognosis is guarded given multiple medical comorbidities and medical debility. Labs on admission showing WBC 5.5, hgb 10.8, platelt count 327. Blood gases are completed showing PCO2 59, HCO3 37, total CO2 38 D-Dimer 1.10, Procalcitonin 0.05 Sodium 135, potassium 5.5, chloride 97, CO2 35, BUN 17, creatinine 0.43, glucose 108, AST 47. Troponin negative, BNP 438 which is down from previous admission Covid, influenza A/B negative Chest CTA completed showing increasing consolidation right lung may reflect ate lectasis and or infiltrate with loculated pleural effusion. Underlying mass not excluded. There is contrast bolus timing difficulties however no obvious evidence for pulmonary embolism. Patient is afebrile, heart rate tachycardia in the low 100s, blood pressure 151/92, 93% on Bipap 10/5 with 60% fio2. 06/13/2022 Patient is evaluated on stepdown unit today with at the bedside. She is currently on 15 L hi flow cannula with saturations of 96 to 100%. She has remained afebrile, heart rate has come down into the 80s, blood pressure 103/55. She continues on IV hydration with normal saline, IV zosyn, and IV vancomycin has been started started today for gram positive blood cultures. Repeat cultures taken today and infectious disease has been consulted. Otherwise her main complaint is back pain which is chronic in nature she is taking tramadol as needed. Speech therapy consultation is pending, patient is quite short of breath even on 15 L hi flow cannula, she probably won't tolerate evaluation today. She is a do not resuscitate. She is being followed by pulmonary. Labs are reviewed today showing sodium 141, potassium 4.4, CO2 35, Bun 14, creatinine 0.49, glucose 100. 06/14/2022 This is a pleasant 82 years old female who presents with right lower lobe pneumonia suspicious for aspiration pneumonia. Blood culture was positive for coagulase negative staph, most likely contamina tion Patient continue on Unasyn with ID team recommendation. Also she is on gentle hydration and on 15 L oxygen via nasal cannula 06/15/2022 Patient's respiratory status is worse today, she was still on 15 L per minute of oxygen in the morning however through the day she needed BiPAP support with FiO2 of 60%. Repeat chest x-ray showed complete opacification of the right lung. Pulmonary team on the case, patient is not a candidate for bronchoscopy, follow- up the recommendation. Patient is an table to tolerate diet and she is made nothing by mouth. Therefore we placed the patient on gentle hydration of D5 half-normal saline at 40 mL/h. Most likely patient has advanced dementia and Parkinson disease, patient already on sinemet 25/100 mg tid Objective - Vital Signs Vital signs: Vital Signs Temp 97.4 F L 06/15/22 07:44 Pulse 97 06/15/22 08:43 Resp 24 06/15/22 07:44 BP 160/68 06/15/22 07:44 Pulse Ox 99 06/15/22 07:44 FiO2 60 06/15/22 08:38 Intake & Output 06/14/22 06/15/22 06/15/22 18:59 06:59 18:59 Intake Total 870 100 Output Total 150 250 Balance 720 -150 Intake: Intake, IV Titration 630 100 Amount Ampicillin-Sulbactam 3 gm 100 100 In Sodium Chloride 0.9% 100 ml @ 200 mls/hr IVPB Q6HR [facility] Rx#:[id number] DAPTOmycin 500 mg In 50 Sodium Chloride 0.9% 50 ml @ 100 mls/hr IVPB Q24H [facility] Rx#:[id number] Sodium Chloride 0.9% 1, 480 000 ml @ 100 mls/hr IV . Q10H [facility] Rx#:[id number] Oral 240 Output: Urine 150 250 Other: Voiding Method Diaper Diaper Diaper External Catheter External Catheter External Catheter - Exam -GENERAL: The patient is alert and awake, more confused not , in mild acute respiratory distress. Well developed, well nourished. HEENT: Pupils are round and equally reacting to light. EOMI. No scleral icterus. No conjunctival pallor. Normocephalic, atraumatic. No pharyngeal erythema. No thyromegaly. CARDIOVASCULAR: S1 and S2 present. No murmurs, rubs, or gallops. -PULMONARY: no wheezing, left side crepitation , decreased breath sounds on the right side ABDOMEN: Soft, nontender, nondistended, normoactive bowel sounds. No palpable organomegaly. MUSCULOSKELETAL: No joint swelling or deformity. EXTREMITIES: No cyanosis, clubbing, or pedal edema. NEUROLOGICAL: Gross neurological examination did not reveal any focal deficits. SKIN: No rashes. no petechiae. - Labs CBC & Chem 7: 06/15/22 07:45 06/15/22 07:45 Labs: Abnormal Lab Results - Last 24 Hours (Table) 06/15/22 06/15/22 Range/Units 07:45 07:45 RBC 3.07 L (3.80-5.40) m/uL Hgb 9.9 L (11.4-16.0) gm/dL Hct 32.8 L (34.0-46.0) % MCV 107.0 H (80.0-100.0) fL MCHC 30.2 L (31.0-37.0) g/dL RDW 22.1 H (11.5-15.5) % Macrocytosis Marked A Carbon Dioxide 38 H (22-30) mmol/L Creatinine 0.40 L (0.52-1.04) mg/dL Calcium 8.3 L (8.4-10.2) mg/dL Microbiology - Last 24 Hours (Table) 06/14/22 06:53 Blood Culture - Preliminary Blood No Growth after 24 hours 06/12/22 10:01 Blood Culture Gram Stain - Final Blood Blood Culture - Preliminary Coagulase Negative Staph 06/13/22 10:45 Blood Culture - Preliminary Blood No Growth after 24 hours 06/12/22 09:50 Blood Culture - Preliminary Blood No Growth after 48 hours Assessment and Plan Assessment: Assessment Acute on chronic hypoxic respiratory failure secondary to increasing right lower lobe infiltrate vs. pleural effusion, there is also lung mass found. proBNP is not suggestive of acute heart failure, and patient with known history of dysphagia with recent antibiotic treatment for possible aspiration pneumonia, there is possibility patient has been aspirating at rehab. Procalcitonin level is 0.05. She is on empiric antibiotic coverage. She is currently on 15 L hi flow cannula. And BiPAP when necessary Gram positive blood culture, pending finalized cultures. Metabolic encephalopathy secondary to above Hypertensive urgency improved. 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 Follow-up pulmonary team recommendation Labs and medication were reviewed.. Continue same treatment. Continue with symptomatic treatment. Resume home medication. Monitor lytes and vitals. DVT and GI prophylaxis. Further recommendations as per clinical course of the patient DVT prophylaxis: Eliquis GI Prophylaxis: Ppi PT/OT: From ECF Prognosis is guarded I tried to talk to the but was unavailable
[2022-06-15] MEDS ORDERED: DEXTROSE 5%-0.45% NACL 1,000 ML IV SCH (16:30)
[2022-06-15] MEDS: OLANZapine 10 MG TAB PO SCH (21:49)
[2022-06-15] MEDS: DONEPEZIL 10 MG TAB PO SCH (21:49)
--- NOTE | 2022-06-16 00:06 | P.PN ---
Subjective Progress Note Date: 06/15/22 Principal diagnosis: Bacteremia and pneumonia Patient is 82 year female with multiple comorbidities presented to hospital with increasing shortness of breath that was going on for 2 days before presentation hospital admission chest x-ray with cardiomegaly and moderate r ight-sided effusion with atelectasis concerning for possible right-sided pneumonia subsequently blood culture was initially reported as Enterococcus faecalis subsequently changed to staph epidermidis. On today's evaluation that is 06/15/2022, the patient remains to be afebrile, the patient did have a stable respiratory status and is back on BiPAP, the patient denies having any chest pain no worsening cough or sputum production no abdominal pain no diarrhea Objective - Vital Signs Vital signs: Vital Signs Temp 97.4 F L 06/15/22 07:44 Pulse 97 06/15/22 08:43 Resp 24 06/15/22 07:44 BP 160/68 06/15/22 07:44 Pulse Ox 99 06/15/22 07:44 FiO2 60 06/15/22 08:38 Intake & Output 06/14/22 06/15/22 06/15/22 18:59 06:59 18:59 Intake Total 870 100 Output Total 150 250 Balance 720 -150 Intake: Intake, IV Titration 630 100 Amount Ampicillin-Sulbactam 3 gm 100 100 In Sodium Chloride 0.9% 100 ml @ 200 mls/hr IVPB Q6HR [facility] Rx#:[id number] DAPTOmycin 500 mg In 50 Sodium Chloride 0.9% 50 ml @ 100 mls/hr IVPB Q24H [facility] Rx#:[id number] Sodium Chloride 0.9% 1, 480 000 ml @ 100 mls/hr IV . Q10H [facility] Rx#:[id number] Oral 240 Output: Urine 150 250 Other: Voiding Method Diaper Diaper Diaper External Catheter External Catheter External Catheter - Exam GENERAL DESCRIPTION: An elderly female lying in bed in no distress RESPIRATORY SYSTEM: Unlabored breathing , decreased breath sounds at bases HEART: S1 S2 regular rate and rhythm , ABDOMEN: Soft , no tenderness EXTREMITIES: No edema feet - Labs CBC & Chem 7: 06/15/22 07:45 06/15/22 07:45 Labs: Abnormal Lab Results - Last 24 Hours (Table) 06/15/22 06/15/22 Range/Units 07:45 07:45 RBC 3.07 L (3.80-5.40) m/uL Hgb 9.9 L (11.4-16.0) gm/dL Hct 32.8 L (34.0-46.0) % MCV 107.0 H (80.0-100.0) fL MCHC 30.2 L (31.0-37.0) g/dL RDW 22.1 H (11.5-15.5) % Macrocytosis Marked A Carbon Dioxide 38 H (22-30) mmol/L Creatinine 0.40 L (0.52-1.04) mg/dL Calcium 8.3 L (8.4-10.2) mg/dL Microbiology - Last 24 Hours (Table) 06/14/22 06:53 Blood Culture - Preliminary Blood No Growth after 24 hours 06/12/22 10:01 Blood Culture Gram Stain - Final Blood Blood Culture - Preliminary Coagulase Negative Staph 06/13/22 10:45 Blood Culture - Preliminary Blood No Growth after 24 hours 06/12/22 09:50 Blood Culture - Preliminary Blood No Growth after 48 hours Assessment and Plan (1) Pneumonia Current Visit: Yes Status: Acute Code(s): J18.9 - PNEUMONIA, UNSPECIFIED ORGANISM SNOMED Code(s): 767629895 (2) Positive blood culture Current Visit: Yes Status: Acute Code(s): R78.81 - BACTEREMIA SNOMED Code(s): 955317811 Plan: 1patient with acute respiratory failure which is multifactorial possible fluid overload plus once complaining of pneumonia patient antibiotics was finished over to Zosyn 2-patient with positive blood culture with coagulase negative staph likely skin contamination no need for vancomycin
[2022-06-16] MEDS: SODIUM CHLORIDE 0.9% 1,000 ML IV SCH ×3 (00:34→13:29)
[2022-06-16] MEDS: PIPERACILLIN-TAZOBACTAM 3.375 GM in SODIUM CHLORIDE 0.9% 100 ML IVPB SCH ×3 (00:40→15:36)
[2022-06-16] MEDS: CARBIDOPA-LEVODOPA ER 25-100MG 1 EACH TABLET.ER PO SCH ×3 (06:41→13:29)
[2022-06-16] MEDS: PANTOPRAZOLE 40 MG TABLET PO SCH (06:42)
[2022-06-16] MEDS: carvediloL 3.125 MG TAB PO SCH ×2 (06:42→13:29)
[2022-06-16] MEDS: MEMANTINE 10 MG TAB PO SCH ×2 (07:11→19:59)
[2022-06-16] MEDS: APIXABAN 5 MG TAB PO SCH ×2 (07:11→19:59)
[2022-06-16] MEDS: MULTIVITAMINS, THERA 1 EACH TAB PO SCH (07:11)
[2022-06-16 08:05] LABS: Anisocytosis Moderate; Basophils % (A) 1 %; Eosinophils # (A) 0.1 k/uL (0-0.7); Eosinophils % (A) 3 %; HCT 30.3 % (34.0-46.0); HGB 9.1 gm/dL (11.4-16.0); Hypochromasia Marked; Lymphocytes # (A) 0.7 k/uL (1.0-4.8); Lymphocytes % (A) 19 %; MCH 32.4 pg (25.0-35.0); MCHC 30.2 g/dL (31.0-37.0); MCV 107.2 fL (80.0-100.0); Macrocytosis Marked; Mean Platelet Volume 9.9; Monocytes # (A) 0.2 k/uL (0-1.0); Monocytes % (A) 6 %; Neutrophils # (A) 2.7 k/uL (1.3-7.7); Neutrophils % (A) 69 %; Platelet Count 248 k/uL (150-450); RBC 2.82 m/uL (3.80-5.40); RDW 22.4 % (11.5-15.5); WBC 3.9 k/uL (3.8-10.6)
[2022-06-16 08:11] LABS: ALT 16 U/L (4-34); AST 36 U/L (14-36); African American GFR (CKD) >90 (>60 ml/min/1.73 sqM); Albumin 3.3 g/dL (3.5-5.0); Alkaline Phosphatase 148 U/L (38-126); Anion Gap 5 mmol/L; Bilirubin, Delta 0.3 mg/dL (0.0-0.2); Bilirubin,Unconjugated 0.5 mg/dL (0.0-1.1); Blood Urea Nitrogen 14 mg/dL (7-17); C Reactive Protein 1.6 mg/dL (<1.0); Calcium 8.4 mg/dL (8.4-10.2); Carbon Dioxide 38 mmol/L (22-30); Chloride 104 mmol/L (98-107); Glucose 84 mg/dL (74-99); Magnesium 2.2 mg/dL (1.6-2.3); Non-African American GFR(CKD) >90 (>60 ml/min/1.73 sqM); Potassium 3.8 mmol/L (3.5-5.1); Sodium 147 mmol/L (137-145); Total Bilirubin 0.8 mg/dL (0.2-1.3); Total Protein 6.8 g/dL (6.3-8.2)
[2022-06-16] MEDS: IPRATROPIUM-ALBUTEROL 3 ML NEB INHALATION SCH ×4 (08:23→20:42)
[2022-06-16] MEDS ORDERED: MORPHINE SULFATE 2 MG/ML SYRINGE IV PRN ×2 (10:09→14:59)
[2022-06-16] MEDS ORDERED: LORazepam 2 MG/ML INJ IV PRN (10:09)
[2022-06-16] MEDS ORDERED: ACETAMINOPHEN SUPPOSITORY 650 MG SUPP RECTAL PRN (10:09)
[2022-06-16] MEDS ORDERED: SCOPOLAMINE 1 MG/72 HR PATCH TRANSDERM SCH (10:15)
[2022-06-16] MEDS ORDERED: LORazepam 1 MG/0.5 ML VIAL IV PRN ×2 (10:45→22:43)
--- NOTE | 2022-06-16 10:50 | P.PN ---
Subjective Progress Note Date: 06/16/22 Principal diagnosis: Hypoxemic respiratory failure. Pulmonary/critical care consultation dated 06/12/2022. 82-year-old female, seen in the emergency department. The patient was brought to the ER, by EMS, from one of the local nursing homes. The patient does have severe dementia. She was brought in because of respiratory distress. The patient herself was not able to give any history. The patient was placed on BiPAP. In addition, the patient was placed on nitroglycerin because of elevated blood pressure. The patient was seen by me in the emergency department, trauma 1 room. I did speak to the ER physician. The patient was on BiPAP at 10/5 and 70%. Unfortunately, the patient was playing off the mask. The patient was also receiving nitroglycerin at 20 mcg/m. A blood gas showed a pO2 of 88, pCO2 59, with a normal pH is 7.4. The patient was quite agitated. She apparently has a history of dementia, deep venous thrombosis, hypertension, factor V deficiency, and Parkinson's disease. White count 5.5, hemoglobin 10.8, hematocrit 34.6, and platelet count 327,000. The d-dimer was 1.10. Sodium 135, potassium 5.5, chloride 97, CO2 35, BUN 17, creatinine 0.43. Glucose 108. Calcium 8. AST 47. Chest x-ray showed cardiomegaly, with a right-sided pleural effusion. There was also right basilar atelectasis. CT angiogram was negative for pulmonary embolism, and did show mass/infiltrate/atelectasis, right base. Progress note dated 06/13/2022. The patient was seen in the emergency department yesterday, in consultation. Today, she is seen in room 353, with her sitting next to her. The patient was made a DO NOT RESUSCITATE patient, which I think is very appropriate. The patient does have severe dementia, and was evaluated in the ER, for respiratory distress and failure. I did speak to the ER physician yesterday about her case. Currently she is on 15 L high flow nasal oxygen, with saturations of 96%. Her respiratory rate is in the mid 20s. White count 4.4, hemoglobin 10.2, hematocrit 34, and platelet count 289,000. Sodium 141, po tassium 4.4, chlorides 101, CO2 35, BUN 14, creatinine 0.49. Blood cultures are showing evidence of gram-positive cocci in clusters. The patient remains on Zosyn and vancomycin. CT angiogram failed to reveal any central or large pulmonary emboli. There is increasing consolidation at the right lung base, reflecting either atelectasis, infiltrate, or loculated pleural effusion. The does confirm the DO NOT RESUSCITATE status. Progress note dated 06/14/2022. The patient is again seen in room 353. She remains on 15 L high flow nasal cannula. She appears to be much more awake and alert today. She also appears to have less respiratory difficulty distress. The oxygen can likely be weaned down. White count 4, hemoglobin 9.4, hematocrit 31.3, platelet count 302,000. Sodium 142, potassium 4.1, chlorides 103, CO2 38, BUN 16, creatinine 0.51. Urine appears to be positive for a urinary tract infection. Blood cultures are positive for enterococcus faecalis. She is no longer on vancomycin. She is on Unasyn. Progress note dated 06/15/2022. The patient is again seen in room 353. She remains on high flow nasal O2 at 15 L. The patient is doing very poorly. The patient apparently has been aspirating as well. White count 4.4, hemoglobin 9.9, hematocrit 32.8, and platelet count normal. Sodium 145, potassium 4.2, chlorides 106, CO2 38, BUN 14, creatinine 0.40. Blood cultures were initially reported as positive for Enterococcus faecalis, but had been changed to staph epidermidis. Infectious diseases is seeing this patient. Chest x-ray shows complete opacification of the right hemithorax, likely secondary to aspiration and mucous plugging. I have recommended chest physiotherapy, either manually or mechanically, by respiratory therapy. Progress note dated 06/16/2022. The patient is again seen today in room 353. Currently, the patient's on BiPAP with settings of 10/5, and 100%. Unfortunately, the patient's having significant respiratory difficulty distress. I try to have a conversation with the patient's , he became very tearful and sad. He's not sure what to do. The god-daughter will be called. One of the nurses is with the patient's in the room. The patient's respiratory rate is in the high 30s. White count is 3.9, hemoglobin 9.1, hematocrit 33, and platelet count 248,000. Sodium 147, potassium 3.8, chlorides 104, CO2 38, BUN 14, creatinine 0.46. Objective - Vital Signs Vital signs: Vital Signs Temp 98.3 F 06/16/22 07:46 Pulse 85 06/16/22 08:34 Resp 16 06/16/22 07:46 BP 132/77 06/16/22 07:46 Pulse Ox 98 06/16/22 07:46 FiO2 100 06/16/22 08:21 Intake & Output 06/15/22 06/16/22 06/16/22 18:59 06:59 18:59 Intake Total 100 Output Total 450 Balance -350 Intake: Intake, IV Titration 100 Amount Ampicillin-Sulbactam 3 gm 100 In Sodium Chloride 0.9% 100 ml @ 200 mls/hr IVPB Q6HR [facility] Rx#:[id number] Output: Urine 450 Other: Voiding Method Diaper Diaper Diaper External Catheter External Catheter External Catheter # Voids 0 # Bowel Movements 1 - Exam Severe respiratory distress, currently on BiPAP at 100%. The patient is poorly responsive. HEENT examination is grossly unremarkable. Neck supple. Full range of motion. No adenopathy thyromegaly or neck vein distention. Cardiovascular examination reveals regular rhythm rate. S1-S2 normal. No S3 or S4. No discernible murmur noted. Heart sounds are distant. Heart rate 103 beats Lungs reveal coarse bilateral breath sounds. Crackles noted. Breath sounds diminished throughout. No wheezes. Limited or no breath sounds noted in the right chest. Abdomen soft bowel sounds are heard. No masses or tenderness. Extremities reveal chronic venous stasis changes. Minimal edema. No cyanosis or clubbing. Skin is without rash or lesion. Neurologic examination reveals the patient to be much more lethargic and somnolent. - Labs CBC & Chem 7: 06/16/22 07:15 06/16/22 07:15 Labs: Abnormal Lab Results - Last 24 Hours (Table) 06/16/22 06/16/22 Range/Units 07:15 07:15 RBC 2.82 L (3.80-5.40) m/uL Hgb 9.1 L (11.4-16.0) gm/dL Hct 30.3 L (34.0-46.0) % MCV 107.2 H (80.0-100.0) fL MCHC 30.2 L (31.0-37.0) g/dL RDW 22.4 H (11.5-15.5) % Lymphocytes # 0.7 L (1.0-4.8) k/uL Macrocytosis Marked A Sodium 147 H (137-145) mmol/L Carbon Dioxide 38 H (22-30) mmol/L Creatinine 0.46 L (0.52-1.04) mg/dL Delta Bilirubin 0.3 H (0.0-0.2) mg/dL Alkaline Phosphatase 148 H (38-126) U/L C-Reactive Protein 1.6 H (<1.0) mg/dL Albumin 3.3 L (3.5-5.0) g/dL Microbiology - Last 24 Hours (Table) 06/14/22 06:53 Blood Culture - Preliminary Blood No Growth after 48 hours 06/13/22 10:45 Blood Culture - Preliminary Blood No Growth after 48 hours 06/12/22 09:50 Blood Culture - Preliminary Blood No Growth after 72 hours Assessment and Plan Assessment: Acute on chronic hypoxemic and hypercapnic respiratory failure, likely secondary to either infiltrate, effusion, or mass, right lower lobe, now with complete opacification of the right lung, likely secondary to aspiration/mucous plugs. Blood cultures positive for staph epidermidis, and patient remains on Unasyn. Possible aspiration pneumonia. History of deep venous thrombosis. History of hypertension. History of Parkinson's disease. Advanced dementia. History of factor V deficiency. Plan: Plan dated 06/12/2022. Apparently, the ER physician was able to contact one of the family members, and the patient is now a DO NOT RESUSCITATE. This was very appropriate given her severe dementia, her age, and her medical problems. The patient can be admitted to the general medical floor. Labs, x-rays, and medications are reviewed. The patient was started on antibiotics per the primary service. This included both Zosyn and azithromycin. Prognosis is certainly guarded. We will continue to follow make recommendations were appropriate. Plan dated 06/13/2022. The patient was made DO NOT RESUSCITATE. This is appropriate. Her confirms the DO NOT RESUSCITATE order. Computed tomography scan of the chest did not reveal a pulmonary embolism. There is either mass, fluid, infiltrate, or atelectasis, or a combination of those, at the right lung base. She remains on vancomycin and Zosyn. Blood cultures show some gram-positive cocci in clusters. Bacteria have yet to be identified. We will continue to follow. Prognosis is guarded. Additional recommendations and suggestions are forthcoming. Plan dated 06/14/2022. The patient appears much more awake and alert today. She does remain on 15 L high flow nasal cannula. Her antibiotics have been changed to Unasyn, which does cover the enterococcus in the bloodstream. Additional recommendations and suggestions are forthcoming. Labs, x-rays, and medications are all reviewed. We will continue to follow make recommendations where appropriate. Plan dated 06/15/2022. The patient appears to be doing much worse. She has complete opacification of the right chest. She is not a candidate for bronchoscopy. I've asked respiratory to consider chest physiotherapy, either manually or mechanically. She remains on Unasyn. Cultures were initially reported as enterococcus faecalis, but is now reported as Staphylococcus epidermidis. Infectious disease doctor is on the case. Labs, x-rays, medications are reviewed. Prognosis is guarded. Plan dated 06/16/2022. The patient's respiratory status is significantly declined. She is on 100%. She struggling to breathe. The patient's respiratory rate is in the mid to high 30s. With the patient's , about CODE STATUS, palliative care/comfort care. He is unable to make a decision at this time. The patient's overall prognosis is very poor. Yesterday's chest x-ray showed complete opacification of the right lung. Additional recommendations and suggestions are forthcoming. Prognosis is poor. Time with Patient: Less than 30
--- NOTE | 2022-06-16 15:06 | P.PN ---
Subjective This is an 82 year old female with medical history of dementia, questionable history of atrial fibrillation, pneumonia, DVT/PE, hypertension, parkinsons who presents to the hospital from rehab for acute respiratory distress. Patient was also found to be hypertensive and required nitroglycerin gtt, she was placed on bipap with fio2 of 70%. Patient was discharged to rehab 2 days ago following a hospital stay from 05/29/22 to 06/10/22 which she was found to have new onset right sided pleural effusion that was felt to be mostly consistent with pn eumonia/atelectasis most like an aspiration pneumonia. She required oxygen via nasal cannula during that hospital stay, she was discharged to rehab on oxygen at 2L nasal cannula. She was also treated for dysphagia and was discharged on pureed nectar thick diet. Patient was treated inpatient with IV zosyn and was discharged on a course of oral augmentin. She was also found to have multilevel compression deformities with surgical fixation of L2-L5 and wedge deformities of T12 and T11 of indeterminate age. She is complaining of back discomfort during exam today. Prior to previous hospitalization patient was living at home with , she is a poor historian. History taken from at the bedside he reports that she was mostly chair bound at home and he did not realize how sick she was. He does state that she had significant lower extremity edema before her previous admission which currently is improved. Patient is admitted to the hospital for CTA findings of infiltrate and atelectasis right lung base and possible lung mass. Consult has been placed to pulmonary services. She has been started on empiric antibiotic coverage with IV azithromycin and IV zosyn. We will reconsult speech therapy for re-evaluation. Patients code status is now do not resuscitate and her prognosis is guarded given multiple medical comorbidities and medical debility. Labs on admission showing WBC 5.5, hgb 10.8, platelt count 327. Blood gases are completed showing PCO2 59, HCO3 37, total CO2 38 D-Dimer 1.10, Procalcitonin 0.05 Sodium 135, potassium 5.5, chloride 97, CO2 35, BUN 17, creatinine 0.43, glucose 108, AST 47. Troponin negative, BNP 438 which is down from previous admission Covid, influenza A/B negative Chest CTA completed showing increasing consolidation right lung may reflect ate lectasis and or infiltrate with loculated pleural effusion. Underlying mass not excluded. There is contrast bolus timing difficulties however no obvious evidence for pulmonary embolism. Patient is afebrile, heart rate tachycardia in the low 100s, blood pressure 151/92, 93% on Bipap 10/5 with 60% fio2. 06/13/2022 Patient is evaluated on stepdown unit today with at the bedside. She is currently on 15 L hi flow cannula with saturations of 96 to 100%. She has remained afebrile, heart rate has come down into the 80s, blood pressure 103/55. She continues on IV hydration with normal saline, IV zosyn, and IV vancomycin has been started started today for gram positive blood cultures. Repeat cultures taken today and infectious disease has been consulted. Otherwise her main complaint is back pain which is chronic in nature she is taking tramadol as needed. Speech therapy consultation is pending, patient is quite short of breath even on 15 L hi flow cannula, she probably won't tolerate evaluation today. She is a do not resuscitate. She is being followed by pulmonary. Labs are reviewed today showing sodium 141, potassium 4.4, CO2 35, Bun 14, creatinine 0.49, glucose 100. 06/14/2022 This is a pleasant 82 years old female who presents with right lower lobe pneumonia suspicious for aspiration pneumonia. Blood culture was positive for coagulase negative staph, most likely contamina tion Patient continue on Unasyn with ID team recommendation. Also she is on gentle hydration and on 15 L oxygen via nasal cannula 06/15/2022 Patient's respiratory status is worse today, she was still on 15 L per minute of oxygen in the morning however through the day she needed BiPAP support with FiO2 of 60%. Repeat chest x-ray showed complete opacification of the right lung. Pulmonary team on the case, patient is not a candidate for bronchoscopy, follow- up the recommendation. Patient is an table to tolerate diet and she is made nothing by mouth. Therefore we placed the patient on gentle hydration of D5 half-normal saline at 40 mL/h. Most likely patient has advanced dementia and Parkinson disease, patient already on sinemet 25/100 mg tid 06/16/2022 Patient got worse since yesterday with collapse of her right lung. Today she is comparable to yesterday are slightly worse. She still on 15 L/m of oxygen per minute. Also requiring BiPAP frequently. Patient cannot swallow. However she somewhat awake but confused. She follows commands. at bedside. I discussed the case with her in the morning, informed him about advanced neurological disease which might affect her ability to swallow. I told him about the change in her respiratory status but antibiotics was change also yesterday into Zosyn. And even we discussed plan she might need PEG tube in the future if she survives. Later patient talked to pulmonary team and was considering end-of-life care measures like hospice on comfort care measures as per bedside staff. I went back to the patient was in the room with the patient, he did not want to darken the front of the patient. Patient was devastated looking and crying, I tried to ask him about his wishes for the patient treatment and he got confused, also he has hearing difficulty, and apparently he could not make a decision about patient care currently. I discussed with bed side nurse, we will hold on any hospice consult for now and he'll try to discussed with the patient and/or family in the morning. Patient currently is no CODE STATUS. Left showing also mild hypernatremia and IV fluid change from D5 half-normal jada ine into D5 W at 40 mL per hour 24 hours. We'll monitor sodium level in the morning. Hypernatremia may contribute to confusion. Patient with metabolic encephalopathy and she cannot swallow pills. Patient is not taking her Parkinson pills sinemet which make her more rigid with a tiny easier and swallowing difficulty. Hopefully with further treatment and correction of hypernatremia she would be able to swallow her pills. Prognosis remains guarded Review of systems: Patient could not provide information Active Medications Generic Name Dose Route Start Last Admin Trade Name Mimi PRN Reason Stop Dose Admin Acetaminophen 650 mg 06/12/22 14:30 Acetaminophen Tab 325 Mg Tab PO Q6HR PRN Fever and/ or Pain Acetaminophen 650 mg 06/16/22 10:09 Acetaminophen Suppository 650 Mg Supp RECTAL Q4HR PRN Fever and/or Mild Pain Albuterol Sulfate 2.5 mg 06/12/22 07:31 Albuterol Nebulized 2.5 Mg/3 Ml INHALATION RT-Q4H PRN Shortness Of Breath Or Wheezing Albuterol/Ipratropium 3 ml 06/12/22 08:00 06/16/22 12:11 Ipratropium-Albuterol 3 Ml Neb INHALATION Not Given RT-QID [facility]LL Alprazolam 0.25 mg 06/15/22 12:27 06/15/22 12:51 Alprazolam 0.25 Mg Tab PO 0.25 mg BID PRN Administration Anxiety Apixaban 5 mg 06/12/22 21:00 06/16/22 07:11 Apixaban 5 Mg Tab PO Not Given BID MITCHELL Protocol Carbidopa/Levodopa 1 each 06/12/22 19:00 06/16/22 13:29 Carbidopa-Levodopa Er 25-100mg 1 Each Tablet.Er PO Not Given TID@0700,1300,1900 [facility] Carvedilol 3.125 mg 06/12/22 17:30 06/16/22 13:29 Carvedilol 3.125 Mg Tab PO Not Given BID-W/MEALS MITCHELL Donepezil HCl 10 mg 06/12/22 21:00 06/15/22 21:49 Donepezil 10 Mg Tab PO Not Given HS [facility] Piperacillin Sod/Tazobactam 100 mls @ 25 mls/hr 06/16/22 00:15 06/16/22 07:55 Sod 3.375 gm/ Sodium Chloride IVPB 25 mls/hr Q8HR [facility] Administration Protocol Dextrose/Water 1,000 mls @ 40 mls/hr 06/16/22 15:15 Dextrose 5%-Water Iv Soln IV 06/17/22 15:16 .Q24H [facility]LL Memantine 10 mg 06/12/22 21:00 06/16/22 07:11 Memantine 10 Mg Tab PO Not Given BID [facility] Miscellaneous Information 1 each 06/12/22 07:31 Pneumonia Protocol Utilized 1 Each Misc PO ONCE PRN Per Protocol Morphine Sulfate 1 mg 06/16/22 14:59 Morphine Sulfate 2 Mg/Ml Syringe IV Q8H PRN Breakthrough Pain Multivitamins 1 each 06/13/22 09:00 06/16/22 07:11 Multivitamins, Thera 1 Each Tab PO Not Given DAILY [facility] Olanzapine 10 mg 06/12/22 21:00 06/15/22 21:49 Olanzapine 10 Mg Tab PO Not Given HS [facility] Pantoprazole Sodium 40 mg 06/12/22 14:45 06/16/22 06:42 Pantoprazole 40 Mg Tablet PO Not Given AC-BRKFST [facility] Ropinirole HCl 2 mg 06/12/22 19:00 06/16/22 13:29 Ropinirole Hcl 1 Mg Tab PO Not Given TID@0700,1300,1900 [facility] Tramadol HCl 25 mg 06/12/22 14:30 06/13/22 12:43 Tramadol 50 Mg Tab PO 25 mg Q8H PRN Administration Pain Objective - Vital Signs Vital signs: Vital Signs Temp 98.4 F 06/16/22 14:45 Pulse 101 H 06/16/22 14:45 Resp 28 H 06/16/22 14:45 BP 139/67 06/16/22 14:45 Pulse Ox 92 L 06/16/22 14:45 FiO2 100 06/16/22 08:21 Intake & Output 06/15/22 06/16/22 06/16/22 18:59 06:59 18:59 Intake Total 100 Output Total 450 50 Balance -350 -50 Intake: Intake, IV Titration 100 Amount Ampicillin-Sulbactam 3 gm 100 In Sodium Chloride 0.9% 100 ml @ 200 mls/hr IVPB Q6HR [facility] Rx#:[id number] Output: Urine 450 50 Other: Voiding Method Diaper Diaper Diaper External Catheter External Catheter External Catheter # Voids 0 # Bowel Movements 1 - Exam -GENERAL: The patient is alert and awake, more confused , in mild to moderate acute respiratory distress. Obese HEENT: Pupils are round and equally reacting to light. EOMI. No scleral icterus. No conjunctival pallor. Normocephalic, atraumatic. No pharyngeal erythema. No thyromegaly. CARDIOVASCULAR: S1 and S2 present. No murmurs, rubs, or gallops. -PULMONARY: no wheezing, left side crepitation , decreased breath sounds on the right side ABDOMEN: Soft, nontender, nondistended, normoactive bowel sounds. No palpable organomegaly. MUSCULOSKELETAL: No joint swelling or deformity. EXTREMITIES: No cyanosis, clubbing, or pedal edema. NEUROLOGICAL: Gross neurological examination did not reveal any focal deficits. SKIN: No rashes. no petechiae. - Labs CBC & Chem 7: 06/16/22 07:15 06/16/22 07:15 Labs: Abnormal Lab Results - Last 24 Hours (Table) 06/16/22 06/16/22 Range/Units 07:15 07:15 RBC 2.82 L (3.80-5.40) m/uL Hgb 9.1 L (11.4-16.0) gm/dL Hct 30.3 L (34.0-46.0) % MCV 107.2 H (80.0-100.0) fL MCHC 30.2 L (31.0-37.0) g/dL RDW 22.4 H (11.5-15.5) % Lymphocytes # 0.7 L (1.0-4.8) k/uL Macrocytosis Marked A Sodium 147 H (137-145) mmol/L Carbon Dioxide 38 H (22-30) mmol/L Creatinine 0.46 L (0.52-1.04) mg/dL Delta Bilirubin 0.3 H (0.0-0.2) mg/dL Alkaline Phosphatase 148 H (38-126) U/L C-Reactive Protein 1.6 H (<1.0) mg/dL Albumin 3.3 L (3.5-5.0) g/dL Microbiology - Last 24 Hours (Table) 06/13/22 10:45 Blood Culture - Preliminary Blood No Growth after 72 hours 06/12/22 09:50 Blood Culture - Preliminary Blood No Growth after 96 hours 06/14/22 06:53 Blood Culture - Preliminary Blood No Growth after 48 hours Assessment and Plan Assessment: Assessment Acute on chronic hypoxic respiratory failure secondary to increasing right lower lobe infiltrate vs. pleural effusion, there is also lung mass found. proBNP is not suggestive of acute heart failure, and patient with known history of dysphagia with recent antibiotic treatment for possible aspiration pneumonia, there is possibility patient has been aspirating at rehab. Procalcitonin level is 0.05. She is on empiric antibiotic coverage. She is currently on 15 L hi flow cannula. And BiPAP when necessary Gram positive blood culture, pending finalized cultures. Mostly contamination Hypernatremia Metabolic encephalopathy secondary to above Hypertensive urgency improved. 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 labs and medication were reviewed.. Continue same treatment. Continue with sym ptomatic treatment. Resume home medication. Monitor lytes and vitals. DVT and GI prophylaxis. Further recommendations as per clinical course of the patient DVT prophylaxis: Eliquis GI Prophylaxis: Ppi PT/OT: From [facility] Prognosis is guarded
[2022-06-16] MEDS ORDERED: DEXTROSE 5% IN WATER 1,000 ML IV SCH (15:15)
[2022-06-16] MEDS ORDERED: DEXTROSE 5%-0.2% NACL 1,000 ML IV SCH (16:00)
[2022-06-16] MEDS: DONEPEZIL 10 MG TAB PO SCH (19:59)
[2022-06-16] MEDS: OLANZapine 10 MG TAB PO SCH (19:59)
[2022-06-16] MEDS ORDERED: SCOPOLAMINE 1 MG/72 HR PATCH TRANSDERM STA (20:41)
[2022-06-16] MEDS ORDERED: MORPHINE SULFATE 2 MG/ML SYRINGE IVP PRN (20:43)
[2022-06-17] MEDS: PIPERACILLIN-TAZOBACTAM 3.375 GM in SODIUM CHLORIDE 0.9% 100 ML IVPB SCH ×2 (00:05→08:45)
[2022-06-17] MEDS: MORPHINE SULFATE 2 MG/ML SYRINGE IVP PRN ×2 (02:15→08:44)
[2022-06-17] MEDS: CARBIDOPA-LEVODOPA ER 25-100MG 1 EACH TABLET.ER PO SCH (05:30)
[2022-06-17] MEDS: PANTOPRAZOLE 40 MG TABLET PO SCH (05:31)
[2022-06-17] MEDS: carvediloL 3.125 MG TAB PO SCH (05:31)
[2022-06-17] MEDS: IPRATROPIUM-ALBUTEROL 3 ML NEB INHALATION SCH ×2 (07:12→11:07)
[2022-06-17] MEDS: APIXABAN 5 MG TAB PO SCH (07:53)
[2022-06-17] MEDS: MULTIVITAMINS, THERA 1 EACH TAB PO SCH (07:53)
[2022-06-17] MEDS: MEMANTINE 10 MG TAB PO SCH (07:53)
[2022-06-17 08:59] VITALS: BP 137/75; PULSE 98; RESP 40; TEMP 102.5
[2022-06-17] MEDS ORDERED: MORPHINE SULFATE 2 MG/ML SYRINGE IVP PRN (10:33)
[2022-06-17] MEDS ORDERED: LORazepam 1 MG/0.5 ML VIAL IV PRN (10:33)
--- NOTE | 2022-06-17 10:33 | P.PN ---
Subjective Progress Note Date: 06/16/22 Principal diagnosis: Bacteremia and pneumonia Patient is 82 year female with multiple comorbidities presented to hospital with increasing shortness of breath that was going on for 2 days before presentation hospital admission chest x-ray with cardiomegaly and moderate r ight-sided effusion with atelectasis concerning for possible right-sided pneumonia subsequently blood culture was initially reported as Enterococcus faecalis subsequently changed to staph epidermidis. On today's evaluation that is 06/16/2022, the patient continues to be afebrile, the patient is off the BiPAP this afternoon, the patient denies having any chest pain , denies any worsening cough or sputum production no nausea no vomiting no abdominal pain no diarrhea Objective - Vital Signs Vital signs: Vital Signs Temp 98.3 F 06/16/22 07:46 Pulse 98 06/16/22 10:48 Resp 18 06/16/22 10:48 BP 132/77 06/16/22 07:46 Pulse Ox 97 06/16/22 12:08 FiO2 100 06/16/22 08:21 Intake & Output 06/15/22 06/16/22 06/16/22 18:59 06:59 18:59 Intake Total 100 Output Total 450 Balance -350 Intake: Intake, IV Titration 100 Amount Ampicillin-Sulbactam 3 gm 100 In Sodium Chloride 0.9% 100 ml @ 200 mls/hr IVPB Q6HR [facility] Rx#:[id number] Output: Urine 450 Other: Voiding Method Diaper Diaper Diaper External Catheter External Catheter External Catheter # Voids 0 # Bowel Movements 1 - Exam GENERAL DESCRIPTION: An elderly female lying in bed in no distress RESPIRATORY SYSTEM: Unlabored breathing , decreased breath sounds at bases HEART: S1 S2 regular rate and rhythm , ABDOMEN: Soft , no tenderness EXTREMITIES: No edema feet - Labs CBC & Chem 7: 06/16/22 07:15 06/16/22 07:15 Labs: Abnormal Lab Results - Last 24 Hours (Table) 06/16/22 06/16/22 Range/Units 07:15 07:15 RBC 2.82 L (3.80-5.40) m/uL Hgb 9.1 L (11.4-16.0) gm/dL Hct 30.3 L (34.0-46.0) % MCV 107.2 H (80.0-100.0) fL MCHC 30.2 L (31.0-37.0) g/dL RDW 22.4 H (11.5-15.5) % Lymphocytes # 0.7 L (1.0-4.8) k/uL Macrocytosis Marked A Sodium 147 H (137-145) mmol/L Carbon Dioxide 38 H (22-30) mmol/L Creatinine 0.46 L (0.52-1.04) mg/dL Delta Bilirubin 0.3 H (0.0-0.2) mg/dL Alkaline Phosphatase 148 H (38-126) U/L C-Reactive Protein 1.6 H (<1.0) mg/dL Albumin 3.3 L (3.5-5.0) g/dL Microbiology - Last 24 Hours (Table) 06/13/22 10:45 Blood Culture - Preliminary Blood No Growth after 72 hours 06/12/22 09:50 Blood Culture - Preliminary Blood No Growth after 96 hours 06/14/22 06:53 Blood Culture - Preliminary Blood No Growth after 48 hours Assessment and Plan (1) Pneumonia Current Visit: Yes Status: Acute Code(s): J18.9 - PNEUMONIA, UNSPECIFIED ORGANISM SNOMED Code(s): 617923422 (2) Positive blood culture Current Visit: Yes Status: Acute Code(s): R78.81 - BACTEREMIA SNOMED Code(s): 104590420 Plan: 1patient with positive blood culture with coagulase negative staph likely skin contamination no need for vancomycin, repeat blood cultures have been negative so far 2patient with acute respiratory failure which is multifactorial possible fluid overload plus minus component of pneumonia patient to continue with Zosyn, try to obtain sputum and monitor clinical course closely Time with Patient: Less than 30
--- NOTE | 2022-06-17 14:46 | P.DS ---
Providers Date of admission: 06/12/22 07:34 Attending physician: Thomas Venegas Consults: 06/12/22 07:31 Consult Physician Routine Consulting Provider: Brice Henderson Consult Reason/Comments: Dyspnea/Pneumonia Do you want consulting provider notified?: Already Contacted 06/13/22 05:42 Consult Physician Routine Consulting Provider: Rehana Olivares Consult Reason/Comments: positive blood cultures Do you want consulting provider notified?: Yes, Notify in am Primary care physician: Zach Salcedo Hospital Course: Diagnosis Acute on chronic hypoxic respiratory failure secondary to increasing right lower lobe infiltrate vs. pleural effusion, there is also lung mass found. proBNP is not suggestive of acute heart failure, and patient with known history of dysphagia with recent antibiotic treatment for possible aspiration pneumonia, there is possibility patient has been aspirating at rehab. Procalcitonin level is 0.05. She is on empiric antibiotic coverage. She is currently on 15 L hi flow cannula. And BiPAP when necessary Gram positive blood culture, pending finalized cultures. Mostly contamination Hypernatremia Metabolic encephalopathy secondary to above Hypertensive urgency improved. 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 Hospital Course This is an 82 year pedal presents with history of dementia, pneumonia, DVT PE, hypertension, Parkinson's, factor V deficiency. Patient was brought over from rehab by EMS for acute respiratory distress and was also hypertensive urgency. She was placed on BiPAP and CT angiography was completed showing increasing consolidation in the right lung which may reflect atelectasis and/or infiltrate with a loculated pleural effusion. D-Dimer elevated there was no pulmonary embolism, pro-calcitonin 0.05, blood culture was also positive for coagulase- negative staph and she was started on IV antibiotics with repeat blood cultures negative so far. She was admitted with consults placed to pulmonary and infectious disease services. Patient was also seen in consult by speech therapy who does recommend nothing by mouth she is silently aspirating and they did recommend a modified barium swallow when she is more stable medically. Patient continues on 100% BiPAP over the weekend and has had significant respiratory distress she is to continue to use accessory muscles to breathe. Repeat chest x-ray shows complete opacification right hemithorax. Most recent labs are showing a hemoglobin of 9.1, sodium 147 today, potassium 3.8, BUN 14, creatinine 0.46, magnesium 2.2. Alk phos is elevated at 148, CRP is 2.0 and 1.6. Pro- calcitonin has remained negative at 0.07 and 0.06. Urinalysis completed showing cloudy urine with proteinuria, positive ketones, large blood, moderate leukocyte esterase and rare bacteria. Prognosis is poor, she is a DO NOT RESUSCITATE also patient has been do not want PEG tube. After discussion with he has d ecided on comfort care measures for this patient does not want her to be in distress any longer. Hospice will be consulted. 06/17/2022 Patient is evaluated resting in bed. She is lethargic she does respond yes or no questions she states that she is not in pain. She is receiving IV morphine 2 mg every 4 hours and IV Ativan. She was tachypneic with no lungs sounds heard on right base. Her pulse oximeter at bedside is 83% and she is on Nasal cannula 15 L hi flow and has been alternating between 100% BiPAP without much improvement. Pulmonary and ID have been been following. There is possibly mucous plug and patient continues to aspirate. There are no plans for bronchoscopy. Labs and blood cultures ordered for today and refused any further aggressive measures. He does not want lab draws and states that he would like her to be comfortable. He is tearful at the bedside. More than 30 minutes were spent with discussing prognosis and current plan of care. He would like her to be more comfortable and hospice has been consulted. Patient will be opened with hospice for inpatient. The impression and plan of care has been dictated by Lillian Pradhan Nurse Practitioner as directed. Dr. Babar MD I have performed a history and physical examination and medical decision making of this patient, discussed the same with the dictator, and agree with the di ctators assessment and plan as written, documented as a scribe. Based on total visit time, I have performed more than 50% of this visit. Patient Condition at Discharge: Poor Plan - Discharge Summary Discharge Rx Participant: No New Discharge Prescriptions: No Action rOPINIRole HCL [Requip] 2 mg PO TID@0700,1300,1900 OLANZapine [Olanzapine] 10 mg PO HS Donepezil [Aricept] 10 mg PO HS Memantine [Namenda] 10 mg PO BID carvediloL [Coreg] 3.125 mg PO BID Furosemide [Lasix] 20 mg PO DIRECTED PRN PRN Reason: Edema Citalopram Hydrobromide [CeleXA] 10 mg PO DAILY Ipratropium-Albuterol Nebulize [Duoneb 0.5 mg-3 mg/3 ml Soln] 3 ml INHALATION RT-Q6H PRN PRN Reason: Shortness Of Breath Apixaban [Eliquis] 5 mg PO BID Multivitamins, Thera [Multivitamin (formulary)] 1 tab PO DAILY Carbidopa/Levodopa [Carbidopa-Levo ER 25-100 Tab] 1 tab PO TID@0700,1300,1900 Amoxic-Pot Clav 875-125Mg [Augmentin 875-125] 1 tab PO Q12HR traMADol HCl [Ultram] 50 mg PO Q8H PRN PRN Reason: Pain Acetaminophen Tab [Tylenol] 650 mg PO Q6HR PRN PRN Reason: Fever And/ Or Pain Discharge Medication List Donepezil [Aricept] 10 mg PO HS 12/26/16 [History] OLANZapine [Olanzapine] 10 mg PO HS 12/26/16 [History] rOPINIRole HCL [Requip] 2 mg PO TID@0700,1300,1900 12/26/16 [History] Citalopram Hydrobromide [CeleXA] 10 mg PO DAILY 10/24/20 [History] Furosemide [Lasix] 20 mg PO DIRECTED PRN 10/24/20 [History] Memantine [Namenda] 10 mg PO BID 10/24/20 [History] carvediloL [Coreg] 3.125 mg PO BID 10/24/20 [History] Apixaban [Eliquis] 5 mg PO BID 05/29/22 [History] Carbidopa/Levodopa [Carbidopa-Levo ER 25-100 Tab] 1 tab PO TID@0700,1300,1900 05/29/22 [History] Ipratropium-Albuterol Nebulize [Duoneb 0.5 mg-3 mg/3 ml Soln] 3 ml INHALATION RT-Q6H PRN 05/29/22 [History] Multivitamins, Thera [Multivitamin (formulary)] 1 tab PO DAILY 05/29/22 [History] Acetaminophen Tab [Tylenol] 650 mg PO Q6HR PRN 06/12/22 [History] Amoxic-Pot Clav 875-125Mg [Augmentin 875-125] 1 tab PO Q12HR 06/12/22 [History] traMADol HCl [Ultram] 50 mg PO Q8H PRN 06/12/22 [History] Follow up Appointment(s)/Referral(s): Zach Salcedo MD [Primary Care Provider] - 1-2 days Discharge Disposition: [facility]
== END 2022-06-17 11:48 | disposition still patient (30) | DRG 871 ==
LOC: EC 04:21 → 3SCARD 07:34
PROVIDERS: ADMIT Hospitalist; ATTEND Hospitalist
PROC: 5A09357 Assistance with Respiratory Ventilation, Less than 24 Consecutive Hours, Continuous Positive Airway Pressure (ICD-10-PCS; principal; 2022-06-12)
PROC: 5A0945A Assistance with Respiratory Ventilation, 24-96 Consecutive Hours, High Flow/Velocity Cannula (ICD-10-PCS; 2022-06-13)
DX: A41.81 Sepsis due to Enterococcus (principal); G93.41 Metabolic encephalopathy; J69.0 Pneumonitis due to inhalation of food and vomit; J96.21 Acute and chronic respiratory failure with hypoxia; J96.22 Acute and chronic respiratory failure with hypercapnia; D68.2 Hereditary deficiency of other clotting factors; E87.0 Hyperosmolality and hypernatremia; J90 Pleural effusion, not elsewhere classified; M48.56XA Collapsed vertebra, not elsewhere classified, lumbar region, initial encounter for fracture; M48.54XA Collapsed vertebra, not elsewhere classified, thoracic region, initial encounter for fracture; Z16.21 Resistance to vancomycin; J98.11 Atelectasis; J98.19 Other pulmonary collapse; N39.0 Urinary tract infection, site not specified; G20 Parkinson's disease; F02.80 Dementia in other diseases classified elsewhere, unspecified severity, without behavioral disturbance, psychotic disturbance, mood disturbance, and anxiety; G25.81 Restless legs syndrome; I16.0 Hypertensive urgency; E66.9 Obesity, unspecified; I10 Essential (primary) hypertension; Z68.31 Body mass index [BMI] 31.0-31.9, adult; I48.91 Unspecified atrial fibrillation; F41.9 Anxiety disorder, unspecified; Z66 Do not resuscitate; Z51.5 Encounter for palliative care; R00.0 Tachycardia, unspecified; B95.2 Enterococcus as the cause of diseases classified elsewhere; R53.81 Other malaise; R13.10 Dysphagia, unspecified; J98.4 Other disorders of lung; E87.70 Fluid overload, unspecified; B96.1 Klebsiella pneumoniae [K. pneumoniae] as the cause of diseases classified elsewhere; I87.8 Other specified disorders of veins; R74.8 Abnormal levels of other serum enzymes; R79.89 Other specified abnormal findings of blood chemistry; R60.0 Localized edema; G89.29 Other chronic pain; Z96.653 Presence of artificial knee joint, bilateral; Z20.822 Contact with and (suspected) exposure to COVID-19; Z87.440 Personal history of urinary (tract) infections; Z86.711 Personal history of pulmonary embolism; Z86.718 Personal history of other venous thrombosis and embolism; Z79.899 Other long term (current) drug therapy; Z79.01 Long term (current) use of anticoagulants; Z88.6 Allergy status to analgesic agent; Z90.710 Acquired absence of both cervix and uterus; Z82.49 Family history of ischemic heart disease and other diseases of the circulatory system
CPT/HCPCS: 36415; 36600; 71045; 71275; 80048; 80053; 80076; 81001; 82805; 83605; 83735; 83880; 84132; 84145; 84484; 85025; 85379; 85610; 85730; 86140; 87040; 87502; 87635; 93005; 93306; 94640; 94660; 94760

== ENCOUNTER 2022-06-17 11:27 | Inpatient (IN) | payer MEDICAID ==
[2022-06-17] MEDS ORDERED: ONDANSETRON 4 MG/2 ML VIAL IVP PRN (11:28)
[2022-06-17] MEDS ORDERED: ACETAMINOPHEN SUPPOSITORY 650 MG SUPP RECTAL PRN (11:28)
[2022-06-17] MEDS ORDERED: ATROPINE OPHTH SOLN 1% 5ML BTL SUBLINGUAL PRN (11:28)
[2022-06-17] MEDS ORDERED: GLYCOPYRROLATE 0.2 MG/ML 2 ML VIAL IVP PRN (11:28)
[2022-06-17] MEDS ORDERED: SCOPOLAMINE 1 MG/72 HR PATCH TRANSDERM SCH (11:30)
[2022-06-17] MEDS: MORPHINE SULFATE (100 MG/2 ML) 100 MG in SODIUM CHLORIDE 0.9% 100 ML IV SCH (12:10)
[2022-06-17] MEDS: LORazepam 1 MG/0.5 ML VIAL IV PRN ×2 (13:03→17:44)
[2022-06-17] MEDS: MORPHINE SULFATE 2 MG/ML SYRINGE IV PRN ×2 (13:19→17:08)
--- NOTE | 2022-06-17 14:33 | P.HPIM ---
History of Present Illness H&P Date: 06/17/22 This is an 82 year old female with medical history significant for dementia, pneumonia, DVT PE, hypertension, Parkinson's presents to the hospital from rehab for acute respiratory distress. Patient was hypertensive on admission and required nitroglycerin infusing and was placed on BiPAP with an FiO2 of 70%. Patient was recently hospitalized she was treated for aspiration pneumonia received IV Zosyn and was discharged on antibiotics to rehab on 06/10/2022. Patient was evaluated in the [facility] and CT angiography was completed as a d-dimer was elevated at 1.10. There was no evidence for pulmonary embolism however CT angiography reveals increasing consolidation right lung may reflect atelectasis and/or infiltrate with a possible loculated pleural effusion. She was started on IV antibiotics and pulmonary was consulted for evaluation. Troponin level was negative, proBNP was negative Covid was negative, influenza A and B were negative. Procalcitonin found to be 0.05. Patient presented with white count of 5.5. Patient underwent echocardiogram which shows ejection fraction 55-60%. There is severe concentric left ventricular hypertrophy. There is mild pulmonary hypertension. Mild aortic stenosis. Patient continues with significant respiratory distress and on 06/15/2022 a chest x-ray was completed which shows new complete opacification right hemithorax suspected underlying effusion with atelectasis infiltrate or other pathology not excluded. There is also mild patchy density left lower lobe. Speech therapy was reconsulted patient had been maintained and dysphagia level I diet with nectar thick liquids. However after reevaluation on 06/14/2022 patient was placed nothing by mouth status due to silent aspiration and worsening status overall with supervised ice chips. Possible modified barium swallow once patient was more stable from respiratory standpoint. CODE STATUS is a DO NOT RESUSCITATE and patient expresses desire to not have a PEG tube inserted. Patient continued over the weekend with significant respiratory distress and was undecided about comfort care measures for the patient. Pulmonary evaluated patient over the weekend as well and continues on antibiotics in 100% BiPAP with a poor prognosis. After reevaluation today on 06/17/2022 discussion of the bedside with the he verbalizes a desire for patient to be more comfortable. After discussing that blood cultures and chest x-ray have been ordered for patient he states that he would like no further aggressive measures or treatment for the patient. He is agreeing to comfort measures and hospice was consulted. Patient is tachypneic with accessory muscles use and respiratory rate in the 30s. Pulse oximetry is 83% on BiPAP with FiO2 100%. REVIEW OF SYSTEMS: CONSTITUTIONAL: No fever. Reports malaise, fatigue HEENT: No recent visual problems or hearing problems. Denied any sore throat. CARDIOVASCULAR: No chest pain, orthopnea, PND, no palpitations, no syncope. PULMONARY: Reports shortness of breath. GASTROINTESTINAL: No diarrhea, no nausea, no vomiting, no abdominal pain. NEUROLOGICAL: No headaches, no weakness, no numbness. HEMATOLOGICAL: Denies any bleeding or petechiae. GENITOURINARY: Denies any burning micturition, frequency, or urgency. MUSCULOSKELETAL/RHEUMATOLOGICAL: Reports back pain. ENDOCRINE: Denies any polyuria or polydipsia. The rest of the 14-point review of systems is negative. PHYSICAL EXAMINATION: GENERAL: The patient is alert and oriented x1-2, in mild respiratory distress, tachypneic. HEENT: Pupils are round and equally reacting to light. EOMI. No scleral icterus. No conjunctival pallor. Normocephalic, atraumatic. No pharyngeal erythema. No thyromegaly. CARDIOVASCULAR: S1 and S2 present. Tachycardic. No murmurs, rubs, or gallops. PULMONARY: Diminished no lung sounds noted right base. ABDOMEN: Soft, nontender, nondistended, normoactive bowel sounds. No palpable organomegaly. MUSCULOSKELETAL: No joint swelling or deformity. EXTREMITIES: No cyanosis, clubbing. Mild lower extremity edema, chronic skin changes. NEUROLOGICAL: Pt on bipap, weak, difficult to complete full neurological exam. SKIN: No rashes. Assessment and plan Assessment Acute on chronic hypoxic respiratory failure secondary to increasing right lower lobe infiltrate vs. pleural effusion, there is also lung mass found. proBNP is not suggestive of acute heart failure, and patient with known history of dysphagia with recent antibiotic treatment for possible aspiration pneumonia. Patient is now NPO with speech evaluation showing silent aspiration. Most recent xray showing complete opacification right hemithorax possible mucus plug/aspiration. Continues on 100% BiPAP is a DNR with oxygenation saturations 83%. Patient is now being transitioned to hospice care. would like no further agressive measures or treatment. 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 Patient is most likely continuing to aspirate and has a possible mucous plug. She continues with poor oxygen saturation despite 100% BiPAP. She is being followed by pulmonary and ID services. Patient is tachypneic on examination and is poorly responsive, she is using accessory muscles to breathe. She has not improved during hospital stay and speech therapy has placed patient NPO as she continues wtih silent aspiration. She is a DO NOT RESUSCITATE and patient and family do not desire for PEG tube insertion. After discussing with family and patient continued with significant respiratory distress over the weekend patient's has decided today to proceed with comfort measures and hospice has been consulted. Gladys who is the patient's goddaughter after discussion with the requested that she be contacted and she does live 11 hours away and will be coming to see the patient tomorrow morning. She has been started on morphine infusion. The impression and plan of care has been dictated by Lillian Pradhan, Nurse Practitioner as directed. Dr. Babar MD I have performed a history and physical examination and medical decision making of this patient, discussed the same with the dictator, and agree with the dictators assessment and plan as written, documented as a scribe. Based on total visit time, I have performed more than 50% of this visit. Past Medical History Past Medical History: Atrial Fibrillation, Blood Disorder, Dementia, Deep Vein Thrombosis (DVT), Hypertension, Musculoskeletal Disorder, Neurologic Disorder, Pneumonia, Pulmonary Embolus (PE), Skin Disorder Additional Past Medical History / Comment(s): Pt recently admitted to [facility] on 05/29/22 with possible aspiration pneumonia, acute hypoxia, UTI/klebsiella. Other hx: Advanced dementia, factor V, FALLS, RLS, R pleural effusion, parkinson's disease, skin tears L arm History of Any Multi-Drug Resistant Organisms: None Reported Past Surgical History: Hysterectomy, Joint Replacement Additional Past Surgical History / Comment(s): Bilateral total knee arthroplasties Past Anesthesia/Blood Transfusion Reactions: No Reported Reaction Smoking Status: Never smoker - Past Family History Mother Family Medical History: Blood Disorder, Deep Vein Thrombosis (DVT), Pulmonary Embolus Sister(s) Family Medical History: Blood Disorder, Deep Vein Thrombosis (DVT), Pulmonary Embolus Brother(s) Family Medical History: Blood Disorder, Deep Vein Thrombosis (DVT), Pulmonary Embolus Medications and Allergies Home Medications Medication Instructions Recorded Confirmed Type Donepezil [Aricept] 10 mg PO HS 12/26/16 06/17/22 History OLANZapine [Olanzapine] 10 mg PO HS 12/26/16 06/17/22 History rOPINIRole HCL [Requip] 2 mg PO TID@0700,1300,1900 12/26/16 06/17/22 History Citalopram Hydrobromide [CeleXA] 10 mg PO DAILY 10/24/20 06/17/22 History Furosemide [Lasix] 20 mg PO DIRECTED PRN 10/24/20 06/17/22 History Memantine [Namenda] 10 mg PO BID 10/24/20 06/17/22 History carvediloL [Coreg] 3.125 mg PO BID 10/24/20 06/17/22 History Apixaban [Eliquis] 5 mg PO BID 05/29/22 06/17/22 History Carbidopa/Levodopa [Carbidopa-Levo 1 tab PO TID@0700,1300,1900 05/29/22 06/17/22 History ER 25-100 Tab] Ipratropium-Albuterol Nebulize 3 ml INHALATION RT-Q6H PRN 05/29/22 06/17/22 History [Duoneb 0.5 mg-3 mg/3 ml Soln] Multivitamins, Thera [Multivitamin 1 tab PO DAILY 05/29/22 06/17/22 History (formulary)] Acetaminophen Tab [Tylenol] 650 mg PO Q6HR PRN 06/12/22 06/17/22 History Amoxic-Pot Clav 875-125Mg 1 tab PO Q12HR 06/12/22 06/17/22 History [Augmentin 875-125] traMADol HCl [Ultram] 50 mg PO Q8H PRN 06/12/22 06/17/22 History Allergies Allergy/AdvReac Type Severity Reaction Status Date / Time aspirin Allergy Swelling Verified 06/17/22 12:58 Physical Exam Vitals: Intake and Output 06/16/22 06/17/22 06/17/22 22:59 06:59 14:59 Intake Total 0.748 Balance 0.748 Intake: Intake, IV Titration 0.748 Amount Morphine Sulfate (100 mg/ 0.748 2 ml) 100 mg In Sodium Chloride 0.9% 100 ml @ 1 MG/HR 1.02 mls/hr IV . Q24H [facility] Rx#:[id number] Other: Weight 77 kg Assessment and Plan Time with Patient: Less than 30
[2022-06-18] MEDS: MORPHINE SULFATE (100 MG/2 ML) 100 MG in SODIUM CHLORIDE 0.9% 100 ML IV SCH (02:57)
[2022-06-18 08:53] VITALS: PULSE 74; RESP 11
--- NOTE | 2022-06-18 15:16 | P.DS ---
Providers Date of admission: 06/17/22 11:56 Attending physician: Thomas Venegas Primary care physician: Zach Salcedo Hospital Course: Diagnosis Acute on chronic hypoxic respiratory failure secondary to increasing right lower lobe infiltrate vs. pleural effusion, there is also lung mass found. proBNP is not suggestive of acute heart failure, and patient with known history of dysphagia with recent antibiotic treatment for possible aspiration pneumonia. Patient is now NPO with speech evaluation showing silent aspiration. Most recent xray showing complete opacification right hemithorax possible mucus plug/aspiration. Continues on 100% BiPAP is a DNR with oxygenation saturations 83%. Patient is now being transitioned to hospice care. would like no further agressive measures or treatment. 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 She was started on hospice yesterday and was placed on morphine gtt for comfort. Preliminary cause of Acute on chronic hypoxemic and hypercapnic respirat ory failure most likely from aspiration pneumonia or mucus plugging. Hospital Course Please see medical H & P for additional information. Thank you for allowing us to participate in the care of this patient. The impression and plan of care has been dictated by Lillian Pradhan, Nurse Practitioner as directed. Dr. Babar MD I have performed a history and physical examination and medical decision making of this patient, discussed the same with the dictator, and agree with the dictators assessment and plan as written, documented as a scribe. Based on total visit time, I have performed more than 50% of this visit. Plan - Discharge Summary New Discharge Prescriptions: No Action rOPINIRole HCL [Requip] 2 mg PO TID@0700,1300,1900 OLANZapine [Olanzapine] 10 mg PO HS Donepezil [Aricept] 10 mg PO HS Memantine [Namenda] 10 mg PO BID carvediloL [Coreg] 3.125 mg PO BID Furosemide [Lasix] 20 mg PO DIRECTED PRN PRN Reason: Edema Citalopram Hydrobromide [CeleXA] 10 mg PO DAILY Ipratropium-Albuterol Nebulize [Duoneb 0.5 mg-3 mg/3 ml Soln] 3 ml INHALATION RT-Q6H PRN PRN Reason: Shortness Of Breath Apixaban [Eliquis] 5 mg PO BID Multivitamins, Thera [Multivitamin (formulary)] 1 tab PO DAILY Carbidopa/Levodopa [Carbidopa-Levo ER 25-100 Tab] 1 tab PO TID@0700,1300,1900 Amoxic-Pot Clav 875-125Mg [Augmentin 875-125] 1 tab PO Q12HR traMADol HCl [Ultram] 50 mg PO Q8H PRN PRN Reason: Pain Acetaminophen Tab [Tylenol] 650 mg PO Q6HR PRN PRN Reason: Fever And/ Or Pain Discharge Medication List Donepezil [Aricept] 10 mg PO HS 12/26/16 [History] OLANZapine [Olanzapine] 10 mg PO HS 12/26/16 [History] rOPINIRole HCL [Requip] 2 mg PO TID@0700,1300,1900 12/26/16 [History] Citalopram Hydrobromide [CeleXA] 10 mg PO DAILY 10/24/20 [History] Furosemide [Lasix] 20 mg PO DIRECTED PRN 10/24/20 [History] Memantine [Namenda] 10 mg PO BID 10/24/20 [History] carvediloL [Coreg] 3.125 mg PO BID 10/24/20 [History] Apixaban [Eliquis] 5 mg PO BID 05/29/22 [History] Carbidopa/Levodopa [Carbidopa-Levo ER 25-100 Tab] 1 tab PO TID@0700,1300,1900 05/29/22 [History] Ipratropium-Albuterol Nebulize [Duoneb 0.5 mg-3 mg/3 ml Soln] 3 ml INHALATION RT-Q6H PRN 05/29/22 [History] Multivitamins, Thera [Multivitamin (formulary)] 1 tab PO DAILY 05/29/22 [History] Acetaminophen Tab [Tylenol] 650 mg PO Q6HR PRN 06/12/22 [History] Amoxic-Pot Clav 875-125Mg [Augmentin 875-125] 1 tab PO Q12HR 06/12/22 [History] traMADol HCl [Ultram] 50 mg PO Q8H PRN 06/12/22 [History] Discharge Disposition: - Preliminary Cause of Preliminary Cause of : Acute on chronic hypoxemic and hypercapnic respiratory failure
== END 2022-06-18 09:39 | disposition expired | DRG 951 ==
LOC: 3SCARD 11:56
PROVIDERS: ADMIT Hospitalist; ATTEND Hospitalist
PROC: 5A09357 Assistance with Respiratory Ventilation, Less than 24 Consecutive Hours, Continuous Positive Airway Pressure (ICD-10-PCS; principal; 2022-06-17)
DX: Z51.5 Encounter for palliative care (principal); J96.21 Acute and chronic respiratory failure with hypoxia; J96.22 Acute and chronic respiratory failure with hypercapnia; J69.0 Pneumonitis due to inhalation of food and vomit; D68.2 Hereditary deficiency of other clotting factors; T17.890A Other foreign object in other parts of respiratory tract causing asphyxiation, initial encounter; Z66 Do not resuscitate; Z20.822 Contact with and (suspected) exposure to COVID-19; F02.80 Dementia in other diseases classified elsewhere, unspecified severity, without behavioral disturbance, psychotic disturbance, mood disturbance, and anxiety; G20 Parkinson's disease; G25.81 Restless legs syndrome; R13.10 Dysphagia, unspecified; I10 Essential (primary) hypertension; I27.20 Pulmonary hypertension, unspecified; I48.91 Unspecified atrial fibrillation; Z79.01 Long term (current) use of anticoagulants; Z79.899 Other long term (current) drug therapy; Z86.711 Personal history of pulmonary embolism; Z86.718 Personal history of other venous thrombosis and embolism; Z87.01 Personal history of pneumonia (recurrent); Z90.710 Acquired absence of both cervix and uterus; Z96.653 Presence of artificial knee joint, bilateral; Z88.6 Allergy status to analgesic agent; Z87.440 Personal history of urinary (tract) infections